=== PATIENT | female | born 1990 | race African-American/Black ===

== ENCOUNTER 2017-10-22 14:16 | Emergency (ER) | payer OTHER ==
--- OUTSIDE RECORDS SUMMARY | 2017-10-22 14:19 | XMS REPORT ---
:1990 [facility] Address [address] [place] [address] [address] [address] Care Team Providers Name Role Phone ANDREYALEXANDERMIREYA VEE Unavailable Unavailable Problems This patient has no known problems. Allergies, Adverse Reactions, Alerts This patient has no known allergies or adverse reactions. Medications This patient has no known medications. Results Test Description Test Time Test Comments Text Results Atomic Results Result Comments BLOOD CULTURE 2017-06-03 10:00:00 Test Item Value Reference Range Comments CULTURE (BEAKER) (test vtlc=3630) No growth in 5 days BLOOD [id number] 10:00:00 Test Item Value Reference Range Comments CULTURE (BEAKER) (test iaeq=0694) No growth in 5 days PROTHROMBIN GENE [id number] 08:45:00 Test Item Value Reference Range Comments PROTHROMBIN/FACTOR II Negative for the P36123A (XP InvestimentosAKER) (test bgjl=6723) (Prothrombin/Factor II) mutation. [id number](MAGALI Dunn M.D. (electonic ) (test efxv=2748) signature) This test is a genotyping assay which evaluates the DNA sequence at position 42243 of the prothrombin (Factor II) gene. A region of the prothrombin (Factor II) gene is amplified by polymerase chain reaction followed by fluorescent monitoring of a specific pair of hybridized probes. Since genetic variation and other factors can affect the accuracy of direct mutation testing, these results should be interpreted in light of clinical and familial data.This test was developed and its performance characteristics determined by the [facility] Pathology Department, Section of Molecular Pathology. It has not been cleared or approved by the U.S. Food and Drug Administration (FDA), since FDA approval is not required for clinical use of the test. Validation was done as required by the Clinical Laboratory Improvement Amendments of 1988.FACTOR 5 LEIDEN PCR (THROMBOTIC RISK)2017-06-02 08:43:00 Test Item Value Reference Range Comments FACTOR V LEIDEN (BEAKER) Negative for the R506Q (Factor (test pfwd=755) V Leiden) mutation [id number]-872 (BEAKER) Dudley Dunn M.D. (electonic (test ngbk=0381) signature) This test is a genotyping assay which evaluates the DNA sequence corresponding to Codon 506 of the Factor V Gene. A region of the Factor V Gene is amplified by polymerase chain reaction followed by fluorescent monitoring of a specific pair of hybridized probes. Since genetic variation and other factors can affect the accuracy of direct mutation testing, these results should be interpreted in light ofclinical and familial data.This test was developed and its performance characteristics determined bythe [facility] Pathology Department, Section of Molecular Pathology. It has not been cleared or approved by the U.S. Food and Drug Administration (FDA), since FDA approval is not required for clinical use of the test. Validation was done as required by the Clinical Laboratory Improvement Amendments of 1988.DILUTE HOMA VIPER VENOM ( DRVV)2017-06-02 07:39:00 Test Item Value Reference Range Comments PROTIME (BEAKER) (test 16.4 seconds 11.7-14.7 wuzs=024) INR (BEAKER) (test dxbc=099) 1.3 <=5.9 PARTIAL THROMBOPLASTIN TIME 52.7 seconds 22.5-36.0 (BEAKER) (test yonj=821) DRVV INTERPRETATION (BEAKER) Negative screen for Lupus (test dygv=8650) Anticoagulant [id number] (BEAKER) Dudley Dunn M.D. (test orfz=4203) (electonic signature) DRVV SCREEN RATIO (BEAKER) 0.76 <1.20 (test oxiw=1415) CBC W/PLT COUNT & AUTO [id number] 14:03:00 Test Item Value Reference Range Comments WHITE BLOOD CELL COUNT (BEAKER) (test errb=125) 3.9 K/ L 3.5-10.5 RED BLOOD CELL COUNT (BEAKER) (test qhpl=344) 3.71 M/ L 3.93-5.22 HEMOGLOBIN (BEAKER) (test ebmj=842) 10.1 GM/DL 11.2-15.7 HEMATOCRIT (BEAKER) (test cmuz=945) 30.9 % 34.1-44.9 MEAN CORPUSCULAR VOLUME (BEAKER) (test bvgb=655) 83.3 fL 79.4-94.8 MEAN CORPUSCULAR HEMOGLOBIN (BEAKER) (test 27.2 pg 25.6-32.2 owsz=193) MEAN CORPUSCULAR HEMOGLOBIN CONC (BEAKER) (test 32.7 GM/DL 32.2-35.5 bsaf=961) RED CELL DISTRIBUTION WIDTH (BEAKER) (test 13.4 % 11.7-14.4 bshb=724) PLATELET COUNT (BEAKER) (test wluo=664) 130 K/CU MM 150-450 MEAN PLATELET VOLUME (BEAKER) (test edeu=329) 11.1 fL 9.4-12.3 NUCLEATED RED BLOOD CELLS (BEAKER) (test 0 /100 WBC 0-0 gnkk=743) NEUTROPHILS RELATIVE PERCENT (BEAKER) (test 17 % msbc=341) LYMPHOCYTES RELATIVE PERCENT (BEAKER) (test 74 % ivqn=982) MONOCYTES RELATIVE PERCENT (BEAKER) (test 5 % biaq=701) EOSINOPHILS RELATIVE PERCENT (BEAKER) (test 2 % fury=913) BASOPHILS RELATIVE PERCENT (BEAKER) (test 1 % yyoi=834) NEUTROPHILS ABSOLUTE COUNT (BEAKER) (test 0.67 K/ L 1.56-6.13 opok=769) LYMPHOCYTES ABSOLUTE COUNT (BEAKER) (test 2.86 K/ L 1.18-3.74 yhmj=466) MONOCYTES ABSOLUTE COUNT (BEAKER) (test 0.21 K/ L 0.24-0.36 peqe=888) EOSINOPHILS ABSOLUTE COUNT (BEAKER) (test 0.09 K/ L 0.04-0.36 dkwj=427) BASOPHILS ABSOLUTE COUNT (BEAKER) (test 0.03 K/ L 0.01-0.08 puqx=498) IMMATURE GRANULOCYTES-RELATIVE PERCENT (BEAKER) 0 % 0-1 (test lpiq=7462) (MANUAL DIFFERENTIAL)2017-06-01 14:03:00 Test Item Value Reference Range Comments TOTAL COUNTED (BEAKER) (test dzmu=6327) WBC MORPHOLOGY (BEAKER) (test dmfs=717) Normal PLT MORPHOLOGY (BEAKER) (test aacb=830) Normal RBC MORPHOLOGY (BEAKER) (test ltrt=010) Normal BASIC METABOLIC [id number] 10:08:00 Test Item Value Reference Range Comments SODIUM (BEAKER) (test 139 meq/L 136-145 ocnb=493) POTASSIUM (BEAKER) (test 3.9 meq/L 3.5-5.1 nbij=276) CHLORIDE (BEAKER) (test 106 meq/L 98-107 njcf=950) CO2 (BEAKER) (test 26 meq/L 22-29 utqy=181) BLOOD UREA NITROGEN 11 mg/dL 7-21 (BEAKER) (test yjog=784) CREATININE (BEAKER) (test 0.70 mg/dL 0.57-1.25 madr=793) GLUCOSE RANDOM (BEAKER) 66 mg/dL 70-105 (test jyrl=063) CALCIUM (BEAKER) (test 7.7 mg/dL 8.4-10.2 xykq=943) EGFR (BEAKER) (test 122 mL/min/1.73 sq m ESTIMATED GFR IS NOT xhna=1735) ACCURATE CREATININE CLEARANCE IN PREDICTING GLOMERULAR FILTRATION RATE. ESTIMATED GFR IS NOT APPLICABLE FOR DIALYSIS PATIENTS. POCT-GLUCOSE [id number] 08:35:00 Test Item Value Reference Range Comments POC-GLUCOSE METER (BEAKER) 72 mg/dL 70-110 TESTED AT [address] (test wszi=1494) [place] [address] ANTI-NUCLEAR ANTIBODY (MARIA ISABEL)2017-06-01 03:41:00 Test Item Value Reference Range Comments ANTI-NUCLEAR ANTIBODY (MARIA ISABEL) (BEAKER) (test Negative Negative rymq=256) POCT-GLUCOSE [id number] 22:27:00 Test Item Value Reference Range Comments POC-GLUCOSE METER (BEAKER) 111 mg/dL 70-110 TESTED AT [address] (test jial=0577) [place] [address] MR, BRAIN, WITHOUT [id number] 17:48:00FINAL REPORT MRI brain and MRA head and neck without contrast 05/31/2017 5:44 PM CLINICAL INDICATION: Stroke TECHNIQUE: Multiplanar, multisequence MR imaging of the brain was performed utilizing the following imaging sequences: Axial T1, T2 , FLAIR, GRE, and DWI; sagittal and coronal T1-weighted images. Two- and three- dimensional nomd-tk-jsvrse MRA images of the intra- and extracranial carotid and vertebral arterial circulations were obtained, from which maximal intensity projection 3-D reconstructions were created. COMPARISON: None available FINDINGS : MRI: There is tortuosity of and fluid within the optic nerve sheath complexes. The lateral ventricles have a pinched appearance. The pituitary gland is flattened against the floor of the sella turcica. There is no infarct, hematoma, hydrocephalus, or extra-axial collection. Normal appearing flow-voids are present in the major intracranial vascular structures. The pineal region, craniocervical junction, and skull base are unremarkable MRA neck: There is no vessel occlusion or flow-limiting stenosis. There is no NASCET-quantifiable cervical internal carotid artery stenosis. Flow is antegrade in both vertebral arteries. MRA iqu[place] of Haq: There is no vessel occlusion, flow-limiting stenosis, or aneurysm. IMPRESSION: 1. Findings that may reflect increased intracranial pressure. Consider further evaluation with intracranial MRA to exclude venous sinus thrombosis/stenosis.2. Unremarkable extracranial and intracranial MRAs. Signed: Patrick Lynne [facility] Verified Date/Time: 2017 17:48:23 Reading Location: [facility] Radiology Reading Room MR, MRA, BRAIN, WITHOUT [id number] 17:48:00FINAL REPORT MRI brain and MRA head and neck without contrast 05/31/2017 5:44 PM CLINICAL INDICATION: Stroke TECHNIQUE: Multiplanar, multisequence MR imaging of the brain was performed utilizing the following imaging sequences: Axial T1, T2, FLAIR, GRE, and DWI; sagittal and coronal T1-weighted images. Two- and three- dimensional lvns-dl-qffetv MRA images of the intra- and extracranial carotid and vertebral arterial circulations were obtained, from which maximal intensity projection 3-D reconstructions were created. COMPARISON: None available FINDINGS : MRI: There is tortuosity of and fluid within the optic nerve sheath complexes. The lateral ventricles have a pinched appearance. The pituitary gland is flattened against the floor of the sella turcica. There is no infarct, hematoma, hydrocephalus, or extra-axial collection. Normal appearing flow-voids are present in the major intracranial vascular structures. The pineal region, craniocervical junction, and skull base are unremarkable MRA neck: There is no vessel occlusion or flow-limiting stenosis. There is no NASCET-quantifiable cervical internal carotid artery stenosis. Flow is antegrade in both vertebral arteries. MRA [place] of [place]q: There is no vessel occlusion, flow-limiting stenosis, or aneurysm. IMPRESSION: 1. Findings that may reflect increased intracranial pressure. Consider further evaluation with intracranial MRA to exclude venous sinus thrombosis/stenosis.2. Unremarkable extracranial and intracranial MRAs. Signed: Patrick Lynne Verified Date/Time: 2017 17:48:23 Reading Location: [facility] Radiology Reading Room MR, MRA, NECK, WITH IV [id number] 17:48:00Please perform without contrastFINAL REPORT MRI brain and MRA head and neck without contrast 5:44 PM CLINICAL INDICATION: Stroke TECHNIQUE: Multiplanar, multisequence MR imaging of the brain was performed utilizing the following imaging sequences: Axial T1, T2, FLAIR, GRE, and DWI; sagittal and coronal T1- weighted images. Two- and three-dimensional blvl-se-riiozk MRA images of the intra- and extracranial carotid and vertebral arterial circulations were obtained, from which maximal intensity projection 3-D reconstructions were created. COMPARISON: None available FINDINGS: MRI: There is tortuosity of and fluid within the optic nerve sheath complexes. The lateral ventricles have a pinched appearance. The pituitary gland is flattened against the floor of the sella turcica. There is no infarct, hematoma, hydrocephalus, or extra-axial collection. Normal appearing flow-voids are present in the major intracranial vascular structures. The pineal region, craniocervical junction, and skull base are unremarkable MRA neck: There is no vessel occlusion or flow-limiting stenosis. There is no NASCET-quantifiable cervical internal carotid artery stenosis. Flow is antegrade in both vertebral arteries. MRA [place] of [place]q: There is no vessel occlusion, flow-limiting stenosis, or aneurysm. IMPRESSION: 1. Findings that may reflect increased intracranial pressure. Consider further evaluation with intracranial MRA to exclude venous sinus thrombosis/stenosis.2. Unremarkable extracranial and intracranial MRAs. Signed: Patrick Lynneeport Verified Date/Time: 05/31/2017 17:48:23 Reading Location: [facility] Radiology Reading Room THROMBIN [id number] 14:28:00 Test Item Value Reference Range Comments THROMBIN TIME (BEAKER) (test gdxg=911) 18.5 secs 13.8-20.0 HEXAGONAL [id number] 14:28:00 Test Item Value Reference Range Comments HEXAGONAL PHOSPHOLIPID (BEAKER) (test gyws=1251) Negative 1:1 MIXING STUDY, [id number] 14:28:00 Test Item Value Reference Range Comments PROTIME (BEAKER) (test lycn=644) 16.4 seconds 11.7-14.7 PARTIAL THROMBOPLASTIN TIME (BEAKER) (test 52.7 seconds 22.5-36.0 brzd=427) PT 1/1 MIX (BEAKER) (test evzp=6440) 14.1 SECS 11.7-14.7 PTT 1/1 MIX (BEAKER) (test npoi=9233) 39.7 SECS 22.5-36.0 CARDIOLIPIN ANTIBODIES, IGG AND [id number] 11:47:00 Test Item Value Reference Range Comments ANTICARDIOLIPIN IGG ANTIBODY (BEAKER) (test < GPL hpjh=243) ANTICARDIOLIPIN IGM ANTIBODY (BEAKER) (test 0.4 MPL wpcf=572) Anticardiolipin IgG Result Interpretation:NEG: <20 GPL; U/mlPOS: >/=20 GPL; U/mlAnticardiolipin IgM Result Interpretation:NEG: <20 MPL; U/mlPOS: >/=20 MPL; U/mlCARDIOLIPIN ANTIBODIES, IGG AND [id number] 11:45:00 Test Item Value Reference Range Comments ANTICARDIOLIPIN IGG ANTIBODY (BEAKER) (test < GPL rtex=391) ANTICARDIOLIPIN IGM ANTIBODY (BEAKER) (test 0.5 MPL keph=691) Anticardiolipin IgG Result Interpretation:NEG: <20 GPL; U/mlPOS: >/=20 GPL; U/mlAnticardiolipin IgM Result Interpretation:NEG: <20 MPL; U/mlPOS: >/=20 MPL; U/mlPOCT-GLUCOSE [id number] 11:39:00 Test Item Value Reference Range Comments POC-GLUCOSE METER (BEAKER) 120 mg/dL 70-110 TESTED AT [facility] [address] (test jfvm=2320) [facility] [address] PROTEIN C [id number] 11:35:00 Test Item Value Reference Range Comments PROTEIN C ACTIVITY (BEAKER) (test gmeq=556) 65.0 % 70.0-130.0 See Protein C Antigen.CBC W/PLT COUNT & AUTO [id number] 10:02:00 Test Item Value Reference Range Comments WHITE BLOOD CELL COUNT (BEAKER) (test cxeo=141) 4.1 K/ L 3.5-10.5 RED BLOOD CELL COUNT (BEAKER) (test thtj=967) 3.68 M/ L 3.93-5.22 HEMOGLOBIN (BEAKER) (test qynh=433) 10.1 GM/DL 11.2-15.7 HEMATOCRIT (BEAKER) (test scxb=469) 30.9 % 34.1-44.9 MEAN CORPUSCULAR VOLUME (BEAKER) (test exgk=444) 84.0 fL 79.4-94.8 MEAN CORPUSCULAR HEMOGLOBIN (BEAKER) (test 27.4 pg 25.6-32.2 cjwx=204) MEAN CORPUSCULAR HEMOGLOBIN CONC (BEAKER) (test 32.7 GM/DL 32.2-35.5 tlip=963) RED CELL DISTRIBUTION WIDTH (BEAKER) (test 13.6 % 11.7-14.4 wchv=052) PLATELET COUNT (BEAKER) (test djag=497) 126 K/CU MM 150-450 MEAN PLATELET VOLUME (BEAKER) (test imgw=833) 11.6 fL 9.4-12.3 NUCLEATED RED BLOOD CELLS (BEAKER) (test 0 /100 WBC 0-0 yuxx=432) IMMATURE GRANULOCYTES-RELATIVE PERCENT (BEAKER) 0 % 0-1 (test xbht=6971) (MANUAL DIFFERENTIAL)2017-05-31 10:02:00 Test Item Value Reference Range Comments NEUTROPHILS - REL (DIFF) (BEAKER) (test sigm=3893) 21 % LYMPHOCYTES - REL (DIFF) (BEAKER) (test jeem=9772) 61 % MONOCYTES - REL (DIFF) (BEAKER) (test adtg=6694) 17 % EOSINOPHILS - REL (DIFF) (BEAKER) (test rqpp=5446) 0 % BASOPHILS - REL (DIFF) (BEAKER) (test rvci=0597) 0 % BANDS - REL (DIFF) (BEAKER) (test fysi=0401) 1 % 0-10 NEUTROPHILS - ABS (DIFF) (BEAKER) (test sikk=5651) 0.86 K/ L 1.80-8.00 LYMPHOCYTES - ABS (DIFF) (BEAKER) (test uvdk=8624) 2.50 K/ L 1.48-4.50 MONOCYTES - ABS (DIFF) (BEAKER) (test aigd=9511) 0.70 K/ L 0.00-1.30 EOSINOPHILS - ABS (DIFF) (BEAKER) (test zrfi=2226) 0.00 K/ L 0.00-0.50 BASOPHILS - ABS (DIFF) (BEAKER) (test rdyy=6919) 0.00 K/ L 0.00-0.20 BANDS-ABS (DIFF) (BEAKER) (test hilf=0793) 0.0 K/ L 0.0-0.8 TOTAL COUNTED (BEAKER) (test czjx=0380) 100 BANDS + SEGMENTED NEUTROPHILS (BEAKER) (test 0.90 xmok=7703) WBC MORPHOLOGY (BEAKER) (test fbha=506) Normal PLT MORPHOLOGY (BEAKER) (test nnxx=846) Normal RBC MORPHOLOGY (BEAKER) (test jcgy=070) Normal POCT-GLUCOSE [id number] 08:18:00 Test Item Value Reference Range Comments POC-GLUCOSE METER (BEAKER) 100 mg/dL 70-110 TESTED AT [facility] [address] [facility] (test agxe=9840) [facility] [address] BASIC METABOLIC [id number] 06:53:00 Test Item Value Reference Range Comments SODIUM (BEAKER) (test 141 meq/L 136-145 gsfg=173) POTASSIUM (BEAKER) (test 3.5 meq/L 3.5-5.1 xeij=762) CHLORIDE (BEAKER) (test 110 meq/L 98-107 ecsa=153) CO2 (BEAKER) (test 21 meq/L 22-29 khlv=205) BLOOD UREA NITROGEN 12 mg/dL 7-21 (BEAKER) (test dvuo=484) CREATININE (BEAKER) (test 0.71 mg/dL 0.57-1.25 mkni=127) GLUCOSE RANDOM (AKER) 68 mg/dL 70-105 (test ppqf=866) CALCIUM (BEAKER) (test 7.5 mg/dL 8.4-10.2 syed=590) EGFR (AKER) (test 120 mL/min/1.73 sq m ESTIMATED GFR IS NOT tkyb=1966) ACCURATE CREATININE CLEARANCE IN PREDICTING GLOMERULAR FILTRATION RATE. ESTIMATED GFR IS NOT APPLICABLE FOR DIALYSIS PATIENTS. POCT-GLUCOSE [id number] 21:28:00 Test Item Value Reference Range Comments POC-GLUCOSE METER ([facility]) 105 mg/dL 70-110 TESTED AT [address] (test khvd=1617) [place] [id number] POCT-GLUCOSE [id number] 12:53:00 Test Item Value Reference Range Comments POC-GLUCOSE METER ([facility]) 126 mg/dL 70-110 TESTED AT [address] (test jtpr=2442) [place] [id number] VANCOMYCIN LEVEL, [id number] 11:31:00 Test Item Value Reference Range Comments VANCOMYCIN TROUGH ([facility]) (test zdjc=751) 13.7 ug/mL 10.0-20.0 Draw 30 min prior to scheduled dose, HOLD if level > 20 mcg/mL, inform MD.ANTITHROMBIN [id number] 11:18:00 Test Item Value Reference Range Comments ANTITHROMBIN III ACTIVITY (BEAKER) (test nfpj=984) 67.0 % 80.0-120.0 URINE [id number] 10:46:00 Test Item Value Reference Range Comments CULTURE (BEAKER) (test qwuv=1409) No growth [id number] 07:57:00 Test Item Value Reference Range Comments HOMOCYSTEINE (BEAKER) (test bmud=495) 7.6 umol/L 5.1-15.4 LACTIC ACID, VENOUS, WHOLE [id number] 07:11:00 Test Item Value Reference Range Comments LACTATE BLOOD VENOUS (2) (BEAKER) (test 0.9 mmol/L 0.5-2.2 xnzy=0084) Effective 09/25/2015: Units/Reference Range ChangeNew: 0.5-2.2 mmol/L Previous: 5 -20 mg/dLBASIC METABOLIC [id number] 07:04:00 Test Item Value Reference Range Comments SODIUM (BEAKER) (test 141 meq/L 136-145 viac=824) POTASSIUM (BEAKER) (test 3.3 meq/L 3.5-5.1 rdxv=816) CHLORIDE (BEAKER) (test 109 meq/L 98-107 cxtq=580) CO2 (BEAKER) (test 26 meq/L 22-29 pnvd=820) BLOOD UREA NITROGEN 12 mg/dL 7-21 (BEAKER) (test azjt=195) CREATININE (BEAKER) (test 0.80 mg/dL 0.57-1.25 pkel=483) GLUCOSE RANDOM (BEAKER) 89 mg/dL 70-105 (test shrp=108) CALCIUM (BEAKER) (test 7.8 mg/dL 8.4-10.2 vibe=108) EGFR (BEAKER) (test 104 mL/min/1.73 sq m ESTIMATED GFR IS NOT oozh=5626) ACCURATE CREATININE CLEARANCE IN PREDICTING GLOMERULAR FILTRATION RATE. ESTIMATED GFR IS NOT APPLICABLE FOR DIALYSIS PATIENTS. POCT-GLUCOSE [id number] 00:35:00 Test Item Value Reference Range Comments POC-GLUCOSE METER (BEAKER) 87 mg/dL 70-110 TESTED AT [address] (test qgda=6484) [place] [address] [id number] 23:26:00 Test Item Value Reference Range Comments RPR SCREEN (BEAKER) (test phbu=252) Nonreactive Nonreactive POCT-GLUCOSE [id number] 17:52:00 Test Item Value Reference Range Comments POC-GLUCOSE METER (BEAKER) 87 mg/dL 70-110 TESTED AT [address] (test xevj=5802) [place] [address] POCT-GLUCOSE [id number] 12:58:00 Test Item Value Reference Range Comments POC-GLUCOSE METER (BEAKER) 117 mg/dL 70-110 TESTED AT [address] (test mcpi=7802) [place] [address] EEG AWAKE AND [id number] 12:51:00Reason for exam:->abnormal EEG with altered mental status, concern for statusShould this be performed at the bedside ?->YesEEG REPORT: Alyssa [facility] , DATE: EEG #: [id number] Code: #: R41.82 Altered mental status, unspecified (ICD 9: 780.97)CPT Code: #: 15036: 03. EEG coma or sleep only; 20-40 minPROCEDURE: EEG CONDITIONS OF RECORDING: This is a digital EEG performed using disc electrodes placed according to the International 10-20 system ofelectrode placement. Scalp to scalp and scalp to ear montages were used. No sedation was given.DESCRIPTION OF RECORD: The EEG record was diffusely slow with a mixed frequency background consisting of delta (2-3 cycles/ sec) and theta (5-6 cycles/ sec) frequency activity. A posterior dominant rhythmwas not apparent. The EEG background was reactive spontaneously. There was no focal asymmetry in thebackground. No epileptiform discharges were noted. No clinical or electrographic seizures were noted. Sleep stages were not seen. Hyperventilation was not performed. Photic stimulation was not performed. The heart rate was 96/ min.IMPRESSION: The EEG was abnormal due to moderate diffuse slowing of thebackground rhythm. No seizures or epileptiform discharges were seen. COMMENT: Diffuse slowing is a nonspecific finding indicative of global cerebral dysfunction of metabolic, toxic, drug-induced or other etiology.Clinical Fellow: Sherly Higginsrophysiologist: Daphne Woods HEMOGLOBIN [id number] 08:42:00 Test Item Value Reference Range Comments HEMOGLOBIN A1C (BEAKER) (test dhvr=133) 5.6 % 4.3-6.1 HIV-1 ANTIGEN WITH HIV-1/2 [id number] 05:23:00 Test Item Value Reference Range Comments HIV-1 ANTIGEN WITH HIV 1\T\2 ANTIBODY (2) Nonreactive Nonreactive (BEAKER) (test wqlm=2322) SEDIMENTATION [id number] 05:05:00 Test Item Value Reference Range Comments SEDIMENTATION RATE, ERYTHROCYTE (BEAKER) (test 48 mm/HR 0-20 xxea=372) RAD, HIP, 2 VIEWS, [id number] 03:29:00Reason for exam:->possible fall at homeFINAL REPORT RAD, HIP, 2 VIEWS, RIGHT CLINICAL INDICATION: possible fall at home COMPARISON: None TECHNIQUE: Single frontal view of the pelvis. FINDINGS:No fracture is identified. The sacroiliac joints, hip joints and symphysis pubis appear intact. Periarticular fat stripes are in place. Surrounding soft tissues are unremarkable. IMPRESSION: No acute osseous abnormality of the pelvis. Signed: JR Lomas Robert MDReport Verified Date/Time: 05/29/2017 03:29:06 Reading Location: [address] Body Reading Room CREATINE KINASE (CK), TOTAL AND [id number] 02:57:00 Test Item Value Reference Range Comments CREATINE KINASE TOTAL (BEAKER) (test euyh=315) 581 U/L 29-200 CREATINE KINASE-MB (BEAKER) (test basb=651) 1.2 ng/mL 0.0-6.6 CREATINE KINASE-MB INDEX (BEAKER) (test llgq=895) 0.2 % CK-MB Reference Range:<6.7 Normal6.7-10.0 Borderline>10.0 AbnormalTROPONIN [id number] 02:57:00 Test Item Value Reference Range Comments TROPONIN I (BEAKER) (test yrwc=713) < ng/mL 0.00-0.03 Troponin I (TnI) levels must be interpreted in the context of the presenting symptoms and the clinical findings. Elevated TnI levels indicate myocardial damage, but are not specific for ischemic heart disease. Elevated TnI levels are seen in patients with other cardiac conditions (including myocarditis and congestive heart failure), and slight TnI elevations occur in patients with other conditions, including sepsis, renal failure, acidosis, acute neurological disease, and persistent tachyarrhythmia.CREATINE KINASE (CK), TOTAL AND [id number] 02:56:00 Test Item Value Reference Range Comments CREATINE KINASE TOTAL (BEAKER) (test axox=756) 577 U/L 29-200 CREATINE KINASE-MB (BEAKER) (test yavt=802) 1.2 ng/mL 0.0-6.6 CREATINE KINASE-MB INDEX (BEAKER) (test pguu=100) 0.2 % CK-MB Reference Range:<6.7 Normal6.7-10.0 Borderline>10.0 AbnormalTROPONIN [id number] 02:56:00 Test Item Value Reference Range Comments TROPONIN I (BEAKER) (test hypj=923) < ng/mL 0.00-0.03 Troponin I (TnI) levels must be interpreted in the context of the presenting symptoms and the clinical findings. Elevated TnI levels indicate myocardial damage, but are not specific for ischemic heart disease. Elevated TnI levels are seen in patients with other cardiac conditions (including myocarditis and congestive heart failure), and slight TnI elevations occur in patients with other conditions, including sepsis, renal failure, acidosis, acute neurological disease, and persistent tachyarrhythmia.LIPID [id number] 02:53:00 Test Item Value Reference Range Comments TRIGLYCERIDES (BEAKER) (test fjaz=075) 50 mg/dL CHOLESTEROL (BEAKER) (test fpiu=982) 160 mg/dL HDL CHOLESTEROL (BEAKER) (test rpvb=692) 48 mg/dL LDL CHOLESTEROL CALCULATED (BEAKER) (test 102 mg/dL eiqt=779) Triglyceride Reference Range: Low Risk <150 Borderline 150- 199 High Risk 200-499 Very High Risk >=500Cholesterol Reference Range: Low Risk <200 Borderline 200-239 High Risk > 240HDL Cholesterol Reference Range: Low Risk >=60 High Risk <40LDL Cholesterol Reference Range: Optimal <100 Near Optimal 100-129 Borderline 130-159 High 160-189 Very High >=190BASIC METABOLIC [id number] 02:53:00 Test Item Value Reference Range Comments SODIUM (BEAKER) (test 138 meq/L 136-145 udyy=839) POTASSIUM (BEAKER) (test 3.7 meq/L 3.5-5.1 gjwx=214) CHLORIDE (BEAKER) (test 107 meq/L 98-107 iiwl=208) CO2 (BEAKER) (test 20 meq/L 22-29 jxgq=803) BLOOD UREA NITROGEN 10 mg/dL 7-21 (BEAKER) (test biec=786) CREATININE (BEAKER) (test 0.93 mg/dL 0.57-1.25 xhic=741) GLUCOSE RANDOM (BEAKER) 103 mg/dL 70-105 (test qozd=540) CALCIUM (BEAKER) (test 8.4 mg/dL 8.4-10.2 mzsl=056) EGFR (BEAKER) (test 88 mL/min/1.73 sq m ESTIMATED GFR IS NOT jqpf=8113) ACCURATE CREATININE CLEARANCE IN PREDICTING GLOMERULAR FILTRATION RATE. ESTIMATED GFR IS NOT APPLICABLE FOR DIALYSIS PATIENTS. HEPATIC FUNCTION [id number] 02:53:00 Test Item Value Reference Range Comments TOTAL PROTEIN (BEAKER) (test qmya=052) 7.6 gm/dL 6.0-8.3 ALBUMIN (BEAKER) (test uqkr=4567) 3.6 g/dL 3.5-5.0 BILIRUBIN TOTAL (BEAKER) (test ochm=805) 0.3 mg/dL 0.2-1.2 BILIRUBIN DIRECT (BEAKER) (test nxgc=095) 0.2 mg/dL 0.1-0.5 ALKALINE PHOSPHATASE (BEAKER) (test mbvj=780) 58 U/L 40-150 AST (SGOT) (BEAKER) (test atyh=715) 33 U/L 5-34 ALT (SGPT) (BEAKER) (test jhok=885) 15 U/L 6-55 [id number] 02:53:00 Test Item Value Reference Range Comments AMYLASE (BEAKER) (test cfhb=464) 74 U/L 25-125 [id number] 02:53:00 Test Item Value Reference Range Comments LIPASE (BEAKER) (test aket=533) 13 U/L 8-78 C-REACTIVE [id number] 02:53:00 Test Item Value Reference Range Comments C-REACTIVE PROTEIN (BEAKER) (test wmmy=704) 10.77 mg/dL 0.00-0.50 LACTIC ACID, ARTERIAL, WHOLE [id number] 02:47:00 Test Item Value Reference Range Comments LACTATE BLOOD ARTERIAL (2) (BEAKER) (test 0.7 mmol/L 0.5-2.2 andk=1925) Effective 09/25/2015: Units/Reference Range ChangeNew: 0.5-2.2 mmol/L Previous: 5 -20 mg/[id number] 02:36:00 Test Item Value Reference Range Comments PARTIAL THROMBOPLASTIN TIME (BEAKER) (test 51.7 seconds 22.5-36.0 mapb=366) PROTHROMBIN TIME/[id number] 02:35:00 Test Item Value Reference Range Comments PROTIME (BEAKER) (test ygsw=150) 16.3 seconds 11.7-14.7 INR (BEAKER) (test lbir=050) 1.3 <=5.9 RECOMMENDED COUMADIN/WARFARIN INR THERAPY RANGESSTANDARD DOSE: 2.0 - 3.0 Includes: PROPHYLAXIS forvenous thrombosis, systemic embolization; TREATMENT for venous thrombosis and/or pulmonary embolus.HIGH RISK: Target INR is 2.5-3.5 for patients with mechanical heart valves.CBC W/PLT COUNT & AUTO [id number] 02:35:00 Test Item Value Reference Range Comments WHITE BLOOD CELL COUNT (BEAKER) (test jwve=713) 4.0 K/ L 3.5-10.5 RED BLOOD CELL COUNT (BEAKER) (test apik=614) 4.12 M/ L 3.93-5.22 HEMOGLOBIN (BEAKER) (test fbtc=452) 11.4 GM/DL 11.2-15.7 HEMATOCRIT (BEAKER) (test ljjy=649) 33.8 % 34.1-44.9 MEAN CORPUSCULAR VOLUME (BEAKER) (test wwyl=942) 82.0 fL 79.4-94.8 MEAN CORPUSCULAR HEMOGLOBIN (BEAKER) (test 27.7 pg 25.6-32.2 dzlo=903) MEAN CORPUSCULAR HEMOGLOBIN CONC (BEAKER) (test 33.7 GM/DL 32.2-35.5 rnjy=120) RED CELL DISTRIBUTION WIDTH (BEAKER) (test 13.5 % 11.7-14.4 izea=757) PLATELET COUNT (BEAKER) (test ohey=616) 153 K/CU MM 150-450 MEAN PLATELET VOLUME (BEAKER) (test dssm=666) 10.8 fL 9.4-12.3 NUCLEATED RED BLOOD CELLS (BEAKER) (test 0 /100 WBC 0-0 kwpv=686) NEUTROPHILS RELATIVE PERCENT (BEAKER) (test 83 % flts=617) LYMPHOCYTES RELATIVE PERCENT (BEAKER) (test 14 % fmxf=756) MONOCYTES RELATIVE PERCENT (BEAKER) (test 2 % epqs=832) EOSINOPHILS RELATIVE PERCENT (BEAKER) (test 0 % frim=158) BASOPHILS RELATIVE PERCENT (BEAKER) (test 1 % zndx=059) NEUTROPHILS ABSOLUTE COUNT (BEAKER) (test 3.31 K/ L 1.56-6.13 gfed=984) LYMPHOCYTES ABSOLUTE COUNT (BEAKER) (test 0.57 K/ L 1.18-3.74 rttp=694) MONOCYTES ABSOLUTE COUNT (BEAKER) (test 0.06 K/ L 0.24-0.36 xipa=751) EOSINOPHILS ABSOLUTE COUNT (BEAKER) (test 0.00 K/ L 0.04-0.36 pmzd=868) BASOPHILS ABSOLUTE COUNT (BEAKER) (test 0.02 K/ L 0.01-0.08 irng=578) IMMATURE GRANULOCYTES-RELATIVE PERCENT (BEAKER) 0 % 0-1 (test rbwl=9578) URINALYSIS W/ [id number] 02:31:00 Test Item Value Reference Range Comments COLOR (BEAKER) (test cflv=194) Light Yellow CLARITY (BEAKER) (test ofsy=462) Clear SPECIFIC GRAVITY UA (BEAKER) (test 1.003 1.001-1.035 wqsf=825) PH UA (BEAKER) (test ymvk=660) 5.0 5.0-8.0 PROTEIN UA (BEAKER) (test pqgr=540) Negative Negative GLUCOSE UA (BEAKER) (test mozn=898) Negative Negative KETONES UA (BEAKER) (test cgaj=226) Negative Negative BILIRUBIN UA (BEAKER) (test vmho=888) Negative Negative BLOOD UA (BEAKER) (test dceb=612) Negative Negative NITRITE UA (BEAKER) (test oowb=230) Negative Negative LEUKOCYTE ESTERASE UA (BEAKER) (test Negative Negative peqi=002) UROBILINOGEN UA (BEAKER) (test zofq=623) 0.2 mg/dL 0.2-1.0 RBC UA (BEAKER) (test wuiw=037) < /HPF WBC UA (BEAKER) (test uerq=980) < /HPF BACTERIA (BEAKER) (test rmvu=096) Rare MUCUS (BEAKER) (test nvnt=0675) Rare SQUAMOUS EPITHELIAL (BEAKER) (test 1 /HPF pyvw=120) AMORPHOUS CRYSTALS (BEAKER) (test Rare vacv=3682) SOURCE(BEAKER) (test pxov=7563) Urine, Clean Catch SCREEN, [id number] 00:58:00 Test Item Value Reference Range Comments TEST URINE (BEAKER) (test azzd=548) Negative POCT-GLUCOSE [id number] 00:47:00 Test Item Value Reference Range Comments POC-GLUCOSE METER (BEAKER) 102 mg/dL 70-110 TESTED AT [facility] [address] (test tijj=2511) [facility] [id number]
--- OUTSIDE RECORDS SUMMARY | 2017-10-22 14:19 | XMS REPORT | Clinical Summary ---
:1990 Author Organization [facility] Address [address] [place] [address] Phone Care Team Providers Name Role Phone Unavailable Primary Care Provider Unavailable Allergies Active Allergy Reactions Severity Noted Date Comments Zolpidem Shortness Of Breath High 05/28/2017 Current Medications Prescription Sig. Disp. Refills Start Date End Date Status levETIRAcetam (KEPPRA) Take 1 tablet 60 tablet 11 06/01/2017 06/01/2018 Active 500 MG tablet (500 mg total) by mouth 2 (two) times daily. Active Problems Problem Noted Date Seizure disorder (HCC) 05/30/2017 Mild intermittent asthma without complication 05/30/2017 Physical deconditioning 05/30/2017 Cerebrovascular accident (CVA) due to bilateral occlusion of anterior 2017 cerebral arteries (HCC) EEG abnormal 05/28/2017 Altered mental status 05/28/2017 Fever 05/28/2017 Encounters Date Type Specialty Care Team Description 05/28/2017 - [facility] Internal [facility] Pereira, Transient alteration 06/01/2017 Encounter Medicine Chethan of MD Poly awareness;Cerebrovasc ular accident (CVA) due to bilateral occlusion of anterior cerebral arteries (HCC);EEG abnormal;Fever, unspecified fever cause;Seizure disorder (HCC);Mild intermittent asthma without complication;Physical deconditioning 05/28/2017 Orders Only Neurology Keli Sweeney MD after 10/21/2016 Social History Tobacco Use Types Packs/Day Years Used Date Never Smoker Smokeless Tobacco: Never Used Alcohol Use Drinks/Week oz/Week Comments No Sex Assigned at Date Recorded Not on file Last Filed Vital Signs Vital Sign Reading Time Taken Blood Pressure 97/59 06/01/2017 8:00 AM WATER TREATMENT SPECIALIST Pulse 61 06/01/2017 8:00 AM WATER TREATMENT SPECIALIST Temperature 36.4 C (97.6 F) 06/01/2017 8:00 AM WATER TREATMENT SPECIALIST Respiratory Rate 16 06/01/2017 8:00 AM WATER TREATMENT SPECIALIST Oxygen Saturation 98% 06/01/2017 8:00 AM WATER TREATMENT SPECIALIST Inhaled Oxygen Concentration - - Weight 40.2 kg (88 lb 10 oz) 05/28/2017 11:15 PM WATER TREATMENT SPECIALIST Height 162.6 cm (5' 4") 05/28/2017 11:15 PM WATER TREATMENT SPECIALIST Body Mass Index 15.21 05/28/2017 11:15 PM WATER TREATMENT SPECIALIST Plan of Treatment Not on file Results RHYTHM STRIP - SCAN (06/02/2017 2:12 PM)POC-Glucose meter (06/01/2017 8:33 AM) Only the most recent of10 resultswithin the time period is included. Component Value Ref Range POC-Glucose Meter 72Comment: TESTED AT [address] 70 - 110 mg/dL [id number] Specimen Performing Laboratory Blood [address] [address] Manual Differential (06/01/2017 6:39 AM)Only the most recent of2 resultswithin the time period is included. Component Value Ref Range Total Counted WBC Morphology Normal Platelet Morphology Normal RBC Morphology Normal Specimen Performing Laboratory Blood - Arm, Right [address] [address] CBC with platelet count + automated diff (06/01/2017 6:39 AM)Only the most recent of3 resultswithin the time period is included. Component Value Ref Range WBC 3.9 3.5 - 10.5 K/L RBC 3.71 (L) 3.93 - 5.22 M/L Hemoglobin 10.1 (L) 11.2 - 15.7 GM/DL Hematocrit 30.9 (L) 34.1 - 44.9 % MCV 83.3 79.4 - 94.8 fL MCH 27.2 25.6 - 32.2 pg MCHC 32.7 32.2 - 35.5 GM/DL RDW 13.4 11.7 - 14.4 % Platelets 130 (L) 150 - 450 K/CU MM MPV 11.1 9.4 - 12.3 fL nRBC 0 0 - 0 /100 WBC % Neutros 17 % % Lymphs 74 % % Monos 5 % % Eos 2 % % Baso 1 % # Neutros 0.67 (L) 1.56 - 6.13 K/L # Lymphs 2.86 1.18 - 3.74 K/L # Monos 0.21 (L) 0.24 - 0.36 K/L # Eos 0.09 0.04 - 0.36 K/L # Baso 0.03 0.01 - 0.08 K/L Immature Granulocytes-Relative 0 0 - 1 % Specimen Performing Laboratory Blood - Arm, [address] [address] CBC with platelet count + automated diff (06/01/2017 6:39 AM)Only the most recent of3 resultswithin the time period is included. Specimen Performing Laboratory Blood Narrative The following orders were created for panel order CBC with platelet count + automated diff. Procedure Abnormality Status --------- ------ CBC with platelet count ...[[id number]]AbnormalFinal result Manual Differential[[id number]] Fi nal result Please view results for these tests on the individual orders. Basic Metabolic Panel (06/01/2017 6:39 AM)Only the most recent of4 resultswithin the time period is included. Component Value Ref Range Sodium 139 136 - 145 meq/L Potassium 3.9 3.5 - 5.1 meq/L Chloride 106 98 - 107 meq/L CO2 26 22 - 29 meq/L BUN 11 7 - 21 mg/dL Creatinine 0.70 0.57 - 1.25 mg/dL Glucose 66 (L) 70 - 105 mg/dL Calcium 7.7 (L) 8.4 - 10.2 mg/dL EGFR 122Comment: ESTIMATED GFR IS NOT ACCURATE mL/min/1.73 sq m CREATININE CLEARANCE IN PREDICTING GLOMERULAR FILTRATION RATE. ESTIMATED GFR IS NOT APPLICABLE FOR DIALYSIS PATIENTS. Specimen Performing Laboratory Blood - Arm, [address] [address] MR brain without IV contrast (05/31/2017 5:45 PM) Specimen Performing Laboratory GE RIS Narrative FINAL REPORT MRI brain and MRA head and neck without contrast 05/31/2017 5:44 PM CLINICAL INDICATION: Stroke TECHNIQUE: Multiplanar, multisequence MR imaging of the brain was performed utilizing the following imaging sequences: Axial T1, T2, FLAIR, GRE, and DWI; sagittal and coronal T1-weighted images.Two- and three-dimensional oott-xc-oetrmz MRA images of the intra- and extracranial [...] is antegrade in both vertebral arteries. MRA hoh of Haq: There is no vessel occlusion, flow-limiting stenosis, or aneurysm. IMPRESSION: 1. Findings that may reflect increased intracranial pressure. Consider further evaluation with intracranial MRA to exclude venous sinus thrombosis/stenosis. 2. Unremarkable extracranial and intracranial MRAs. Signed: Patrick Lynne MD Report Verified Date/Time:05/31/2017 17:48:23 Reading Location: [facility] Radiology Reading Room Procedure Note Interface, External Ris In - 05/31/2017 7:29 PM WATER TREATMENT SPECIALIST FINAL REPORT MRI brain and MRA head and neck without contrast 05/31/2017 5:44 PM CLINICAL INDICATION: Stroke TECHNIQUE: Multiplanar, multisequence MR imaging of the brain was performed utilizing the following imaging sequences: Axial T1, T2, FLAIR, GRE, and DWI; sagittal and coronal T1-weighted images. Two- and three-dimensional lsxh-rz-okruvo MRA images of the intra- and extracranial [...] is antegrade in both vertebral arteries. MRA hoh of Haq: There is no vessel occlusion, flow-limiting stenosis, or aneurysm. IMPRESSION: 1. Findings that may reflect increased intracranial pressure. Consider further evaluation with intracranial MRA to exclude venous sinus thrombosis/stenosis. 2. Unremarkable extracranial and intracranial MRAs. Signed: Patrick Lynne MD Report Verified Date/Time: 05/31/2017 17:48:23 Reading Location: [facility] Radiology Reading Room neck with IV contrast (05/31/2017 5:45 PM) Specimen Performing Laboratory [employer] Narrative FINAL REPORT MRI brain and MRA head and neck without contrast 05/31/2017 5:44 PM CLINICAL INDICATION: Stroke TECHNIQUE: Multiplanar, multisequence MR imaging of the brain was performed utilizing the following imaging sequences: Axial T1, T2, FLAIR, GRE, and DWI; sagittal and coronal T1-weighted images.Two- and three-dimensional lqwx-yf-sxcmng MRA images of the intra- and extracranial [...] is antegrade in both vertebral arteries. MRA hoh of Haq: There is no vessel occlusion, flow-limiting stenosis, or aneurysm. IMPRESSION: 1. Findings that may reflect increased intracranial pressure. Consider further evaluation with intracranial MRA to exclude venous sinus thrombosis/stenosis. 2. Unremarkable extracranial and intracranial MRAs. Signed: Patrick Lynne MD Report Verified Date/Time:05/31/2017 17:48:23 Reading Location: [facility] Radiology Reading Room Procedure Note Interface, External Ris In - 05/31/2017 7:29 PM WATER TREATMENT SPECIALIST FINAL REPORT MRI brain and MRA head and neck without contrast 05/31/2017 5:44 PM CLINICAL INDICATION: Stroke TECHNIQUE: Multiplanar, multisequence MR imaging of the brain was performed utilizing the following imaging sequences: Axial T1, T2, FLAIR, GRE, and DWI; sagittal and coronal T1-weighted images. Two- and three-dimensional lvuf-ym-ujewgg MRA images of the intra- and extracranial [...] is antegrade in both vertebral arteries. MRA hoh of Haq: There is no vessel occlusion, flow-limiting stenosis, or aneurysm. IMPRESSION: 1. Findings that may reflect increased intracranial pressure. Consider further evaluation with intracranial MRA to exclude venous sinus thrombosis/stenosis. 2. Unremarkable extracranial and intracranial MRAs. Signed: Patrick Lynne MD Report Verified Date/Time: 05/31/2017 17:48:23 Reading Location: [facility] Radiology Reading Room head without IV contrast (05/31/2017 5:45 PM) Specimen Performing Laboratory RIS Narrative FINAL REPORT MRI brain and MRA head and neck without contrast 05/31/2017 5:44 PM CLINICAL INDICATION: Stroke TECHNIQUE: Multiplanar, multisequence MR imaging of the brain was performed utilizing the following imaging sequences: Axial T1, T2, FLAIR, GRE, and DWI; sagittal and coronal T1-weighted images.Two- and three-dimensional wzwm-of-jugvuu MRA images of the intra- and extracranial [...] is antegrade in both vertebral arteries. MRA hoh of Haq: There is no vessel occlusion, flow-limiting stenosis, or aneurysm. IMPRESSION: 1. Findings that may reflect increased intracranial pressure. Consider further evaluation with intracranial MRA to exclude venous sinus thrombosis/stenosis. 2. Unremarkable extracranial and intracranial MRAs. Signed: Patrick Lynne MD Report Verified Date/Time:05/31/2017 17:48:23 Reading Location: [facility] Radiology Reading Room Procedure Note Interface, External Ris In - 05/31/2017 7:29 PM WATER TREATMENT SPECIALIST FINAL REPORT MRI brain and MRA head and neck without contrast 05/31/2017 5:44 PM CLINICAL INDICATION: Stroke TECHNIQUE: Multiplanar, multisequence MR imaging of the brain was performed utilizing the following imaging sequences: Axial T1, T2, FLAIR, GRE, and DWI; sagittal and coronal T1-weighted images. Two- and three-dimensional jrmb-pz-ishkve MRA images of the intra- and extracranial [...] is antegrade in both vertebral arteries. MRA hoh of Haq: There is no vessel occlusion, flow-limiting stenosis, or aneurysm. IMPRESSION: 1. Findings that may reflect increased intracranial pressure. Consider further evaluation with intracranial MRA to exclude venous sinus thrombosis/stenosis. 2. Unremarkable extracranial and intracranial MRAs. Signed: Patrick Lynne MD Report Verified Date/Time: 05/31/2017 17:48:23 Reading Location: [facility] Radiology Reading Room Prothrombin Gene Mutation (05/30/2017 6:24 AM) Component Value Ref Range Prothrombin/Factor II Negative for the [id number] (Prothrombin/Factor II) mutation. Pathologist: Dudley Dunn M.D. (electonic signature) Specimen Performing Laboratory Blood - Arm, Right [address] This test is a genotyping assay which evaluates the DNA sequence at position [address]6874 of the prothrombin (Factor II) gene. A region of the prothrombin (Factor II) gene is amplified by polymerase chain reaction followed by fluorescent monitoring of a specific pair of hybridized probes. Since genetic variation and other factors can affect the accuracy of direct mutation testing, these results should be interpreted in light of clinical and familial data. This test was developed and its performance characteristics determined by the [facility] Pathology Department, Section of Molecular Pathology. It has not been cleared or approved by the U.S. Food and Drug Administration (FDA), since FDA approval is not required for clinical use of the test. Validation was done as required by the Clinical Laboratory Improvement Amendments of 1988. Lactic acid, venous, whole blood Daily (05/30/2017 6:24 AM) Component Value Ref Range Lactate, Venous 0.9 0.5 - 2.2 mmol/L Specimen Performing Laboratory Blood - Arm, [address] [address] Narrative Effective 09/25/2015: Units/Reference Range Change New: 0.5-2.2 mmol/LPrevious: 5-20 mg/dL Beta-2 glycoprotein antibodies (05/30/2017 6:24 AM) Component Value Ref Range B2 Glcoprotein Ab Profile Refer to individual B2-Glycoprotein IgG, IgM and IgA results. Specimen Performing Laboratory Blood - Arm, Right [facility] [place] [id number] [place] [address] Protein S activity (05/30/2017 6:24 AM) Component Value Ref Range Protein S Functional 25 (L) 60 - 140 % normal Comment: Decreased levels of Protein S activity may be found in patients with hereditary deficiency, warfarin therapy, vitamin k deficiency, liver disease , DIC, or recent thrombosis as well as after surgery. In addition, it may be physiologic in . An elevated Protein S activity is not clinically significant. Only deficiencies are associated with an increased thrombotic risk. Specimen Performing Laboratory Blood - Arm, Right [facility] [place] [id number] [place] [address] Narrative Performing Lab [facility] [address] Elizabeth Martinez MD Protein C antigen, total (05/30/2017 6:24 AM) Component Value Ref Range Scan Result Protein C Antigen 64 (L) 70 - 140 % normal Comment: Decreased levels of Protein C antigen may be found in congenital deficiency, treatment with oral anticoagulants, liver disease, D.I.C. and post surgery. Specimen Performing Laboratory Blood - Arm, Right [facility] [address] [place] [address] Narrative Performing Lab E[facility] [address] [address] Elizabeth Martinez MD Protein C activity (05/30/2017 6:24 AM) Component Value Ref Range Protein C Activity 65.0 (L) 70.0 - 130.0 % Specimen Performing Laboratory Blood - Arm, [place] [address] Narrative See Protein C Antigen. Cardiolipin Antibodies, IgG and IgM (05/30/2017 6:24 AM)Only the most recent of2 resultswithin the time period is included. Component Value Ref Range Anticardiolipin IgG <1.6 GPL Anticardiolipin IgM 0.4 MPL Specimen Performing Laboratory Blood - Arm, [place] [address] Narrative Anticardiolipin IgG Result Interpretation: NEG:<20 GPL;U/ml POS:>/=20 GPL;U/ml Anticardiolipin IgM Result Interpretation: NEG:<20 MPL;U/ml POS:>/=20 MPL;U/ml Factor 5 Leiden PCR (thrombotic risk) (05/30/2017 6:24 AM) Component Value Ref Range Factor V Leiden Negative for the R506Q (Factor V Leiden) mutation Pathologist: Dudley Dunn M.D. (electonic signature) Specimen Performing Laboratory Blood - Arm, [place] [address] Narrative This test is a genotyping assay which [...] interpreted in light of clinical and familial data. This test was developed and its performance characteristics determined by the [facility] Pathology Department, Section of Molecular Pathology. It has not been cleared or approved by the U.S. Food and Drug Administration (FDA) , since FDA approval is not required for clinical use of the test. Validation was done as required by the Clinical Laboratory Improvement Amendments of 1988. Antithrombin III (05/30/2017 6:24 AM) Component Value Ref Range Antithrombin III 67.0 (L) 80.0 - 120.0 % Specimen Performing Laboratory Blood - Arm, [address] [address] Homocysteine (05/30/2017 6:24 AM) Component Value Ref Range Homocysteine 7.6 5.1 - 15.4 umol/L Specimen Performing Laboratory Blood - Arm, Right [facility] [address] [place] [address] Vancomycin level, trough (05/30/2017 6:24 AM) Component Value Ref Range Vancomycin Tr 13.7 10.0 - 20.0 ug/mL Specimen Performing Laboratory Blood - Arm, Right [facility] [address] [place] [address] Narrative Draw 30 min prior to scheduled dose, HOLD if level > 20 mcg/mL, inform MD. EEG awake and drowsy (05/29/2017 11:00 AM) Specimen Performing Laboratory GE RIS Narrative EEG REPORT: Alyssa García [facility] , DATE: EEG#: [id number] ICD Code: #: R41.82 Altered mental status, unspecified (ICD 9: 780.97) CPT Code: #: 68929: 03. EEG coma or sleep only; 20-40 min PROCEDURE: EEG CONDITIONS OF RECORDING: This is a digital EEG performed using disc electrodes placed according to the International 10-20 system of electrode placement.Scalp to scalp and scalp to ear montages were used.No sedation was given. DESCRIPTION OF RECORD: The EEG record was diffusely slow with a mixed frequency background consisting of delta (2-3 cycles/ sec) and theta (5-6 cycles/ sec) frequency activity. A posterior dominant rhythm was not apparent. The EEG background was reactive spontaneously. There was no focal asymmetry in the background. No epileptiform discharges were noted. No clinical or electrographic seizures were noted. Sleep stages were not seen. Hyperventilation was not performed. Photic stimulation was not performed. The heart rate was 96/ min. IMPRESSION: The EEG was abnormal due to moderate diffuse slowing of the background rhythm. No seizures or epileptiform discharges were seen. COMMENT: Diffuse slowing is a nonspecific finding indicative of global cerebral dysfunction of metabolic, toxic, drug-induced or other etiology. Clinical Fellow: Sherly Anderson Neurophysiologist: Daphne Woods Procedure Note Interface, External Ris In - 05/29/2017 12:51 PM WATER TREATMENT SPECIALIST EEG REPORT: Alyssa García [facility] , DATE: EEG #: [id number] ICD Code: #: R41.82 Altered mental status, unspecified (ICD 9: 780.97) CPT Code: #: 44648: 03. EEG coma or sleep only; 20-40 min PROCEDURE: EEG CONDITIONS OF RECORDING: This is a digital EEG performed using disc electrodes placed according to the International 10-20 system of electrode placement. Scalp to scalp and scalp to ear montages were used. No sedation was given. DESCRIPTION OF RECORD: The EEG record was diffusely slow with a mixed frequency background consisting of delta (2-3 cycles/ sec) and theta (5-6 cycles/ sec) frequency activity. A posterior dominant rhythm was not apparent. The EEG background was reactive spontaneously. There was no focal asymmetry in the background. No epileptiform discharges were noted. No clinical or electrographic seizures were noted. Sleep stages were not seen. Hyperventilation was not performed. Photic stimulation was not performed. The heart rate was 96/ min. IMPRESSION: The EEG was abnormal due to moderate diffuse slowing of the background rhythm. No seizures or epileptiform discharges were seen. COMMENT: Diffuse slowing is a nonspecific finding indicative of global cerebral dysfunction of metabolic, toxic, drug-induced or other etiology. Clinical Fellow: Sherly Anderson Neurophysiologist: Daphne Woods hip 2 views right (05/29/2017 3:02 AM) Specimen Performing Laboratory GE RIS Narrative FINAL REPORT RAD, HIP, 2 VIEWS, RIGHT CLINICAL INDICATION: possible fall at home COMPARISON: None TECHNIQUE: Single frontal view of the pelvis. FINDINGS: No fracture is identified. The sacroiliac joints, hip joints and symphysis pubis appear intact. Periarticular fat stripes are in place. Surrounding soft tissues are unremarkable. IMPRESSION: No acute osseous abnormality of the pelvis. Signed: JR Lomas Robert MD Report Verified Date/Time:05/29/2017 03:29:06 Reading Location: [facility] B1 C013Y CT Body Reading Room Procedure Note Interface, External Ris In - 05/29/2017 3:58 AM WATER TREATMENT SPECIALIST FINAL REPORT RAD, HIP, 2 VIEWS, RIGHT CLINICAL INDICATION: possible fall at home COMPARISON: None TECHNIQUE: Single frontal view of the pelvis. FINDINGS: No fracture is identified. The sacroiliac joints, hip joints and symphysis pubis appear intact. Periarticular fat stripes are in place. Surrounding soft tissues are unremarkable. IMPRESSION: No acute osseous abnormality of the pelvis. Signed: JR Cesilia, Enrique MOE Report Verified Date/Time: 05/29/2017 03:29:06 Reading Location: [facility] B1 C013Y CT Body Reading Room Hexagonal Phospholipid (05/29/2017 1:54 AM) Component Value Ref Range Hexagonal Phospholipid Negative Specimen Performing Laboratory Blood [address] [address] Lactic acid, arterial, whole blood (05/29/2017 1:54 AM) Component Value Ref Range Lactate, Art 0.7 0.5 - 2.2 mmol/L Specimen Performing Laboratory Blood, Arterial [address] [address] Narrative Effective 09/25/2015: Units/Reference Range Change New: 0.5-2.2 mmol/LPrevious: 5-20 mg/dL aPTT (05/29/2017 1:54 AM) Component Value Ref Range PTT 51.7 (H) 22.5 - 36.0 seconds Specimen Performing Laboratory Blood [address] [address] Thrombin time (05/29/2017 1:54 AM) Component Value Ref Range Thrombin Time 18.5 13.8 - 20.0 secs Specimen Performing Laboratory Blood [address] [address] Prothrombin time/INR (05/29/2017 1:54 AM) Component Value Ref Range Protime 16.3 (H) 11.7 - 14.7 seconds INR 1.3 <=5.9 Specimen Performing Laboratory Blood [address] [address] Narrative RECOMMENDED COUMADIN/WARFARIN INR THERAPY RANGES STANDARD DOSE: 2.0 - 3.0 Includes: PROPHYLAXIS for venous thrombosis, systemic embolization; TREATMENT for venous thrombosis and/or pulmonary embolus. HIGH RISK: Target INR is 2.5-3.5 for patients with mechanical heart valves. Dilute Ish Viper Venom (DRVV) (05/29/2017 1:54 AM) Component Value Ref Range Protime 16.4 (H) 11.7 - 14.7 seconds INR 1.3 <=5.9 PTT 52.7 (H) 22.5 - 36.0 seconds Interpretations Negative screen for Lupus Anticoagulant Pathologist: Dudley Dunn M.D. (electonic signature) DRVV Screen Ratio 0.76 <1.20 Specimen Performing Laboratory [address] [address] C-Reactive Protein (05/29/2017 1:53 AM) Component Value Ref Range CRP 10.77 (H) 0.00 - 0.50 mg/dL Specimen Performing Laboratory Blood [address] [address] Troponin I (05/29/2017 1:53 AM)Only the most recent of2 resultswithin the time period is included. Component Value Ref Range Troponin I <0.01 0.00 - 0.03 ng/mL Specimen Performing Laboratory [address] [address] Narrative Troponin I (TnI) levels must be interpreted [...] failure, acidosis, acute neurological disease, and persistent tachyarrhythmia. Sedimentation rate (05/29/2017 1:53 AM) Component Value Ref Range Sed Rate 48 (H) 0 - 20 mm/HR Specimen Performing Laboratory [address] [address] Lipase (05/29/2017 1:53 AM) Component Value Ref Range Lipase 13 8 - 78 U/L Specimen Performing Laboratory [address] [address] Hemoglobin A1c (05/29/2017 1:53 AM) Component Value Ref Range Hemoglobin A1C 5.6 4.3 - 6.1 % Specimen Performing Laboratory Blood [address] [address] Creatine Kinase (CK), Total and MB (05/29/2017 1:53 AM)Only the most recent of2 resultswithin the time period is included. Component Value Ref Range Total CK 581 (H) 29 - 200 U/L CK-MB 1.2 0.0 - 6.6 ng/mL MB Relative Index 0.2 % Specimen Performing Laboratory Blood [address] [address] Narrative CK-MB Reference Range: <6.7Normal 6.7-10.0Borderline >10.0 Abnormal Amylase (05/29/2017 1:53 AM) Component Value Ref Range Amylase 74 25 - 125 U/L Specimen Performing Laboratory Blood [address] [address] Hepatic function panel (05/29/2017 1:53 AM) Component Value Ref Range Protein, Total 7.6 6.0 - 8.3 gm/dL Albumin 3.6 3.5 - 5.0 g/dL Total Bilirubin 0.3 0.2 - 1.2 mg/dL Bilirubin, Direct 0.2 0.1 - 0.5 mg/dL Alkaline Phosphatase 58 40 - 150 U/L AST 33 5 - 34 U/L ALT 15 6 - 55 U/L Specimen Performing Laboratory Blood [address] [address] Lipid panel (05/29/2017 1:53 AM) Component Value Ref Range Triglycerides 50 mg/dL Cholesterol 160 mg/dL HDL 48 mg/dL LDL Calculated 102 mg/dL Specimen Performing Laboratory Blood [address] [address] Narrative Triglyceride Reference Range: Low Risk <150 Uhrmruapic760-499 High Risk 200-499 Very High Risk>=500 Cholesterol Reference Range: Low Risk <200 [id number] High Risk>240 HDL Cholesterol Reference Range: Low Risk >=60 High Risk <40 LDL Cholesterol Reference Range: Optimal<100 Near [id number] Ypyifcbkch244-519 Wdpx657-041 Very High >=190 HIV-1 Antigen with HIV-1/2 Antibody (05/29/2017 1:50 AM) Component Value Ref Range HIV-1 Antigen with HIV 1&2 Antibody Nonreactive Nonreactive Specimen Performing Laboratory Blood [address] [address] RPR (05/29/2017 1:50 AM) Component Value Ref Range RPR Nonreactive Nonreactive Specimen Performing Laboratory Blood [address] [address] Anti-Neutrophil Cytoplasmic Ab (ANCA) (05/29/2017 1:50 AM) Component Value Ref Range Proteinase-3 Ab <1.0 <1.0 AI Comment: <1.0 AI No Antibody Detected > or=1.0 AI Antibody Detected Autoantibodies to proteinase-3 (NC-3) are accepted as characteristic for granulomatosis with polyangiitis (GPA, Chirag's), and are detectable in 95% of the histologically proven cases. The cytoplasmic IFA pattern, (c-ANCA), is based largely on autoantibody to NC-3 which serves as the primary antigen. These autoantibodies are present in active disease. Myeloperoxidase Ab <1.0 <1.0 AI Comment: <1.0 AI No Antibody Detected > or=1.0 AI Antibody Detected Autoantibodies to myeloperoxidase (MPO) are commonly associated with the following small-vessel vasculitides: microscopic polyangiitis, polyarteritis nodosa, Churg-Bri syndrome, necrotizing and crescentic glomerulonephritis and occasionally granulomatosis with polyangiitis (GPA, Chirag's). The perinuclear IFA pattern, (p-ANCA) is based largely on autoantibody to myeloperoxidase which serves as the primary antigen. These autoantibodies are present in active disease. Specimen Performing Laboratory Blood [facility] [id number] [place] [address] Narrative Performing Lab EZ [facility] [address] [place] [address] Elizabeth Martinez MD Anti-Nuclear Antibody (MARIA ISABEL) (05/29/2017 1:50 AM) Component Value Ref Range MARIA ISABEL Negative Negative Specimen Performing Laboratory Blood [address] [address] Blood culture #2 (05/29/2017 1:49 AM)Only the most recent of2 resultswithin the time period is included. Component Value Ref Range Result No growth in 5 days Specimen Performing Laboratory Blood - Arm, Left [address] [address] Screen, urine (05/29/2017 12:15 AM) Component Value Ref Range Preg Test, Ur Negative Specimen Performing Laboratory Urine - Urine, Clean Catch [address] [address] Urinalysis w/ Microscopic (05/29/2017 12:15 AM) Component Value Ref Range Color, UA Light Yellow Clarity, UA Clear Specific [place], UA 1.003 1.001 - 1.035 pH, UA 5.0 5.0 - 8.0 Protein, UA Negative Negative Glucose, UA Negative Negative Ketones, UA Negative Negative Bilirubin, UA Negative Negative Blood, UA Negative Negative Nitrite, UA Negative Negative Leukocytes, UA Negative Negative Urobilinogen, UA 0.2 0.2 - 1.0 mg/dL RBC, UA <1 /HPF WBC, UA <1 /HPF Bacteria, UA Rare Mucus Rare Squam Epithel, UA 1 /HPF Amorphous Crystals Rare Specimen Source Urine, Clean Catch Specimen Performing Laboratory Urine - Urine, Clean Catch [address] [address] Urine culture (05/29/2017 12:15 AM) Component Value Ref Range Result No growth Specimen Performing Laboratory Urine - Urine, Clean Catch [address] [address] 1:1 MIXING STUDY, NON-INCUBATED (05/29/2017 12:10 AM) Component Value Ref Range Protime 16.4 (H) 11.7 - 14.7 seconds PTT 52.7 (H) 22.5 - 36.0 seconds PT 1/1 Mix 14.1 11.7 - 14.7 SECS PTT 1/1 Mix 39.7 (H) 22.5 - 36.0 SECS Specimen Performing Laboratory Blood [address] [address] after 10/21/2016
[2017-10-22] MEDS ORDERED: NA CHLORIDE 0.9% 1,000 ML ONE (15:17)
[2017-10-22 15:42] LABS: Absolute Monocytes 0.4 K/uL (0.1-1.3); Absolute Neutrophil 2.8 K/uL (1.8-8.0); Basophils % 1.2 % (0-1.3); Eosinophils % 7.3 % (0-4.4); Hematocrit 33.8 % (36.0-45.0); Lymphocytes % 44.6 % (15.3-44.8); MCH 27.3 pg (27.0-35.0); MCV 84.1 fL (80-100); MPV 8.5 fL (7.6-11.3); Monocytes % 6.5 % (3.3-12.3); RBC Red Blood Cell Count 4.02 M/uL (3.86-4.86)
[2017-10-22 15:51] LABS: Bicarbonate 26 mEq/L (21-31); Glucose Level 93 mg/dL (65-120); Potassium 3.3 mEq/L (3.6-5.0); Sodium Level 138 mEq/L (135-145)
[2017-10-22 15:52] LABS: BUN Blood Urea Nitrogen 13 mg/dL (6-20)
--- NOTE | 2017-10-22 16:23 | EDPHYS ---
Physician Documentation [facility] Name: Alyssa García Age: 26 yrs Sex: Female : 1990 Arrival Date: 10/22/2017 Time: 14:22 Bed 4 Private MD: ED Physician Lazaro Fernandes HPI: 10/22 16:29 This 26 yrs old Black Female presents to ER via EMS with complaints of Seizure. gs 16:29 The patient presents after having a single isolated seizure. Character of seizure(s): gs Motor activity: generalized. Seizure onset: just prior to arrival. Seizure Hx: Original onset: longstanding. Associated injury: The patient did not suffer any apparent associated injury. Current symptoms: Currently, the patient is not experiencing any symptoms. The patient has experienced similar episodes in the past, a few times. not taking meds needs authorization. Historical: - Allergies: 14:27 Aspirin; sv - Home Meds: 17:02 Aptiom oral oral [Active]; sv - PMHx: 14:27 Asthma; Seizures; sv - PSHx: 14:27 ; sv - Immunization history:: Adult Immunizations up to date. - Social history:: Smoking status: Patient/guardian denies using tobacco. - Ebola Screening: : No symptoms or risks identified at this time. ROS: 16:29 All other systems are negative. gs Exam: 16:29 Head/Face: Normocephalic, atraumatic. Eyes: Pupils equal round and reactive to light, gs extra-ocular motions intact. Lids and lashes normal. Conjunctiva and sclera are non-icteric and not injected. Cornea within normal limits. Periorbital areas with no swelling, redness, or edema. ENT: Nares patent. No nasal discharge, no septal abnormalities noted. Tympanic membranes are normal and external auditory canals are clear. Oropharynx with no redness, swelling, or masses, exudates, or evidence of obstruction, uvula midline. Mucous membranes moist. Neck: Trachea midline, no thyromegaly or masses palpated, and no cervical lymphadenopathy. Supple, full range of motion without nuchal rigidity, or vertebral point tenderness. No Meningismus. Chest/axilla: Normal chest wall appearance and motion. Nontender with no deformity. No lesions are appreciated. Cardiovascular: Regular rate and rhythm with a normal S1 and S2. No gallops, murmurs, or rubs. Normal PMI, no JVD. No pulse deficits. Respiratory: Lungs have equal breath sounds bilaterally, clear to auscultation and percussion. No rales, rhonchi or wheezes noted. No increased work of breathing, no retractions or nasal flaring. Abdomen/GI: Soft, non-tender, with normal bowel sounds. No distension or tympany. No guarding or rebound. No evidence of tenderness throughout. Back: No spinal tenderness. No costovertebral tenderness. Full range of motion. Skin: Warm, dry with normal turgor. Normal color with no rashes, no lesions, and no evidence of cellulitis. MS/ Extremity: Pulses equal, no cyanosis. Neurovascular intact. Full, normal range of motion. Neuro: Awake and alert, GCS 15, oriented to person, place, time, and situation. Cranial nerves II-XII grossly intact. Motor strength 5/5 in all extremities. Sensory grossly intact. Cerebellar exam normal. Normal gait. 16:29 Constitutional: The patient appears alert, awake. Vital Signs: 14:25 BP 96 / 67; Pulse 77; Resp 18; Temp 98.5(TE); Pulse Ox 100% on R/A; Weight 44 kg (R); sv Height 5 ft. 2 in. (157.48 cm) (R); Pain 0/10; 15:24 BP 93 / 64; Pulse 68; Resp 18; Pulse Ox 98% ; sv 16:49 BP 102 / 72; Pulse 59; Resp 16; Pulse Ox 100% ; sv 14:25 Body Mass Index 17.74 (44.00 kg, 157.48 cm) sv [place] Coma Score: 14:20 Eye Response: spontaneous(4). Verbal Response: oriented(5). Motor Response: obeys sv commands(6). Total: 15. MDM: 14:57 Patient medically screened. gs 16:29 Differential diagnosis: seizure. Data reviewed: vital signs, nurses notes. Physician gs consultation: Jeovany Fleming MD and will see patient tomorrow. 16:32 Response to treatment: the patient's symptoms have resolved after treatment, and as a gs result, I will discharge patient. 10/22 15:11 Order name: CBC with Diff; Complete Time: 16:08 gs 10/22 15:11 Order name: Basic Metabolic Panel; Complete Time: 16:08 Administered Medications: 15:28 Drug: NS 0.9% 750 ml Route: IV; Rate: 1 bolus; Site: left antecubital; sv 16:30 Follow up: Response: No adverse reaction; IV Status: Completed infusion; IV Intake: sv 750ml 16:59 Not Given (Patient Refused): Potassium Effervescent Tablet 25 mEq PO once; dissolve in sv 4 ounces of water or juice Disposition: 10/22/17 16:23 Discharged to Home. Impression: Epilepsy and recurrent seizures. - Condition is Stable. - Discharge Instructions: Seizure, Adult. - Medication Reconciliation Form, Thank You Letter, Antibiotic Education, Prescription Opioid Use form. - Follow up: Jeovany Fleming MD; When: 2 - 3 days; Reason: Re-evaluation by your physician. Signatures: Dispatcher [employer] Nafisa Byrd RN RN Lazaro Yoon MD MD Corrections: (The following items were deleted from the chart) 17:03 16:23 10/22/2017 16:23 Discharged to Home. Impression: Epilepsy and recurrent seizures. sv Condition is Stable. Forms are Medication Reconciliation Form, Thank You Letter, Antibiotic Education, Prescription Opioid Use. Follow up: Jeovany Fleming; When: 2 - 3 days; Reason: Re-evaluation by your physician.
--- NOTE | 2017-10-22 16:23 | ER ---
Nurse's Notes [facility] Name: Alyssa García Age: 26 yrs Sex: Female : 1990 Arrival Date: 10/22/2017 Time: 14:22 Bed 4 Private MD: Diagnosis: Epilepsy and recurrent seizures Presentation: 10/22 14:16 Presenting complaint: EMS states: Pt was at home and had a witnessed "full body sv convulsions" by the family. Family stated that pt had 3 seizures each lasting 20-30 seconds each. BS-93, HR 80 BP 105/72. c/o frontal headache. Pt was A\\T\\O x4 on scene. Transition of care: patient was not received from another setting of care. Onset of symptoms was October 22, 2017. Care prior to arrival: None. 14:16 Method Of Arrival: EMS: [facility] sv 14:16 Acuity: RUSLAN 3 sv 14:17 Risk Assessment: Do you want to hurt yourself or someone else? Patient reports no sv desire to harm self or others. Initial Sepsis Screen: Does the patient meet any 2 criteria? No. Patient's initial sepsis screen is negative. Does the patient have a suspected source of infection? No. Patient's initial sepsis screen is negative. 14:18 Presenting complaint: Patient states: that she doesn't take her seizure medication sv because "it makes me feel bad.". Triage Assessment: 14:20 General: Appears in no apparent distress. comfortable, slender, Behavior is calm, sv cooperative, appropriate for age. Pain: Complains of pain in forehead Pain does not radiate. Pain currently is 3 out of 10 on a pain scale. Quality of pain is described as throbbing. EENT: No signs and/or symptoms were reported regarding the EENT system. Neuro: Level of Consciousness is awake, alert, obeys commands, Oriented to person, place, time, situation, Moves all extremities. Full function Speech is normal, Facial symmetry appears normal, Reports headache frontal area. Cardiovascular: Patient's skin is warm and dry. Respiratory: Respiratory effort is even, unlabored, Respiratory pattern is regular, symmetrical. GI: No signs and/or symptoms were reported involving the gastrointestinal system. : No signs and/or symptoms were reported regarding the genitourinary system. Derm: Skin is normal. Musculoskeletal: Range of motion: intact in all extremities. Historical: - Allergies: 14:27 Aspirin; sv - Home Meds: 17:02 Aptiom oral oral [Active]; sv - PMHx: 14:27 Asthma; Seizures; sv - PSHx: 14:27 ; sv - Immunization history:: Adult Immunizations up to date. - Social history:: Smoking status: Patient/guardian denies using tobacco. - Ebola Screening: : No symptoms or risks identified at this time. Screenin:27 Abuse screen: Denies threats or abuse. Denies injuries from another. Nutritional sv screening: No deficits noted. Tuberculosis screening: No symptoms or risk factors identified. Fall Risk No fall in past 12 months (0 pts). Secondary diagnosis (15 points) seizures, IV access (20 points). Ambulatory Aid- None/Bed Rest/Nurse Assist (0 pts). Gait- Normal/Bed Rest/Wheelchair (0 pts) Mental Status- Oriented to own ability (0 pts). Total Abarca Fall Scale indicates Low Risk Score (25-44 pts). Fall prevention measures have been instituted. Side Rails Up X 2 Frequent Obs/Assesments occuring As available Patient and Family Educated on Fall Prevention Program and strategies. Assessment: 14:48 Reassessment: See triage assessment. sv 15:21 Reassessment: Patient appears in no apparent distress at this time. No changes from sv previously documented assessment. Patient and/or family updated on plan of care and expected duration. Pain level reassessed. Patient is alert, oriented x 3, equal unlabored respirations, skin warm/dry/pink. Inside lab at the bedside to obtain blood work. 17:00 Reassessment: Patient appears in no apparent distress at this time. No changes from sv previously documented assessment. Patient and/or family updated on plan of care and expected duration. Pain level reassessed. Patient is alert, oriented x 3, equal unlabored respirations, skin warm/dry/pink. Vital Signs: 14:25 BP 96 / 67; Pulse 77; Resp 18; Temp 98.5(TE); Pulse Ox 100% on R/A; Weight 44 kg (R); sv Height 5 ft. 2 in. (157.48 cm) (R); Pain 0/10; 15:24 BP 93 / 64; Pulse 68; Resp 18; Pulse Ox 98% ; sv 16:49 BP 102 / 72; Pulse 59; Resp 16; Pulse Ox 100% ; sv 14:25 Body Mass Index 17.74 (44.00 kg, 157.48 cm) sv [place] Coma Score: 14:20 Eye Response: spontaneous(4). Verbal Response: oriented(5). Motor Response: obeys sv commands(6). Total: 15. ED Course: 14:22 Patient arrived in ED. sv 14:23 Nafisa Temple RN is Primary Nurse. sv 14:25 Triage completed. sv 14:27 Arm band placed on right wrist. sv 14:30 Patient has correct armband on for positive identification. Placed in gown. Bed in low sv position. Call light in reach. Side rails up X2. Seizure precautions initiated. gambling monitor on. Pulse ox on. NIBP on. Door closed. Warm blanket given. Head of bed elevated. 14:35 Lazaro Fernandes MD is Attending Physician. gs 15:05 Inserted saline lock: 24 gauge in left antecubital area, using aseptic technique. [facility] 16:23 Jeovany Fleming MD is Referral Physician. gs 17:00 No provider procedures requiring assistance completed. IV discontinued, intact, sv bleeding controlled, No redness/swelling at site. Pressure dressing applied. Administered Medications: 15:28 Drug: NS 0.9% 750 ml Route: IV; Rate: 1 bolus; Site: left antecubital; sv 16:30 Follow up: Response: No adverse reaction; IV Status: Completed infusion; IV Intake: sv 750ml 16:59 Not Given (Patient Refused): Potassium Effervescent Tablet 25 mEq PO once; dissolve in sv 4 ounces of water or juice Intake: 16:30 IV: 750ml; Total: 750ml. sv Outcome: 16:23 Discharge ordered by . gs 17:00 Discharged to home ambulatory, with family, Pt's mother taking pt home. sv 17:00 Condition: stable 17:00 Discharge instructions given to patient, family, Mother stated that she has already called Dr Fleming's office and they gave her instructions on how to give her her seizure medication Instructed on discharge instructions, follow up and referral plans. Demonstrated understanding of instructions, follow-up care. 17:03 Patient left the ED. sv Signatures: Nafisa Temple RN RN sv Herrera, Deanna [facility] Lazaro Fernandes, MD MOE gs
[2017-10-22] MEDS ORDERED: POTASSIUM 25 MEQ EFFERV TAB ONE (16:53)
== END 2017-10-22 17:03 | disposition home or self-care (01) ==
LOC: ER 14:16
DX: G40.802 Other epilepsy, not intractable, without status epilepticus (principal); Z88.6 Allergy status to analgesic agent
CPT/HCPCS: 36415; 80048; 85025; 96360; 99284; J7030

== ENCOUNTER 2018-02-04 01:56 | Emergency (ER) | payer OTHER ==
--- OUTSIDE RECORDS SUMMARY | 2018-02-04 01:59 | XMS REPORT | Clinical Summary ---
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);EEG abnormal;Fever, unspecified fever cause;Seizure disorder (HCC);Mild intermittent asthma without complication;Physical deconditioning 05/28/2017 Orders Only Neurology Keli Sweeney MD after 02/03/2017 Social History Tobacco Use Types Packs/Day Years Used Date Never Smoker Smokeless Tobacco: Never Used Alcohol Use Drinks/Week oz/Week Comments No Sex Assigned at Date Recorded Not on file Last Filed Vital Signs Vital Sign Reading Time Taken Blood Pressure 97/59 06/01/2017 8:00 AM TAB CARD PRESS OPERATOR Pulse 61 06/01/2017 8:00 AM TAB CARD PRESS OPERATOR Temperature 36.4 C (97.6 F) 06/01/2017 8:00 AM TAB CARD PRESS OPERATOR Respiratory Rate 16 06/01/2017 8:00 AM TAB CARD PRESS OPERATOR Oxygen Saturation 98% 06/01/2017 8:00 AM TAB CARD PRESS OPERATOR Inhaled Oxygen Concentration - - Weight 40.2 kg (88 lb 10 oz) 05/28/2017 11:15 PM TAB CARD PRESS OPERATOR Height 162.6 cm (5' 4") 05/28/2017 11:15 PM TAB CARD PRESS OPERATOR Body Mass Index 15.21 05/28/2017 11:15 PM TAB CARD PRESS OPERATOR Plan of Treatment Not on file Results RHYTHM STRIP - SCAN (06/02/2017 2:12 PM)POC-Glucose meter (06/01/2017 8:33 AM) Only the most recent of10 resultswithin the time period is included. Component Value Ref Range POC-Glucose Meter 72Comment: TESTED AT [address] 70 - 110 mg/dL [id number] Specimen Performing Laboratory Blood [address] [address] Manual Differential (06/01/2017 6:39 AM)Only the most recent of2 resultswithin the time period is included. Component Value Ref Range Total Counted WBC Morphology Normal Platelet Morphology Normal RBC Morphology Normal Specimen Performing Laboratory Blood - Arm, Right [address] [address] CBC with platelet count + automated diff [...] % Specimen Performing Laboratory Blood - Arm, [address] [address] CBC with platelet count + automated diff (06/01/2017 6:39 AM)Only the most recent of3 resultswithin the time period is included. Specimen Performing Laboratory Blood Narrative The following orders were created for panel order CBC with platelet count + automated diff. Procedure Abnormality Status --------- ------ CBC with platelet count ...[[id number]]AbnormalFinal result Manual Differential[[id number]] Fi nal result Please view results for [...] PATIENTS. Specimen Performing Laboratory Blood - Arm, [address] [address] MR brain without IV contrast (05/31/2017 5:45 PM) Specimen Performing Laboratory GE RIS Narrative FINAL REPORT MRI brain and MRA head and neck without contrast 05/31/2017 5:44 PM CLINICAL INDICATION: Stroke TECHNIQUE: Multiplanar, multisequence MR imaging of the brain was performed utilizing the following imaging sequences: Axial T1, T2, FLAIR, GRE, and DWI; sagittal and coronal T1-weighted images.Two- and three-dimensional yuul-ez-kvpwhr MRA images of the intra- and extracranial [...] is antegrade in both vertebral arteries. MRA cahto of Haq: There is no vessel occlusion, flow-limiting stenosis, or aneurysm. IMPRESSION: 1. Findings that may reflect increased intracranial pressure. Consider further evaluation with intracranial MRA to exclude venous sinus thrombosis/stenosis. 2. Unremarkable extracranial and intracranial MRAs. Signed: Patrick Lynne MD Report Verified Date/Time:05/31/2017 17:48:23 Reading Location: [facility] Radiology Reading Room Procedure Note Interface, External Ris In - 05/31/2017 7:29 PM TAB CARD PRESS OPERATOR FINAL REPORT MRI brain and MRA head and neck without contrast 05/31/2017 5:44 PM CLINICAL INDICATION: Stroke TECHNIQUE: Multiplanar, multisequence MR imaging of the brain was performed utilizing the following imaging sequences: Axial T1, T2, FLAIR, GRE, and DWI; sagittal and coronal T1-weighted images. Two- and three-dimensional djpv-bl-cphfgd MRA images of the intra- and extracranial [...] is antegrade in both vertebral arteries. MRA cahto of Haq: There is no vessel occlusion, flow-limiting stenosis, or aneurysm. IMPRESSION: 1. Findings that may reflect increased intracranial pressure. Consider further evaluation with intracranial MRA to exclude venous sinus thrombosis/stenosis. 2. Unremarkable extracranial and intracranial MRAs. Signed: Patrick Lynne MD Report Verified Date/Time: 05/31/2017 17:48:23 Reading Location: [facility] Radiology Reading Room neck with IV contrast (05/31/2017 5:45 PM) Specimen Performing Laboratory [employer] Narrative FINAL REPORT MRI brain and MRA head and neck without contrast 05/31/2017 5:44 PM CLINICAL INDICATION: Stroke TECHNIQUE: Multiplanar, multisequence MR imaging of the brain was performed utilizing the following imaging sequences: Axial T1, T2, FLAIR, GRE, and DWI; sagittal and coronal T1-weighted images.Two- and three-dimensional uyyz-jj-lmmrkr MRA images of the intra- and extracranial [...] is antegrade in both vertebral arteries. MRA cahto of Haq: There is no vessel occlusion, flow-limiting stenosis, or aneurysm. IMPRESSION: 1. Findings that may reflect increased intracranial pressure. Consider further evaluation with intracranial MRA to exclude venous sinus thrombosis/stenosis. 2. Unremarkable extracranial and intracranial MRAs. Signed: Patrick Lynne MD Report Verified Date/Time:05/31/2017 17:48:23 Reading Location: [facility] Radiology Reading Room Procedure Note Interface, External Ris In - 05/31/2017 7:29 PM TAB CARD PRESS OPERATOR FINAL REPORT MRI brain and MRA head and neck without contrast 05/31/2017 5:44 PM CLINICAL INDICATION: Stroke TECHNIQUE: Multiplanar, multisequence MR imaging of the brain was performed utilizing the following imaging sequences: Axial T1, T2, FLAIR, GRE, and DWI; sagittal and coronal T1-weighted images. Two- and three-dimensional yqwq-uh-gbuhhz MRA images of the intra- and extracranial [...] is antegrade in both vertebral arteries. MRA cahto of Haq: There is no vessel occlusion, flow-limiting stenosis, or aneurysm. IMPRESSION: 1. Findings that may reflect increased intracranial pressure. Consider further evaluation with intracranial MRA to exclude venous sinus thrombosis/stenosis. 2. Unremarkable extracranial and intracranial MRAs. Signed: Patrick Lynne MD Report Verified Date/Time: 05/31/2017 17:48:23 Reading Location: [facility] Radiology Reading Room head without IV contrast (05/31/2017 5:45 PM) Specimen Performing Laboratory RIS Narrative FINAL REPORT MRI brain and MRA head and neck without contrast 05/31/2017 5:44 PM CLINICAL INDICATION: Stroke TECHNIQUE: Multiplanar, multisequence MR imaging of the brain was performed utilizing the following imaging sequences: Axial T1, T2, FLAIR, GRE, and DWI; sagittal and coronal T1-weighted images.Two- and three-dimensional ecws-jq-gimirw MRA images of the intra- and extracranial [...] is antegrade in both vertebral arteries. MRA cahto of Haq: There is no vessel occlusion, flow-limiting stenosis, or aneurysm. IMPRESSION: 1. Findings that may reflect increased intracranial pressure. Consider further evaluation with intracranial MRA to exclude venous sinus thrombosis/stenosis. 2. Unremarkable extracranial and intracranial MRAs. Signed: Patrick Lynne MD Report Verified Date/Time:05/31/2017 17:48:23 Reading Location: [facility] Radiology Reading Room Procedure Note Interface, External Ris In - 05/31/2017 7:29 PM TAB CARD PRESS OPERATOR FINAL REPORT MRI brain and MRA head and neck without contrast 05/31/2017 5:44 PM CLINICAL INDICATION: Stroke TECHNIQUE: Multiplanar, multisequence MR imaging of the brain was performed utilizing the following imaging sequences: Axial T1, T2, FLAIR, GRE, and DWI; sagittal and coronal T1-weighted images. Two- and three-dimensional kfut-qd-igajlw MRA images of the intra- and extracranial [...] is antegrade in both vertebral arteries. MRA cahto of Haq: There is no vessel occlusion, flow-limiting stenosis, or aneurysm. IMPRESSION: 1. Findings that may reflect increased intracranial pressure. Consider further evaluation with intracranial MRA to exclude venous sinus thrombosis/stenosis. 2. Unremarkable extracranial and intracranial MRAs. Signed: Patrick Lynne MD Report Verified Date/Time: 05/31/2017 17:48:23 Reading Location: [facility] Radiology Reading Room Prothrombin Gene Mutation (05/30/2017 6:24 AM) Component Value Ref Range Prothrombin/Factor II Negative for the [id number] (Prothrombin/Factor II) mutation. Pathologist: Dudley Dunn M.D. (electonic signature) Specimen Performing Laboratory Blood - Arm, Right [address] This test is a genotyping assay which evaluates the DNA [place] position [address] of the prothrombin (Factor II) gene. A [...] and its performance characteristics determined by the [facility] Pathology Department, Section of Molecular Pathology. [...] mmol/L Specimen Performing Laboratory Blood - Arm, [address] [address] Narrative Effective 09/25/2015: Units/Reference Range Change New: 0.5-2.2 mmol/LPrevious: 5-20 mg/dL Beta-2 glycoprotein antibodies (05/30/2017 6:24 AM) Component Value Ref Range B2 Glcoprotein Ab Profile Refer to individual B2-Glycoprotein IgG, IgM and IgA results. Specimen Performing Laboratory Blood - Arm, Right [facility] [employer] [place] [id number] [place] [address] Protein S activity (05/30/2017 6:24 AM) Component [...] Laboratory Blood - Arm, Right [facility] [employer] [place] [id number] [place] [address] Narrative Performing Lab [facility] [address] [address] Elizabeth Martinez MD Protein C antigen, total (05/30/2017 6:24 AM) Component Value Ref Range Scan Result Protein C Antigen 64 (L) 70 - 140 % normal Comment: Decreased levels of Protein C antigen may be found in congenital deficiency, treatment with oral anticoagulants, liver disease, D.I.C. and post surgery. Specimen Performing Laboratory Blood - Arm, Right [facility] [employer] [address] [place] [address] Narrative Performing Lab [facility] [employer] [address] [address] Elizabeth Martinez MD Protein C activity (05/30/2017 6:24 AM) Component Value Ref Range Protein C Activity 65.0 (L) 70.0 - 130.0 % Specimen Performing Laboratory Blood - Arm, [place] [address] Narrative See Protein C Antigen. Cardiolipin Antibodies, IgG and IgM (05/30/2017 6:24 AM)Only the most recent of2 resultswithin the time period is included. Component Value Ref Range Anticardiolipin IgG <1.6 GPL Anticardiolipin IgM 0.4 MPL Specimen Performing Laboratory Blood - Arm, [place] [address] Narrative Anticardiolipin IgG Result Interpretation: NEG:<20 GPL;U/ml POS:>/=20 GPL;U/ml Anticardiolipin IgM Result Interpretation: NEG:<20 MPL;U/ml POS:>/=20 MPL;U/ml Factor 5 Leiden PCR (thrombotic risk) (05/30/2017 6:24 AM) Component Value Ref Range Factor V Leiden Negative for the R506Q (Factor V Leiden) mutation Pathologist: Dudley Dunn M.D. (electonic signature) Specimen Performing Laboratory Blood - Arm, [place] [address] Narrative This test is a genotyping assay [...] and its performance characteristics determined by the [facility] Pathology Department, Section of Molecular Pathology. [...] % Specimen Performing Laboratory Blood - Arm, [address] [address] Homocysteine (05/30/2017 6:24 AM) Component Value Ref Range Homocysteine 7.6 5.1 - 15.4 umol/L Specimen Performing Laboratory Blood - Arm, Right [facility] [address] [place] [address] Vancomycin level, trough (05/30/2017 6:24 AM) Component Value Ref Range Vancomycin Tr 13.7 10.0 - 20.0 ug/mL Specimen Performing Laboratory Blood - Arm, Right [facility] [address] [place] [address] Narrative Draw 30 min prior to scheduled dose, HOLD if level > 20 mcg/mL, inform MD. EEG awake and drowsy (05/29/2017 11:00 AM) Specimen Performing Laboratory GE RIS Narrative EEG REPORT: Alyssa García [facility] , DATE: EEG#: [id number] ICD Code: #: R41.82 Altered mental status, unspecified (ICD 9: 780.97) CPT Code: #: 86959: 03. EEG coma or sleep only; 20-40 [...] External Ris In - 05/29/2017 12:51 PM TAB CARD PRESS OPERATOR EEG REPORT: Alyssa García [facility] , DATE: EEG #: [id number] ICD Code: #: R41.82 Altered mental status, unspecified (ICD 9: 780.97) CPT Code: #: 69082: 03. EEG coma or sleep only; 20-40 [...] MD Report Verified Date/Time:05/29/2017 03:29:06 Reading Location: [facility] B1 C013Y CT Body Reading Room Procedure Note Interface, External Ris In - 05/29/2017 3:58 AM TAB CARD PRESS OPERATOR FINAL REPORT RAD, HIP, 2 VIEWS, RIGHT [...] Report Verified Date/Time: 05/29/2017 03:29:06 Reading Location: [facility] B1 C013Y CT Body Reading Room Hexagonal Phospholipid (05/29/2017 1:54 AM) Component Value Ref Range Hexagonal Phospholipid Negative Specimen Performing Laboratory Blood [address] [address] Lactic acid, arterial, whole blood (05/29/2017 1:54 AM) Component Value Ref Range Lactate, Art 0.7 0.5 - 2.2 mmol/L Specimen Performing Laboratory Blood, Arterial [address] [address] Narrative Effective 09/25/2015: Units/Reference Range Change New: 0.5-2.2 mmol/LPrevious: 5-20 mg/dL aPTT (05/29/2017 1:54 AM) Component Value Ref Range PTT 51.7 (H) 22.5 - 36.0 seconds Specimen Performing Laboratory Blood [address] [address] Thrombin time (05/29/2017 1:54 AM) Component Value Ref Range Thrombin Time 18.5 13.8 - 20.0 secs Specimen Performing Laboratory Blood [address] [address] Prothrombin time/INR (05/29/2017 1:54 AM) Component Value Ref Range Protime 16.3 (H) 11.7 - 14.7 seconds INR 1.3 <=5.9 Specimen Performing Laboratory Blood [address] [address] Narrative RECOMMENDED COUMADIN/WARFARIN INR THERAPY RANGES STANDARD [...] Screen Ratio 0.76 <1.20 Specimen Performing Laboratory [address] [address] C-Reactive Protein (05/29/2017 1:53 AM) Component Value Ref Range CRP 10.77 (H) 0.00 - 0.50 mg/dL Specimen Performing Laboratory Blood [address] [address] Troponin I (05/29/2017 1:53 AM)Only the most recent of2 resultswithin the time period is included. Component Value Ref Range Troponin I <0.01 0.00 - 0.03 ng/mL Specimen Performing Laboratory [address] [address] Narrative Troponin I (TnI) levels must be [...] 0 - 20 mm/HR Specimen Performing Laboratory [address] [address] Lipase (05/29/2017 1:53 AM) Component Value Ref Range Lipase 13 8 - 78 U/L Specimen Performing Laboratory [address] [address] Hemoglobin A1c (05/29/2017 1:53 AM) Component Value Ref Range Hemoglobin A1C 5.6 4.3 - 6.1 % Specimen Performing Laboratory Blood [address] [address] Creatine Kinase (CK), Total and MB (05/29/2017 1:53 AM)Only the most recent of2 resultswithin the time period is included. Component Value Ref Range Total CK 581 (H) 29 - 200 U/L CK-MB 1.2 0.0 - 6.6 ng/mL MB Relative Index 0.2 % Specimen Performing Laboratory Blood [address] [address] Narrative CK-MB Reference Range: <6.7Normal 6.7-10.0Borderline >10.0 Abnormal Amylase (05/29/2017 1:53 AM) Component Value Ref Range Amylase 74 25 - 125 U/L Specimen Performing Laboratory Blood [address] [address] Hepatic function panel (05/29/2017 1:53 AM) Component Value Ref Range Protein, Total 7.6 6.0 - 8.3 gm/dL Albumin 3.6 3.5 - 5.0 g/dL Total Bilirubin 0.3 0.2 - 1.2 mg/dL Bilirubin, Direct 0.2 0.1 - 0.5 mg/dL Alkaline Phosphatase 58 40 - 150 U/L AST 33 5 - 34 U/L ALT 15 6 - 55 U/L Specimen Performing Laboratory Blood [address] [address] Lipid panel (05/29/2017 1:53 AM) Component Value Ref Range Triglycerides 50 mg/dL Cholesterol 160 mg/dL HDL 48 mg/dL LDL Calculated 102 mg/dL Specimen Performing Laboratory Blood [address] [address] Narrative Triglyceride Reference Range: Low Risk <150 [id number] High Risk 200-499 Very High Risk>=500 Cholesterol Reference Range: Low Risk <200 [id number] High Risk>240 HDL Cholesterol Reference Range: Low Risk >=60 High Risk <40 LDL Cholesterol Reference Range: Optimal<100 Near Sdmvpdf911-562 Flpumvyrbo038-539 Nsza249-161 Very High >=190 HIV-1 Antigen with HIV-1/2 Antibody (05/29/2017 1:50 AM) Component Value Ref Range HIV-1 Antigen with HIV 1&2 Antibody Nonreactive Nonreactive Specimen Performing Laboratory Blood [address] [address] RPR (05/29/2017 1:50 AM) Component Value Ref Range RPR Nonreactive Nonreactive Specimen Performing Laboratory Blood [address] [address] Anti-Neutrophil Cytoplasmic Ab (ANCA) (05/29/2017 1:50 AM) Component Value Ref Range Proteinase-3 Ab <1.0 <1.0 AI Comment: <1.0 AI No Antibody Detected > or=1.0 AI Antibody Detected Autoantibodies to proteinase-3 (ID-3) are accepted as characteristic for granulomatosis with polyangiitis (GPA, Chirag's), and are detectable in 95% of the histologically proven cases. The cytoplasmic IFA pattern, (c-ANCA), is based largely on autoantibody to ID-3 which serves as the primary antigen. These [...] Specimen Performing Laboratory Blood [facility] [place] [id number] [place] [address] Narrative Performing Lab [facility] [address] [place] [address] Elizabeth Martinez MD Anti-Nuclear Antibody (MARIA ISABEL) (05/29/2017 1:50 AM) Component Value Ref Range MARIA ISABEL Negative Negative Specimen Performing Laboratory Blood [address] [address] Blood culture #2 (05/29/2017 1:49 AM)Only the most recent of2 resultswithin the time period is included. Component Value Ref Range Result No growth in 5 days Specimen Performing Laboratory Blood - Arm, Left [address] [address] Screen, urine (05/29/2017 12:15 AM) Component Value Ref Range Preg Test, Ur Negative Specimen Performing Laboratory Urine - Urine, Clean Catch [address] [address] Urinalysis w/ Microscopic (05/29/2017 12:15 AM) Component Value Ref Range Color, UA Light Yellow Clarity, UA Clear Specific [place], UA 1.003 1.001 - 1.035 pH, UA [...] Performing Laboratory Urine - Urine, Clean Catch [address] [address] Urine culture (05/29/2017 12:15 AM) Component Value Ref Range Result No growth Specimen Performing Laboratory Urine - Urine, Clean Catch [address] [address] 1:1 MIXING STUDY, NON-INCUBATED (05/29/2017 12:10 AM) Component Value Ref Range Protime 16.4 (H) 11.7 - 14.7 seconds PTT 52.7 (H) 22.5 - 36.0 seconds PT 1/1 Mix 14.1 11.7 - 14.7 SECS PTT 1/1 Mix 39.7 (H) 22.5 - 36.0 SECS Specimen Performing Laboratory Blood [address] [address] after 02/03/2017
--- OUTSIDE RECORDS SUMMARY | 2018-02-04 01:59 | XMS REPORT ---
:1990 [facility] [address] [place] [address] [address] [address] Care Team Providers Name Role Phone ANDREYALEXANDERMIREYA VEE Unavailable Unavailable Problems This patient has no known problems. Allergies, Adverse Reactions, Alerts This patient has no known allergies or adverse reactions. Medications This patient has no known medications. Results Test Description Test Time Test Comments Text Results Atomic Results Result Comments BLOOD CULTURE 2017-06-03 10:00:00 Test Item Value Reference Range Comments CULTURE (BEAKER) (test vjca=9311) No growth in 5 days BLOOD [id number] 10:00:00 Test Item Value Reference Range Comments CULTURE (BEAKER) (test ihvz=1237) No growth in 5 days PROTHROMBIN GENE [id number] 08:45:00 Test Item Value Reference Range Comments PROTHROMBIN/FACTOR II Negative for the [id number] (CrestockAKER) (test extu=9976) (Prothrombin/Factor II) mutation. [id number]-1768(MAGALI Dunn M.D. (electonic ) (test flev=2348) signature) This test is a genotyping assay which evaluates the DNA sequence at position [address] of the prothrombin (Factor II) gene. A [...] and its performance characteristics determined by the [facility] Pathology Department, Section of Molecular Pathology. It [...] (BEAKER) Negative for the R506Q (Factor (test mnzj=352) V Leiden) mutation [id number] (BEAKER) Dudley Dunn M.D. (electonic (test ajam=1969) signature) This test is a genotyping assay [...] developed and its performance characteristics determined bythe [facility] Pathology Department, Section of Molecular Pathology. It [...] Comments PROTIME (BEAKER) (test 16.4 seconds 11.7-14.7 pczt=201) INR (BEAKER) (test qdkd=825) 1.3 <=5.9 PARTIAL THROMBOPLASTIN TIME 52.7 seconds 22.5-36.0 (BEAKER) (test ijha=531) DRVV INTERPRETATION (BEAKER) Negative screen for Lupus (test rjmv=4495) Anticoagulant MKTA-MQYLAAQNZVF-721 (BEAKER) Dudley Dunn M.D. (test uqfr=4214) (electonic signature) DRVV SCREEN RATIO (BEAKER) 0.76 <1.20 (test xmmz=7828) CBC W/PLT COUNT & AUTO [id number] 14:03:00 Test Item Value Reference Range Comments WHITE BLOOD CELL COUNT (BEAKER) (test evax=409) 3.9 K/ L 3.5-10.5 RED BLOOD CELL COUNT (BEAKER) (test yyou=135) 3.71 M/ L 3.93-5.22 HEMOGLOBIN (BEAKER) (test uizu=027) 10.1 GM/DL 11.2-15.7 HEMATOCRIT (BEAKER) (test yvyz=320) 30.9 % 34.1-44.9 MEAN CORPUSCULAR VOLUME (BEAKER) (test przp=349) 83.3 fL 79.4-94.8 MEAN CORPUSCULAR HEMOGLOBIN (BEAKER) (test 27.2 pg 25.6-32.2 rvmy=785) MEAN CORPUSCULAR HEMOGLOBIN CONC (BEAKER) (test 32.7 GM/DL 32.2-35.5 whki=670) RED CELL DISTRIBUTION WIDTH (BEAKER) (test 13.4 % 11.7-14.4 jjxl=292) PLATELET COUNT (BEAKER) (test brxn=219) 130 K/CU MM 150-450 MEAN PLATELET VOLUME (BEAKER) (test iroc=875) 11.1 fL 9.4-12.3 NUCLEATED RED BLOOD CELLS (BEAKER) (test 0 /100 WBC 0-0 sbfx=339) NEUTROPHILS RELATIVE PERCENT (BEAKER) (test 17 % sflo=649) LYMPHOCYTES RELATIVE PERCENT (BEAKER) (test 74 % lnbs=709) MONOCYTES RELATIVE PERCENT (BEAKER) (test 5 % vbxi=621) EOSINOPHILS RELATIVE PERCENT (BEAKER) (test 2 % klas=809) BASOPHILS RELATIVE PERCENT (BEAKER) (test 1 % tluy=018) NEUTROPHILS ABSOLUTE COUNT (BEAKER) (test 0.67 K/ L 1.56-6.13 qlmy=575) LYMPHOCYTES ABSOLUTE COUNT (BEAKER) (test 2.86 K/ L 1.18-3.74 jrbz=016) MONOCYTES ABSOLUTE COUNT (BEAKER) (test 0.21 K/ L 0.24-0.36 fejn=206) EOSINOPHILS ABSOLUTE COUNT (BEAKER) (test 0.09 K/ L 0.04-0.36 ndgk=947) BASOPHILS ABSOLUTE COUNT (BEAKER) (test 0.03 K/ L 0.01-0.08 fgvy=027) IMMATURE GRANULOCYTES-RELATIVE PERCENT (BEAKER) 0 % 0-1 (test uaze=5745) (MANUAL DIFFERENTIAL)2017-06-01 14:03:00 Test Item Value Reference Range Comments TOTAL COUNTED (BEAKER) (test jpls=2944) WBC MORPHOLOGY (BEAKER) (test jdot=581) Normal PLT MORPHOLOGY (BEAKER) (test rlet=205) Normal RBC MORPHOLOGY (BEAKER) (test qpgx=756) Normal BASIC METABOLIC [id number] 10:08:00 Test Item Value Reference Range Comments SODIUM (BEAKER) (test 139 meq/L 136-145 ztfy=310) POTASSIUM (BEAKER) (test 3.9 meq/L 3.5-5.1 lvfh=410) CHLORIDE (BEAKER) (test 106 meq/L 98-107 mttr=603) CO2 (BEAKER) (test 26 meq/L 22-29 bsjl=407) BLOOD UREA NITROGEN 11 mg/dL 7-21 (BEAKER) (test hbdt=504) CREATININE (BEAKER) (test 0.70 mg/dL 0.57-1.25 vyvd=628) GLUCOSE RANDOM (BEAKER) 66 mg/dL 70-105 (test rygu=867) CALCIUM (BEAKER) (test 7.7 mg/dL 8.4-10.2 kjoz=294) EGFR (BEAKER) (test 122 mL/min/1.73 sq m ESTIMATED GFR IS NOT mstw=5504) ACCURATE CREATININE CLEARANCE IN PREDICTING GLOMERULAR FILTRATION RATE. ESTIMATED GFR IS NOT APPLICABLE FOR DIALYSIS PATIENTS. POCT-GLUCOSE [id number] 08:35:00 Test Item Value Reference Range Comments POC-GLUCOSE METER (BEAKER) 72 mg/dL 70-110 TESTED AT [address] (test pefv=0111) [place] [address] ANTI-NUCLEAR ANTIBODY (MARIA ISABEL)2017-06-01 03:41:00 Test Item Value Reference Range Comments ANTI-NUCLEAR ANTIBODY (MARIA ISABEL) (BEAKER) (test Negative Negative ntlt=115) POCT-GLUCOSE [id number] 22:27:00 Test Item Value Reference Range Comments POC-GLUCOSE METER (BEAKER) 111 mg/dL 70-110 TESTED AT [address] (test rafc=5719) [place] [address] MR, BRAIN, WITHOUT [id number] 17:48:00FINAL REPORT MRI brain and MRA head and neck without contrast 05/31/2017 5:44 PM CLINICAL INDICATION: Stroke TECHNIQUE: Multiplanar, multisequence MR imaging of the brain was performed utilizing the following imaging sequences: Axial T1, T2 , FLAIR, GRE, and DWI; sagittal and coronal T1-weighted images. Two- and three- dimensional wqlk-bc-tnajap MRA images of the intra- and extracranial [...] is antegrade in both vertebral arteries. MRA [place]: There is no vessel occlusion, flow-limiting stenosis, or aneurysm. IMPRESSION: 1. Findings that may reflect increased intracranial pressure. Consider further evaluation with intracranial MRA to exclude venous sinus thrombosis/stenosis.2. Unremarkable extracranial and intracranial MRAs. Signed: Patrick Lynne [facility] Verified Date/Time: 2017 17:48:23 Reading Location: [facility] Radiology Reading Room MR, MRA, BRAIN, WITHOUT [id number] 17:48:00FINAL REPORT MRI brain and MRA head and neck without contrast 05/31/2017 5:44 PM CLINICAL INDICATION: Stroke TECHNIQUE: Multiplanar, multisequence MR imaging of the brain was performed utilizing the following imaging sequences: Axial T1, T2, FLAIR, GRE, and DWI; sagittal and coronal T1-weighted images. Two- and three- dimensional heop-cn-gadiqe MRA images of the intra- and extracranial [...] is antegrade in both vertebral arteries. MRA [place]: There is no vessel occlusion, flow-limiting stenosis, or aneurysm. IMPRESSION: 1. Findings that may reflect increased intracranial pressure. Consider further evaluation with intracranial MRA to exclude venous sinus thrombosis/stenosis.2. Unremarkable extracranial and intracranial MRAs. Signed: Patrick Lynne Verified Date/Time: 2017 17:48:23 Reading Location: [facility] Radiology Reading Room MR, MRA, NECK, WITH IV [id number] 17:48:00Please perform without contrastFINAL REPORT MRI brain and MRA head and neck without contrast 5:44 PM CLINICAL INDICATION: Stroke TECHNIQUE: Multiplanar, multisequence MR imaging of the brain was performed utilizing the following imaging sequences: Axial T1, T2, FLAIR, GRE, and DWI; sagittal and coronal T1- weighted images. Two- and three-dimensional bdoi-da-thetud MRA images of the intra- and extracranial [...] is antegrade in both vertebral arteries. MRA [place]: There is no vessel occlusion, flow-limiting stenosis, or aneurysm. IMPRESSION: 1. Findings that may reflect increased intracranial pressure. Consider further evaluation with intracranial MRA to exclude venous sinus thrombosis/stenosis.2. Unremarkable extracranial and intracranial MRAs. Signed: Patrick Lynneeport Verified Date/Time: 05/31/2017 17:48:23 Reading Location: [facility] Radiology Reading Room THROMBIN [id number] 14:28:00 Test Item Value Reference Range Comments THROMBIN TIME (BEAKER) (test xntg=146) 18.5 secs 13.8-20.0 HEXAGONAL [id number] 14:28:00 Test Item Value Reference Range Comments HEXAGONAL PHOSPHOLIPID (BEAKER) (test utze=5322) Negative 1:1 MIXING STUDY, [id number] 14:28:00 Test Item Value Reference Range Comments PROTIME (BEAKER) (test qcqu=087) 16.4 seconds 11.7-14.7 PARTIAL THROMBOPLASTIN TIME (BEAKER) (test 52.7 seconds 22.5-36.0 qrhd=533) PT 1/1 MIX (BEAKER) (test npfy=7095) 14.1 SECS 11.7-14.7 PTT 1/1 MIX (BEAKER) (test rhhp=4207) 39.7 SECS 22.5-36.0 CARDIOLIPIN ANTIBODIES, IGG AND [id number] 11:47:00 Test Item Value Reference Range Comments ANTICARDIOLIPIN IGG ANTIBODY (BEAKER) (test < GPL gjoj=897) ANTICARDIOLIPIN IGM ANTIBODY (BEAKER) (test 0.4 MPL ukdv=588) Anticardiolipin IgG Result Interpretation:NEG: <20 GPL; U/mlPOS: >/=20 GPL; U/mlAnticardiolipin IgM Result Interpretation:NEG: <20 MPL; U/mlPOS: >/=20 MPL; U/mlCARDIOLIPIN ANTIBODIES, IGG AND [id number] 11:45:00 Test Item Value Reference Range Comments ANTICARDIOLIPIN IGG ANTIBODY (BEAKER) (test < GPL ewkz=053) ANTICARDIOLIPIN IGM ANTIBODY (BEAKER) (test 0.5 MPL lkji=144) Anticardiolipin IgG Result Interpretation:NEG: <20 GPL; U/mlPOS: >/=20 GPL; U/mlAnticardiolipin IgM Result Interpretation:NEG: <20 MPL; U/mlPOS: >/=20 MPL; U/mlPOCT-GLUCOSE [id number] 11:39:00 Test Item Value Reference Range Comments POC-GLUCOSE METER (BEAKER) 120 mg/dL 70-110 TESTED AT [facility] [address] (test wkfo=9841) [facility] [address] PROTEIN C [id number] 11:35:00 Test Item Value Reference Range Comments PROTEIN C ACTIVITY (BEAKER) (test jnzf=383) 65.0 % 70.0-130.0 See Protein C Antigen.CBC W/PLT COUNT & AUTO [id number] 10:02:00 Test Item Value Reference Range Comments WHITE BLOOD CELL COUNT (BEAKER) (test ispm=913) 4.1 K/ L 3.5-10.5 RED BLOOD CELL COUNT (BEAKER) (test effq=605) 3.68 M/ L 3.93-5.22 HEMOGLOBIN (BEAKER) (test ftyn=122) 10.1 GM/DL 11.2-15.7 HEMATOCRIT (BEAKER) (test cgej=621) 30.9 % 34.1-44.9 MEAN CORPUSCULAR VOLUME (BEAKER) (test bblx=174) 84.0 fL 79.4-94.8 MEAN CORPUSCULAR HEMOGLOBIN (BEAKER) (test 27.4 pg 25.6-32.2 durx=384) MEAN CORPUSCULAR HEMOGLOBIN CONC (BEAKER) (test 32.7 GM/DL 32.2-35.5 ntyj=656) RED CELL DISTRIBUTION WIDTH (BEAKER) (test 13.6 % 11.7-14.4 gqix=320) PLATELET COUNT (BEAKER) (test lqln=035) 126 K/CU MM 150-450 MEAN PLATELET VOLUME (BEAKER) (test zdjn=974) 11.6 fL 9.4-12.3 NUCLEATED RED BLOOD CELLS (BEAKER) (test 0 /100 WBC 0-0 kyqd=685) IMMATURE GRANULOCYTES-RELATIVE PERCENT (BEAKER) 0 % 0-1 (test tgsc=6191) (MANUAL DIFFERENTIAL)2017-05-31 10:02:00 Test Item Value Reference Range Comments NEUTROPHILS - REL (DIFF) (BEAKER) (test eaaf=2111) 21 % LYMPHOCYTES - REL (DIFF) (BEAKER) (test tjnz=2875) 61 % MONOCYTES - REL (DIFF) (BEAKER) (test cbuv=2815) 17 % EOSINOPHILS - REL (DIFF) (BEAKER) (test frdw=3485) 0 % BASOPHILS - REL (DIFF) (BEAKER) (test vfvb=1764) 0 % BANDS - REL (DIFF) (BEAKER) (test ecvb=9396) 1 % 0-10 NEUTROPHILS - ABS (DIFF) (BEAKER) (test qxaz=8830) 0.86 K/ L 1.80-8.00 LYMPHOCYTES - ABS (DIFF) (BEAKER) (test aupx=8805) 2.50 K/ L 1.48-4.50 MONOCYTES - ABS (DIFF) (BEAKER) (test plwr=8022) 0.70 K/ L 0.00-1.30 EOSINOPHILS - ABS (DIFF) (BEAKER) (test kmiw=4224) 0.00 K/ L 0.00-0.50 BASOPHILS - ABS (DIFF) (BEAKER) (test tbyg=4328) 0.00 K/ L 0.00-0.20 BANDS-ABS (DIFF) (BEAKER) (test sobk=6104) 0.0 K/ L 0.0-0.8 TOTAL COUNTED (BEAKER) (test wnop=9833) 100 BANDS + SEGMENTED NEUTROPHILS (BEAKER) (test 0.90 xslp=6535) WBC MORPHOLOGY (BEAKER) (test ilmk=255) Normal PLT MORPHOLOGY (BEAKER) (test xwqc=189) Normal RBC MORPHOLOGY (BEAKER) (test esuh=259) Normal POCT-GLUCOSE [id number] 08:18:00 Test Item Value Reference Range Comments POC-GLUCOSE METER (BEAKER) 100 mg/dL 70-110 TESTED AT [facility] [address] [facility] (test ubpf=1694) [facility] [address] BASIC METABOLIC [id number] 06:53:00 Test Item Value Reference Range Comments SODIUM (BEAKER) (test 141 meq/L 136-145 lzjp=884) POTASSIUM (BEAKER) (test 3.5 meq/L 3.5-5.1 ssxz=842) CHLORIDE (BEAKER) (test 110 meq/L 98-107 epqr=840) CO2 (BEAKER) (test 21 meq/L 22-29 vgah=289) BLOOD UREA NITROGEN 12 mg/dL 7-21 (BEAKER) (test sdas=512) CREATININE (BEAKER) (test 0.71 mg/dL 0.57-1.25 vvbh=686) GLUCOSE RANDOM (AKER) 68 mg/dL 70-105 (test ygzl=925) CALCIUM (BEAKER) (test 7.5 mg/dL 8.4-10.2 wobn=648) EGFR (AKER) (test 120 mL/min/1.73 sq m ESTIMATED GFR IS NOT xxcn=0016) ACCURATE CREATININE CLEARANCE IN PREDICTING GLOMERULAR FILTRATION RATE. ESTIMATED GFR IS NOT APPLICABLE FOR DIALYSIS PATIENTS. POCT-GLUCOSE [id number] 21:28:00 Test Item Value Reference Range Comments POC-GLUCOSE METER ([facility]) 105 mg/dL 70-110 TESTED AT [address] (test xhnm=3944) [place] [id number] POCT-GLUCOSE [id number] 12:53:00 Test Item Value Reference Range Comments POC-GLUCOSE METER ([facility]) 126 mg/dL 70-110 TESTED AT [address] (test robm=9904) [place] [id number] VANCOMYCIN LEVEL, [id number] 11:31:00 Test Item Value Reference Range Comments VANCOMYCIN TROUGH ([facility]) (test jabd=012) 13.7 ug/mL 10.0-20.0 Draw 30 min prior to scheduled dose, HOLD if level > 20 mcg/mL, inform MD.ANTITHROMBIN [id number] 11:18:00 Test Item Value Reference Range Comments ANTITHROMBIN III ACTIVITY (BEAKER) (test tqgc=968) 67.0 % 80.0-120.0 URINE [id number] 10:46:00 Test Item Value Reference Range Comments CULTURE (BEAKER) (test qnjh=9749) No growth [id number] 07:57:00 Test Item Value Reference Range Comments HOMOCYSTEINE (BEAKER) (test xbfu=614) 7.6 umol/L 5.1-15.4 LACTIC ACID, VENOUS, WHOLE [id number] 07:11:00 Test Item Value Reference Range Comments LACTATE BLOOD VENOUS (2) (BEAKER) (test 0.9 mmol/L 0.5-2.2 mjdu=9327) Effective 09/25/2015: Units/Reference Range ChangeNew: 0.5-2.2 mmol/L Previous: 5 -20 mg/dLBASIC METABOLIC [id number] 07:04:00 Test Item Value Reference Range Comments SODIUM (BEAKER) (test 141 meq/L 136-145 eity=720) POTASSIUM (BEAKER) (test 3.3 meq/L 3.5-5.1 xijr=050) CHLORIDE (BEAKER) (test 109 meq/L 98-107 hrgc=343) CO2 (BEAKER) (test 26 meq/L 22-29 bdnr=172) BLOOD UREA NITROGEN 12 mg/dL 7-21 (BEAKER) (test cczj=430) CREATININE (BEAKER) (test 0.80 mg/dL 0.57-1.25 bclj=830) GLUCOSE RANDOM (BEAKER) 89 mg/dL 70-105 (test ojip=799) CALCIUM (BEAKER) (test 7.8 mg/dL 8.4-10.2 lgva=096) EGFR (BEAKER) (test 104 mL/min/1.73 sq m ESTIMATED GFR IS NOT ekxg=7259) ACCURATE CREATININE CLEARANCE IN PREDICTING GLOMERULAR FILTRATION RATE. ESTIMATED GFR IS NOT APPLICABLE FOR DIALYSIS PATIENTS. POCT-GLUCOSE [id number] 00:35:00 Test Item Value Reference Range Comments POC-GLUCOSE METER (BEAKER) 87 mg/dL 70-110 TESTED AT [address] (test fhhk=1680) [place] [address] [id number] 23:26:00 Test Item Value Reference Range Comments RPR SCREEN (BEAKER) (test byqt=176) Nonreactive Nonreactive POCT-GLUCOSE [id number] 17:52:00 Test Item Value Reference Range Comments POC-GLUCOSE METER (BEAKER) 87 mg/dL 70-110 TESTED AT [address] (test nxhn=8989) [place] [address] POCT-GLUCOSE [id number] 12:58:00 Test Item Value Reference Range Comments POC-GLUCOSE METER (BEAKER) 117 mg/dL 70-110 TESTED AT [address] (test sthl=4613) [place] [address] EEG AWAKE AND [id number] 12:51:00Reason for exam:->abnormal EEG with altered mental status, concern for statusShould this be performed at the bedside ?->YesEEG REPORT: Alyssa [facility] , DATE: EEG #: [id number] Code: #: R41.82 Altered mental status, unspecified (ICD 9: 780.97)CPT Code: #: 49117: 03. EEG coma or sleep only; 20-40 [...] etiology.Clinical Fellow: Sherly Higginsrophysiologist: Daphne Woods HEMOGLOBIN [id number] 08:42:00 Test Item Value Reference Range Comments HEMOGLOBIN A1C (BEAKER) (test ffil=164) 5.6 % 4.3-6.1 HIV-1 ANTIGEN WITH HIV-1/2 [id number] 05:23:00 Test Item Value Reference Range Comments HIV-1 ANTIGEN WITH HIV 1\T\2 ANTIBODY (2) Nonreactive Nonreactive (BEAKER) (test ixxk=5142) SEDIMENTATION [id number] 05:05:00 Test Item Value Reference Range Comments SEDIMENTATION RATE, ERYTHROCYTE (BEAKER) (test 48 mm/HR 0-20 lxyz=832) RAD, HIP, 2 VIEWS, [id number] 03:29:00Reason for exam:->possible fall at homeFINAL REPORT [...] MDReport Verified Date/Time: 05/29/2017 03:29:06 Reading Location: [address] Body Reading Room CREATINE KINASE (CK), TOTAL AND [id number] 02:57:00 Test Item Value Reference Range Comments CREATINE KINASE TOTAL (BEAKER) (test fosh=928) 581 U/L 29-200 CREATINE KINASE-MB (BEAKER) (test xvxg=556) 1.2 ng/mL 0.0-6.6 CREATINE KINASE-MB INDEX (BEAKER) (test dnln=797) 0.2 % CK-MB Reference Range:<6.7 Normal6.7-10.0 Borderline>10.0 AbnormalTROPONIN [id number] 02:57:00 Test Item Value Reference Range Comments TROPONIN I (BEAKER) (test lofi=352) < ng/mL 0.00-0.03 Troponin I (TnI) levels [...] and persistent tachyarrhythmia.CREATINE KINASE (CK), TOTAL AND [id number] 02:56:00 Test Item Value Reference Range Comments CREATINE KINASE TOTAL (BEAKER) (test xbsy=166) 577 U/L 29-200 CREATINE KINASE-MB (BEAKER) (test hmvs=124) 1.2 ng/mL 0.0-6.6 CREATINE KINASE-MB INDEX (BEAKER) (test zukj=609) 0.2 % CK-MB Reference Range:<6.7 Normal6.7-10.0 Borderline>10.0 AbnormalTROPONIN [id number] 02:56:00 Test Item Value Reference Range Comments TROPONIN I (BEAKER) (test myey=614) < ng/mL 0.00-0.03 Troponin I (TnI) levels [...] acidosis, acute neurological disease, and persistent tachyarrhythmia.LIPID [id number] 02:53:00 Test Item Value Reference Range Comments TRIGLYCERIDES (BEAKER) (test crpq=216) 50 mg/dL CHOLESTEROL (BEAKER) (test quep=064) 160 mg/dL HDL CHOLESTEROL (BEAKER) (test sebh=936) 48 mg/dL LDL CHOLESTEROL CALCULATED (BEAKER) (test 102 mg/dL zxmz=676) Triglyceride Reference Range: Low Risk <150 Borderline 150- 199 High Risk 200-499 Very High Risk >=500Cholesterol Reference Range: Low Risk <200 Borderline 200-239 High Risk > 240HDL Cholesterol Reference Range: Low Risk >=60 High Risk <40LDL Cholesterol Reference Range: Optimal <100 Near Optimal 100-129 Borderline 130-159 High 160-189 Very High >=190BASIC METABOLIC [id number] 02:53:00 Test Item Value Reference Range Comments SODIUM (BEAKER) (test 138 meq/L 136-145 uarz=148) POTASSIUM (BEAKER) (test 3.7 meq/L 3.5-5.1 dtdu=562) CHLORIDE (BEAKER) (test 107 meq/L 98-107 smhw=460) CO2 (BEAKER) (test 20 meq/L 22-29 xxje=132) BLOOD UREA NITROGEN 10 mg/dL 7-21 (BEAKER) (test kdcu=584) CREATININE (BEAKER) (test 0.93 mg/dL 0.57-1.25 botq=000) GLUCOSE RANDOM (BEAKER) 103 mg/dL 70-105 (test mvzs=939) CALCIUM (BEAKER) (test 8.4 mg/dL 8.4-10.2 xxpo=936) EGFR (BEAKER) (test 88 mL/min/1.73 sq m ESTIMATED GFR IS NOT iegi=5787) ACCURATE CREATININE CLEARANCE IN PREDICTING GLOMERULAR FILTRATION RATE. ESTIMATED GFR IS NOT APPLICABLE FOR DIALYSIS PATIENTS. HEPATIC FUNCTION [id number] 02:53:00 Test Item Value Reference Range Comments TOTAL PROTEIN (BEAKER) (test sddg=290) 7.6 gm/dL 6.0-8.3 ALBUMIN (BEAKER) (test snfk=4262) 3.6 g/dL 3.5-5.0 BILIRUBIN TOTAL (BEAKER) (test bpnk=174) 0.3 mg/dL 0.2-1.2 BILIRUBIN DIRECT (BEAKER) (test ujns=876) 0.2 mg/dL 0.1-0.5 ALKALINE PHOSPHATASE (BEAKER) (test bbdi=112) 58 U/L 40-150 AST (SGOT) (BEAKER) (test ngul=480) 33 U/L 5-34 ALT (SGPT) (BEAKER) (test hetc=064) 15 U/L 6-55 [id number] 02:53:00 Test Item Value Reference Range Comments AMYLASE (BEAKER) (test idhb=824) 74 U/L 25-125 [id number] 02:53:00 Test Item Value Reference Range Comments LIPASE (BEAKER) (test gbwc=658) 13 U/L 8-78 C-REACTIVE [id number] 02:53:00 Test Item Value Reference Range Comments C-REACTIVE PROTEIN (BEAKER) (test fgel=391) 10.77 mg/dL 0.00-0.50 LACTIC ACID, ARTERIAL, WHOLE [id number] 02:47:00 Test Item Value Reference Range Comments LACTATE BLOOD ARTERIAL (2) (BEAKER) (test 0.7 mmol/L 0.5-2.2 ciyz=6135) Effective 09/25/2015: Units/Reference Range ChangeNew: 0.5-2.2 mmol/L Previous: 5 -20 mg/[id number] 02:36:00 Test Item Value Reference Range Comments PARTIAL THROMBOPLASTIN TIME (BEAKER) (test 51.7 seconds 22.5-36.0 emel=075) PROTHROMBIN TIME/[id number] 02:35:00 Test Item Value Reference Range Comments PROTIME (BEAKER) (test aswr=102) 16.3 seconds 11.7-14.7 INR (BEAKER) (test idlf=918) 1.3 <=5.9 RECOMMENDED COUMADIN/WARFARIN INR THERAPY RANGESSTANDARD DOSE: 2.0 - 3.0 Includes: PROPHYLAXIS forvenous thrombosis, systemic embolization; TREATMENT for venous thrombosis and/or pulmonary embolus.HIGH RISK: Target INR is 2.5-3.5 for patients with mechanical heart valves.CBC W/PLT COUNT & AUTO [id number] 02:35:00 Test Item Value Reference Range Comments WHITE BLOOD CELL COUNT (BEAKER) (test gezx=012) 4.0 K/ L 3.5-10.5 RED BLOOD CELL COUNT (BEAKER) (test orgu=318) 4.12 M/ L 3.93-5.22 HEMOGLOBIN (BEAKER) (test dgsy=971) 11.4 GM/DL 11.2-15.7 HEMATOCRIT (BEAKER) (test ohyl=699) 33.8 % 34.1-44.9 MEAN CORPUSCULAR VOLUME (BEAKER) (test mmuf=668) 82.0 fL 79.4-94.8 MEAN CORPUSCULAR HEMOGLOBIN (BEAKER) (test 27.7 pg 25.6-32.2 kgvr=941) MEAN CORPUSCULAR HEMOGLOBIN CONC (BEAKER) (test 33.7 GM/DL 32.2-35.5 evem=383) RED CELL DISTRIBUTION WIDTH (BEAKER) (test 13.5 % 11.7-14.4 qwtw=417) PLATELET COUNT (BEAKER) (test pqzg=855) 153 K/CU MM 150-450 MEAN PLATELET VOLUME (BEAKER) (test wtwj=086) 10.8 fL 9.4-12.3 NUCLEATED RED BLOOD CELLS (BEAKER) (test 0 /100 WBC 0-0 zudt=256) NEUTROPHILS RELATIVE PERCENT (BEAKER) (test 83 % sqhi=632) LYMPHOCYTES RELATIVE PERCENT (BEAKER) (test 14 % qmec=717) MONOCYTES RELATIVE PERCENT (BEAKER) (test 2 % auhw=292) EOSINOPHILS RELATIVE PERCENT (BEAKER) (test 0 % wsfo=448) BASOPHILS RELATIVE PERCENT (BEAKER) (test 1 % bthm=223) NEUTROPHILS ABSOLUTE COUNT (BEAKER) (test 3.31 K/ L 1.56-6.13 vlqt=099) LYMPHOCYTES ABSOLUTE COUNT (BEAKER) (test 0.57 K/ L 1.18-3.74 xdlv=019) MONOCYTES ABSOLUTE COUNT (BEAKER) (test 0.06 K/ L 0.24-0.36 fsid=664) EOSINOPHILS ABSOLUTE COUNT (BEAKER) (test 0.00 K/ L 0.04-0.36 tswz=826) BASOPHILS ABSOLUTE COUNT (BEAKER) (test 0.02 K/ L 0.01-0.08 awew=789) IMMATURE GRANULOCYTES-RELATIVE PERCENT (BEAKER) 0 % 0-1 (test keha=5996) URINALYSIS W/ [id number] 02:31:00 Test Item Value Reference Range Comments COLOR (BEAKER) (test chbi=470) Light Yellow CLARITY (BEAKER) (test yuzo=586) Clear SPECIFIC GRAVITY UA (BEAKER) (test 1.003 1.001-1.035 odvv=014) PH UA (BEAKER) (test qhbh=751) 5.0 5.0-8.0 PROTEIN UA (BEAKER) (test gdel=618) Negative Negative GLUCOSE UA (BEAKER) (test onkt=209) Negative Negative KETONES UA (BEAKER) (test ruer=133) Negative Negative BILIRUBIN UA (BEAKER) (test ivyi=202) Negative Negative BLOOD UA (BEAKER) (test rcwy=509) Negative Negative NITRITE UA (BEAKER) (test kutj=318) Negative Negative LEUKOCYTE ESTERASE UA (BEAKER) (test Negative Negative vfbl=989) UROBILINOGEN UA (BEAKER) (test lgvc=680) 0.2 mg/dL 0.2-1.0 RBC UA (BEAKER) (test tuvl=662) < /HPF WBC UA (BEAKER) (test bvjo=663) < /HPF BACTERIA (BEAKER) (test nupp=902) Rare MUCUS (BEAKER) (test zqmz=3349) Rare SQUAMOUS EPITHELIAL (BEAKER) (test 1 /HPF pkav=639) AMORPHOUS CRYSTALS (BEAKER) (test Rare jkcb=1072) SOURCE(BEAKER) (test avlo=2643) Urine, Clean Catch SCREEN, [id number] 00:58:00 Test Item Value Reference Range Comments TEST URINE (BEAKER) (test tjry=064) Negative POCT-GLUCOSE [id number] 00:47:00 Test Item Value Reference Range Comments POC-GLUCOSE METER (BEAKER) 102 mg/dL 70-110 TESTED AT [facility] [address] (test uvtl=0217) [facility] [id number]
--- NOTE | 2018-02-04 02:32 | ER ---
Nurse's Notes [facility] Name: Alyssa García Age: 27 yrs Sex: Female : 1990 Arrival Date: 02/04/2018 Time: 01:59 Bed 25 Private MD: Diagnosis: Dental caries;Poor dentition Presentation: 02/04 02:16 Presenting complaint: Patient states: she has a really bad toothache to right lower jaw bb for 2 months but it has gotten significantly worse she has used many OTC medications but they are not working. Transition of care: patient was not received from another setting of care. Onset of symptoms was February 04, 2018. Risk Assessment: Do you want to hurt yourself or someone else? Patient reports no desire to harm self or others. Initial Sepsis Screen: Does the patient meet any 2 criteria? No. Patient's initial sepsis screen is negative. Does the patient have a suspected source of infection? No. Patient's initial sepsis screen is negative. Care prior to arrival: None. 02:16 Method Of Arrival: Ambulatory bb 02:16 Acuity: RUSLAN 5 bb Triage Assessment: 02:42 EENT: Reports pain in tooth. 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 - Social history:: Smoking status: Patient/guardian denies using tobacco, Patient uses street drugs, marijuana, Patient/guardian denies using alcohol. - Ebola Screening: : No symptoms or risks identified at this time. Screenin:40 Abuse screen: Denies threats or abuse. Denies injuries from another. Nutritional rv screening: No deficits noted. Tuberculosis screening: No symptoms or risk factors identified. Fall Risk None identified. Assessment: 02:40 General: Appears in no apparent distress. comfortable, Behavior is calm, cooperative. rv Pain: Complains of pain in tooth. Neuro: Level of Consciousness is awake, alert, obeys commands, Oriented to person, place, time, situation. Cardiovascular: Capillary refill < 3 seconds. Respiratory: Airway is patent. GI: No signs and/or symptoms were reported involving the gastrointestinal system. : No signs and/or symptoms were reported regarding the genitourinary system. EENT: Derm: Skin is intact. Vital Signs: 02:20 BP 121 / 90; Pulse 64; Resp 16 S; Temp 98.3(O); Pulse Ox 99% on R/A; Weight 42.64 kg bb (R); Height 5 ft. 2 in. (157.48 cm) (R); Pain 10/10; 02:20 Body Mass Index 17.19 (42.64 kg, 157.48 cm) bb ED Course: 01:59 Patient arrived in ED. es 02:04 Raheem Magallon MD is Attending Physician. kdr 02:18 Triage completed. bb 02:20 Arm band placed on Patient placed in an exam room, on a stretcher, on pulse oximetry. bb Family accompanied patient. 02:42 Patient has correct armband on for positive identification. Bed in low position. Call rv light in reach. Side rails up X 1. Pulse ox on. NIBP on. 02:43 No provider procedures requiring assistance completed. Patient did not have IV access rv during this emergency room visit. Administered Medications: 02:34 Drug: Amoxicillin 500 mg Route: PO; rv 02:34 Drug: Flagyl 500 mg Route: PO; rv 02:35 Drug: [place] 10 mg-325 mg 1 tabs Route: PO; rv Outcome: 02:32 Discharge ordered by . kdr 02:42 Discharged to home ambulatory. rv 02:42 Condition: good 02:42 Discharge instructions given to patient, Instructed on discharge instructions, follow up and referral plans. medication usage, Demonstrated understanding of instructions, follow-up care, medications, Prescriptions given X 3. 02:43 Patient left the ED. rv Signatures: Raheem Magallon MD MD kdr Salyer, Edna es Ballard, Brenda, RN RN bb Alex Shook RN RN rv
--- NOTE | 2018-02-04 02:32 | EDPHYS ---
Physician Documentation [facility] Name: Alyssa García Age: 27 yrs Sex: Female : 1990 Arrival Date: 02/04/2018 Time: 01:59 Bed 25 Private MD: ED Physician Raheem Magallon HPI: 02/04 03:50 This 27 yrs old Black Female presents to ER via Ambulatory with complaints of Toothache.kdr 03:50 The patient presents with broken tooth/teeth, pain, redness, swelling. The problem is kdr located in the lower right second bicuspid, lower right first molar and lower right second molar. Onset: The symptoms/episode began/occurred at an unknown time. Has been an ongoing and intermittent problem for some month.. Duration: The symptoms are chronic, and have existed for years, are intermittent, with no pattern. Modifying factors: The symptoms are alleviated by nothing, the symptoms are aggravated by air, chewing, food. Associated signs and symptoms: The patient has no apparent associated signs or symptoms. Severity of symptoms: At their worst the symptoms were mild, moderate, just prior to arrival, in the emergency department the symptoms are unchanged. The patient has experienced similar episodes in the past, multiple times. The patient has not recently seen a physician. 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 - Social history:: Smoking status: Patient/guardian denies using tobacco, Patient uses street drugs, marijuana, Patient/guardian denies using alcohol. - Ebola Screening: : No symptoms or risks identified at this time. ROS: 03:50 Constitutional: Negative for fever, chills, and weight loss, Eyes: Negative for injury, kdr pain, redness, and discharge, Neck: Negative for injury, pain, and swelling, Cardiovascular: Negative for chest pain, palpitations, and edema, Respiratory: Negative for shortness of breath, cough, wheezing, and pleuritic chest pain, Abdomen/GI: Negative for abdominal pain, nausea, vomiting, diarrhea, and constipation, Back: Negative for injury and pain, MS/Extremity: Negative for injury and deformity, Skin: Negative for injury, rash, and discoloration, Neuro: Negative for headache, weakness, numbness, tingling, and seizure activity. 03:50 ENT: Positive for dental pain, of the lower right second bicuspid, lower right first molar and lower right second molar. Exam: 03:50 Constitutional: This is a well developed, well nourished patient who is awake, alert, kdr and in no acute distress. Head/Face: Normocephalic, atraumatic. Eyes: Pupils equal round and reactive to light, extra-ocular motions intact. Lids and lashes normal. Conjunctiva and sclera are non-icteric and not injected. Cornea within normal limits. Periorbital areas with no swelling, redness, or edema. Neck: Trachea midline, no thyromegaly or masses palpated, and no cervical lymphadenopathy. Supple, full range of motion without nuchal rigidity, or vertebral point tenderness. No Meningismus. Chest/axilla: Normal chest wall appearance and motion. Nontender with no deformity. No lesions are appreciated. Cardiovascular: Regular rate and rhythm with a normal S1 and S2. No gallops, murmurs, or rubs. Normal PMI, no JVD. No pulse deficits. Respiratory: Lungs have equal breath sounds bilaterally, clear to auscultation and percussion. No rales, rhonchi or wheezes noted. No increased work of breathing, no retractions or nasal flaring. 03:50 ENT: Dental exam: avulsion, partial, complete, specifically the lower right second bicuspid (#29), lower right first molar (#30) and lower right second molar (#31), dental caries, missing teeth, pain, that is mild. Vital Signs: 02:20 BP 121 / 90; Pulse 64; Resp 16 S; Temp 98.3(O); Pulse Ox 99% on R/A; Weight 42.64 kg bb (R); Height 5 ft. 2 in. (157.48 cm) (R); Pain 10/10; 02:20 Body Mass Index 17.19 (42.64 kg, 157.48 cm) bb MDM: 02:32 Patient medically screened. kdr 03:50 Data reviewed: vital signs, nurses notes. Counseling: I had a detailed discussion with kdr the patient and/or guardian regarding: the historical points, exam findings, and any diagnostic results supporting the discharge/admit diagnosis, the need for outpatient follow up. Administered Medications: 02:34 Drug: Amoxicillin 500 mg Route: PO; rv 02:34 Drug: Flagyl 500 mg Route: PO; rv 02:35 Drug: [place] 10 mg-325 mg 1 tabs Route: PO; rv Disposition: 02/04/18 02:32 Discharged to Home. Impression: Dental caries, Poor dentition. - Condition is Stable. - Discharge Instructions: Dental Pain, [id number], Dental Caries, [id number]. - Prescriptions for Amoxicillin 500 mg Oral Capsule - take 1 capsule by ORAL route every 8 hours for 10 days; 30 tablet. Flagyl 500 mg Oral Tablet - take 1 tablet by ORAL route every 6 hours for 10 days; 40 tablet. Tylenol- Codeine #3 300-30 mg Oral Tablet - take 2 tablets by ORAL route every 6 hours As needed; 12 tablet. - Medication Reconciliation Form, Thank You Letter, Antibiotic Education, Prescription Opioid Use form. - Follow up: Private Physician; When: 2 - 3 days; Reason: If symptoms return, Further diagnostic work-up, Recheck today's complaints, Continuance of care, Re-evaluation by your physician. - Problem is new. - Symptoms have improved. Signatures: Raheem Magallon MD MD kdr Elizabet Davila RN RN Alex Cevallos, ADOLFO RN rv Corrections: (The following items were deleted from the chart) 02:43 02:32 02/04/2018 02:32 Discharged to Home. Impression: Dental caries; Poor dentition. rv Condition is Stable. Forms are Medication Reconciliation Form, Thank You Letter, Antibiotic Education, Prescription Opioid Use. Follow up: Private Physician; When: 2 - 3 days; Reason: If symptoms return, Further diagnostic work-up, Recheck today's complaints, Continuance of care, Re-evaluation by your physician. Problem is new. Symptoms have improved. kdr
[2018-02-04] MEDS ORDERED: metroNIDAZOLE 500 MG TABLET ONE (02:34)
[2018-02-04] MEDS ORDERED: AMOXICILLIN TRIHYDR 250 MG CAP ONE (02:35)
[2018-02-04] MEDS ORDERED: HYDROCODONE/APAP 10/325 TAB ONE (02:35)
== END 2018-02-04 02:43 | disposition home or self-care (01) ==
LOC: ER 01:56
DX: K02.9 Dental caries, unspecified (principal); K08.89 Other specified disorders of teeth and supporting structures; G40.909 Epilepsy, unspecified, not intractable, without status epilepticus; J45.909 Unspecified asthma, uncomplicated; Z86.73 Personal history of transient ischemic attack (TIA), and cerebral infarction without residual deficits; Z88.6 Allergy status to analgesic agent; Z88.8 Allergy status to other drugs, medicaments and biological substances
CPT/HCPCS: 99283

== ENCOUNTER 2018-03-14 09:37 | Observation (INO) | payer OTHER ==
--- OUTSIDE RECORDS SUMMARY | 2018-03-14 09:40 | XMS REPORT ---
:1990 [facility] Address [address] [place] [address] [address] Care Team Providers Name Role Phone ANDREYALEXANDERMIREYA VEE Unavailable Unavailable Problems This patient has no known problems. Allergies, Adverse Reactions, Alerts This patient has no known allergies or adverse reactions. Medications This patient has no known medications. Results Test Description Test Time Test Comments Text Results Atomic Results Result Comments BLOOD CULTURE 2017-06-03 10:00:00 Test Item Value Reference Range Comments CULTURE (BEAKER) (test cmnq=5701) No growth in 5 days BLOOD [id number] 10:00:00 Test Item Value Reference Range Comments CULTURE (BEAKER) (test pktv=6460) No growth in 5 days PROTHROMBIN GENE [id number] 08:45:00 Test Item Value Reference Range Comments PROTHROMBIN/FACTOR II Negative for the [id number] (AppvanceAKER) (test oaxn=1863) (Prothrombin/Factor II) mutation. FYPI-RDCAQGNADAZ-4144(MAGALI Dunn M.D. (electonic ) (test svsy=0489) signature) This test is a genotyping assay which evaluates the DNA sequence at position [address] of the prothrombin (Factor II) gene. A [...] and its performance characteristics determined by the [facility] Pathology Department, Section of Molecular Pathology. [...] (BEAKER) Negative for the R506Q (Factor (test gprj=536) V Leiden) mutation [id number] (BEAKER) Dudley Dunn M.D. (electonic (test brwa=5411) signature) This test is a genotyping assay [...] developed and its performance characteristics determined bythe [facility] Pathology Department, Section of Molecular [...] Comments PROTIME (BEAKER) (test 16.4 seconds 11.7-14.7 atud=687) INR (BEAKER) (test qnjm=665) 1.3 <=5.9 PARTIAL THROMBOPLASTIN TIME 52.7 seconds 22.5-36.0 (BEAKER) (test rfcj=837) DRVV INTERPRETATION (BEAKER) Negative screen for Lupus (test engf=3693) Anticoagulant NEAZ-NOYHYHXTIPS-579 (BEAKER) Dudley Dunn M.D. (test ynlo=7211) (electonic signature) DRVV SCREEN RATIO (BEAKER) 0.76 <1.20 (test tkvn=3880) CBC W/PLT COUNT & AUTO [id number] 14:03:00 Test Item Value Reference Range Comments WHITE BLOOD CELL COUNT (BEAKER) (test bnzq=834) 3.9 K/ L 3.5-10.5 RED BLOOD CELL COUNT (BEAKER) (test apwe=422) 3.71 M/ L 3.93-5.22 HEMOGLOBIN (BEAKER) (test uncb=192) 10.1 GM/DL 11.2-15.7 HEMATOCRIT (BEAKER) (test eovr=421) 30.9 % 34.1-44.9 MEAN CORPUSCULAR VOLUME (BEAKER) (test rqul=695) 83.3 fL 79.4-94.8 MEAN CORPUSCULAR HEMOGLOBIN (BEAKER) (test 27.2 pg 25.6-32.2 jpyx=031) MEAN CORPUSCULAR HEMOGLOBIN CONC (BEAKER) (test 32.7 GM/DL 32.2-35.5 aqhd=705) RED CELL DISTRIBUTION WIDTH (BEAKER) (test 13.4 % 11.7-14.4 esyh=020) PLATELET COUNT (BEAKER) (test ysys=706) 130 K/CU MM 150-450 MEAN PLATELET VOLUME (BEAKER) (test ahrk=271) 11.1 fL 9.4-12.3 NUCLEATED RED BLOOD CELLS (BEAKER) (test 0 /100 WBC 0-0 ebmn=735) NEUTROPHILS RELATIVE PERCENT (BEAKER) (test 17 % aqgx=004) LYMPHOCYTES RELATIVE PERCENT (BEAKER) (test 74 % zbfn=631) MONOCYTES RELATIVE PERCENT (BEAKER) (test 5 % lvhm=241) EOSINOPHILS RELATIVE PERCENT (BEAKER) (test 2 % vdzx=191) BASOPHILS RELATIVE PERCENT (BEAKER) (test 1 % nkkt=924) NEUTROPHILS ABSOLUTE COUNT (BEAKER) (test 0.67 K/ L 1.56-6.13 rsor=678) LYMPHOCYTES ABSOLUTE COUNT (BEAKER) (test 2.86 K/ L 1.18-3.74 pmxf=374) MONOCYTES ABSOLUTE COUNT (BEAKER) (test 0.21 K/ L 0.24-0.36 gcpa=910) EOSINOPHILS ABSOLUTE COUNT (BEAKER) (test 0.09 K/ L 0.04-0.36 foaw=514) BASOPHILS ABSOLUTE COUNT (BEAKER) (test 0.03 K/ L 0.01-0.08 qzed=930) IMMATURE GRANULOCYTES-RELATIVE PERCENT (BEAKER) 0 % 0-1 (test vjgl=1876) (MANUAL DIFFERENTIAL)2017-06-01 14:03:00 Test Item Value Reference Range Comments TOTAL COUNTED (BEAKER) (test oyxy=5521) WBC MORPHOLOGY (BEAKER) (test zkgs=798) Normal PLT MORPHOLOGY (BEAKER) (test igwc=115) Normal RBC MORPHOLOGY (BEAKER) (test gqld=944) Normal BASIC METABOLIC [id number] 10:08:00 Test Item Value Reference Range Comments SODIUM (BEAKER) (test 139 meq/L 136-145 jcvg=398) POTASSIUM (BEAKER) (test 3.9 meq/L 3.5-5.1 iafh=649) CHLORIDE (BEAKER) (test 106 meq/L 98-107 woie=398) CO2 (BEAKER) (test 26 meq/L 22-29 wvtz=706) BLOOD UREA NITROGEN 11 mg/dL 7-21 (BEAKER) (test ojwp=533) CREATININE (BEAKER) (test 0.70 mg/dL 0.57-1.25 ymad=029) GLUCOSE RANDOM (BEAKER) 66 mg/dL 70-105 (test pfnh=236) CALCIUM (BEAKER) (test 7.7 mg/dL 8.4-10.2 hmnm=040) EGFR (BEAKER) (test 122 mL/min/1.73 sq m ESTIMATED GFR IS NOT kkdt=5887) ACCURATE CREATININE CLEARANCE IN PREDICTING GLOMERULAR FILTRATION RATE. ESTIMATED GFR IS NOT APPLICABLE FOR DIALYSIS PATIENTS. POCT-GLUCOSE [id number] 08:35:00 Test Item Value Reference Range Comments POC-GLUCOSE METER (BEAKER) 72 mg/dL 70-110 TESTED AT [address] (test ixbe=9503) [place] [address] ANTI-NUCLEAR ANTIBODY (MARIA ISABEL)2017-06-01 03:41:00 Test Item Value Reference Range Comments ANTI-NUCLEAR ANTIBODY (MARIA ISABEL) (BEAKER) (test Negative Negative kips=801) POCT-GLUCOSE [id number] 22:27:00 Test Item Value Reference Range Comments POC-GLUCOSE METER (BEAKER) 111 mg/dL 70-110 TESTED AT [address] (test irnr=7360) [place] [address] MR, BRAIN, WITHOUT [id number] 17:48:00FINAL REPORT MRI brain and MRA head and neck without contrast 05/31/2017 5:44 PM CLINICAL INDICATION: Stroke TECHNIQUE: Multiplanar, multisequence MR imaging of the brain was performed utilizing the following imaging sequences: Axial T1, T2 , FLAIR, GRE, and DWI; sagittal and coronal T1-weighted images. Two- and three- dimensional kqat-ao-wfqaiy MRA images of the intra- and extracranial [...] is antegrade in both vertebral arteries. MRA [place]: There is no vessel occlusion, flow-limiting stenosis, or aneurysm. IMPRESSION: 1. Findings that may reflect increased intracranial pressure. Consider further evaluation with intracranial MRA to exclude venous sinus thrombosis/stenosis.2. Unremarkable extracranial and intracranial MRAs. Signed: [facility] Verified Date/Time: 2017 17:48:23 Reading Location: [facility] Radiology Reading Room MR, MRA, BRAIN, WITHOUT [id number] 17:48:00FINAL REPORT MRI brain and MRA head and neck without contrast 05/31/2017 5:44 PM CLINICAL INDICATION: Stroke TECHNIQUE: Multiplanar, multisequence MR imaging of the brain was performed utilizing the following imaging sequences: Axial T1, T2, FLAIR, GRE, and DWI; sagittal and coronal T1-weighted images. Two- and three- dimensional ffjs-uw-fupmbm MRA images of the intra- and extracranial [...] is antegrade in both vertebral arteries. MRA [place]: There is no vessel occlusion, flow-limiting stenosis, or aneurysm. IMPRESSION: 1. Findings that may reflect increased intracranial pressure. Consider further evaluation with intracranial MRA to exclude venous sinus thrombosis/stenosis.2. Unremarkable extracranial and intracranial MRAs. Signed: Patrick Lynne Verified Date/Time: 2017 17:48:23 Reading Location: [facility] Radiology Reading Room MR, MRA, NECK, WITH IV [id number] 17:48:00Please perform without contrastFINAL REPORT MRI brain and MRA head and neck without contrast 5:44 PM CLINICAL INDICATION: Stroke TECHNIQUE: Multiplanar, multisequence MR imaging of the brain was performed utilizing the following imaging sequences: Axial T1, T2, FLAIR, GRE, and DWI; sagittal and coronal T1- weighted images. Two- and three-dimensional dacu-xo-gthnek MRA images of the intra- and extracranial [...] is antegrade in both vertebral arteries. MRA [place]: There is no vessel occlusion, flow-limiting stenosis, or aneurysm. IMPRESSION: 1. Findings that may reflect increased intracranial pressure. Consider further evaluation with intracranial MRA to exclude venous sinus thrombosis/stenosis.2. Unremarkable extracranial and intracranial MRAs. Signed: [facility] Verified Date/Time: 05/31/2017 17:48:23 Reading Location: [facility] Radiology Reading Room THROMBIN [id number] 14:28:00 Test Item Value Reference Range Comments THROMBIN TIME (BEAKER) (test bpyb=211) 18.5 secs 13.8-20.0 HEXAGONAL [id number] 14:28:00 Test Item Value Reference Range Comments HEXAGONAL PHOSPHOLIPID (BEAKER) (test sqsm=1006) Negative 1:1 MIXING STUDY, [id number] 14:28:00 Test Item Value Reference Range Comments PROTIME (BEAKER) (test jcpr=429) 16.4 seconds 11.7-14.7 PARTIAL THROMBOPLASTIN TIME (BEAKER) (test 52.7 seconds 22.5-36.0 ffka=830) PT 1/1 MIX (BEAKER) (test vyxo=4725) 14.1 SECS 11.7-14.7 PTT 1/1 MIX (BEAKER) (test jysj=3010) 39.7 SECS 22.5-36.0 CARDIOLIPIN ANTIBODIES, IGG AND [id number] 11:47:00 Test Item Value Reference Range Comments ANTICARDIOLIPIN IGG ANTIBODY (BEAKER) (test < GPL nyvm=738) ANTICARDIOLIPIN IGM ANTIBODY (BEAKER) (test 0.4 MPL zald=924) Anticardiolipin IgG Result Interpretation:NEG: <20 GPL; U/mlPOS: >/=20 GPL; U/mlAnticardiolipin IgM Result Interpretation:NEG: <20 MPL; U/mlPOS: >/=20 MPL; U/mlCARDIOLIPIN ANTIBODIES, IGG AND [id number] 11:45:00 Test Item Value Reference Range Comments ANTICARDIOLIPIN IGG ANTIBODY (BEAKER) (test < GPL mpcq=312) ANTICARDIOLIPIN IGM ANTIBODY (BEAKER) (test 0.5 MPL nagb=585) Anticardiolipin IgG Result Interpretation:NEG: <20 GPL; U/mlPOS: >/=20 GPL; U/mlAnticardiolipin IgM Result Interpretation:NEG: <20 MPL; U/mlPOS: >/=20 MPL; U/mlPOCT-GLUCOSE [id number] 11:39:00 Test Item Value Reference Range Comments POC-GLUCOSE METER (BEAKER) 120 mg/dL 70-110 TESTED AT [facility] [address] (test keam=4673) [facility] [address] PROTEIN C [id number] 11:35:00 Test Item Value Reference Range Comments PROTEIN C ACTIVITY (BEAKER) (test qafh=167) 65.0 % 70.0-130.0 See Protein C Antigen.CBC W/PLT COUNT & AUTO [id number] 10:02:00 Test Item Value Reference Range Comments WHITE BLOOD CELL COUNT (BEAKER) (test tzmj=781) 4.1 K/ L 3.5-10.5 RED BLOOD CELL COUNT (BEAKER) (test nyxr=728) 3.68 M/ L 3.93-5.22 HEMOGLOBIN (BEAKER) (test kkcb=745) 10.1 GM/DL 11.2-15.7 HEMATOCRIT (BEAKER) (test iozk=922) 30.9 % 34.1-44.9 MEAN CORPUSCULAR VOLUME (BEAKER) (test lzrg=044) 84.0 fL 79.4-94.8 MEAN CORPUSCULAR HEMOGLOBIN (BEAKER) (test 27.4 pg 25.6-32.2 tvvo=332) MEAN CORPUSCULAR HEMOGLOBIN CONC (BEAKER) (test 32.7 GM/DL 32.2-35.5 yent=485) RED CELL DISTRIBUTION WIDTH (BEAKER) (test 13.6 % 11.7-14.4 fqub=078) PLATELET COUNT (BEAKER) (test orct=938) 126 K/CU MM 150-450 MEAN PLATELET VOLUME (BEAKER) (test kppk=763) 11.6 fL 9.4-12.3 NUCLEATED RED BLOOD CELLS (BEAKER) (test 0 /100 WBC 0-0 habj=887) IMMATURE GRANULOCYTES-RELATIVE PERCENT (BEAKER) 0 % 0-1 (test oehm=5932) (MANUAL DIFFERENTIAL)2017-05-31 10:02:00 Test Item Value Reference Range Comments NEUTROPHILS - REL (DIFF) (BEAKER) (test qhkx=0453) 21 % LYMPHOCYTES - REL (DIFF) (BEAKER) (test mttt=9932) 61 % MONOCYTES - REL (DIFF) (BEAKER) (test uxtp=2562) 17 % EOSINOPHILS - REL (DIFF) (BEAKER) (test ukiw=6908) 0 % BASOPHILS - REL (DIFF) (BEAKER) (test nvol=4225) 0 % BANDS - REL (DIFF) (BEAKER) (test vqcd=2339) 1 % 0-10 NEUTROPHILS - ABS (DIFF) (BEAKER) (test icbw=5781) 0.86 K/ L 1.80-8.00 LYMPHOCYTES - ABS (DIFF) (BEAKER) (test jxjb=5539) 2.50 K/ L 1.48-4.50 MONOCYTES - ABS (DIFF) (BEAKER) (test xkgg=8778) 0.70 K/ L 0.00-1.30 EOSINOPHILS - ABS (DIFF) (BEAKER) (test jffi=3895) 0.00 K/ L 0.00-0.50 BASOPHILS - ABS (DIFF) (BEAKER) (test cjmo=7023) 0.00 K/ L 0.00-0.20 BANDS-ABS (DIFF) (BEAKER) (test sfvq=4063) 0.0 K/ L 0.0-0.8 TOTAL COUNTED (BEAKER) (test zdvp=8642) 100 BANDS + SEGMENTED NEUTROPHILS (BEAKER) (test 0.90 vfmv=1543) WBC MORPHOLOGY (BEAKER) (test hktw=553) Normal PLT MORPHOLOGY (BEAKER) (test cdqw=751) Normal RBC MORPHOLOGY (BEAKER) (test gsca=027) Normal POCT-GLUCOSE [id number] 08:18:00 Test Item Value Reference Range Comments POC-GLUCOSE METER (BEAKER) 100 mg/dL 70-110 TESTED AT [facility] [address] [facility] (test gqsm=0545) [facility] [address] BASIC METABOLIC [id number] 06:53:00 Test Item Value Reference Range Comments SODIUM (BEAKER) (test 141 meq/L 136-145 rxbm=289) POTASSIUM (BEAKER) (test 3.5 meq/L 3.5-5.1 olvq=727) CHLORIDE (BEAKER) (test 110 meq/L 98-107 palp=292) CO2 (BEAKER) (test 21 meq/L 22-29 jzos=952) BLOOD UREA NITROGEN 12 mg/dL 7-21 (BEAKER) (test gdrv=926) CREATININE (BEAKER) (test 0.71 mg/dL 0.57-1.25 rtei=351) GLUCOSE RANDOM (AKER) 68 mg/dL 70-105 (test psar=987) CALCIUM (BEAKER) (test 7.5 mg/dL 8.4-10.2 yffy=723) EGFR (AKER) (test 120 mL/min/1.73 sq m ESTIMATED GFR IS NOT tfgu=6563) ACCURATE CREATININE CLEARANCE IN PREDICTING GLOMERULAR FILTRATION RATE. ESTIMATED GFR IS NOT APPLICABLE FOR DIALYSIS PATIENTS. POCT-GLUCOSE [id number] 21:28:00 Test Item Value Reference Range Comments POC-GLUCOSE METER ([facility]) 105 mg/dL 70-110 TESTED AT [address] (test dcee=4680) [place] [id number] POCT-GLUCOSE [id number] 12:53:00 Test Item Value Reference Range Comments POC-GLUCOSE METER ([facility]) 126 mg/dL 70-110 TESTED AT [address] (test sujm=6845) [place] [id number] VANCOMYCIN LEVEL, [id number] 11:31:00 Test Item Value Reference Range Comments VANCOMYCIN TROUGH ([facility]) (test wzzs=431) 13.7 ug/mL 10.0-20.0 Draw 30 min prior to scheduled dose, HOLD if level > 20 mcg/mL, inform MD.ANTITHROMBIN [id number] 11:18:00 Test Item Value Reference Range Comments ANTITHROMBIN III ACTIVITY (BEAKER) (test bcib=617) 67.0 % 80.0-120.0 URINE [id number] 10:46:00 Test Item Value Reference Range Comments CULTURE (BEAKER) (test fnqo=2363) No growth [id number] 07:57:00 Test Item Value Reference Range Comments HOMOCYSTEINE (BEAKER) (test tknd=763) 7.6 umol/L 5.1-15.4 LACTIC ACID, VENOUS, WHOLE [id number] 07:11:00 Test Item Value Reference Range Comments LACTATE BLOOD VENOUS (2) (BEAKER) (test 0.9 mmol/L 0.5-2.2 umkt=4021) Effective 09/25/2015: Units/Reference Range ChangeNew: 0.5-2.2 mmol/L Previous: 5 -20 mg/dLBASIC METABOLIC [id number] 07:04:00 Test Item Value Reference Range Comments SODIUM (BEAKER) (test 141 meq/L 136-145 cbrq=159) POTASSIUM (BEAKER) (test 3.3 meq/L 3.5-5.1 rlmj=597) CHLORIDE (BEAKER) (test 109 meq/L 98-107 sneg=834) CO2 (BEAKER) (test 26 meq/L 22-29 rywv=740) BLOOD UREA NITROGEN 12 mg/dL 7-21 (BEAKER) (test joph=094) CREATININE (BEAKER) (test 0.80 mg/dL 0.57-1.25 qbvz=126) GLUCOSE RANDOM (BEAKER) 89 mg/dL 70-105 (test qydl=782) CALCIUM (BEAKER) (test 7.8 mg/dL 8.4-10.2 ntck=435) EGFR (BEAKER) (test 104 mL/min/1.73 sq m ESTIMATED GFR IS NOT offx=1565) ACCURATE CREATININE CLEARANCE IN PREDICTING GLOMERULAR FILTRATION RATE. ESTIMATED GFR IS NOT APPLICABLE FOR DIALYSIS PATIENTS. POCT-GLUCOSE [id number] 00:35:00 Test Item Value Reference Range Comments POC-GLUCOSE METER (BEAKER) 87 mg/dL 70-110 TESTED AT [address] (test vobv=8975) [place] [address] [id number] 23:26:00 Test Item Value Reference Range Comments RPR SCREEN (BEAKER) (test bdkj=494) Nonreactive Nonreactive POCT-GLUCOSE [id number] 17:52:00 Test Item Value Reference Range Comments POC-GLUCOSE METER (BEAKER) 87 mg/dL 70-110 TESTED AT [address] (test wxsm=0598) [place] [address] POCT-GLUCOSE [id number] 12:58:00 Test Item Value Reference Range Comments POC-GLUCOSE METER (BEAKER) 117 mg/dL 70-110 TESTED AT [address] (test mdny=6954) [place] [address] EEG AWAKE AND [id number] 12:51:00Reason for exam:->abnormal EEG with altered mental status, concern for statusShould this be performed at the bedside ?->YesEEG REPORT: Alyssa Jean-Baptiste [facility] , DATE: EEG #: [id number] Code: #: R41.82 Altered mental status, unspecified (ICD 9: 780.97)CPT Code: #: 67777: 03. EEG coma or sleep only; 20-40 [...] etiology.Clinical Fellow: Sherly Higginsrophysiologist: Daphne Woods HEMOGLOBIN [id number] 08:42:00 Test Item Value Reference Range Comments HEMOGLOBIN A1C (BEAKER) (test zcxe=612) 5.6 % 4.3-6.1 HIV-1 ANTIGEN WITH HIV-1/2 [id number] 05:23:00 Test Item Value Reference Range Comments HIV-1 ANTIGEN WITH HIV 1\T\2 ANTIBODY (2) Nonreactive Nonreactive (BEAKER) (test ozfp=4524) SEDIMENTATION [id number] 05:05:00 Test Item Value Reference Range Comments SEDIMENTATION RATE, ERYTHROCYTE (BEAKER) (test 48 mm/HR 0-20 hhnn=848) RAD, HIP, 2 VIEWS, [id number] 03:29:00Reason for exam:->possible fall at homeFINAL REPORT [...] MDReport Verified Date/Time: 05/29/2017 03:29:06 Reading Location: [address] Body Reading Room CREATINE KINASE (CK), TOTAL AND [id number] 02:57:00 Test Item Value Reference Range Comments CREATINE KINASE TOTAL (BEAKER) (test envo=076) 581 U/L 29-200 CREATINE KINASE-MB (BEAKER) (test fnfs=211) 1.2 ng/mL 0.0-6.6 CREATINE KINASE-MB INDEX (BEAKER) (test bqvl=921) 0.2 % CK-MB Reference Range:<6.7 Normal6.7-10.0 Borderline>10.0 AbnormalTROPONIN [id number] 02:57:00 Test Item Value Reference Range Comments TROPONIN I (BEAKER) (test rlsi=400) < ng/mL 0.00-0.03 Troponin I (TnI) levels [...] and persistent tachyarrhythmia.CREATINE KINASE (CK), TOTAL AND [id number] 02:56:00 Test Item Value Reference Range Comments CREATINE KINASE TOTAL (BEAKER) (test inpl=018) 577 U/L 29-200 CREATINE KINASE-MB (BEAKER) (test klvk=343) 1.2 ng/mL 0.0-6.6 CREATINE KINASE-MB INDEX (BEAKER) (test wakl=417) 0.2 % CK-MB Reference Range:<6.7 Normal6.7-10.0 Borderline>10.0 AbnormalTROPONIN [id number] 02:56:00 Test Item Value Reference Range Comments TROPONIN I (BEAKER) (test spbb=548) < ng/mL 0.00-0.03 Troponin I (TnI) levels [...] acidosis, acute neurological disease, and persistent tachyarrhythmia.LIPID [id number] 02:53:00 Test Item Value Reference Range Comments TRIGLYCERIDES (BEAKER) (test grha=746) 50 mg/dL CHOLESTEROL (BEAKER) (test hxqx=976) 160 mg/dL HDL CHOLESTEROL (BEAKER) (test ogfw=364) 48 mg/dL LDL CHOLESTEROL CALCULATED (BEAKER) (test 102 mg/dL beja=858) Triglyceride Reference Range: Low Risk <150 Borderline 150- 199 High Risk 200-499 Very High Risk >=500Cholesterol Reference Range: Low Risk <200 Borderline 200-239 High Risk > 240HDL Cholesterol Reference Range: Low Risk >=60 High Risk <40LDL Cholesterol Reference Range: Optimal <100 Near Optimal 100-129 Borderline 130-159 High 160-189 Very High >=190BASIC METABOLIC [id number] 02:53:00 Test Item Value Reference Range Comments SODIUM (BEAKER) (test 138 meq/L 136-145 wfdz=780) POTASSIUM (BEAKER) (test 3.7 meq/L 3.5-5.1 cqbp=016) CHLORIDE (BEAKER) (test 107 meq/L 98-107 gyms=095) CO2 (BEAKER) (test 20 meq/L 22-29 mwzt=836) BLOOD UREA NITROGEN 10 mg/dL 7-21 (BEAKER) (test tqjv=093) CREATININE (BEAKER) (test 0.93 mg/dL 0.57-1.25 vjdj=753) GLUCOSE RANDOM (BEAKER) 103 mg/dL 70-105 (test cuio=220) CALCIUM (BEAKER) (test 8.4 mg/dL 8.4-10.2 gbxu=851) EGFR (BEAKER) (test 88 mL/min/1.73 sq m ESTIMATED GFR IS NOT gtoj=5451) ACCURATE CREATININE CLEARANCE IN PREDICTING GLOMERULAR FILTRATION RATE. ESTIMATED GFR IS NOT APPLICABLE FOR DIALYSIS PATIENTS. HEPATIC FUNCTION [id number] 02:53:00 Test Item Value Reference Range Comments TOTAL PROTEIN (BEAKER) (test lnwu=851) 7.6 gm/dL 6.0-8.3 ALBUMIN (BEAKER) (test rcvw=2191) 3.6 g/dL 3.5-5.0 BILIRUBIN TOTAL (BEAKER) (test wbxu=415) 0.3 mg/dL 0.2-1.2 BILIRUBIN DIRECT (BEAKER) (test hafv=193) 0.2 mg/dL 0.1-0.5 ALKALINE PHOSPHATASE (BEAKER) (test vwfr=191) 58 U/L 40-150 AST (SGOT) (BEAKER) (test olzu=518) 33 U/L 5-34 ALT (SGPT) (BEAKER) (test loeh=899) 15 U/L 6-55 [id number] 02:53:00 Test Item Value Reference Range Comments AMYLASE (BEAKER) (test xzhb=988) 74 U/L 25-125 [id number] 02:53:00 Test Item Value Reference Range Comments LIPASE (BEAKER) (test pxif=809) 13 U/L 8-78 C-REACTIVE [id number] 02:53:00 Test Item Value Reference Range Comments C-REACTIVE PROTEIN (BEAKER) (test vutk=613) 10.77 mg/dL 0.00-0.50 LACTIC ACID, ARTERIAL, WHOLE [id number] 02:47:00 Test Item Value Reference Range Comments LACTATE BLOOD ARTERIAL (2) (BEAKER) (test 0.7 mmol/L 0.5-2.2 wyoc=3450) Effective 09/25/2015: Units/Reference Range ChangeNew: 0.5-2.2 mmol/L Previous: 5 -20 mg/[id number] 02:36:00 Test Item Value Reference Range Comments PARTIAL THROMBOPLASTIN TIME (BEAKER) (test 51.7 seconds 22.5-36.0 ozlf=099) PROTHROMBIN TIME/[id number] 02:35:00 Test Item Value Reference Range Comments PROTIME (BEAKER) (test tacj=570) 16.3 seconds 11.7-14.7 INR (BEAKER) (test fbkk=994) 1.3 <=5.9 RECOMMENDED COUMADIN/WARFARIN INR THERAPY RANGESSTANDARD DOSE: 2.0 - 3.0 Includes: PROPHYLAXIS forvenous thrombosis, systemic embolization; TREATMENT for venous thrombosis and/or pulmonary embolus.HIGH RISK: Target INR is 2.5-3.5 for patients with mechanical heart valves.CBC W/PLT COUNT & AUTO [id number] 02:35:00 Test Item Value Reference Range Comments WHITE BLOOD CELL COUNT (BEAKER) (test whyu=625) 4.0 K/ L 3.5-10.5 RED BLOOD CELL COUNT (BEAKER) (test swha=359) 4.12 M/ L 3.93-5.22 HEMOGLOBIN (BEAKER) (test ltwq=013) 11.4 GM/DL 11.2-15.7 HEMATOCRIT (BEAKER) (test gbjz=483) 33.8 % 34.1-44.9 MEAN CORPUSCULAR VOLUME (BEAKER) (test xecf=963) 82.0 fL 79.4-94.8 MEAN CORPUSCULAR HEMOGLOBIN (BEAKER) (test 27.7 pg 25.6-32.2 shvn=424) MEAN CORPUSCULAR HEMOGLOBIN CONC (BEAKER) (test 33.7 GM/DL 32.2-35.5 aacd=381) RED CELL DISTRIBUTION WIDTH (BEAKER) (test 13.5 % 11.7-14.4 gdye=238) PLATELET COUNT (BEAKER) (test mrtv=215) 153 K/CU MM 150-450 MEAN PLATELET VOLUME (BEAKER) (test wtgi=125) 10.8 fL 9.4-12.3 NUCLEATED RED BLOOD CELLS (BEAKER) (test 0 /100 WBC 0-0 jzdd=096) NEUTROPHILS RELATIVE PERCENT (BEAKER) (test 83 % vtki=533) LYMPHOCYTES RELATIVE PERCENT (BEAKER) (test 14 % tlqj=612) MONOCYTES RELATIVE PERCENT (BEAKER) (test 2 % yyhg=471) EOSINOPHILS RELATIVE PERCENT (BEAKER) (test 0 % zocn=153) BASOPHILS RELATIVE PERCENT (BEAKER) (test 1 % frqx=216) NEUTROPHILS ABSOLUTE COUNT (BEAKER) (test 3.31 K/ L 1.56-6.13 kbdq=355) LYMPHOCYTES ABSOLUTE COUNT (BEAKER) (test 0.57 K/ L 1.18-3.74 jlmb=494) MONOCYTES ABSOLUTE COUNT (BEAKER) (test 0.06 K/ L 0.24-0.36 tbdq=555) EOSINOPHILS ABSOLUTE COUNT (BEAKER) (test 0.00 K/ L 0.04-0.36 nebc=394) BASOPHILS ABSOLUTE COUNT (BEAKER) (test 0.02 K/ L 0.01-0.08 nsgr=865) IMMATURE GRANULOCYTES-RELATIVE PERCENT (BEAKER) 0 % 0-1 (test jouq=2209) URINALYSIS W/ [id number] 02:31:00 Test Item Value Reference Range Comments COLOR (BEAKER) (test qvfi=096) Light Yellow CLARITY (BEAKER) (test ujws=762) Clear SPECIFIC GRAVITY UA (BEAKER) (test 1.003 1.001-1.035 iaxx=899) PH UA (BEAKER) (test htoj=904) 5.0 5.0-8.0 PROTEIN UA (BEAKER) (test cjto=994) Negative Negative GLUCOSE UA (BEAKER) (test sbyc=841) Negative Negative KETONES UA (BEAKER) (test memo=623) Negative Negative BILIRUBIN UA (BEAKER) (test lnlq=386) Negative Negative BLOOD UA (BEAKER) (test ecxp=819) Negative Negative NITRITE UA (BEAKER) (test ryxe=526) Negative Negative LEUKOCYTE ESTERASE UA (BEAKER) (test Negative Negative edwe=167) UROBILINOGEN UA (BEAKER) (test loja=267) 0.2 mg/dL 0.2-1.0 RBC UA (BEAKER) (test dvzz=285) < /HPF WBC UA (BEAKER) (test jjqx=972) < /HPF BACTERIA (BEAKER) (test lkcp=861) Rare MUCUS (BEAKER) (test ipun=7345) Rare SQUAMOUS EPITHELIAL (BEAKER) (test 1 /HPF qegg=601) AMORPHOUS CRYSTALS (BEAKER) (test Rare komy=0075) SOURCE(BEAKER) (test glxz=6747) Urine, Clean Catch SCREEN, [id number] 00:58:00 Test Item Value Reference Range Comments TEST URINE (BEAKER) (test ndyd=403) Negative POCT-GLUCOSE [id number] 00:47:00 Test Item Value Reference Range Comments POC-GLUCOSE METER (BEAKER) 102 mg/dL 70-110 TESTED AT [facility] [address] (test jfmv=1590) [facility] [id number]
--- OUTSIDE RECORDS SUMMARY | 2018-03-14 09:40 | XMS REPORT | Clinical Summary ---
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);EEG abnormal;Fever, unspecified fever cause;Seizure disorder (HCC);Mild intermittent asthma without complication;Physical deconditioning 05/28/2017 Orders Only Neurology Keli Sweeney MD after 03/13/2017 Social History Tobacco Use Types Packs/Day Years Used Date Never Smoker Smokeless Tobacco: Never Used Alcohol Use Drinks/Week oz/Week Comments No Sex Assigned at Date Recorded Not on file Last Filed Vital Signs Vital Sign Reading Time Taken Blood Pressure 97/59 06/01/2017 8:00 AM [employer] Pulse 61 06/01/2017 8:00 AM [employer] Temperature 36.4 C (97.6 F) 06/01/2017 8:00 AM [employer] Respiratory Rate 16 06/01/2017 8:00 AM [employer] Oxygen Saturation 98% 06/01/2017 8:00 AM [employer] Inhaled Oxygen Concentration - - Weight 40.2 kg (88 lb 10 oz) 05/28/2017 11:15 PM [employer] Height 162.6 cm (5' 4") 05/28/2017 11:15 PM [employer] Body Mass Index 15.21 05/28/2017 11:15 PM [employer] Plan of Treatment Not on file Results RHYTHM STRIP - SCAN (06/02/2017 2:12 PM)POC-Glucose meter (06/01/2017 8:33 AM) Only the most recent of10 resultswithin the time period is included. Component Value Ref Range POC-Glucose Meter 72Comment: TESTED AT [address] 70 - 110 mg/dL [id number] Specimen Performing Laboratory Blood [address] [address] Manual Differential (06/01/2017 6:39 AM)Only the most recent of2 resultswithin the time period is included. Component Value Ref Range Total Counted WBC Morphology Normal Platelet Morphology Normal RBC Morphology Normal Specimen Performing Laboratory Blood - Arm, Right [address] [address] CBC with platelet count + automated diff [...] % Specimen Performing Laboratory Blood - Arm, [address] [address] CBC with platelet count + automated diff (06/01/2017 6:39 AM)Only the most recent of3 resultswithin the time period is included. Specimen Performing Laboratory Blood Narrative The following orders were created for panel order CBC with platelet count + automated diff. Procedure Abnormality Status --------- ------ CBC with platelet count ...[[id number]]AbnormalFinal result Manual Differential[[id number]] Fi nal result Please view results for [...] PATIENTS. Specimen Performing Laboratory Blood - Arm, [address] [address] MR brain without IV contrast (05/31/2017 5:45 PM) Specimen Performing Laboratory GE RIS Narrative FINAL REPORT MRI brain and MRA head and neck without contrast 05/31/2017 5:44 PM CLINICAL INDICATION: Stroke TECHNIQUE: Multiplanar, multisequence MR imaging of the brain was performed utilizing the following imaging sequences: Axial T1, T2, FLAIR, GRE, and DWI; sagittal and coronal T1-weighted images.Two- and three-dimensional kahj-io-ucrepr MRA images of the intra- and extracranial [...] is antegrade in both vertebral arteries. MRA che[place] of [place]q: There is no vessel occlusion, flow-limiting stenosis, or aneurysm. IMPRESSION: 1. Findings that may reflect increased intracranial pressure. Consider further evaluation with intracranial MRA to exclude venous sinus thrombosis/stenosis. 2. Unremarkable extracranial and intracranial MRAs. Signed: Patrick Lynne MD Report Verified Date/Time:05/31/2017 17:48:23 Reading Location: [facility] Reading Room Procedure Note Interface, External Ris In - 05/31/2017 7:29 PM [employer] FINAL REPORT MRI brain and MRA head and neck without contrast 05/31/2017 5:44 PM CLINICAL INDICATION: Stroke TECHNIQUE: Multiplanar, multisequence MR imaging of the brain was performed utilizing the following imaging sequences: Axial T1, T2, FLAIR, GRE, and DWI; sagittal and coronal T1-weighted images. Two- and three-dimensional aoyh-cp-hakheg MRA images of the intra- and extracranial [...] is antegrade in both vertebral arteries. MRA che[place] of [place]: There is no vessel occlusion, flow-limiting stenosis, or aneurysm. IMPRESSION: 1. Findings that may reflect increased intracranial pressure. Consider further evaluation with intracranial MRA to exclude venous sinus thrombosis/stenosis. 2. Unremarkable extracranial and intracranial MRAs. Signed: Patrick Lynne MD Report Verified Date/Time: 05/31/2017 17:48:23 Reading Location: [facility] Reading Room neck with IV contrast (05/31/2017 5:45 PM) Specimen Performing Laboratory [employer] Narrative FINAL REPORT MRI brain and MRA head and neck without contrast 05/31/2017 5:44 PM CLINICAL INDICATION: Stroke TECHNIQUE: Multiplanar, multisequence MR imaging of the brain was performed utilizing the following imaging sequences: Axial T1, T2, FLAIR, GRE, and DWI; sagittal and coronal T1-weighted images.Two- and three-dimensional dtna-tv-cbotaj MRA images of the intra- and extracranial [...] is antegrade in both vertebral arteries. MRA [place] of [place]: There is no vessel occlusion, flow-limiting stenosis, or aneurysm. IMPRESSION: 1. Findings that may reflect increased intracranial pressure. Consider further evaluation with intracranial MRA to exclude venous sinus thrombosis/stenosis. 2. Unremarkable extracranial and intracranial MRAs. Signed: Patrick Lynne MD Report Verified Date/Time:05/31/2017 17:48:23 Reading Location: [facility] Reading Room Procedure Note Interface, External Ris In - 05/31/2017 7:29 PM [employer] FINAL REPORT MRI brain and MRA head and neck without contrast 05/31/2017 5:44 PM CLINICAL INDICATION: Stroke TECHNIQUE: Multiplanar, multisequence MR imaging of the brain was performed utilizing the following imaging sequences: Axial T1, T2, FLAIR, GRE, and DWI; sagittal and coronal T1-weighted images. Two- and three-dimensional gdhu-zs-iutplo MRA images of the intra- and extracranial [...] is antegrade in both vertebral arteries. MRA [place] of [place]: There is no vessel occlusion, flow-limiting stenosis, or aneurysm. IMPRESSION: 1. Findings that may reflect increased intracranial pressure. Consider further evaluation with intracranial MRA to exclude venous sinus thrombosis/stenosis. 2. Unremarkable extracranial and intracranial MRAs. Signed: Patrick Lynne MD Report Verified Date/Time: 05/31/2017 17:48:23 Reading Location: [facility] Reading Room head without IV contrast (05/31/2017 5:45 PM) Specimen Performing Laboratory RIS Narrative FINAL REPORT MRI brain and MRA head and neck without contrast 05/31/2017 5:44 PM CLINICAL INDICATION: Stroke TECHNIQUE: Multiplanar, multisequence MR imaging of the brain was performed utilizing the following imaging sequences: Axial T1, T2, FLAIR, GRE, and DWI; sagittal and coronal T1-weighted images.Two- and three-dimensional abxx-kk-xefnrx MRA images of the intra- and extracranial [...] is antegrade in both vertebral arteries. MRA [place] of [place]: There is no vessel occlusion, flow-limiting stenosis, or aneurysm. IMPRESSION: 1. Findings that may reflect increased intracranial pressure. Consider further evaluation with intracranial MRA to exclude venous sinus thrombosis/stenosis. 2. Unremarkable extracranial and intracranial MRAs. Signed: Patrick Lynne MD Report Verified Date/Time:05/31/2017 17:48:23 Reading Location: [facility] Reading Room Procedure Note Interface, External Ris In - 05/31/2017 7:29 PM [employer] FINAL REPORT MRI brain and MRA head and neck without contrast 05/31/2017 5:44 PM CLINICAL INDICATION: Stroke TECHNIQUE: Multiplanar, multisequence MR imaging of the brain was performed utilizing the following imaging sequences: Axial T1, T2, FLAIR, GRE, and DWI; sagittal and coronal T1-weighted images. Two- and three-dimensional enky-ks-diflou MRA images of the intra- and extracranial [...] is antegrade in both vertebral arteries. MRA [place] of [place]: There is no vessel occlusion, flow-limiting stenosis, or aneurysm. IMPRESSION: 1. Findings that may reflect increased intracranial pressure. Consider further evaluation with intracranial MRA to exclude venous sinus thrombosis/stenosis. 2. Unremarkable extracranial and intracranial MRAs. Signed: Patrick Lynne MD Report Verified Date/Time: 05/31/2017 17:48:23 Reading Location: [facility] Reading Room Prothrombin Gene Mutation (05/30/2017 6:24 AM) Component Value Ref Range Prothrombin/Factor II Negative for the [id number] (Prothrombin/Factor II) mutation. Pathologist: Dudley Dunn M.D. (electonic signature) Specimen Performing Laboratory Blood - Arm, Right [address] This test is a genotyping assay which evaluates the DNA sequence at position [address] of the prothrombin (Factor II) gene. A [...] and its performance characteristics determined by the [facility] Pathology Department, Section of Molecular Pathology. It [...] mmol/L Specimen Performing Laboratory Blood - Arm, [address] [address] Narrative Effective 09/25/2015: Units/Reference Range Change New: 0.5-2.2 mmol/LPrevious: 5-20 mg/dL Beta-2 glycoprotein antibodies (05/30/2017 6:24 AM) Component Value Ref Range B2 Glcoprotein Ab Profile Refer to individual B2-Glycoprotein IgG, IgM and IgA results. Specimen Performing Laboratory Blood - Arm, Right [facility] [employer] [place] [id number] [place] [address] Protein S activity (05/30/2017 6:24 AM) Component [...] Laboratory Blood - Arm, Right [facility] [employer] [place] [id number] [place] [address] Narrative Performing Lab E[facility] [employer] [address] Elizabeth Martinez MD Protein C antigen, total (05/30/2017 6:24 AM) Component Value Ref Range Scan Result Protein C Antigen 64 (L) 70 - 140 % normal Comment: Decreased levels of Protein C antigen may be found in congenital deficiency, treatment with oral anticoagulants, liver disease, D.I.C. and post surgery. Specimen Performing Laboratory Blood - Arm, Right [facility] [employer] [address] [place] [address] Narrative Performing Lab EZ [employer] [address] [address] Elizabeth Martinez MD Protein C activity (05/30/2017 6:24 AM) Component Value Ref Range Protein C Activity 65.0 (L) 70.0 - 130.0 % Specimen Performing Laboratory Blood [place] [address] Narrative See Protein C Antigen. Cardiolipin Antibodies, IgG and IgM (05/30/2017 6:24 AM)Only the most recent of2 resultswithin the time period is included. Component Value Ref Range Anticardiolipin IgG <1.6 GPL Anticardiolipin IgM 0.4 MPL Specimen Performing Laboratory Blood - Arm, [place] [address] Narrative Anticardiolipin IgG Result Interpretation: NEG:<20 GPL;U/ml POS:>/=20 GPL;U/ml Anticardiolipin IgM Result Interpretation: NEG:<20 MPL;U/ml POS:>/=20 MPL;U/ml Factor 5 Leiden PCR (thrombotic risk) (05/30/2017 6:24 AM) Component Value Ref Range Factor V Leiden Negative for the R506Q (Factor V Leiden) mutation Pathologist: Dudley Dunn M.D. (electonic signature) Specimen Performing Laboratory Blood - Arm, [place] [address] Narrative This test is a genotyping assay [...] and its performance characteristics determined by the [facility] Pathology Department, Section of Molecular [...] % Specimen Performing Laboratory Blood - Arm, [address] [address] Homocysteine (05/30/2017 6:24 AM) Component Value Ref Range Homocysteine 7.6 5.1 - 15.4 umol/L Specimen Performing Laboratory Blood - Arm, Right [facility] [address] [place] [address] Vancomycin level, trough (05/30/2017 6:24 AM) Component Value Ref Range Vancomycin Tr 13.7 10.0 - 20.0 ug/mL Specimen Performing Laboratory Blood - Arm, Right [facility] [address] [place] [address] Narrative Draw 30 min prior to scheduled dose, HOLD if level > 20 mcg/mL, inform MD. EEG awake and drowsy (05/29/2017 11:00 AM) Specimen Performing Laboratory GE RIS Narrative EEG REPORT: Alyssa García [facility] , DATE: EEG#: [id number] ICD Code: #: R41.82 Altered mental status, unspecified (ICD 9: 780.97) CPT Code: #: 85489: 03. EEG coma or sleep only; 20-40 [...] External Ris In - 05/29/2017 12:51 PM [employer] EEG REPORT: Alyssa García [facility] , DATE: EEG #: [id number] ICD Code: #: R41.82 Altered mental status, unspecified (ICD 9: 780.97) CPT Code: #: 39873: 03. EEG coma or sleep only; 20-40 [...] MD Report Verified Date/Time:05/29/2017 03:29:06 Reading Location: [facility] B1 C013Y CT Body Reading Room Procedure Note Interface, External Ris In - 05/29/2017 3:58 AM [employer] FINAL REPORT RAD, HIP, 2 VIEWS, RIGHT [...] Report Verified Date/Time: 05/29/2017 03:29:06 Reading Location: [facility] B1 C013Y CT Body Reading Room Hexagonal Phospholipid (05/29/2017 1:54 AM) Component Value Ref Range Hexagonal Phospholipid Negative Specimen Performing Laboratory Blood [address] [address] Lactic acid, arterial, whole blood (05/29/2017 1:54 AM) Component Value Ref Range Lactate, Art 0.7 0.5 - 2.2 mmol/L Specimen Performing Laboratory Blood, Arterial [address] [address] Narrative Effective 09/25/2015: Units/Reference Range Change New: 0.5-2.2 mmol/LPrevious: 5-20 mg/dL aPTT (05/29/2017 1:54 AM) Component Value Ref Range PTT 51.7 (H) 22.5 - 36.0 seconds Specimen Performing Laboratory Blood [address] [address] Thrombin time (05/29/2017 1:54 AM) Component Value Ref Range Thrombin Time 18.5 13.8 - 20.0 secs Specimen Performing Laboratory Blood [address] [address] Prothrombin time/INR (05/29/2017 1:54 AM) Component Value Ref Range Protime 16.3 (H) 11.7 - 14.7 seconds INR 1.3 <=5.9 Specimen Performing Laboratory Blood [address] [address] Narrative RECOMMENDED COUMADIN/WARFARIN INR THERAPY RANGES STANDARD [...] Screen Ratio 0.76 <1.20 Specimen Performing Laboratory [address] [address] C-Reactive Protein (05/29/2017 1:53 AM) Component Value Ref Range CRP 10.77 (H) 0.00 - 0.50 mg/dL Specimen Performing Laboratory Blood [address] [address] Troponin I (05/29/2017 1:53 AM)Only the most recent of2 resultswithin the time period is included. Component Value Ref Range Troponin I <0.01 0.00 - 0.03 ng/mL Specimen Performing Laboratory [address] [address] Narrative Troponin I (TnI) levels must be [...] 0 - 20 mm/HR Specimen Performing Laboratory [address] [address] Lipase (05/29/2017 1:53 AM) Component Value Ref Range Lipase 13 8 - 78 U/L Specimen Performing Laboratory [address] [address] Hemoglobin A1c (05/29/2017 1:53 AM) Component Value Ref Range Hemoglobin A1C 5.6 4.3 - 6.1 % Specimen Performing Laboratory Blood [address] [address] Creatine Kinase (CK), Total and MB (05/29/2017 1:53 AM)Only the most recent of2 resultswithin the time period is included. Component Value Ref Range Total CK 581 (H) 29 - 200 U/L CK-MB 1.2 0.0 - 6.6 ng/mL MB Relative Index 0.2 % Specimen Performing Laboratory Blood [address] [address] Narrative CK-MB Reference Range: <6.7Normal 6.7-10.0Borderline >10.0 Abnormal Amylase (05/29/2017 1:53 AM) Component Value Ref Range Amylase 74 25 - 125 U/L Specimen Performing Laboratory Blood [address] [address] Hepatic function panel (05/29/2017 1:53 AM) Component Value Ref Range Protein, Total 7.6 6.0 - 8.3 gm/dL Albumin 3.6 3.5 - 5.0 g/dL Total Bilirubin 0.3 0.2 - 1.2 mg/dL Bilirubin, Direct 0.2 0.1 - 0.5 mg/dL Alkaline Phosphatase 58 40 - 150 U/L AST 33 5 - 34 U/L ALT 15 6 - 55 U/L Specimen Performing Laboratory Blood [address] [address] Lipid panel (05/29/2017 1:53 AM) Component Value Ref Range Triglycerides 50 mg/dL Cholesterol 160 mg/dL HDL 48 mg/dL LDL Calculated 102 mg/dL Specimen Performing Laboratory Blood [address] [address] Narrative Triglyceride Reference Range: Low Risk <150 [id number] High Risk 200-499 Very High Risk>=500 Cholesterol Reference Range: Low Risk <200 [id number] High Risk>240 HDL Cholesterol Reference Range: Low Risk >=60 High Risk <40 LDL Cholesterol Reference Range: Optimal<100 Near Evrrtyq998-610 Pzssobyftl917-317 Vwie472-860 Very High >=190 HIV-1 Antigen with HIV-1/2 Antibody (05/29/2017 1:50 AM) Component Value Ref Range HIV-1 Antigen with HIV 1&2 Antibody Nonreactive Nonreactive Specimen Performing Laboratory Blood [address] [address] RPR (05/29/2017 1:50 AM) Component Value Ref Range RPR Nonreactive Nonreactive Specimen Performing Laboratory Blood [address] [address] Anti-Neutrophil Cytoplasmic Ab (ANCA) (05/29/2017 1:50 AM) Component Value Ref Range Proteinase-3 Ab <1.0 <1.0 AI Comment: <1.0 AI No Antibody Detected > or=1.0 AI Antibody Detected Autoantibodies to proteinase-3 (VA-3) are accepted as characteristic for granulomatosis with polyangiitis (GPA, Chirag's), and are detectable in 95% of the histologically proven cases. The cytoplasmic IFA pattern, (c-ANCA), is based largely on autoantibody to VA-3 which serves as the primary antigen. These autoantibodies are present in active disease. Myeloperoxidase Ab <1.0 <1.0 AI Comment: <1.0 AI No Antibody Detected > or=1.0 AI Antibody Detected Autoantibodies to myeloperoxidase (MPO) are commonly associated with the following small-vessel vasculitides: microscopic polyangiitis, polyarteritis nodosa, Churg-Bri syndrome, necrotizing and crescentic glomerulonephritis and occasionally granulomatosis with polyangiitis (GPA, Cihrag's). The perinuclear IFA pattern, (p-ANCA) is based largely on autoantibody to myeloperoxidase which serves as the primary antigen. These autoantibodies are present in active disease. Specimen Performing Laboratory Blood [facility] [place] [id number] [place] [address] Narrative Performing Lab EZ [facility] [address] [place] [address] Elizabeth Martinez MD Anti-Nuclear Antibody (MARIA ISABEL) (05/29/2017 1:50 AM) Component Value Ref Range MARIA ISABEL Negative Negative Specimen Performing Laboratory Blood [address] [address] Blood culture #2 (05/29/2017 1:49 AM)Only the most recent of2 resultswithin the time period is included. Component Value Ref Range Result No growth in 5 days Specimen Performing Laboratory Blood - Arm, Left [address] [address] Screen, urine (05/29/2017 12:15 AM) Component Value Ref Range Preg Test, Ur Negative Specimen Performing Laboratory Urine - Urine, Clean Catch [address] [address] Urinalysis w/ Microscopic (05/29/2017 12:15 AM) Component Value Ref Range Color, UA Light Yellow Clarity, UA Clear Specific Conway, UA 1.003 1.001 - 1.035 pH, UA [...] Laboratory Urine - Urine, Clean Catch [address] [address] Urine culture (05/29/2017 12:15 AM) Component Value Ref Range Result No growth Specimen Performing Laboratory Urine - Urine, Clean Catch [address] [address] 1:1 MIXING STUDY, NON-INCUBATED (05/29/2017 12:10 AM) Component Value Ref Range Protime 16.4 (H) 11.7 - 14.7 seconds PTT 52.7 (H) 22.5 - 36.0 seconds PT 1/1 Mix 14.1 11.7 - 14.7 SECS PTT 1/1 Mix 39.7 (H) 22.5 - 36.0 SECS Specimen Performing Laboratory Blood [address] [address] after 03/13/2017
[2018-03-14] MEDS ORDERED: IPRATROPIUM BROM 0.5MG/2.5ML ONE (10:06)
[2018-03-14] MEDS ORDERED: ALBUTEROL 2.5 MG/3 ML NEB SOL ONE (10:06)
[2018-03-14] MEDS ORDERED: PROMETHAZINE HCL 50 MG/ML AMP IM ONE (10:06)
[2018-03-14] MEDS ORDERED: NA CHLORIDE 0.9% 250 ML ONE (10:07)
[2018-03-14] MEDS ORDERED: NA CHLORIDE 0.9% 1,000 ML ONE (10:07)
[2018-03-14] MEDS ORDERED: D50W 25 GM/50 ML SYRINGE IV ONE (10:22)
--- NOTE | 2018-03-14 10:41 | RAD REPORT ---
EXAM DESCRIPTION: Kiah Single View03/14/2018 10:35 am CLINICAL HISTORY: Fever COMPARISON: May 2017 FINDINGS: The lungs are hyperaerated. The lungs appear clear of acute infiltrate. The heart is ricco l size IMPRESSION: No acute abnormalities displayed
[2018-03-14 10:49] LABS: Absolute Lymphocytes (CBC) 1.7 K/uL (0.7-4.9); Absolute Monocytes 0.5 K/uL (0.1-1.3); Absolute Neutrophil 2.6 K/uL (1.8-8.0); Basophils % 0.6 % (0-1.3); Eosinophils % 0.1 % (0-4.4); Hematocrit 42.5 % (36.0-45.0); Lymphocytes % 36.1 % (15.3-44.8); MCH 28.4 pg (27.0-35.0); MCV 84.7 fL (80-100); Monocytes % 9.9 % (3.3-12.3); RBC Red Blood Cell Count 5.01 M/uL (3.86-4.86)
[2018-03-14 11:54] LABS: Albumin 3.5 g/dL (3.4-5.0); Bilirubin Direct 0.3 mg/dL (0-0.2); Bilirubin Total 0.6 mg/dL (0.2-1.0); Potassium 3.6 mmol/L (3.5-5.1); Protein, Total 7.9 g/dL (6.4-8.2)
[2018-03-14 12:18] LABS: Urine Bacteria 20-50 /HPF (<20); Urine RBC <5 /HPF (NONE SEEN)
[2018-03-14 12:19] LABS: Urine Blood TRACE (NEG); Urine Glucose NEGATIVE (NEG); Urine Protein 1+ (NEG); Urine Specific Gravity >1.030 (1.005-1.030); Urine pH 5.5 (5.0-7.0)
[2018-03-14 12:19] LABS: Urine Culture Reflex Order NOT NEEDED; Urine Mucus LIGHT /HPF (NONE SEEN)
--- NOTE | 2018-03-14 12:29 | ER ---
Nurse's Notes [facility] Name: Alyssa García Age: 27 yrs Sex: Female : 1990 Arrival Date: 03/14/2018 Time: 09:40 Bed 13 Private MD: None, None Diagnosis: Dehydration;Fever presenting with conditions classified elsewhere Presentation: 03/14 09:48 Presenting complaint: Patient states: fever up to 101.0 yesterday, productive cough, aa5 diarrhea, generalized weakness, and body aches. 09:48 Transition of care: patient was not received from another setting of care. Onset of aa5 symptoms was February 2018. Risk Assessment: Do you want to hurt yourself or someone else? Patient reports no desire to harm self or others. Care prior to arrival: None. 09:48 Method Of Arrival: Wheelchair aa5 09:48 Acuity: RUSLAN 3 aa5 12:26 Initial Sepsis Screen: Does the patient meet any 2 criteria? Temp <36.0*C (96.8*F)) or ls4 > 38.3*C (100.9*F). HR > 90 bpm. Yes Does the patient have a suspected source of infection? No. Patient's initial sepsis screen is negative. Triage Assessment: 11:02 General: Appears ill, malnourished, Behavior is cooperative, anxious. Respiratory: ls4 Airway is patent Respiratory effort is even, unlabored, Respiratory pattern is regular, Breath sounds are diminished bilaterally. GI: Abdomen is flat, non-distended, Bowel sounds present X 4 quads. Abd is soft and non tender X 4 quads. 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 - Social history:: Smoking status: Patient/guardian denies using tobacco, never smoked. - Ebola Screening: : No symptoms or risks identified at this time. Screenin:58 Abuse screen: Denies threats or abuse. Nutritional screening: No deficits noted. ls4 Tuberculosis screening: No symptoms or risk factors identified. Fall Risk No fall in past 12 months (0 pts). Secondary diagnosis (15 points) seizures, CVA, IV access (20 points). Sepsis Screening: . Infection: Patient is currently on antibiotics that were not prescribed as prophylaxis. Assessment: 10:57 Pain: Denies pain. ls4 13:00 Reassessment: No changes from previously documented assessment. Patient and/or family jl7 updated on plan of care and expected duration. Pain level reassessed. Patient is alert, oriented x 3, equal unlabored respirations, skin warm/dry/pink. 14:00 Reassessment: Patient appears in no apparent distress at this time. Patient and/or jl7 family updated on plan of care and expected duration. Pain level reassessed. Patient is alert, oriented x 3, equal unlabored respirations, skin warm/dry/pink. Vital Signs: 09:48 BP 101 / 85; Pulse 118; Resp 20 S; Temp 101.1(O); Pulse Ox 98% on R/A; Weight 42.18 kg aa5 (R); Height 5 ft. 2 in. (157.48 cm) (R); Pain 7/10; 10:53 BP 108 / 73; Pulse 94; Resp 18; Pulse Ox 100% ; mh5 11:54 BP 100 / 67; Pulse 138; Resp 16; Pulse Ox 99% on R/A; Pain 0/10; ls4 12:25 BP 105 / 77; Pulse 132; Resp 20; Temp 99.1; Pulse Ox 99% ; Pain 0/10; ls4 14:12 Pulse 107; Resp 18; Pulse Ox 99% on R/A; Pain 0/10; ls4 09:48 Body Mass Index 17.01 (42.18 kg, 157.48 cm) aa5 ED Course: 09:40 Patient arrived in ED. mr 09:40 None, None is Private Physician. mr 09:40 Arm band placed on. aa5 09:42 Ciarra Ma FNP-C [facility]. snw 09:42 Lazaro Fernandes MD is Attending Physician. snw 09:50 Nelida Adam, ADOLFO is Primary Nurse. ls4 09:53 Triage completed. aa5 09:55 Radiology exam delayed due to IV insertion attempt and/or patient not having jb2 appropriate IV at this time. 10:20 No provider procedures requiring assistance completed. Inserted saline lock: 24 gauge ls4 antecubital area, using aseptic technique. 10:30 X-ray completed. Portable x-ray completed in exam room. Patient tolerated procedure jb2 well. 10:31 Chest Single View XRAY In Process Unspecified. EDMS 10:37 EKG done, by phlebotomy services technician. reviewed by Lazaro Fernandes MD. tc 10:47 Flu and/or RSV swab sent to lab. mh5 10:47 Flu Sent. mh5 10:58 Patient has correct armband on for positive identification. Fall risk band placed. ls4 Placed in gown. Bed in low position. Call light in reach. Side rails up X2. 12:10 Urine Culture Sent. ls4 12:28 Philip Mota DO is Hospitalizing Provider. snw 14:19 Patient admitted, IV remains in place. intact, No redness/swelling at site. ls4 Administered Medications: 10:20 Drug: NS 0.9% (30 ml/kg) 30 ml/kg Route: IV; Rate: bolus; Site: left antecubital; jl7 12:20 Follow up: IV Status: Completed infusion jl7 10:25 Drug: Phenergan 25 mg Route: IM; Site: left gluteus; jl7 10:45 Follow up: Response: No adverse reaction; Nausea is decreased ls4 10:30 Drug: D50W 50 ml Route: IVP; Site: left antecubital; jl7 11:00 Follow up: Response: No adverse reaction; Blood sugar is elevated ls4 10:54 Drug: Albuterol - atroVENT (3:1) (2.5 mg - 0.5 mg) 3 ml Route: Nebulizer; jl7 11:53 Follow up: Response: No adverse reaction; Wheezing diminished ls4 12:57 Drug: Rocephin 1 grams Route: IV; Rate: calculated rate; Site: left antecubital; jl7 13:00 Follow up: Response: No adverse reaction; IV Status: Completed infusion jl7 Point of Care Testing: Blood Glucose: 11:26 Blood Glucose: 103 mg/dL; 5 Ranges: Outcome: 12:26 Condition: unchanged ls4 12:28 Decision to Hospitalize by Provider. snw 14:19 Admitted to Med/surg accompanied by tech, via wheelchair, room 229, with chart, Report ls4 called to ADOLFO Solis 14:19 Condition: stable 14:19 Discharge instructions given to patient, family, Instructed on the need for admit, Demonstrated understanding of instructions. 14:41 Patient left the ED. jl7 Signatures: Dispatcher [employer] EDMS Ciarra Ma, HAND SPLITTER-C HAND SPLITTER-Csnw Tameka Jacobsen, Odlel jb2 Xochilt Goldberg, RN RN aa5 Kaykay Sullivan, car unloader helper [facility] Maricarmen Peng [facility] William Iglesias, RN RN jl7 Nelida Adam RN RN ls4
--- NOTE | 2018-03-14 12:30 | EDPHYS ---
Physician Documentation [facility] Name: Alyssa García Age: 27 yrs Sex: Female : 1990 Arrival Date: 03/14/2018 Time: 09:40 Bed 13 Private MD: None, None ED Physician Lazaro Fernandes HPI: 03/14 10:03 This 27 yrs old Black Female presents to ER via Wheelchair with complaints of Fever, snw Weakness, Dehydrated. 10:03 The patient reports fever, that was measured at 101.8 degrees Fahrenheit. Onset: The snw symptoms/episode began/occurred suddenly, 2 day(s) ago, and became worse and became persistent. Associated signs and symptoms: Pertinent positives: cough, decreased appetite, diarrhea, myalgias. Severity of symptoms: At their worst the symptoms were moderate. The patient has experienced a previous episode. It is unknown whether or not the patient has recently seen a physician. 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 - Social history:: Smoking status: Patient/guardian denies using tobacco, never smoked. - Ebola Screening: : No symptoms or risks identified at this time. ROS: 10:02 Constitutional: positive for fever, chills, and weight loss, + myalgias Eyes: Negative snw for injury, pain, redness, and discharge, ENT: Negative for injury, pain, and discharge, Neck: Negative for injury, pain, and swelling, Cardiovascular: Negative for chest pain, palpitations, and edema. 10:02 Back: Negative for injury and pain, : Negative for injury, bleeding, discharge, and swelling, MS/Extremity: Negative for injury and deformity, Skin: Negative for injury, rash, and discoloration, Neuro: Negative for headache, weakness, numbness, tingling, and seizure, Psych: Negative for depression, anxiety, suicide ideation, homicidal ideation, and hallucinations. 10:02 Respiratory: Positive for cough, wheezing. 10:02 Abdomen/GI: Positive for diarrhea. Exam: 10:01 Head/Face: Normocephalic, atraumatic. Eyes: Pupils equal round and reactive to light, snw extra-ocular motions intact. Lids and lashes normal. Conjunctiva and sclera are non-icteric and not injected. Cornea within normal limits. Periorbital areas with no swelling, redness, or edema. ENT: Nares patent. No nasal discharge, no septal abnormalities noted. Tympanic membranes are normal and external auditory canals are clear. Oropharynx with no redness, swelling, or masses, exudates, or evidence of obstruction, uvula midline. Mucous membranes moist. Neck: Trachea midline, no thyromegaly or masses palpated, and no cervical lymphadenopathy. Supple, full range of motion without nuchal rigidity, or vertebral point tenderness. No Meningismus. Chest/axilla: Normal chest wall appearance and motion. Nontender with no deformity. No lesions are appreciated. 10:01 Back: No spinal tenderness. No costovertebral tenderness. Full range of motion. Skin: Warm, dry with normal turgor. Normal color with no rashes, no lesions, and no evidence of cellulitis. MS/ Extremity: Pulses equal, no cyanosis. Neurovascular intact. Full, normal range of motion. Neuro: Awake and alert, GCS 15, oriented to person, place, time, and situation. Cranial nerves II-XII grossly intact. Motor strength 5/5 in all extremities. Sensory grossly intact. Cerebellar exam normal. Normal gait. Psych: Awake, alert, with orientation to person, place and time. Behavior, mood, and affect are within normal limits. 10:01 Constitutional: The patient appears alert, anxious, febrile, frail, uncomfortable. 10:01 Cardiovascular: Rate: tachycardic, Rhythm: regular, Pulses: no pulse deficits are appreciated, Heart sounds: normal. 10:01 Respiratory: the patient does not display signs of respiratory distress, Respirations: shallow respirations, tachypnea, Breath sounds: wheezing: that is moderate, is heard diffusely. 10:01 Abdomen/GI: Inspection: abdomen appears normal, Bowel sounds: normal, Palpation: abdomen is soft and non-tender. Vital Signs: 09:48 BP 101 / 85; Pulse 118; Resp 20 S; Temp 101.1(O); Pulse Ox 98% on R/A; Weight 42.18 kg aa5 (R); Height 5 ft. 2 in. (157.48 cm) (R); Pain 7/10; 10:53 BP 108 / 73; Pulse 94; Resp 18; Pulse Ox 100% ; mh5 11:54 BP 100 / 67; Pulse 138; Resp 16; Pulse Ox 99% on R/A; Pain 0/10; ls4 12:25 BP 105 / 77; Pulse 132; Resp 20; Temp 99.1; Pulse Ox 99% ; Pain 0/10; ls4 14:12 Pulse 107; Resp 18; Pulse Ox 99% on R/A; Pain 0/10; ls4 09:48 Body Mass Index 17.01 (42.18 kg, 157.48 cm) aa5 MDM: 09:52 Patient medically screened. snw 12:25 Data reviewed: vital signs, nurses notes. Data interpreted: Pulse oximetry: on room air snw is 99 %. Counseling: I had a detailed discussion with the patient and/or guardian regarding: the historical points, exam findings, and any diagnostic results supporting the discharge/admit diagnosis, lab results, radiology results, the need for further work-up and treatment in the hospital. Physician consultation: Philip Mota DO was called at 12:26, was contacted at 12:26, regarding admission, to the telemetry unit. 03/14 09:48 Order name: Urine Culture snw 03/14 09:48 Order name: T\\T\\S; Complete Time: 13:21 snw 03/14 09:48 Order name: Basic Metabolic Panel; Complete Time: 11:56 snw 03/14 09:48 Order name: Blood Culture Adult (2) snw 03/14 09:48 Order name: CBC with Diff; Complete Time: 10:51 snw 03/14 09:48 Order name: CPK; Complete Time: 11:56 snw 03/14 09:48 Order name: Lactate; Complete Time: 11:03 snw 03/14 09:48 Order name: LFT's; Complete Time: 11:56 snw 03/14 09:48 Order name: Lipase; Complete Time: 11:56 snw 03/14 09:48 Order name: Urine Microscopic Only; Complete Time: 12:19 snw 03/14 09:49 Order name: Urine Culture EDMS 03/14 09:51 Order name: Test, Serum; Complete Time: 11:40 snw 03/14 09:55 Order name: Flu; Complete Time: 11:33 snw 03/14 12:12 Order name: Urine Dipstick--Ancillary (enter results); Complete Time: 12:21 bd 03/14 12:31 Order name: Add On-Lab snw 03/14 12:33 Order name: Strep; Complete Time: 13:41 snw 03/14 12:43 Order name: Stool Culture snw 03/14 12:43 Order name: CDIFF snw 03/14 12:53 Order name: T4 Free EDMS 03/14 12:53 Order name: Thyroid Stimulating Hormone EDMS 03/14 12:53 Order name: Urinalysis EDMS 03/14 12:53 Order name: CBC with Automated Diff EDMS 03/14 12:53 Order name: CBC with Automated Diff EDMS 03/14 12:53 Order name: CBC with Automated Diff EDMS 03/14 12:53 Order name: CBC with Automated Diff EDMS 03/14 12:53 Order name: Comprehensive Metabolic Panel EDMS 03/14 12:53 Order name: Comprehensive Metabolic Panel EDMS 03/14 12:53 Order name: Comprehensive Metabolic Panel EDMS 03/14 12:53 Order name: Comprehensive Metabolic Panel EDMS 03/14 12:53 Order name: Magnesium EDMS 03/14 09:48 Order name: Chest Single View XRAY; Complete Time: 10:51 snw 03/14 09:48 Order name: Accucheck; Complete Time: 10:34 snw 03/14 09:48 Order name: EKG - Nurse/Tech; Complete Time: 10:38 snw 03/14 09:48 Order name: IV Saline Lock - Large Bore; Complete Time: 10:34 snw 03/14 09:48 Order name: Labs collected and sent; Complete Time: 11:58 snw 03/14 09:48 Order name: O2 Per Protocol; Complete Time: 10:34 snw 03/14 09:48 Order name: O2 Sat Monitoring; Complete Time: 10:34 snw 03/14 09:48 Order name: Urine Dipstick-Ancillary (obtain specimen); Complete Time: 12:10 snw 03/14 10:53 Order name: Labs - recollect needed; Complete Time: 11:51 bd 03/14 12:42 Order name: EKG Electrocardiogram EDMS 03/14 12:53 Order name: Clear Liquid EDMS 03/14 12:53 Order name: Magnesium EDID 03/14 12:53 Order name: Magnesium EDMS 03/14 12:53 Order name: Magnesium EDMS 03/14 12:53 Order name: Blood Culture EDMS 03/14 12:53 Order name: Occult Blood EDID 03/14 12:53 Order name: Ova and Parasites EDMS 03/14 12:53 Order name: Patient Safety Orders EDID 03/14 13:02 Order name: Procalcitonin; Complete Time: 13:34 EDMS Administered Medications: 10:20 Drug: NS 0.9% (30 ml/kg) 30 ml/kg Route: IV; Rate: bolus; Site: left antecubital; jl7 12:20 Follow up: IV Status: Completed infusion jl7 10:25 Drug: Phenergan 25 mg Route: IM; Site: left gluteus; 7 10:45 Follow up: Response: No adverse reaction; Nausea is decreased ls4 10:30 Drug: D50W 50 ml Route: IVP; Site: left antecubital; jl7 11:00 Follow up: Response: No adverse reaction; Blood sugar is elevated ls4 10:54 Drug: Albuterol - atroVENT (3:1) (2.5 mg - 0.5 mg) 3 ml Route: Nebulizer; jl7 11:53 Follow up: Response: No adverse reaction; Wheezing diminished ls4 12:57 Drug: Rocephin 1 grams Route: IV; Rate: calculated rate; Site: left antecubital; jl7 13:00 Follow up: Response: No adverse reaction; IV Status: Completed infusion jl7 Point of Care Testing: Blood Glucose: 11:26 Blood Glucose: 103 mg/dL; mh5 Ranges: Critical Glucose Levels:Adult <50 mg/dl or >400 mg/dl <40 mg/dl or >180 mg/dl Disposition: 03/14/18 12:28 Hospitalization ordered by Philip Mota for Inpatient Admission. Preliminary diagnosis are Dehydration, Fever presenting with conditions classified elsewhere. - Bed requested for Telemetry/MedSurg (observation). - Status is Inpatient Admission. jl7 - Condition is Fair. - Problem is new. - Symptoms are unchanged. UTI on Admission? No Addendum: 03/15/2018 14:45 Co-signature as Attending Physician, Lazaro Fernandes MD. g s Signatures: Dispatcher [employer] EDMS KevindelphineNallely Shelly, DIESEL POWERPLANT MECHANIC-C DIESEL POWERPLANT MECHANIC-Csnw Xochilt Goldberg, RN RN aa5 William Iglesias RN RN jl7 Terrie De La Rosa RN ADOLFO df Lazaro Fernandes MD MD Nelida Adam RN RN ls4 Corrections: (The following items were deleted from the chart) 03/14 12:45 12:28 Hospitalization Ordered by Philip Nakul [place] for Observation. Preliminary sn diagnosis is Dehydration; Fever presenting with conditions classified elsewhere. Bed requested for Telemetry/MedSurg (observation). Status is Observation. Condition is Fair. Problem is new. Symptoms are unchanged. UTI on Admission? No. sn 13:50 12:45 03/14/2018 12:28 Hospitalization Ordered by Philip Mota DO for Inpatient df Admission. Preliminary diagnosis is Dehydration; Fever presenting with conditions classified elsewhere. Bed requested for Telemetry/MedSurg (observation). Status is Inpatient Admission. Condition is Fair. Problem is new. Symptoms are unchanged. UTI on Admission? No. sn 14:41 13:50 03/14/2018 12:28 Hospitalization Ordered by Philip Nakul [place]PORT for Inpatient jl7 Admission. Preliminary diagnosis is Dehydration; Fever presenting with conditions classified elsewhere. Bed requested for Telemetry/MedSurg (observation). Status is Inpatient Admission. Condition is Fair. Problem is new. Symptoms are unchanged. UTI on Admission? No. df
[2018-03-14] MEDS ORDERED: ONDANSETRON 4 MG/2 ML VIAL IV PRN (12:46)
[2018-03-14] MEDS ORDERED: ACETAMINOPHEN 500 MG TAB PO PRN (12:46)
[2018-03-14] MEDS ORDERED: SODIUM CHLORIDE 0.9% 10ML INJ IV PRN (12:46)
[2018-03-14] MEDS ORDERED: LORazepam 2 MG/ML VIAL IV PRN (12:46)
[2018-03-14] MEDS ORDERED: CEFTRIAXONE/SWI 1gm 1 GM/10 ML SYR ONE (13:01)
--- NOTE | 2018-03-14 13:02 | P.HP ---
Certification for Inpatient Patient admitted to: Inpatient With expected LOS: >2 Midnights Patient will require the following post-hospital care: None Practitioner: I am a practitioner with admitting privileges, knowledge of patient current condition, hospital course, and medical plan of care. Services: Services provided to patient in accordance with Admission requirements found in Title 42 Section 412.3 of the Code of Federal Regulations Patient History Date of Service: 03/14/18 Primary Care Provider: None; Neurology-Dr. Fleming Reason for admission: Fever, diarrhea History of Present Illness: 27-year-old female presented to the emergency room with fever and diarrhea over the last several days. Patient with history of seizure disorder, CVA and asthma. Patient had reported fever and diarrhea over the last 3 days. Some nausea noted. Cough and mild congestion noted. No significant shortness of breath. She also reports that about a week ago she had gone to the dentist and had 1 of her teeth removed. She had been given amoxicillin during this time. Patient had poor oral intake. She came to the ER for further evaluation. In the ER patient evaluated. Patient had fever 101. Heart rate was in the 130s but improved with normal saline bolus. White count 4.8, hemoglobin 14. Sodium 137, GFR of 80. test negative. Urinalysis showed possible UTI. Chest x-ray unremarkable. Lactic acid slightly elevated at 2.7. Influenza negative. Blood and urine cultures obtained. Patient admitted for further treatment and evaluation. Patient stable at this time. Heart rate improved. Patient clinically appears dehydrated and malnourished. Mother at bedside. Patient has a history of seizure disorder and CVA. She is taking and compliant with her medication. Allergies aspirin Allergy (Unverified 10/22/17 17:06) Unknown zolpidem Adverse Reaction (Verified 05/28/17 01:07) Shortness of breath Home medications list reviewed: Yes - Past Medical/Surgical History Diabetic: No -: Seizure disorder -: History of CVA -: Asthma -: Hypoglycemia -: Psychosocial/ Personal History: Patient is single. She has 2 children. She is disabled due to her seizure disorder. - Family History Father -: Diabetes, Stroke, Other (see notes) (Asthma) - Social History Smoking Status: Never smoker Alcohol use: No CD- Drugs: No Caffeine use: Yes Place of Residence: Home Review of Systems General: Fever, Weakness, Malaise, As per HPI Eyes: Unremarkable ENT: Nose Congestion, As per HPI Respiratory: Unremarkable Cardiovascular: Light Headedness, As per HPI Gastrointestinal: Nausea, Diarrhea, As per HPI Genitourinary: As per HPI Musculoskeletal: Unremarkable Integumentary: Unremarkable Neurological: Weakness, As per HPI Lymphatics: Unremarkable Physical Examination - Physical Exam General: Alert, In no apparent distress, Oriented x3, Cooperative, Cachectic, Other (Patient appears malnourished) HEENT: Atraumatic, Normocephalic, PERRLA, Other (Dry mucous membranes) Neck: Supple, No Thyromegaly Respiratory: Clear to auscultation bilaterally, Normal air movement Cardiovascular: Normal pulses, Regular rate/rhythm Gastrointestinal: Normal bowel sounds, Soft and benign, Non-distended, No masses , No rebound, No guarding, Tenderness (Minimal pain to the left quadrant) Musculoskeletal: No erythema, No tenderness, No warmth Integumentary: No tenderness/swelling, No erythema, No warmth, No cyanosis, Other (Dry skin noted) Neurological: Normal speech, Normal strength at 5/5 x4 extr, Normal tone, Normal affect - Studies Laboratory Data (last 24 hrs) 03/14/18 11:00: Sodium 137, Potassium 3.6, BUN 15, Creatinine 1.00, Glucose 76, Total Bilirubin 0.6, AST 43 H, ALT 21, Alkaline Phosphatase 65, Lipase 90 03/14/18 10:14: WBC 4.8, Hgb 14.3, Hct 42.5, Plt Count 144 L Microbiology Data (last 24 hrs): 03/14/18 10:44 Nasopharnyx Influenza Type A Antigen Screen - Final 03/14/18 10:44 Nasopharnyx Influenza Type B Antigen Screen - Final Assessment and Plan - Plan Impression: Fever, nausea and diarrhea with dehydration secondary to UTI and possible C diff colitis Seizure disorder with history of CVA Asthma History of hypoglycemia Plan: Fever, nausea and diarrhea with dehydration secondary to UTI and possible C diff colitis: Will continue with IV fluids. Will provide medication for nausea. Urine, blood and stool cultures obtained. Will check for C diff colitis. Patient recently on amoxacillin for recent tooth removal. Will start IV Rocephin. Will also start oral vancomycin. If C diff culture negative then will discontinue vancomycin. Will continue monitor closely. Seizure disorder with history of CVA: Will restart her home medication Aptiom 800 mg daily. Will monitor for seizures. Patient is seen and followed by neurology as an outpatient. Seizure precautions in place. Fall precautions in place. Asthma: Will provide albuterol as needed. History of hypoglycemia: Will monitor for hypoglycemia I will turn the service over to Dr. Crowe tomorrow. I will go over the plan of care with her. Discharge Plan: Home Plan to discharge in: Greater than 2 days - Advance Directives Does patient have a Living Will: No Does patient have a Durable POA for Healthcare: No - Code Status/Comfort Care Code Status Assessed: Yes (Patient full code) Time Spent Managing Pts Care (In Minutes): 55
[2018-03-14] MEDS ORDERED: VANCOMYCIN ORAL SOLN 250 MG/5 ML OSYR PO SCH (13:15)
[2018-03-14] MEDS: ENOXAPARIN 40 MG/0.4 ML SQ SCH (14:00)
[2018-03-14] MEDS ORDERED: ALBUTEROL 2.5 MG/3 ML NEB SOL NEB PRN (14:19)
[2018-03-14 16:17] LABS: Thyroid Stimulating Hormone 0.689 uIU/mL (0.360-3.740)
--- NOTE | 2018-03-14 16:21 | EKG ---
Test Date: 2018-03-14 Test Time: 10:30:44 Sealer Dry Cell: MASSIEL MEASUREMENT RESULTS: Intervals: Rate: 97 VA: 150 QRSD: 82 QT: 374 QTc: 474 [place]: P: 87 VA: 150 QRS: 92 T: 71 INTERPRETIVE STATEMENTS: Sinus rhythm with occasional premature ventricular complexes Vertical axis Abnormal ECG No previous ECG available for comparison Electronically Signed On 03-14-18 16:21:03 CDT by Kishan Christine
[2018-03-14] MEDS: D5 0.9 NS 1,000 ML IV SCH ×2 (17:01→23:53)
[2018-03-14] MEDS: VANCOMYCIN ORAL SOLN 250 MG/5 ML OSYR PO SCH ×2 (17:02→23:53)
[2018-03-14] MEDS ORDERED: ACETAMINOPHEN 160 MG/5 ML UCUP PO PRN (17:50)
[2018-03-14] MEDS ORDERED: INFLUENZA VACCINE (for 3y+) 0.5 ML DOSE IMVAC ONE (18:00)
--- NOTE | 2018-03-14 18:19 | RAD REPORT ---
EXAM DESCRIPTION: RAD - Abdomen 1 View (KUB) - 03/14/2018 6:07 pm CLINICAL HISTORY: Abdomen pain. FINDINGS: The bowel gas pattern is unremarkable. Multiple calcifications are present in the pelvis. These probably represent phleboliths. Moderate amount of stool is present in the colon
[2018-03-15] MEDS: VANCOMYCIN ORAL SOLN 250 MG/5 ML OSYR PO SCH (06:00)
[2018-03-15 07:07] LABS: ALT/SGPT 19 U/L (12-78); AST/SGOT 45 U/L (15-37); Alkaline Phosphatase 52 U/L (45-117); BUN Blood Urea Nitrogen 5 mg/dL (7-18); Bicarbonate 22 mmol/L (21-32); Bilirubin Total 0.4 mg/dL (0.2-1.0); Glucose Level 111 mg/dL (74-106); Magnesium 2.3 mg/dL (1.8-2.4); Potassium 3.9 mmol/L (3.5-5.1); Protein, Total 6.9 g/dL (6.4-8.2); Sodium Level 143 mmol/L (136-145)
[2018-03-15] MEDS ORDERED: PANTOPRAZOLE 40 MG INJ IVP SCH (09:00)
[2018-03-15] MEDS ORDERED: CEFTRIAXONE/SWI 1gm 1 GM/10 ML SYR IVP SCH (09:00)
[2018-03-15] MEDS: ENOXAPARIN 40 MG/0.4 ML SQ SCH (09:00)
[2018-03-15 09:27] LABS: Absolute Monocytes 0.4 K/uL (0.1-1.3); Absolute Neutrophil 0.8 K/uL (1.8-8.0); Basophils % 0.4 % (0-1.3); Eosinophils % 1.9 % (0-4.4); Hematocrit 33.3 % (36.0-45.0); Lymphocytes % 61.4 % (15.3-44.8); MCH 28.7 pg (27.0-35.0); MCV 84.5 fL (80-100); MPV 8.9 fL (7.6-11.3); RBC Red Blood Cell Count 3.94 M/uL (3.86-4.86)
[2018-03-15] MEDS: D5 0.9 NS 1,000 ML IV SCH (09:50)
[2018-03-15 10:57] LABS: Anisocytosis 1+; Blood Morphology Comment NOTED (NOT SEEN); Platelet Estimate DECR; Poikilocytosis 2+
--- NOTE | 2018-03-15 14:13 | P.SSS ---
Patient History Date of Service: 03/15/18 Primary Care Provider: None; Neurology-Dr. Fleming Reason for admission: Fever, diarrhea History of Present Illness: See HPI Allergies aspirin Allergy (Verified 03/14/18 16:54) Unknown zolpidem Adverse Reaction (Verified 05/28/17 01:07) Shortness of breath Home Medications: Albuterol Sulfate [Proair Hfa] 2 puff IH Q6HR 03/14/18 Eslicarbazepine Acetate [Aptiom] 800 mg PO DAILY 03/14/18 Montelukast [Singulair] 10 mg PO DAILY 03/14/18 - Past Medical/Surgical History Has patient received pneumonia vaccine in the past: No Diabetic: No -: Seizure disorder -: History of CVA -: Asthma -: Hypoglycemia -: Psychosocial/ Personal History: Patient is single. She has 2 children. She is disabled due to her seizure disorder. - Family History Father -: Diabetes, Stroke, Other (see notes) - Social History Smoking Status: Never smoker Alcohol use: No CD- Drugs: No Caffeine use: Yes Place of Residence: Home Review of Systems 10-point ROS is otherwise unremarkable Physical Examination - Vital Signs Temperature: 99.0 F Blood Pressure: 97/61 Pulse: 64 Respirations: 17 Pulse Ox (%): 99 - Physical Exam General: Alert, In no apparent distress HEENT: Atraumatic, PERRLA, Mucous membr. moist/pink, EOMI, Sclerae nonicteric Neck: Supple, 2+ carotid pulse no bruit, No LAD, Without JVD or thyroid abnormality Respiratory: Clear to auscultation bilaterally, Normal air movement Cardiovascular: Regular rate/rhythm, Normal S1 S2 Gastrointestinal: Normal bowel sounds, No tenderness Musculoskeletal: No tenderness Integumentary: No rashes Neurological: Normal gait, Normal speech, Normal strength at 5/5 x4 extr, Normal tone, Normal affect Lymphatics: No axilla or inguinal lymphadenopathy - Studies Microbiology Data (last 24 hrs): 03/14/18 10:14 Blood - Blood Anaerobic Blood Culture - Final 03/14/18 12:41 Throat Group A Streptococcus Rapid Screen - Final 03/14/18 10:44 Nasopharnyx Influenza Type A Antigen Screen - Final 03/14/18 10:44 Nasopharnyx Influenza Type B Antigen Screen - Final - Diagnosis (Problem(s)) (1) UTI (urinary tract infection) Onset Date: 03/15/18 Status: Acute Qualifiers: Urinary tract infection type: acute cystitis Hematuria presence: without hematuria Qualified Code(s): N30.00 - Acute cystitis without hematuria (2) Diarrhea Onset Date: 03/15/18 Status: Acute Qualifiers: Diarrhea type: presumed infectious Qualified Code(s): R19.7 - Diarrhea, unspecified (3) Dehydration Onset Date: 03/15/18 Status: Acute (4) Asthma Onset Date: 03/15/18 Status: Chronic Qualifiers: Asthma severity: mild Asthma persistence: intermittent (5) Seizure disorder Onset Date: 05/28/17 Status: Chronic Treatment Summary: Overall during the hospital stay patient remained stable Patient was initially admitted to the hospital for nausea vomiting fever day diarrhea and dehydration. Patient had extensive workup done here in the hospital. Lab work in microbiology was pending at this time. Patient however stated that she would like to leave against medical advice. Patient was advised to stay in the hospital until the lab work comes back negative and then could be discharged home safely. Patient however is continues to state that she would like to go home now. Patient proceeded to take her IV out herself and then left the hospital against medical advice. Patient did mention that her diarrhea had resolved when she was leaving the hospital - Disposition Disposition: AMA-LEFT AGAINST MEDICAL ADVIC
== END 2018-03-15 11:40 | disposition left against medical advice (07) ==
LOC: ER 09:37 → ERHOLD 12:44 → INTOOBSV 12:44 → 2ND 14:20
PROVIDERS: ADMIT Family Medicine; ATTEND Family Medicine
DX: N30.00 Acute cystitis without hematuria (principal); G40.909 Epilepsy, unspecified, not intractable, without status epilepticus; Z86.73 Personal history of transient ischemic attack (TIA), and cerebral infarction without residual deficits; J45.909 Unspecified asthma, uncomplicated; R19.7 Diarrhea, unspecified; E86.0 Dehydration; Z88.6 Allergy status to analgesic agent
CPT/HCPCS: 36415; 71045; 74018; 80048; 80053; 80076; 81003; 81015; 82550; 82962; 83605; 83690; 83735; 84145; 84439; 84443; 84703; 85025; 86850; 86900; 86901; 87040; 87070; 87081; 87086; 87088; 87205; 87804; 93005; 94640; 96365; 96366; 96372; 96375; 99285; C9113; G0378; J0696; J1650; J2550; J7030

== ENCOUNTER 2019-09-06 09:42 | Emergency (ER) | payer OTHER, SELFPAY ==
--- OUTSIDE RECORDS SUMMARY | 2019-09-06 09:47 | XMS REPORT ---
:1990 Author Organization [facility] Address [address] [place] [address] Dr. Portillo[address] [place] [id number] Care Team Providers Name Role Phone MYRNA STANFORD Unavailable Unavail able Problems This patient has no known problems. Allergies, Adverse Reactions, Alerts This patient has no known allergies or adverse reactions. Medications This patient has no known medications. Results Test Description Test Time Test Comments Text Results Atomic Results Result Comments BLOOD CULTURE 2017-06-03 10:00:00 Test Item Value Reference Range Comments CULTURE (BEAKER) (test code = 1095) No growth in 5 days BLOOD [id number] 10:00:00 Test Item Value Reference Range Comments CULTURE (BEAKER) (test code = 1095) No growth in 5 days PROTHROMBIN GENE [id number] 08:45:00 Test Item Value Reference Range Comments PROTHROMBIN/FACTOR II Negative for the [id number] ([employer]AKER) (test code = 2163) (Prothrombin/Factor II) mutation. [id number](MAGALI Dunn M.D. (electonic ) (test code = 2601) signature) This test is a genotyping assay which evaluates the DNA sequence at position [address]1481 of the prothrombin (Factor II) gene. A [...] and its performance characteristics determined by the [facility] Pathology Department, Section of Molecular [...] (BEAKER) Negative for the R506Q (Factor (test code = 718) V Leiden) mutation [id number] (BEAKER) Dudley Dunn M.D. (electonic (test code = 4839) signature) This test is a genotyping assay [...] developed and its performance characteristics determined bythe [facility] Pathology Department, Section of Molecular Pathology. It has not been cleared or approved by the U.S. Food and Drug Administration (FDA), since FDA approval is not requ ired for clinical use of the test. Validation was done as required by the Clinical Laboratory Improvement Amendments of 1988.DILUTE HOMA VIPER VENOM (DRVV)2017-06-02 07:39:00 Test Item Value Reference Range Comments PROTIME (BEAKER) (test code = 16.4 seconds 11.7-14.7 759) INR (BEAKER) (test code = 370) 1.3 <=5.9 PARTIAL THROMBOPLASTIN TIME 52.7 seconds 22.5-36.0 (BEAKER) (test code = 760) DRVV INTERPRETATION (BEAKER) Negative screen for Lupus (test code = 2406) Anticoagulant [id number] (BEAKER) Dudley Dunn M.D. (test code = 2610) (electonic signature) DRVV SCREEN RATIO (BEAKER) 0.76 <1.20 (test code = 2707) CBC W/PLT COUNT & AUTO [id number] 14:03:00 Test Item Value Reference Range Comments WHITE BLOOD CELL COUNT (BEAKER) (test code = 3.9 K/ L 3.5 -10.5 775) RED BLOOD CELL COUNT (BEAKER) (test code = 761) 3.71 M/ L 3.93-5.22 HEMOGLOBIN (BEAKER) (test code = 410) 10.1 GM/DL 11.2-15.7 HEMATOCRIT (BEAKER) (test code = 411) 30.9 % 34.1-44.9 MEAN CORPUSCULAR VOLUME (BEAKER) (test code = 83.3 fL 79 .4-94.8 753) MEAN CORPUSCULAR HEMOGLOBIN (BEAKER) (test code 27.2 pg 25.6-32.2 = 751) MEAN CORPUSCULAR HEMOGLOBIN CONC (BEAKER) (test 32.7 GM/DL 32.2-35.5 code = 752) RED CELL DISTRIBUTION WIDTH (BEAKER) (test code 13.4 % 11.7-14.4 = 412) PLATELET COUNT (BEAKER) (test code = 756) 130 K/CU MM 150-45 0 MEAN PLATELET VOLUME (BEAKER) (test code = 754) 11.1 fL 9.4-12.3 NUCLEATED RED BLOOD CELLS (BEAKER) (test code = 0 /100 WBC 0-0 413) NEUTROPHILS RELATIVE PERCENT (BEAKER) (test code 17 % = 429) LYMPHOCYTES RELATIVE PERCENT (BEAKER) (test code 74 % = 430) MONOCYTES RELATIVE PERCENT (BEAKER) (test code = 5 % 431) EOSINOPHILS RELATIVE PERCENT (BEAKER) (test code 2 % = 432) BASOPHILS RELATIVE PERCENT (BEAKER) (test code = 1 % 437) NEUTROPHILS ABSOLUTE COUNT (BEAKER) (test code = 0.67 K/ L 1.56-6.13 670) LYMPHOCYTES ABSOLUTE COUNT (BEAKER) (test code = 2.86 K/ L 1.18-3.74 414) MONOCYTES ABSOLUTE COUNT (BEAKER) (test code = 0.21 K/ L 0 .24-0.36 415) EOSINOPHILS ABSOLUTE COUNT (BEAKER) (test code = 0.09 K/ L 0.04-0.36 416) BASOPHILS ABSOLUTE COUNT (BEAKER) (test code = 0.03 K/ L 0 .01-0.08 417) IMMATURE GRANULOCYTES-RELATIVE PERCENT (BEAKER) 0 % 0-1 (test code = 2801) (MANUAL DIFFERENTIAL)2017-06-01 14:03:00 Test Item Value Reference Range Comments TOTAL COUNTED (BEAKER) (test code = 1351) WBC MORPHOLOGY (BEAKER) (test code = 487) Normal PLT MORPHOLOGY (BEAKER) (test code = 486) Normal RBC MORPHOLOGY (BEAKER) (test code = 762) Normal BASIC METABOLIC [id number] 10:08:00 Test Item Value Reference Range Comments SODIUM (BEAKER) (test 139 meq/L 136-145 code = 381) POTASSIUM (BEAKER) (test 3.9 meq/L 3.5-5.1 code = 379) CHLORIDE (BEAKER) (test 106 meq/L 98-107 code = 382) CO2 (BEAKER) (test code = 26 meq/L 22-29 355) BLOOD UREA NITROGEN 11 mg/dL 7-21 (BEAKER) (test code = 354) CREATININE (BEAKER) (test 0.70 mg/dL 0.57-1.25 code = 358) GLUCOSE RANDOM (BEAKER) 66 mg/dL 70-105 (test code = 652) CALCIUM (BEAKER) (test 7.7 mg/dL 8.4-10.2 code = 697) EGFR (BEAKER) (test code 122 mL/min/1.73 sq m ES TIMATED GFR IS NOT = 1092) ACCURATE CREA TININE CLEARANCE IN PRE DICTING GLOMERULAR FILTR ATION RATE. ESTIMATED GFR IS NOT APPLICABLE F OR DIALYSIS PATIENT S. POCT-GLUCOSE [id number] 08:35:00 Test Item Value Reference Range Comments POC-GLUCOSE METER (BEAKER) 72 mg/dL 70-110 TESTE D AT [address] (test code = 1538) [place] [address] ANTI-NUCLEAR ANTIBODY (MARIA ISABEL)2017-06-01 03:41:00 Test Item Value Reference Range Comments ANTI-NUCLEAR ANTIBODY (MARIA ISABEL) (BEAKER) (test code = Negative Negative 418) POCT-GLUCOSE [id number] 22:27:00 Test Item Value Reference Range Comments POC-GLUCOSE METER (BEAKER) 111 mg/dL 70-110 TESTE D AT [address] (test code = 1538) [place] [address] MR, BRAIN, WITHOUT [id number] 17:48:00FINAL REPORT MRI brain and MRA head and neck without contrast 05/31/2017 5:44 PM CLINICAL INDICATION: Stroke TECHNIQUE: Multiplanar, multisequence MR imaging of the brain was performed utilizing the following imaging sequences: Axial T1, T2, FLAIR, GRE, and DWI; sagittal and coronal T1-weighted images. Two- and three- dimensional gdiu-ri-lwlift MRA images of the intra- and extracranial carotid and vertebral arterial circulations were obtained, from which maximal intensity projection 3-D reconstructions were created. COMPARISON: None available FINDINGS: MRI: There is tortuosity of and fluid within the optic nerve sheath complexes. The lateral ventricles have a pinched appearance. The pituitary gland is flattened against the floor of the sella turcica. There is no infarct, hemat demi, hydrocephalus, or extra-axial collection. Normal appearing flow-voids are present in the major intracranial vascular structures. The pineal region, craniocervical junction, and skull base are unremarkable MRA neck: There is no vessel occlusion or flow-limiting stenosis. There is no NASCET-quantifiable cervical internal carotid artery stenosis. Flow is antegrade in both vertebral arteries. MRA pauma of Haq: There is no vessel occlusion, flow-limiting stenosis, or aneurysm. IMPRESSION: 1. Findings that may reflect increased intracranial pressure. Consider further evaluation with intracranial MRA to exclude venous sinus thrombosis/stenosis.2. Unremarkable extracranial and intracranial MRAs. Signed: Patrick Lynne MDReport Verified Date/Time: 05/31/2017 17:48:23 Reading Location: [facility] Reading Room MR, MRA, BRAIN, WITHOUT [id number] 17:48:00FINAL REPORT MRI brain and MRA head and neck without contrast 05/31/2017 5:44 PM CLINICAL INDICATION: Stroke TECHNIQUE: Multiplanar, multisequence MR imaging of the brain was performed utilizing the following imaging sequences: Axial T1, T2, FLAIR, GRE, and DWI; sagittal and coronal T1-weighted images. Two- and three- dimensional pcva-ug-plbwlv MRA images of the intra- and extracranial carotid and vertebral arterial circulations were obtained, from which maximal intensity projection 3-D reconstructions were created. COMPARISON: None available FINDINGS: MRI: There is tortuosity of and fluid within the optic nerve sheath complexes. The lateral ventricles have a pinched appearance. The pituitary gland is flattened against the floor of the sella turcica. There is no infarct, hemat demi, hydrocephalus, or extra-axial collection. Normal appearing flow-voids are present in the major intracranial vascular structures. The pineal region, craniocervical junction, and skull base are unremarkable MRA neck: There is no vessel occlusion or flow-limiting stenosis. There is no NASCET-quantifiable cervical internal carotid artery stenosis. Flow is antegrade in both vertebral arteries. MRA pauma of Haq: There is no vessel occlusion, flow-limiting stenosis, or aneurysm. IMPRESSION: 1. Findings that may reflect increased intracranial pressure. Consider further evaluation with intracranial MRA to exclude venous sinus thrombosis/stenosis.2. Unremarkable extracranial and intracranial MRAs. Signed: Patrick Lynne MDReport Verified Date/Time: 05/31/2017 17:48:23 Reading Location: [facility] Reading Room MR, MRA, NECK, WITH IV [id number] 17:48:00Please perform without contrastFINAL REPORT MRI brain and MRA head and neck without contrast 05/31/2017 5:44 PM CLINICAL INDICATION: Stroke TECHNIQUE: Multiplanar, multisequence MR imaging of the brain was performed utilizing the following imaging sequences: Axial T1, T2, FLAIR, GRE, and DWI; sagittal and coronal T1- weighted images. Two- and three-dimensional vbrx-ch-chgcnw MRA images of the intra- and extracranial [...] is antegrade in both vertebral arteries. MRA pauma of Haq: There is no vessel occlusion, flow-limiting stenosis, or aneurysm. IMPRESSION: 1. Findings that may reflect increased intracranial pressure. Consider further evaluation with intracranial MRA to exclude venous sinus thrombosis/stenosis.2. Unremarkable extracranial and intracranial MRAs. Signed: Patrick Lynne MDReport Verified Date/Time: 05/31/2017 17:48:23 Reading Location: [facility] Reading Room THROMBIN [id number] 14:28:00 Test Item Value Reference Range Comments THROMBIN TIME (BEAKER) (test code = 550) 18.5 secs 13.8-20 .0 HEXAGONAL [id number] 14:28:00 Test Item Value Reference Range Comments HEXAGONAL PHOSPHOLIPID (BEAKER) (test code = 1790) Negative 1:1 MIXING STUDY, [id number] 14:28:00 Test Item Value Reference Range Comments PROTIME (BEAKER) (test code = 759) 16.4 seconds 11.7-14.7 PARTIAL THROMBOPLASTIN TIME (BEAKER) (test code 52.7 seconds 22.5-36.0 = 760) PT 1/1 MIX (BEAKER) (test code = 1595) 14.1 SECS 11.7-14.7 PTT 1/1 MIX (BEAKER) (test code = 1596) 39.7 SECS 22.5-36. 0 CARDIOLIPIN ANTIBODIES, IGG AND [id number] 11:47:00 Test Item Value Reference Range Comments ANTICARDIOLIPIN IGG ANTIBODY (BEAKER) (test code = < GPL 712) ANTICARDIOLIPIN IGM ANTIBODY (BEAKER) (test code = 0.4 MPL 713) Anticardiolipin IgG Result Interpretation:NEG: <20 GPL; U/mlPOS: >/=20 GPL; U/mlAnticardiolipin IgM Result Interpretation:NEG: <20 MPL; U/mlPOS: >/=20 MPL; U/mlCARDIOLIPIN ANTIBODIES, IGG AND [id number] 11:45:00 Test Item Value Reference Range Comments ANTICARDIOLIPIN IGG ANTIBODY (BEAKER) (test code = < GPL 712) ANTICARDIOLIPIN IGM ANTIBODY (BEAKER) (test code = 0.5 MPL 713) Anticardiolipin IgG Result Interpretation:NEG: <20 GPL; U/mlPOS: >/=20 GPL; U/mlAnticardiolipin IgM Result Interpretation:NEG: <20 MPL; U/mlPOS: >/=20 MPL; U/mlPOCT-GLUCOSE [id number] 11:39:00 Test Item Value Reference Range Comments POC-GLUCOSE METER (BEAKER) 120 mg/dL 70-110 TESTE D AT [facility] [address] (test code = 1538) [place] [address] PROTEIN C [id number] 11:35:00 Test Item Value Reference Range Comments PROTEIN C ACTIVITY (BEAKER) (test code = 582) 65.0 % 70 .0-130.0 See Protein C Antigen.CBC W/PLT COUNT & AUTO [id number] 10:02:00 Test Item Value Reference Range Comments WHITE BLOOD CELL COUNT (BEAKER) (test code = 4.1 K/ L 3.5 -10.5 775) RED BLOOD CELL COUNT (BEAKER) (test code = 761) 3.68 M/ L 3.93-5.22 HEMOGLOBIN (BEAKER) (test code = 410) 10.1 GM/DL 11.2-15.7 HEMATOCRIT (BEAKER) (test code = 411) 30.9 % 34.1-44.9 MEAN CORPUSCULAR VOLUME (BEAKER) (test code = 84.0 fL 79 .4-94.8 753) MEAN CORPUSCULAR HEMOGLOBIN (BEAKER) (test code 27.4 pg 25.6-32.2 = 751) MEAN CORPUSCULAR HEMOGLOBIN CONC (BEAKER) (test 32.7 GM/DL 32.2-35.5 code = 752) RED CELL DISTRIBUTION WIDTH (BEAKER) (test code 13.6 % 11.7-14.4 = 412) PLATELET COUNT (BEAKER) (test code = 756) 126 K/CU MM 150-45 0 MEAN PLATELET VOLUME (BEAKER) (test code = 754) 11.6 fL 9.4-12.3 NUCLEATED RED BLOOD CELLS (BEAKER) (test code = 0 /100 WBC 0-0 413) IMMATURE GRANULOCYTES-RELATIVE PERCENT (BEAKER) 0 % 0-1 (test code = 2801) (MANUAL DIFFERENTIAL)2017-05-31 10:02:00 Test Item Value Reference Range Comments NEUTROPHILS - REL (DIFF) (BEAKER) (test code = 21 % 1359) LYMPHOCYTES - REL (DIFF) (BEAKER) (test code = 61 % 1360) MONOCYTES - REL (DIFF) (BEAKER) (test code = 1361) 17 % EOSINOPHILS - REL (DIFF) (BEAKER) (test code = 0 % 1362) BASOPHILS - REL (DIFF) (BEAKER) (test code = 1363) 0 % BANDS - REL (DIFF) (BEAKER) (test code = 1348) 1 % 0 -10 NEUTROPHILS - ABS (DIFF) (BEAKER) (test code = 0.86 K/ L 1 .80-8.00 1365) LYMPHOCYTES - ABS (DIFF) (BEAKER) (test code = 2.50 K/ L 1 .48-4.50 1366) MONOCYTES - ABS (DIFF) (BEAKER) (test code = 1367) 0.70 K/ L 0.00-1.30 EOSINOPHILS - ABS (DIFF) (BEAKER) (test code = 0.00 K/ L 0 .00-0.50 1368) BASOPHILS - ABS (DIFF) (BEAKER) (test code = 1369) 0.00 K/ L 0.00-0.20 BANDS-ABS (DIFF) (BEAKER) (test code = 1349) 0.0 K/ L 0.0 -0.8 TOTAL COUNTED (BEAKER) (test code = 1351) 100 BANDS + SEGMENTED NEUTROPHILS (BEAKER) (test code 0.90 = 1352) WBC MORPHOLOGY (BEAKER) (test code = 487) Normal PLT MORPHOLOGY (BEAKER) (test code = 486) Normal RBC MORPHOLOGY (BEAKER) (test code = 762) Normal POCT-GLUCOSE [id number] 08:18:00 Test Item Value Reference Range Comments POC-GLUCOSE METER (BEAKER) 100 mg/dL 70-110 TESTE D AT [facility] [address] [facility] (test code = 1538) [facility] [address] BASIC METABOLIC [id number] 06:53:00 Test Item Value Reference Range Comments SODIUM (BEAKER) (test 141 meq/L 136-145 code = 381) POTASSIUM (BEAKER) (test 3.5 meq/L 3.5-5.1 code = 379) CHLORIDE (BEAKER) (test 110 meq/L 98-107 code = 382) CO2 (BEAKER) (test code = 21 meq/L 22-29 355) BLOOD UREA NITROGEN 12 mg/dL 7-21 (BEAKER) (test code = 354) CREATININE (BEAKER) (test 0.71 mg/dL 0.57-1.25 code = 358) GLUCOSE RANDOM (BEAKER) 68 mg/dL 70-105 (test code = 652) CALCIUM (BEAKER) (test 7.5 mg/dL 8.4-10.2 code = 697) EGFR (BEAKER) (test code 120 mL/min/1.73 sq m ES TIMATED GFR IS NOT = 1092) ACCURATE CREA TININE CLEARANCE IN PRE DICTING GLOMERULAR FILTR ATION RATE. ESTIMATED GFR IS NOT APPLICABLE F OR DIALYSIS PATIENT S. POCT-GLUCOSE [id number] 21:28:00 Test Item Value Reference Range Comments POC-GLUCOSE METER (BEAKER) 105 mg/dL 70-110 TESTE D AT [place] [address] [facility] (test code = 1538[facility] [place] [address] POCT-GLUCOSE [id number] 12:53:00 Test Item Value Reference Range Comments POC-GLUCOSE METER (BEelicit) 126 mg/dL 70-110 TESTE D AT [place] [address] [facility] (test code = 1538) [facility] [address] VANCOMYCIN LEVEL, [id number] 11:31:00 Test Item Value Reference Range Comments VANCOMYCIN TROUGH (BEAKER) (test code = 522) 13.7 ug/mL 10. 0-20.0 Draw 30 min prior to scheduled dose, HOLD if level > 20 mcg/mL, inform . ANTITHROMBIN [id number] 11:18:00 Test Item Value Reference Range Comments ANTITHROMBIN III ACTIVITY (BEAKER) (test code = 711) 67.0 % 80.0-120.0 URINE [id number] 10:46:00 Test Item Value Reference Range Comments CULTURE (BEAKER) (test code = 1095) No growth [id number] 07:57:00 Test Item Value Reference Range Comments HOMOCYSTEINE (BEAKER) (test code = 642) 7.6 umol/L 5.1-15.4 LACTIC ACID, VENOUS, WHOLE [id number] 07:11:00 Test Item Value Reference Range Comments LACTATE BLOOD VENOUS (2) (BEAKER) (test code = 0.9 mmol/L 0 .5-2.2 2872) Effective 09/25/2015: Units/Reference Range ChangeNew: 0.5-2.2 mmol/L Previous: 5-20 mg/dLBASIC METABOLIC [id number] 07:04:00 Test Item Value Reference Range Comments SODIUM (BEAKER) (test 141 meq/L 136-145 code = 381) POTASSIUM (BEAKER) (test 3.3 meq/L 3.5-5.1 code = 379) CHLORIDE (BEAKER) (test 109 meq/L 98-107 code = 382) CO2 (BEAKER) (test code = 26 meq/L 22-29 355) BLOOD UREA NITROGEN 12 mg/dL 7-21 (BEAKER) (test code = 354) CREATININE (BEAKER) (test 0.80 mg/dL 0.57-1.25 code = 358) GLUCOSE RANDOM (BEAKER) 89 mg/dL 70-105 (test code = 652) CALCIUM (BEAKER) (test 7.8 mg/dL 8.4-10.2 code = 697) EGFR (BEAKER) (test code 104 mL/min/1.73 sq m ES TIMATED GFR IS NOT = 1092) ACCURATE CREA TININE CLEARANCE IN PRE DICTING GLOMERULAR FILTR ATION RATE. ESTIMATED GFR IS NOT APPLICABLE F OR DIALYSIS PATIENT S. POCT-GLUCOSE [id number] 00:35:00 Test Item Value Reference Range Comments POC-GLUCOSE METER (BEAKER) 87 mg/dL 70-110 TESTE D AT [address] (test code = 1538) [place] [address] [id number] 23:26:00 Test Item Value Reference Range Comments RPR SCREEN (BEAKER) (test code = 420) Nonreactive Nonreactiv e POCT-GLUCOSE [id number] 17:52:00 Test Item Value Reference Range Comments POC-GLUCOSE METER (BEAKER) 87 mg/dL 70-110 TESTE D AT [address] (test code = 1538) [place] [address] POCT-GLUCOSE [id number] 12:58:00 Test Item Value Reference Range Comments POC-GLUCOSE METER (BEAKER) 117 mg/dL 70-110 TESTE D AT [facility] [address] (test code = 1538) [facility] [address] EEG AWAKE AND [id number] 12:51:00Reason for exam:->abnormal EEG with altered mental status, concern for statusShould this be performed at the bedside?->YesEEG REPORT: Alyssa [facility]-B[facility]iste [facility] , DATE: EEG #: [id number] Code: #: R41.82 Altered mental status, unspecified (ICD 9: 780.97)CPT Code: #: 28283: 03. EEG coma or sleep only; 20-40 [...] etiology.Clinical Fellow: Sherly Higginsrophysiologist: Daphne Woods HEMOGLOBIN A1C 2017-05-29 08:42:00 Test Item Value Reference Range Comments HEMOGLOBIN A1C (BEAKER) (test code = 368) 5.6 % 4.3-6. 1 HIV-1 ANTIGEN WITH HIV-1/2 [id number] 05:23:00 Test Item Value Reference Range Comments HIV-1 ANTIGEN WITH HIV 1\T\2 ANTIBODY (2) Nonreactive Nonrea ctive (BEAKER) (test code = 2586) SEDIMENTATION [id number] 05:05:00 Test Item Value Reference Range Comments SEDIMENTATION RATE, ERYTHROCYTE (BEAKER) (test code 48 mm/HR 0-20 = 766) RAD, HIP, 2 VIEWS, [id number] 03:29:00Reason for exam:->possible fall at homeFINAL REPORT [...] MDReport Verified Date/Time: 05/29/2017 03:29:06 Reading Location: [address] Body Reading Room TINE KINASE (CK), TOTAL AND [id number] 02:57:00 Test Item Value Reference Range Comments CREATINE KINASE TOTAL (BEAKER) (test code = 380) 581 U/L 29-200 CREATINE KINASE-MB (BEAKER) (test code = 750) 1.2 ng/mL 0. 0-6.6 CREATINE KINASE-MB INDEX (BEAKER) (test code = 0.2 % 395) CK-MB Reference Range:<6.7 Normal6.7-10.0 Borderline>10.0 AbnormalTROPONIN [id number] 02:57:00 Test Item Value Reference Range Comments TROPONIN I (BEAKER) (test code = 397) < ng/mL 0.00-0.03 Troponin I (TnI) levels [...] and persistent tachyarrhythmia.CREATINE KINASE (CK), TOTAL AND MB 2017-05-29 02:56:00 Test Item Value Reference Range Comments CREATINE KINASE TOTAL (BEAKER) (test code = 380) 577 U/L 29-200 CREATINE KINASE-MB (BEAKER) (test code = 750) 1.2 ng/mL 0. 0-6.6 CREATINE KINASE-MB INDEX (BEAKER) (test code = 0.2 % 395) CK-MB Reference Range:<6.7 Normal6.7-10.0 Borderline>10.0 AbnormalTROPONIN [id number] 02:56:00 Test Item Value Reference Range Comments TROPONIN I (BEAKER) (test code = 397) < ng/mL 0.00-0.03 Troponin I (TnI) levels [...] acidosis, acute neurological disease, and persistent tachyarrhythmia.LIPID [id number] 02:53:00 Test Item Value Reference Range Comments TRIGLYCERIDES (BEAKER) (test code = 540) 50 mg/dL CHOLESTEROL (BEAKER) (test code = 631) 160 mg/dL HDL CHOLESTEROL (BEAKER) (test code = 976) 48 mg/dL LDL CHOLESTEROL CALCULATED (BEAKER) (test code = 102 mg/dL 633) Triglyceride Reference Range: Low Risk <150 Borderline 150-199 High Risk 200-499 Very High Risk >=500Cholesterol Reference Range: Low Risk <200 Borderline 200-239 High Risk >240HDL Cholesterol Reference Range: Low Risk >=60 High Risk <40LDL Cholesterol Reference Range: Optimal <100 Near Optimal 100-129 Borderline 130-159 High 160-189 Very High >=190BASIC METABOLIC [id number] 02:53:00 Test Item Value Reference Range Comments SODIUM (BEAKER) (test 138 meq/L 136-145 code = 381) POTASSIUM (BEAKER) (test 3.7 meq/L 3.5-5.1 code = 379) CHLORIDE (BEAKER) (test 107 meq/L 98-107 code = 382) CO2 (BEAKER) (test code = 20 meq/L 22-29 355) BLOOD UREA NITROGEN 10 mg/dL 7-21 (BEAKER) (test code = 354) CREATININE (BEAKER) (test 0.93 mg/dL 0.57-1.25 code = 358) GLUCOSE RANDOM (BEAKER) 103 mg/dL 70-105 (test code = 652) CALCIUM (BEAKER) (test 8.4 mg/dL 8.4-10.2 code = 697) EGFR (BEAKER) (test code 88 mL/min/1.73 sq m EST IMATED GFR IS NOT = 1092) ACCURATE CREA TININE CLEARANCE IN PRE DICTING GLOMERULAR FILTR ATION RATE. ESTIMATED GFR IS NOT APPLICABLE F OR DIALYSIS PATIENT S. HEPATIC FUNCTION [id number] 02:53:00 Test Item Value Reference Range Comments TOTAL PROTEIN (BEAKER) (test code = 770) 7.6 gm/dL 6.0-8.3 ALBUMIN (BEAKER) (test code = 1145) 3.6 g/dL 3.5-5.0 BILIRUBIN TOTAL (BEAKER) (test code = 377) 0.3 mg/dL 0.2-1 .2 BILIRUBIN DIRECT (BEAKER) (test code = 706) 0.2 mg/dL 0.1- 0.5 ALKALINE PHOSPHATASE (BEAKER) (test code = 346) 58 U/L 40-150 AST (SGOT) (BEAKER) (test code = 353) 33 U/L 5-34 ALT (SGPT) (BEAKER) (test code = 347) 15 U/L 6-55 [id number] 02:53:00 Test Item Value Reference Range Comments AMYLASE (BEAKER) (test code = 349) 74 U/L 25-125 [id number] 02:53:00 Test Item Value Reference Range Comments LIPASE (BEAKER) (test code = 749) 13 U/L 8-78 C-REACTIVE [id number] 02:53:00 Test Item Value Reference Range Comments C-REACTIVE PROTEIN (BEAKER) (test code = 676) 10.77 mg/dL 0. 00-0.50 LACTIC ACID, ARTERIAL, WHOLE [id number] 02:47:00 Test Item Value Reference Range Comments LACTATE BLOOD ARTERIAL (2) (BEAKER) (test code = 0.7 mmol/L 0.5-2.2 2874) Effective 09/25/2015: Units/Reference Range ChangeNew: 0.5-2.2 mmol/L Previous: 5-20 mg/[id number] 02:36:00 Test Item Value Reference Range Comments PARTIAL THROMBOPLASTIN TIME (BEAKER) (test code 51.7 seconds 22.5-36.0 = 760) PROTHROMBIN TIME/[id number] 02:35:00 Test Item Value Reference Range Comments PROTIME (BEAKER) (test code = 759) 16.3 seconds 11.7-14.7 INR (BEAKER) (test code = 370) 1.3 <=5.9 RECOMMENDED COUMADIN/WARFARIN INR THERAPY RANGESSTANDARD DOSE: 2.0 - 3.0 Includes: PROPHYLAXIS forvenous thrombosis, systemic embolization; TREATMENT for venous thrombosis and/or pulmonary embolus.HIGH RISK: Target INR is 2.5-3.5 for patients with mechanical heart valves.CBC W/PLT COUNT & AUTO DIFFERENTIAL 2017-05-29 02:35:00 Test Item Value Reference Range Comments WHITE BLOOD CELL COUNT (BEAKER) (test code = 4.0 K/ L 3.5 -10.5 775) RED BLOOD CELL COUNT (BEAKER) (test code = 761) 4.12 M/ L 3.93-5.22 HEMOGLOBIN (BEAKER) (test code = 410) 11.4 GM/DL 11.2-15.7 HEMATOCRIT (BEAKER) (test code = 411) 33.8 % 34.1-44.9 MEAN CORPUSCULAR VOLUME (BEAKER) (test code = 82.0 fL 79 .4-94.8 753) MEAN CORPUSCULAR HEMOGLOBIN (BEAKER) (test code 27.7 pg 25.6-32.2 = 751) MEAN CORPUSCULAR HEMOGLOBIN CONC (BEAKER) (test 33.7 GM/DL 32.2-35.5 code = 752) RED CELL DISTRIBUTION WIDTH (BEAKER) (test code 13.5 % 11.7-14.4 = 412) PLATELET COUNT (BEAKER) (test code = 756) 153 K/CU MM 150-45 0 MEAN PLATELET VOLUME (BEAKER) (test code = 754) 10.8 fL 9.4-12.3 NUCLEATED RED BLOOD CELLS (BEAKER) (test code = 0 /100 WBC 0-0 413) NEUTROPHILS RELATIVE PERCENT (BEAKER) (test code 83 % = 429) LYMPHOCYTES RELATIVE PERCENT (BEAKER) (test code 14 % = 430) MONOCYTES RELATIVE PERCENT (BEAKER) (test code = 2 % 431) EOSINOPHILS RELATIVE PERCENT (BEAKER) (test code 0 % = 432) BASOPHILS RELATIVE PERCENT (BEAKER) (test code = 1 % 437) NEUTROPHILS ABSOLUTE COUNT (BEAKER) (test code = 3.31 K/ L 1.56-6.13 670) LYMPHOCYTES ABSOLUTE COUNT (BEAKER) (test code = 0.57 K/ L 1.18-3.74 414) MONOCYTES ABSOLUTE COUNT (BEAKER) (test code = 0.06 K/ L 0 .24-0.36 415) EOSINOPHILS ABSOLUTE COUNT (BEAKER) (test code = 0.00 K/ L 0.04-0.36 416) BASOPHILS ABSOLUTE COUNT (BEAKER) (test code = 0.02 K/ L 0 .01-0.08 417) IMMATURE GRANULOCYTES-RELATIVE PERCENT (BEAKER) 0 % 0-1 (test code = 2801) URINALYSIS W/ [id number] 02:31:00 Test Item Value Reference Range Comments COLOR (BEAKER) (test code = 470) Light Yellow CLARITY (BEAKER) (test code = 469) Clear SPECIFIC GRAVITY UA (BEAKER) (test code = 1.003 1.001- 1.035 468) PH UA (BEAKER) (test code = 467) 5.0 5.0-8.0 PROTEIN UA (BEAKER) (test code = 464) Negative Negative GLUCOSE UA (BEAKER) (test code = 365) Negative Negative KETONES UA (BEAKER) (test code = 371) Negative Negative BILIRUBIN UA (BEAKER) (test code = 462) Negative Negative BLOOD UA (BEAKER) (test code = 461) Negative Negative NITRITE UA (BEAKER) (test code = 465) Negative Negative LEUKOCYTE ESTERASE UA (BEAKER) (test code Negative Negati ve = 466) UROBILINOGEN UA (BEAKER) (test code = 0.2 mg/dL 0.2-1.0 463) RBC UA (BEAKER) (test code = 519) < /HPF WBC UA (BEAKER) (test code = 520) < /HPF BACTERIA (BEAKER) (test code = 517) Rare MUCUS (BEAKER) (test code = 1574) Rare SQUAMOUS EPITHELIAL (BEAKER) (test code = 1 /HPF 516) AMORPHOUS CRYSTALS (BEAKER) (test code = Rare 1584) SOURCE(BEAKER) (test code = 2795) Urine, Clean Catch SCREEN, [id number] 00:58:00 Test Item Value Reference Range Comments TEST URINE (BEAKER) (test code = 583) Negative POCT-GLUCOSE [id number] 00:47:00 Test Item Value Reference Range Comments POC-GLUCOSE METER (BEAKER) 102 mg/dL 70-110 TESTE D AT [facility] [address] (test code = 1538) [facility] 77 [id number]
[2019-09-06 11:08] LABS: Urine Blood NEGATIVE (NEG); Urine Glucose NEGATIVE (NEG); Urine Protein TRACE (NEG); Urine Specific Gravity 1.025 (1.005-1.030); Urine pH 7.5 (5.0-7.0)
--- NOTE | 2019-09-06 11:11 | ER ---
Nurse's Notes [facility] Name: Alyssa García Age: 28 yrs Sex: Female : 1990 Arrival Date: 09/06/2019 Time: 09:47 Bed 19 Private MD: Diagnosis: Fracture of sacrum Presentation: 09/05 10:04 Chief complaint: Patient states: Slipped and fell yesterday, landed directly on ph buttocks, c/o pain in sacral area, buttocks, radiating to R leg, denies head injury. Coronavirus screen: Patient denies a cough. Patient denies shortness of breath or difficulty breathing. Patient denies measured and/or subjective temperature greater than 100.4F prior to today's visit. Patient denies travel on a cruise ship or to a country the [facility] currently lists as an affected area. Patient denies contact with known and/or suspected case of COVID-19. Ebola Screen: No symptoms or risks identified at this time. Initial Sepsis Screen: Does the patient meet any 2 criteria? No. Patient's initial sepsis screen is negative. Does the patient have a suspected source of infection? No. Patient's initial sepsis screen is negative. Risk Assessment: Do you want to hurt yourself or someone else? Patient reports no desire to harm self or others. Onset of symptoms was September 06, 2019. 10:04 Method Of Arrival: Ambulatory ph 10:04 Acuity: RUSLAN 4 ph Historical: - Allergies: 10:12 ambien; ph 10:12 Aspirin; ph - Home Meds: 10:12 Aptiom Oral [Active]; Hydroxyzine Oral [Active]; montelukast Oral [Active]; ProAir HFA ph inhalation [Active]; Singulair Oral [Active]; - PMHx: 10:12 Asthma; CVA; HYPOGLYCEMIA; Seizures; ph - PSHx: 10:12 ; ph - Immunization history:: Adult Immunizations unknown. - Social history:: Smoking status: Patient denies any tobacco usage or history of. Screenin:08 Abuse screen: Denies threats or abuse. Denies injuries from another. Nutritional ph screening: No deficits noted. Tuberculosis screening: No symptoms or risk factors identified. Fall Risk None identified. Assessment: 10:13 General: Appears in no apparent distress. uncomfortable, slender, well groomed, ph Behavior is calm, cooperative, appropriate for age. Pain: Complains of pain in buttocks Pain radiates to right leg. Neuro: Level of Consciousness is awake, alert, obeys commands, Oriented to person, place, time, situation. Cardiovascular: Capillary refill < 3 seconds in bilateral fingers Patient's skin is warm and dry. Respiratory: Airway is patent Respiratory effort is even, unlabored, Respiratory pattern is regular, symmetrical. Derm: Skin is intact, is healthy with good turgor, Skin is pink, warm \T\ dry. Musculoskeletal: Circulation, motion, and sensation intact. Range of motion: intact in all extremities. 10:25 Reassessment: In room with Dr Zaragoza, minimum relief noted after adjustment. Vital Signs: 10:04 BP 98 / 81; Pulse 114; Resp 18; Temp 97.2; Pulse Ox 100% on R/A; Weight 42.18 kg; ph Height 5 ft. 2 in. (157.48 cm); 10:04 Body Mass Index 17.01 (42.18 kg, 157.48 cm) ph ED Course: 09:47 Patient arrived in ED. am2 09:56 Rafa Zaragoza MD is Attending Physician. ps1 09:59 Patient has correct armband on for positive identification. Pulse ox on. NIBP on. mh5 10:03 Abigail Easton, RN is Primary Nurse. ph 10:08 Triage completed. ph 10:08 Arm band placed on Patient placed in an exam room. ph 10:45 Patient moved to radiology walking per Pt request. ah 10:53 Sacrum And Coccyx XRAY In Process Unspecified. EDMS 11:09 Andrea Long MD is Referral Physician. ps1 11:30 No provider procedures requiring assistance completed. Patient did not have IV access ph during this emergency room visit. Administered Medications: No medications were administered Outcome: 11:10 Discharge ordered by . ps1 11:40 Discharged to home ambulatory. ph 11:40 Condition: good 11:40 Discharge instructions given to patient, Instructed on discharge instructions, follow up and referral plans. medication usage, Demonstrated understanding of instructions, follow-up care, medications, Prescriptions given X 1. 11:41 Patient left the ED. Signatures: Dispatcher [facility] [place] RN RN Abigail Dominique RN RN Maricarmen Peng [facility] Maddie Angel am2 Rafa Zaragoza MD MD ps1 Elaine Christine, ADOLFO RN
--- NOTE | 2019-09-06 11:11 | EDPHYS ---
Physician Documentation [facility] Name: Alyssa García Age: 28 yrs Sex: Female : 1990 Arrival Date: 09/06/2019 Time: 09:47 Bed 19 Private MD: ED Physician Rafa Zaragoza HPI: 09/05 10:42 This 28 yrs old Black Female presents to ER via Ambulatory with complaints of Low Back ps1 Pain, Pelvic Pain, Fall Injury. 10:42 Patient states that she fell striking a wall and then hit the ground. She has coccygeal ps1 and sacral pain. Pain is rated as severe. Able to ambulate but painful. No fever, vertebral point tenderness, saddle anesthesia, or urinary complaints. . Historical: - Allergies: 10:12 ambien; ph 10:12 Aspirin; ph - Home Meds: 10:12 Aptiom Oral [Active]; Hydroxyzine Oral [Active]; montelukast Oral [Active]; ProAir HFA ph inhalation [Active]; Singulair Oral [Active]; - PMHx: 10:12 Asthma; CVA; HYPOGLYCEMIA; Seizures; ph - PSHx: 10:12 ; ph - Immunization history:: Adult Immunizations unknown. - Social history:: Smoking status: Patient denies any tobacco usage or history of. ROS: 10:42 Constitutional: Negative for fever, chills, and weight loss, Eyes: Negative for injury, ps1 pain, redness, and discharge, Cardiovascular: Negative for chest pain, palpitations, and edema, Abdomen/GI: Negative for abdominal pain, nausea, vomiting, diarrhea, and constipation, Skin: Negative for injury, rash, and discoloration, Neuro: Negative for headache, weakness, numbness, tingling, and seizure. 10:42 Back: Positive for injury or acute deformity, pain with movement, of the sacrum. Exam: 10:42 Constitutional: This is a well developed, well nourished patient who is awake, alert, ps1 and in no acute distress. Head/Face: Normocephalic, atraumatic. Eyes: Pupils equal round and reactive to light, extra-ocular motions intact. Lids and lashes normal. Conjunctiva and sclera are non-icteric and not injected. 10:42 Chest/axilla: Inspection: normal. 10:42 Cardiovascular: Rate: tachycardic. 10:42 Respiratory: the patient does not display signs of respiratory distress, Respirations: normal, speaking in full sentences. 10:42 Back: pain, that is moderate, of the lumbar area and sacrum. 10:42 Neuro: Motor: is normal. Vital Signs: 10:04 BP 98 / 81; Pulse 114; Resp 18; Temp 97.2; Pulse Ox 100% on R/A; Weight 42.18 kg; ph Height 5 ft. 2 in. (157.48 cm); 10:04 Body Mass Index 17.01 (42.18 kg, 157.48 cm) ph MDM: 10:30 Patient medically screened. ps1 11:08 Data reviewed: vital signs, nurses notes, radiologic studies, and as a result, I will ps1 discharge patient. Counseling: I had a detailed discussion with the patient and/or guardian regarding: the historical points, exam findings, and any diagnostic results supporting the discharge/admit diagnosis, radiology results, the need for outpatient follow up. 09/05 10:43 Order name: Urine Dipstick--Ancillary (enter results); Complete Time: 11:28 bd 09/05 10:43 Order name: Urine --Ancillary (enter results); Complete Time: 11:28 bd 09/05 10:31 Order name: Urine Test (obtain specimen); Complete Time: 11:41 ps1 09/05 10:31 Order name: Sacrum And Coccyx XRAY; Complete Time: 11:39 ps1 Administered Medications: No medications were administered Disposition: 09/06/19 11:10 Discharged to Home. Impression: Fracture of sacrum. - Condition is Stable. - Discharge Instructions: Tailbone Injury. - Prescriptions for tramadol 100 mg Oral capsule,ER biphase 24 hr 25- 75 - take 1 capsule by ORAL route once daily; 15 capsule. - Medication Reconciliation Form, Thank You Letter, Antibiotic Education, Prescription Opioid Use form. - Follow up: Andrea Long MD; When: 1 week; Reason: Recheck today's complaints, Continuance of care, Re-evaluation by your physician. - Problem is new. - Symptoms are unchanged. Signatures: Dispatcher [employer] EDPearl Shaver RN RN Abigail Easton RN RN ph Rafa Zaragoza MD MD ps1 Corrections: (The following items were deleted from the chart) 11:41 11:10 09/06/2019 11:10 Discharged to Home. Impression: Fracture of sacrum. Condition is ss Stable. Forms are Medication Reconciliation Form, Thank You Letter, Antibiotic Education, Prescription Opioid Use. Follow up: Andrea Long; When: 1 week; Reason: Recheck today's complaints, Continuance of care, Re-evaluation by your physician. Problem is new. Symptoms are unchanged. ps1
--- NOTE | 2019-09-06 11:34 | RAD REPORT ---
EXAM DESCRIPTION: RAD - Sacrum And Coccyx - 09/06/2019 10:59 am CLINICAL HISTORY: LOWER BACK PAIN COMPARISON: LUMBAR SPINE 3 VIEWS dated 04/30/2015 TECHNIQUE: Lateral, 10 degree caudal and 15 degree cephalad projections of the sacrum and coccyx obt ained. FINDINGS: Fracture is present at the sacrum coccyx junction. The coccygeal segment shows minimal 2 m m anterior displacement. No pathologic component. No overall change in angulation or positioning of t he coccygeal segments noted. There is no presacral soft tissue thickening. No finding to suspect any significant hematoma at the fracture site. No sacral ala abnormality identified. As imaged, the hip joints are unremarkable. IMPRESSION: Fracture is present at the sacrum coccyx junction with very minimal anterior displacemen t of the coccygeal segments.
[2019-09-06 11:46] VITALS: BP 98/81; TEMP 97.2; O2SAT 100
== END 2019-09-06 11:41 | disposition home or self-care (01) ==
LOC: ER 09:42
DX: S32.10XA Unspecified fracture of sacrum, initial encounter for closed fracture (principal); W18.30XA Fall on same level, unspecified, initial encounter; J45.909 Unspecified asthma, uncomplicated; G40.909 Epilepsy, unspecified, not intractable, without status epilepticus; Z79.899 Other long term (current) drug therapy; Z86.73 Personal history of transient ischemic attack (TIA), and cerebral infarction without residual deficits
CPT/HCPCS: 72220; 81003; 81025; 99283

== ENCOUNTER 2020-08-03 00:09 | Emergency (ER) | payer SELFPAY ==
--- OUTSIDE RECORDS SUMMARY | 2020-08-03 00:13 | XMS REPORT | Continuity of Care Document ---
:1990 Author Organization [facility] t Address [address] [place] [address] Care Team Providers Name Role Phone MYRNA STANFORD Attending Clinician Unavail able MYRNA STANFORD Admitting Clinician Unavail able Problems Condition Condition Condition Status Onset Resolution Last Treating Co mments Source Name Details Category Date Date Treatment Clinician Date Seizure Seizure Disease Active [facility] 00 [place] Mild Mild Disease Active [facility] intermitte intermitte 1 [facility] - nt asthma nt asthma 00:00: Medi ann without without 00 Center complicati complicati on on Physical Physical Disease [facility] decond[facility] decond[facility]io [facility]30 [facility] - [place] 00:00: Medical 00 [place] Cerebrovas Cerebrovas Disease Active [facility]ular [facility]ular [facility] accident accident 00:00: Medica l (CVA) 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 Fever Fever Disease Active [facility] 00 [place] EEG EEG Disease Active [facility] abnormal abnormal 05[facility] 00 [place] Altered Altered Disease Active [facility] mental mental [facility]-28 [facility] - status status 00:00: Medical 00 Center Allergies, Adverse Reactions, Alerts Allergy Allergy Status Severity Reaction(s) Onset Inactive Treating Comm ents Source Name Type Date Date Clinician Zolpidem Drug Active [facility] Breath [facility]- [facility] 00 Center Social History Social Habit Start Date Stop Date Quantity Comments Source Sex Assigned At [facility] Tobacco use and 2017-05-28 2017-05-28 Never used [facility] - exposure 00:00:00 00:00:00 [facility] Alcohol intake 2017-05-28 2017-05-28 Current [facility] es - 00:00:00 00:00:00 non-drinker of Medical Ce nter alcohol (finding) Smoking Status Start Date Stop Date Source Never smoker [facility] Medications This patient has no known medications. Procedures This patient has no known procedures. Results Test Description Test Time Test Comments Results Result Comments Source BLOOD CULTURE 2017-06-03 10:00:00 Test Item Value Reference Range Interpretation Comme nts CULTURE (BEAKER) (test code = 1095) No growth in 5 days BLOOD [id number] 10:00:00 Test Item Value Reference Range Interpretation Comments CULTURE (BEAKER) (test No growth in 5 days code = 1095) PROTHROMBIN GENE [id number] 08:45:00 Test Item Value Reference Range Interpretation Comments PROTHROMBIN/FACTOR II Negative for the [id number] (BEAKER) (test code = (Prothrombin/Factor II) 2163) mutation. [id number] Dudley Dunn M.D. (BEAKER) (test code = (electonic signature) 2604) This test is a genotyping assay which evaluates the DNA sequence at position 63938 of the prothrombin (Factor II) gene. A [...] and its performance characteristics determined by the [facility] Pathology Department, Section of Molecular Pathology. It has not been cleared or approved by the U.S. Food and Drug Administration (FDA), since FDA approval is not required for clinical use of the test. Validation was done as required by the Clinical Laboratory Improvement Amendments of 1988.FACTOR 5 LEIDEN PCR (THROMBOTIC RISK)2017-06-02 08:43:00 Test Item Value Reference Range Interpretation Comments FACTOR V LEIDEN Negative for the R506Q (BEAKER) (test code = (Factor V Leiden) 718) mutation [id number] Dudley Dunn M.D. (BEAKER) (test code = (electonic signature) 2262) This test is a genotyping assay which [...] developed and its performance characteristics determined bythe [facility] Pathology Department, Section of Molecular Pathology. It has not been cleared or approved by the U.S. Food and Drug Administration (FDA), since FDA approval is not requ ired for clinical use of the test. Validation was done as required by the Clinical Laboratory Improvement Amendments of 1988.DILUTE HOMA VIPER VENOM (DRVV)2017-06-02 07:39:00 Test Item Value Reference Range Interpretation Comments PROTIME (BEAKER) (test 16.4 seconds 11.7-14.7 H code = 759) INR (BEAKER) (test code 1.3 <=5.9 = 370) PARTIAL THROMBOPLASTIN 52.7 seconds 22.5-36.0 H TIME (BEAKER) (test code = 760) DRVV INTERPRETATION Negative screen for (BEAKER) (test code = Lupus Anticoagulant 2406) [id number] Dudley Dunn M.D. (BEAKER) (test code = (electonic signature) 6292) DRVV SCREEN RATIO 0.76 <1.20 (BEAKER) (test code = 5379) CBC W/PLT COUNT & AUTO [id number] 14:03:00 Test Item Value Reference Range Interpretation Comments WHITE BLOOD CELL COUNT (BEAKER) 3.9 K/ L 3.5-10.5 (test code = 775) RED BLOOD CELL COUNT (BEAKER) 3.71 M/ L 3.93-5.22 L (test code = 761) HEMOGLOBIN (BEAKER) (test code = 10.1 GM/DL 11.2-15.7 L 410) HEMATOCRIT (BEAKER) (test code = 30.9 % 34.1-44.9 L 411) MEAN CORPUSCULAR VOLUME (BEAKER) 83.3 fL 79.4-94.8 (test code = 753) MEAN CORPUSCULAR HEMOGLOBIN 27.2 pg 25.6-32.2 (BEAKER) (test code = 751) MEAN CORPUSCULAR HEMOGLOBIN CONC 32.7 GM/DL 32.2-35.5 (BEAKER) (test code = 752) RED CELL DISTRIBUTION WIDTH 13.4 % 11.7-14.4 (BEAKER) (test code = 412) PLATELET COUNT (BEAKER) (test 130 K/CU MM 150-450 L code = 756) MEAN PLATELET VOLUME (BEAKER) 11.1 fL 9.4-12.3 (test code = 754) NUCLEATED RED BLOOD CELLS 0 /100 WBC 0-0 (BEAKER) (test code = 413) NEUTROPHILS RELATIVE PERCENT 17 % (BEAKER) (test code = 429) LYMPHOCYTES RELATIVE PERCENT 74 % (BEAKER) (test code = 430) MONOCYTES RELATIVE PERCENT 5 % (BEAKER) (test code = 431) EOSINOPHILS RELATIVE PERCENT 2 % (BEAKER) (test code = 432) BASOPHILS RELATIVE PERCENT 1 % (BEAKER) (test code = 437) NEUTROPHILS ABSOLUTE COUNT 0.67 K/ L 1.56-6.13 L (BEAKER) (test code = 670) LYMPHOCYTES ABSOLUTE COUNT 2.86 K/ L 1.18-3.74 (BEAKER) (test code = 414) MONOCYTES ABSOLUTE COUNT (BEAKER) 0.21 K/ L 0.24-0.36 L (test code = 415) EOSINOPHILS ABSOLUTE COUNT 0.09 K/ L 0.04-0.36 (BEAKER) (test code = 416) BASOPHILS ABSOLUTE COUNT (BEAKER) 0.03 K/ L 0.01-0.08 (test code = 417) IMMATURE GRANULOCYTES-RELATIVE 0 % 0-1 PERCENT (BEAKER) (test code = 2801) (MANUAL DIFFERENTIAL)2017-06-01 14:03:00 Test Item Value Reference Range Interpretation Comments TOTAL COUNTED (BEAKER) (test code = 1351) WBC MORPHOLOGY (BEAKER) (test code = Normal 487) PLT MORPHOLOGY (BEAKER) (test code = Normal 486) RBC MORPHOLOGY (BEAKER) (test code = Normal 762) BASIC METABOLIC [id number] 10:08:00 Test Item Value Reference Range Interpretation Comments SODIUM (BEAKER) 139 meq/L 136-145 (test code = 381) POTASSIUM (BEAKER) 3.9 meq/L 3.5-5.1 (test code = 379) CHLORIDE (BEAKER) 106 meq/L 98-107 (test code = 382) CO2 (BEAKER) (test 26 meq/L 22-29 code = 355) BLOOD UREA NITROGEN 11 mg/dL 7-21 (BEAKER) (test code = 354) CREATININE (BEAKER) 0.70 mg/dL 0.57-1.25 (test code = 358) GLUCOSE RANDOM 66 mg/dL 70-105 L (BEAKER) (test code = 652) CALCIUM (BEAKER) 7.7 mg/dL 8.4-10.2 L (test code = 697) EGFR (BEAKER) (test 122 mL/min/1.73 ESTIM ATED GFR IS code = 1092) sq m NOT ACCURATE CREATININE CLEARANCE IN PREDICTING GLOMERULAR FILTRATION RATE . ESTIMATED GFR I S NOT APPLICABLE FOR DIALYSIS PATIEN TS. POCT-GLUCOSE [id number] 08:35:00 Test Item Value Reference Range Interpretation Comments POC-GLUCOSE METER 72 mg/dL 70-110 TESTED AT [place] [id number] ([facility]) (test code = [facility] [address] 1538) ANTI-NUCLEAR ANTIBODY (MARIA ISABEL)2017-06-01 03:41:00 Test Item Value Reference Range Interpretation Comments ANTI-NUCLEAR ANTIBODY (MARIA ISABEL) ([facility]) Negative Negative (test code = 418) POCT-GLUCOSE [id number] 22:27:00 Test Item Value Reference Range Interpretation Comments POC-GLUCOSE METER 111 mg/dL 70-110 H TESTED AT [place] [address] ([facility]) (test code = [facility] 1538) [id number] MR, BRAIN, WITHOUT [id number] 17:48:00FINAL REPORT MRI brain and MRA head and neck without contrast 05/31/2017 5:44 PM CLINICAL INDICATION: Stroke TECHNIQUE: Multiplanar, multisequence MR imaging of the brain was performed utilizing the following imaging sequences: Axial T1, T2, FLAIR, GRE, and DWI; sagittal and coronal T1-weighted images. Two- and three- dimensional vjae-mu-twymyu MRA images of the intra- and extracranial [...] is antegrade in both vertebral arteries. MRA akhi[place] of [place]q: There is no vessel occlusion, flow-limiting stenosis, or aneurysm. IMPRESSION: 1. Findings that may reflect increased intracranial pressure. Consider further evaluation with intracranial MRA to exclude venous sinus thrombosis/stenosis.2. Unremarkable extracranial and intracranial MRAs. Signed: Patrick Lynne MDReport Verified Date/Time: 05/31/2017 17:48:23 Reading Location: [facility] Radiology Reading Room MR, MRA, BRAIN, WITHOUT [id number] 17:48:00FINAL REPORT MRI brain and MRA head and neck without contrast 05/31/2017 5:44 PM CLINICAL INDICATION: Stroke TECHNIQUE: Multiplanar, multisequence MR imaging of the brain was performed utilizing the following imaging sequences: Axial T1, T2, FLAIR, GRE, and DWI; sagittal and coronal T1-weighted images. Two- and three- dimensional ghlf-tw-xubfwz MRA images of the intra- and extracranial [...] is antegrade in both vertebral arteries. MRA [place] of [place]q: There is no vessel occlusion, flow-limiting stenosis, or aneurysm. IMPRESSION: 1. Findings that may reflect increased intracranial pressure. Consider further evaluation with intracranial MRA to exclude venous sinus thrombosis/stenosis.2. Unremarkable extracranial and intracranial MRAs. Signed: Patrick Lynne MDReport Verified Date/Time: 05/31/2017 17:48:23 Reading Location: [facility] Radiology Reading Room MR, MRA, NECK, WITH IV [id number] 17:48:00Please perform without contrastFINAL REPORT MRI brain and MRA head and neck without contrast 05/31/2017 5:44 PM CLINICAL INDICATION: Stroke TECHNIQUE: Multiplanar, multisequence MR imaging of the brain was performed utilizing the following imaging sequences: Axial T1, T2, FLAIR, GRE, and DWI; sagittal and coronal T1- weighted images. Two- and three-dimensional dwdf-nw-muvapr MRA images of the intra- and extracranial [...] is antegrade in both vertebral arteries. MRA [place] of [place]q: There is no vessel occlusion, flow-limiting stenosis, or aneurysm. IMPRESSION: 1. Findings that may reflect increased intracranial pressure. Consider further evaluation with intracranial MRA to exclude venous sinus thrombosis/stenosis.2. Unremarkable extracranial and intracranial MRAs. Signed: Patrick Lynne MDReport Verified Date/Time: 05/31/2017 17:48:23 Reading Location: [facility] Radiology Reading Room THROMBIN [id number] 14:28:00 Test Item Value Reference Range Interpretation Comments THROMBIN TIME (BEAKER) (test code = 18.5 secs 13.8-20.0 550) HEXAGONAL [id number] 14:28:00 Test Item Value Reference Range Interpretation Comments HEXAGONAL PHOSPHOLIPID (BEAKER) Negative (test code = 1790) 1:1 MIXING STUDY, [id number] 14:28:00 Test Item Value Reference Range Interpretation Comments PROTIME (BEAKER) (test code = 16.4 seconds 11.7-14.7 H 759) PARTIAL THROMBOPLASTIN TIME 52.7 seconds 22.5-36.0 H (BEAKER) (test code = 760) PT 1/1 MIX (BEAKER) (test code = 14.1 SECS 11.7-14.7 1595) PTT 1/1 MIX (BEAKER) (test code 39.7 SECS 22.5-36.0 H = 1596) CARDIOLIPIN ANTIBODIES, IGG AND [id number] 11:47:00 Test Item Value Reference Range Interpretation Comments ANTICARDIOLIPIN IGG ANTIBODY (BEAKER) < GPL (test code = 712) ANTICARDIOLIPIN IGM ANTIBODY (BEAKER) 0.4 MPL (test code = 713) Anticardiolipin IgG Result Interpretation:NEG: <20 GPL; U/mlPOS: >/=20 GPL; U/mlAnticardiolipin IgM Result Interpretation:NEG: <20 MPL; U/mlPOS: >/=20 MPL; U/mlCARDIOLIPIN ANTIBODIES, IGG AND [id number] 11:45:00 Test Item Value Reference Range Interpretation Comments ANTICARDIOLIPIN IGG ANTIBODY (BEAKER) < GPL (test code = 712) ANTICARDIOLIPIN IGM ANTIBODY (BEAKER) 0.5 MPL (test code = 713) Anticardiolipin IgG Result Interpretation:NEG: <20 GPL; U/mlPOS: >/=20 GPL; U/mlAnticardiolipin IgM Result Interpretation:NEG: <20 MPL; U/mlPOS: >/=20 MPL; U/mlPOCT-GLUCOSE [id number] 11:39:00 Test Item Value Reference Range Interpretation Comments POC-GLUCOSE METER 120 mg/dL 70-[address] [facility] 6720 (BEAKER) (test code = [place] 1538) [address] PROTEIN C [id number] 11:35:00 Test Item Value Reference Range Interpretation Comments PROTEIN C ACTIVITY (BEAKER) (test code 65.0 % 70.0-130.0 L = 582) See Protein C Antigen.CBC W/PLT COUNT & AUTO [id number] 10:02:00 Test Item Value Reference Range Interpretation Comments WHITE BLOOD CELL COUNT (BEAKER) 4.1 K/ L 3.5-10.5 (test code = 775) RED BLOOD CELL COUNT (BEAKER) 3.68 M/ L 3.93-5.22 L (test code = 761) HEMOGLOBIN (BEAKER) (test code = 10.1 GM/DL 11.2-15.7 L 410) HEMATOCRIT (BEAKER) (test code = 30.9 % 34.1-44.9 L 411) MEAN CORPUSCULAR VOLUME (BEAKER) 84.0 fL 79.4-94.8 (test code = 753) MEAN CORPUSCULAR HEMOGLOBIN 27.4 pg 25.6-32.2 (BEAKER) (test code = 751) MEAN CORPUSCULAR HEMOGLOBIN CONC 32.7 GM/DL 32.2-35.5 (BEAKER) (test code = 752) RED CELL DISTRIBUTION WIDTH 13.6 % 11.7-14.4 (BEAKER) (test code = 412) PLATELET COUNT (BEAKER) (test 126 K/CU MM 150-450 L code = 756) MEAN PLATELET VOLUME (BEAKER) 11.6 fL 9.4-12.3 (test code = 754) NUCLEATED RED BLOOD CELLS 0 /100 WBC 0-0 (BEAKER) (test code = 413) IMMATURE GRANULOCYTES-RELATIVE 0 % 0-1 PERCENT (BEAKER) (test code = 2801) (MANUAL DIFFERENTIAL)2017-05-31 10:02:00 Test Item Value Reference Range Interpretation Comments NEUTROPHILS - REL (DIFF) (BEAKER) 21 % (test code = 1359) LYMPHOCYTES - REL (DIFF) (BEAKER) 61 % (test code = 1360) MONOCYTES - REL (DIFF) (BEAKER) 17 % (test code = 1361) EOSINOPHILS - REL (DIFF) (BEAKER) 0 % (test code = 1362) BASOPHILS - REL (DIFF) (BEAKER) 0 % (test code = 1363) BANDS - REL (DIFF) (BEAKER) (test 1 % 0-10 code = 1348) NEUTROPHILS - ABS (DIFF) (BEAKER) 0.86 K/ L 1.80-8.00 L (test code = 1365) LYMPHOCYTES - ABS (DIFF) (BEAKER) 2.50 K/ L 1.48-4.50 (test code = 1366) MONOCYTES - ABS (DIFF) (BEAKER) 0.70 K/ L 0.00-1.30 (test code = 1367) EOSINOPHILS - ABS (DIFF) (BEAKER) 0.00 K/ L 0.00-0.50 (test code = 1368) BASOPHILS - ABS (DIFF) (BEAKER) 0.00 K/ L 0.00-0.20 (test code = 1369) BANDS-ABS (DIFF) (BEAKER) (test 0.0 K/ L 0.0-0.8 code = 1349) TOTAL COUNTED (BEAKER) (test code = 100 1351) BANDS + SEGMENTED NEUTROPHILS 0.90 (BEAKER) (test code = 1352) WBC MORPHOLOGY (BEAKER) (test code Normal = 487) PLT MORPHOLOGY (BEAKER) (test code Normal = 486) RBC MORPHOLOGY (BEAKER) (test code Normal = 762) POCT-GLUCOSE [id number] 08:18:00 Test Item Value Reference Range Interpretation Comments POC-GLUCOSE METER 100 mg/dL 70-[address] [facility] 6720 (BEAKER) (test code = [place] 1538) [address] BASIC METABOLIC [id number] 06:53:00 Test Item Value Reference Range Interpretation Comments SODIUM (BEAKER) 141 meq/L 136-145 (test code = 381) POTASSIUM (BEAKER) 3.5 meq/L 3.5-5.1 (test code = 379) CHLORIDE (BEAKER) 110 meq/L 98-107 H (test code = 382) CO2 (BEAKER) (test 21 meq/L 22-29 L code = 355) BLOOD UREA NITROGEN 12 mg/dL 7-21 (AKER) (test code = 354) CREATININE (AKER) 0.71 mg/dL 0.57-1.25 (test code = 358) GLUCOSE RANDOM 68 mg/dL 70-105 L (AKER) (test code = 652) CALCIUM (BEAKER) 7.5 mg/dL 8.4-10.2 L (test code = 697) EGFR ([facility]) (test 120 mL/min/1.73 ESTIM ATED GFR IS code = 1092) sq m NOT ACCURATE CREATININE CLEARANCE IN PREDICTING GLOMERULAR FILTRATION RATE . ESTIMATED GFR I S NOT APPLICABLE FOR DIALYSIS PATIEN TS. POCT-GLUCOSE [id number] 21:28:00 Test Item Value Reference Range Interpretation Comments POC-GLUCOSE METER 105 mg/dL 70-110 TESTED AT [place] [address] ([facility]) (test code = [facility] 1538) [address] POCT-GLUCOSE [id number] 12:53:00 Test Item Value Reference Range Interpretation Comments POC-GLUCOSE METER 126 mg/dL 70-110 H TESTED AT [place] [address] ([facility]) (test code = [facility] 1538) [address] VANCOMYCIN LEVEL, [id number] 11:31:00 Test Item Value Reference Range Interpretation Comments VANCOMYCIN TROUGH ([facility]) (test 13.7 ug/mL 10.0-20.0 code = 522) Draw 30 min prior to scheduled dose, HOLD if level > 20 mcg/mL, inform . ANTITHROMBIN [id number] 11:18:00 Test Item Value Reference Range Interpretation Comments ANTITHROMBIN III ACTIVITY ([facility]) 67.0 % 80.0-120.0 L (test code = 711) URINE [id number] 10:46:00 Test Item Value Reference Range Interpretation Comments CULTURE ([facility]) (test code = 1095) No growth [id number] 07:57:00 Test Item Value Reference Range Interpretation Comments HOMOCYSTEINE (BEAKER) (test code = 7.6 umol/L 5.1-15.4 642) LACTIC ACID, VENOUS, WHOLE [id number] 07:11:00 Test Item Value Reference Range Interpretation Comments LACTATE BLOOD VENOUS (2) (BEAKER) 0.9 mmol/L 0.5-2.2 (test code = 2872) Effective 09/25/2015: Units/Reference Range ChangeNew: 0.5-2.2 mmol/L Previous: 5-20 mg/dLBASIC METABOLIC [id number] 07:04:00 Test Item Value Reference Range Interpretation Comments SODIUM (BEAKER) 141 meq/L 136-145 (test code = 381) POTASSIUM (BEAKER) 3.3 meq/L 3.5-5.1 L (test code = 379) CHLORIDE (BEAKER) 109 meq/L 98-107 H (test code = 382) CO2 (BEAKER) (test 26 meq/L 22-29 code = 355) BLOOD UREA NITROGEN 12 mg/dL 7-21 (BEAKER) (test code = 354) CREATININE (BEAKER) 0.80 mg/dL 0.57-1.25 (test code = 358) GLUCOSE RANDOM 89 mg/dL 70-105 (BEAKER) (test code = 652) CALCIUM (BEAKER) 7.8 mg/dL 8.4-10.2 L (test code = 697) EGFR (BEAKER) (test 104 mL/min/1.73 ESTIM ATED GFR IS code = 1092) sq m NOT ACCURATE CREATININE CLEARANCE IN PREDICTING GLOMERULAR FILTRATION RATE . ESTIMATED GFR I S NOT APPLICABLE FOR DIALYSIS PATIEN TS. POCT-GLUCOSE [id number] 00:35:00 Test Item Value Reference Range Interpretation Comments POC-GLUCOSE METER 87 mg/dL 70-[address] [facility] 6720 ([facility]) (test code = [place] [facility] [address] 1538) [id number] 23:26:00 Test Item Value Reference Range Interpretation Comments RPR SCREEN (BEAKER) (test code = Nonreactive Nonreactive 420) POCT-GLUCOSE [id number] 17:52:00 Test Item Value Reference Range Interpretation Comments POC-GLUCOSE METER 87 mg/dL 70-[address] [facility] 6720 ([facility]) (test code = [place] [facility] [address] 1538) POCT-GLUCOSE [id number] 12:58:00 Test Item Value Reference Range Interpretation Comments POC-GLUCOSE METER 117 mg/dL 70-[address] [facility] 6720 (MAGALI) (test code = [place] 1538) [address] EEG AWAKE AND [id number] 12:51:00Reason for exam:->abnormal EEG with altered mental status, concern for statusShould this be performed at the bedside?->YesEEG REPORT: Geri [facility] , DATE: EEG #: [id number] Code: #: R41.82 Altered mental status, unspecified (ICD 9: 780.97)CPT Code: #: 99305: 03. EEG coma or sleep only; 20-40 [...] 2017-05-29 08:42:00 Test Item Value Reference Range Interpretation Comments HEMOGLOBIN A1C (MAGALI) (test code = 5.6 % 4.3-6.1 368) HIV-1 ANTIGEN WITH HIV-1/2 [id number] 05:23:00 Test Item Value Reference Range Interpretation Comments HIV-1 ANTIGEN WITH HIV 1\T\2 Nonreactive Nonreactive ANTIBODY (2) (MAGALI) (test code = 2586) SEDIMENTATION [id number] 05:05:00 Test Item Value Reference Range Interpretation Comments SEDIMENTATION RATE, ERYTHROCYTE 48 mm/HR 0-20 H (MAGALI) (test code = 766) RAD, HIP, 2 VIEWS, [id number] 03:29:00Reason for exam:->possible fall at homeFINAL REPORT [...] MDReport Verified Date/Time: 05/29/2017 03:29:06 Reading Location: [facility] C013Y CT Body Reading Room TINE KINASE (CK), TOTAL AND [id number] 02:57:00 Test Item Value Reference Range Interpretation Comments CREATINE KINASE TOTAL (MAGALI) 581 U/L 29-200 H (test code = 380) CREATINE KINASE-MB (MAGALI) (test 1.2 ng/mL 0.0-6.6 code = 750) CREATINE KINASE-MB INDEX (MAGALI) 0.2 % (test code = 395) CK-MB Reference Range:<6.7 Normal6.7-10.0 Borderline>10.0 AbnormalTROPONIN [id number] 02:57:00 Test Item Value Reference Range Interpretation Comments TROPONIN I (MODESTOAKER) (test code = 397) < ng/mL 0.00-0.03 [...] 2017-05-29 02:56:00 Test Item Value Reference Range Interpretation Comments CREATINE KINASE TOTAL (BEAKER) 577 U/L 29-200 H (test code = 380) CREATINE KINASE-MB (BEAKER) (test 1.2 ng/mL 0.0-6.6 code = 750) CREATINE KINASE-MB INDEX (BEAKER) 0.2 % (test code = 395) CK-MB Reference Range:<6.7 Normal6.7-10.0 Borderline>10.0 AbnormalTROPONIN [id number] 02:56:00 Test Item Value Reference Range Interpretation Comments TROPONIN I (BEAKER) (test code = [...] acidosis, acute neurological disease, and persistent tachyarrhythmia.LIPID [id number] 02:53:00 Test Item Value Reference Range Interpretation Comments TRIGLYCERIDES (BEAKER) (test code = 50 mg/dL 540) CHOLESTEROL (BEAKER) (test code = 160 mg/dL 631) HDL CHOLESTEROL (BEAKER) (test code 48 mg/dL = 976) LDL CHOLESTEROL CALCULATED (BEAKER) 102 mg/dL (test code = 633) Triglyceride Reference Range: Low Risk <150 Borderline 150-199 High Risk 200-499 Very High Risk >=500Cholesterol Reference Range: Low Risk <200 Borderline 200-239 High Risk >240HDL Cholesterol Reference Range: Low Risk >=60 High Risk <40LDL Cholesterol Reference Range: Optimal <100 Near Optimal 100-129 Borderline 130-159 High 160-189 Very High >=190BASIC METABOLIC [id number] 02:53:00 Test Item Value Reference Range Interpretation Comments SODIUM (BEAKER) 138 meq/L 136-145 (test code = 381) POTASSIUM (BEAKER) 3.7 meq/L 3.5-5.1 (test code = 379) CHLORIDE (BEAKER) 107 meq/L 98-107 (test code = 382) CO2 (BEAKER) (test 20 meq/L 22-29 L code = 355) BLOOD UREA NITROGEN 10 mg/dL 7-21 (BEAKER) (test code = 354) CREATININE (BEAKER) 0.93 mg/dL 0.57-1.25 (test code = 358) GLUCOSE RANDOM 103 mg/dL 70-105 (BEAKER) (test code = 652) CALCIUM (BEAKER) 8.4 mg/dL 8.4-10.2 (test code = 697) EGFR (BEAKER) (test 88 mL/min/1.73 ESTIMA SHADE GFR IS code = 1092) sq m NOT ACCURATE CREATININE CLEARANCE IN PREDICTING GLOMERULAR FILTRATION RATE . ESTIMATED GFR I S NOT APPLICABLE FOR DIALYSIS PATIEN TS. HEPATIC FUNCTION [id number] 02:53:00 Test Item Value Reference Range Interpretation Comments TOTAL PROTEIN (BEAKER) (test code = 7.6 gm/dL 6.0-8.3 770) ALBUMIN (BEAKER) (test code = 1145) 3.6 g/dL 3.5-5.0 BILIRUBIN TOTAL (BEAKER) (test code 0.3 mg/dL 0.2-1.2 = 377) BILIRUBIN DIRECT (BEAKER) (test 0.2 mg/dL 0.1-0.5 code = 706) ALKALINE PHOSPHATASE (BEAKER) (test 58 U/L 40-150 code = 346) AST (SGOT) (BEAKER) (test code = 33 U/L 5-34 353) ALT (SGPT) (BEAKER) (test code = 15 U/L 6-55 347) [id number] 02:53:00 Test Item Value Reference Range Interpretation Comments AMYLASE (BEAKER) (test code = 349) 74 U/L 25-125 [id number] 02:53:00 Test Item Value Reference Range Interpretation Comments LIPASE (BEAKER) (test code = 749) 13 U/L 8-78 C-REACTIVE [id number] 02:53:00 Test Item Value Reference Range Interpretation Comments C-REACTIVE PROTEIN (BEAKER) (test 10.77 mg/dL 0.00-0.50 H code = 676) LACTIC ACID, ARTERIAL, WHOLE [id number] 02:47:00 Test Item Value Reference Range Interpretation Comments LACTATE BLOOD ARTERIAL (2) 0.7 mmol/L 0.5-2.2 (BEAKER) (test code = 2874) Effective 09/25/2015: Units/Reference Range ChangeNew: 0.5-2.2 mmol/L Previous: 5-20 mg/[id number] 02:36:00 Test Item Value Reference Range Interpretation Comments PARTIAL THROMBOPLASTIN TIME 51.7 seconds 22.5-36.0 H (BEAKER) (test code = 760) PROTHROMBIN TIME/[id number] 02:35:00 Test Item Value Reference Range Interpretation Comments PROTIME (BEAKER) (test code = 16.3 seconds 11.7-14.7 H 759) INR (BEAKER) (test code = 370) 1.3 <=5.9 RECOMMENDED COUMADIN/WARFARIN INR THERAPY RANGESSTANDARD DOSE: 2.0 - 3.0 Includes: PROPHYLAXIS forvenous thrombosis, systemic embolization; TREATMENT for venous thrombosis and/or pulmonary embolus.HIGH RISK: Target INR is 2.5-3.5 for patients with mechanical heart valves.CBC W/PLT COUNT & AUTO DIFFERENTIAL 2017-05-29 02:35:00 Test Item Value Reference Range Interpretation Comments WHITE BLOOD CELL COUNT (BEAKER) 4.0 K/ L 3.5-10.5 (test code = 775) RED BLOOD CELL COUNT (BEAKER) 4.12 M/ L 3.93-5.22 (test code = 761) HEMOGLOBIN (BEAKER) (test code = 11.4 GM/DL 11.2-15.7 410) HEMATOCRIT (BEAKER) (test code = 33.8 % 34.1-44.9 L 411) MEAN CORPUSCULAR VOLUME (BEAKER) 82.0 fL 79.4-94.8 (test code = 753) MEAN CORPUSCULAR HEMOGLOBIN 27.7 pg 25.6-32.2 (BEAKER) (test code = 751) MEAN CORPUSCULAR HEMOGLOBIN CONC 33.7 GM/DL 32.2-35.5 (BEAKER) (test code = 752) RED CELL DISTRIBUTION WIDTH 13.5 % 11.7-14.4 (BEAKER) (test code = 412) PLATELET COUNT (BEAKER) (test 153 K/CU MM 150-450 code = 756) MEAN PLATELET VOLUME (BEAKER) 10.8 fL 9.4-12.3 (test code = 754) NUCLEATED RED BLOOD CELLS 0 /100 WBC 0-0 (BEAKER) (test code = 413) NEUTROPHILS RELATIVE PERCENT 83 % (BEAKER) (test code = 429) LYMPHOCYTES RELATIVE PERCENT 14 % (BEAKER) (test code = 430) MONOCYTES RELATIVE PERCENT 2 % (BEAKER) (test code = 431) EOSINOPHILS RELATIVE PERCENT 0 % (BEAKER) (test code = 432) BASOPHILS RELATIVE PERCENT 1 % (BEAKER) (test code = 437) NEUTROPHILS ABSOLUTE COUNT 3.31 K/ L 1.56-6.13 (BEAKER) (test code = 670) LYMPHOCYTES ABSOLUTE COUNT 0.57 K/ L 1.18-3.74 L (BEAKER) (test code = 414) MONOCYTES ABSOLUTE COUNT (BEAKER) 0.06 K/ L 0.24-0.36 L (test code = 415) EOSINOPHILS ABSOLUTE COUNT 0.00 K/ L 0.04-0.36 L (BEAKER) (test code = 416) BASOPHILS ABSOLUTE COUNT (BEAKER) 0.02 K/ L 0.01-0.08 (test code = 417) IMMATURE GRANULOCYTES-RELATIVE 0 % 0-1 PERCENT (BEAKER) (test code = 2801) URINALYSIS W/ [id number] 02:31:00 Test Item Value Reference Range Interpretation Comments COLOR (BEAKER) (test code Light Yellow = 470) CLARITY (BEAKER) (test Clear code = 469) SPECIFIC GRAVITY UA 1.003 1.001-1.035 (BEAKER) (test code = 468) PH UA (BEAKER) (test code 5.0 5.0-8.0 = 467) PROTEIN UA (BEAKER) (test Negative Negative code = 464) GLUCOSE UA (BEAKER) (test Negative Negative code = 365) KETONES UA (BEAKER) (test Negative Negative code = 371) BILIRUBIN UA (BEAKER) Negative Negative (test code = 462) BLOOD UA (BEAKER) (test Negative Negative code = 461) NITRITE UA (BEAKER) (test Negative Negative code = 465) LEUKOCYTE ESTERASE UA Negative Negative (BEAKER) (test code = 466) UROBILINOGEN UA (BEAKER) 0.2 mg/dL 0.2-1.0 (test code = 463) RBC UA (BEAKER) (test code < /HPF = 519) WBC UA (BEAKER) (test code < /HPF = 520) BACTERIA (BEAKER) (test Rare code = 517) MUCUS (BEAKER) (test code Rare = 1574) SQUAMOUS EPITHELIAL 1 /HPF (BEAKER) (test code = 516) AMORPHOUS CRYSTALS Rare (BEAKER) (test code = 1584) SOURCE(BEAKER) (test code Urine, Clean Catch = 9415) SCREEN, [id number] 00:58:00 Test Item Value Reference Range Interpretation Comments TEST URINE (BEAKER) (test Negative code = 583) POCT-GLUCOSE [id number] 00:47:00 Test Item Value Reference Range Interpretation Comments POC-GLUCOSE METER 102 mg/dL 70-[address] [facility] 67[address] (BEAKER) (test code = [place] 1538) [id number]
[2020-08-03 02:30] LABS: SARS-COV-2 RT PCR NEGATIVE (NEGATIVE)
--- NOTE | 2020-08-03 02:59 | ER ---
Nurse's Notes [facility] Name: Alyssa García Age: 29 yrs Sex: Female : 1990 Arrival Date: 08/03/2020 Time: 00:10 Bed 16 Private MD: Diagnosis: Acute pharyngitis;Asthma Presentation: 08/03 00:47 Chief complaint: Patient states: Reports being around her daughter who has a sore ea throat and cough. Pt states "Now I have a sore throat and cough". Coronavirus screen: Client presents with at least one sign or symptom that may indicate coronavirus-19. Standard/surgical mask placed on the client. Provider contacted for isolation considerations. Ebola Screen: No symptoms or risks identified at this time. 00:47 Method Of Arrival: Ambulatory ea 00:50 Initial Sepsis Screen: Does the patient meet any 2 criteria? No. Patient's initial ea sepsis screen is negative. Does the patient have a suspected source of infection? No. Patient's initial sepsis screen is negative. Risk Assessment: Do you want to hurt yourself or someone else? Patient reports no desire to harm self or others. Onset of symptoms was August 03, 2020. 00:50 Acuity: RUSLAN 3 ea Triage Assessment: 00:51 General: Appears in no apparent distress. Behavior is calm, cooperative, appropriate ea for age. Pain: Complains of pain in throat. Neuro: Level of Consciousness is awake, alert, obeys commands, Oriented to person, place, time, situation. Respiratory: Reports cough that is. Respiratory: Airway is patent Respiratory effort is even, unlabored, Respiratory pattern is regular, symmetrical. Derm: Skin is pink, warm \\T\\ dry. Historical: - Allergies: 00:51 Aspirin; ea 00:51 ambien; ea - PMHx: 00:51 Seizures; HYPOGLYCEMIA; CVA; Asthma; ea - PSHx: 00:51 ; ea - Immunization history:: Adult Immunizations up to date. - Social history:: Smoking status: unknown. - Family history:: not pertinent. - Hospitalizations: : No recent hospitalization is reported. Screenin:49 Abuse screen: Denies threats or abuse. Nutritional screening: No deficits noted. ea Tuberculosis screening: No symptoms or risk factors identified. Fall Risk No IV (0 pts). Assessment: 00:30 General: Appears in no apparent distress. comfortable, Behavior is calm, cooperative, jb4 appropriate for age. Pain: Complains of pain in face Pain does not radiate. Pain currently is 8 out of 10 on a pain scale. Neuro: Level of Consciousness is awake, alert, obeys commands, Oriented to person, place, time, situation. Cardiovascular: Patient's skin is warm and dry. Respiratory: Airway is patent Respiratory effort is even, unlabored, Respiratory pattern is regular, symmetrical. GI: No signs and/or symptoms were reported involving the gastrointestinal system. : No signs and/or symptoms were reported regarding the genitourinary system. EENT: No signs and/or symptoms were reported regarding the EENT system. Derm: Skin is intact, Skin is pink, warm \\T\\ dry. Musculoskeletal: Circulation, motion, and sensation intact. Range of motion: intact in all extremities. 01:30 Reassessment: Patient appears in no apparent distress at this time. Patient and/or jb4 family updated on plan of care and expected duration. Pain level reassessed. Patient is alert, oriented x 3, equal unlabored respirations, skin warm/dry/pink. 03:12 Reassessment: Patient appears in no apparent distress at this time. Patient and/or jb4 family updated on plan of care and expected duration. Pain level reassessed. Patient is alert, oriented x 3, equal unlabored respirations, skin warm/dry/pink. Vital Signs: 00:47 BP 126 / 93; Pulse 89; Resp 18; Temp 98; Pulse Ox 100% ; Weight 43.09 kg; Height 5 ft. ea 2 in. (157.48 cm); 01:30 BP 99 / 74; Pulse 86; Resp 18; Pulse Ox 98% on R/A; jb4 03:00 BP 102 / 75; Pulse 78; Resp 17; Pulse Ox 98% on R/A; jb4 00:47 Body Mass Index 17.38 (43.09 kg, 157.48 cm) ea ED Course: 00:10 Patient arrived in ED. cl3 00:21 Thompson Sweeney MD is Attending Physician. rn 00:49 Patient has correct armband on for positive identification. Placed in gown. Bed in low ea position. Pulse ox on. NIBP on. 00:50 Triage completed. ea 00:50 Patient placed in an exam room, on a stretcher, on pulse oximetry. ea 01:14 XRAY Chest (1 view) In Process Unspecified. EDMS 02:06 Andrae Licea, RN is Primary Nurse. jb4 03:00 No provider procedures requiring assistance completed. Patient did not have IV access jb4 during this emergency room visit. Administered Medications: 03:11 Drug: predniSONE 60 mg Route: PO; jb4 03:11 Follow up: Response: Medication administered at discharge. jb4 Outcome: 02:58 Discharge ordered by . rn 03:00 Discharged to home ambulatory. jb4 03:00 Condition: stable 03:00 Discharge instructions given to patient, Instructed on discharge instructions, follow up and referral plans. medication usage, Demonstrated understanding of instructions, follow-up care, medications, Prescriptions given X 2. 03:14 Patient left the ED. jb4 Signatures: Dispatcher [employer] EDMS Thompson Seweney MD MD rn Bryson, James, RN RN jb4 Corrine Bacon RN RN ea Lewis, Charde cl3
--- NOTE | 2020-08-03 02:59 | EDPHYS ---
Physician Documentation [facility] Name: Alyssa García Age: 29 yrs Sex: Female : 1990 Arrival Date: 08/03/2020 Time: 00:10 Bed 16 Private MD: ED Physician Thompson Sweeney HPI: 08/03 00:51 This 29 yrs old Black Female presents to ER via Ambulatory with complaints of Shortness rn Of Breath, Sore Throat. 00:51 The patient has shortness of breath with light activity. Onset: The symptoms/episode rn began/occurred today. Duration: The symptoms are intermittent. The patient's shortness of breath is aggravated by exertion, light activity, is alleviated by rest. Associated signs and symptoms: Pertinent positives: non-productive cough, sore throat. Severity of symptoms: At their worst the symptoms were mild in the emergency department the symptoms are unchanged. The patient has experienced similar episodes in the past. Reports daughter with cough, coughed on her, now she has a sore throat, cough, and mild sob, reports has asthma, thinks is just her asthma. No hemoptysis. . Historical: - Allergies: 00:51 Aspirin; ea 00:51 ambien; ea - PMHx: 00:51 Seizures; HYPOGLYCEMIA; CVA; Asthma; ea - PSHx: 00:51 ; ea - Immunization history:: Adult Immunizations up to date. - Social history:: Smoking status: unknown. - Family history:: not pertinent. - Hospitalizations: : No recent hospitalization is reported. ROS: 00:51 Constitutional: Negative for fever, chills, and weight loss, Eyes: Negative for injury, rn pain, redness, and discharge, ENT: + sore throat Neck: Negative for injury, pain, and swelling, Cardiovascular: Negative for chest pain, palpitations, and edema, Respiratory: + cough and sob Abdomen/GI: Negative for abdominal pain, nausea, vomiting, diarrhea, and constipation, MS/Extremity: Negative for injury and deformity, Skin: Negative for injury, rash, and discoloration, Neuro: Negative for headache, numbness, tingling, and seizure. 00:51 All other systems are negative. Exam: 00:51 Constitutional: Thin female, no acute distress Head/Face: Normocephalic, atraumatic. rn Eyes: Pupils equal round and reactive to light, extra-ocular motions intact. Lids and lashes normal. Conjunctiva and sclera are non-icteric and not injected. Cornea within normal limits. Periorbital areas with no swelling, redness, or edema. ENT: MMM, no stridor Neck: Trachea midline, no masses palpated, and no cervical lymphadenopathy. Supple, full range of motion without nuchal rigidity, or vertebral point tenderness. No Meningismus. Cardiovascular: Regular rate and rhythm. No pulse deficits. Respiratory: No increased work of breathing, no retractions or nasal flaring. Skin: Warm, dry with normal turgor. Normal color with no rashes, no lesions, and no evidence of cellulitis. MS/ Extremity: Pulses equal, no cyanosis. Neurovascular intact. Full, normal range of motion. Equal circumference. Neuro: Awake and alert, GCS 15, oriented to person, place, time, and situation. Cranial nerves II-XII grossly intact. Motor strength 5/5 in all extremities. Sensory grossly intact. Cerebellar exam normal. Normal gait. Vital Signs: 00:47 BP 126 / 93; Pulse 89; Resp 18; Temp 98; Pulse Ox 100% ; Weight 43.09 kg; Height 5 ft. ea 2 in. (157.48 cm); 01:30 BP 99 / 74; Pulse 86; Resp 18; Pulse Ox 98% on R/A; jb4 03:00 BP 102 / 75; Pulse 78; Resp 17; Pulse Ox 98% on R/A; jb4 00:47 Body Mass Index 17.38 (43.09 kg, 157.48 cm) ea MDM: 00:21 Patient medically screened. rn 02:57 Differential diagnosis: Bronchitis pharyngitis, strep, flu, covid. Data reviewed: vital rn signs, nurses notes, lab test result(s), radiologic studies, plain films, and as a result, I will discharge patient. Counseling: I had a detailed discussion with the patient and/or guardian regarding: the historical points, exam findings, and any diagnostic results supporting the discharge/admit diagnosis, lab results, radiology results, the need for outpatient follow up, to return to the emergency department if symptoms worsen or persist or if there are any questions or concerns that arise at home. Response to treatment: the patient's symptoms have mildly improved after treatment, and as a result, I will discharge patient. Special discussion: I discussed with the patient/guardian in detail that at this point there is no indication for admission to the hospital. It is understood, however, that if the symptoms persist or worsen the patient needs to return immediately for re-evaluation. 08/03 00:46 Order name: Flu rn 08/03 00:46 Order name: COVID-19 : Document "Date of Symptom Onset" if Symptomatic. rn 08/03 00:46 Order name: Strep rn 08/03 00:47 Order name: Group A Streptococcus Rapid Sc; Complete Time: 02:57 EDMS 08/03 00:46 Order name: XRAY Chest (1 view) rn 08/03 02:31 Order name: COVID-19/FLU A+B; Complete Time: 02:44 EDMS 08/03 02:58 Order name: Throat Culture EDMS Administered Medications: 03:11 Drug: predniSONE 60 mg Route: PO; jb4 03:11 Follow up: Response: Medication administered at discharge. jb4 Disposition: 08/03/20 02:58 Discharged to Home. Impression: Acute pharyngitis, Asthma. - Condition is Stable. - Discharge Instructions: Pharyngitis, Asthma, Acute Bronchospasm. - Prescriptions for Prednisone 20 mg Oral Tablet - take 3 tablet by ORAL route once daily for 5 days; 15 tablet. Albuterol Sulfate 90 mcg/actuation - inhale 1-2 puff by INHALATION route every 4-6 hours; 1 Inhaler. - Medication Reconciliation Form, Thank You Letter, Antibiotic Education, Prescription Opioid Use form. - Follow up: Private Physician; When: As needed; Reason: Recheck today's complaints, Re-evaluation by your physician. - Problem is new. - Symptoms have improved. Signatures: Dispatcher [employer] [facility] Thompson Sweeney MD MD rn Bryson, James, RN RN jb4 Corrine Bacon RN RN ea Corrections: (The following items were deleted from the chart) 01:35 00:47 Influenza Screen (A ordered. [facility] EDMT 01:35 00:47 CORONAVIRUS ordered. [facility] EDMT 03:14 02:58 08/03/2020 02:58 Discharged to Home. Impression: Acute pharyngitis; Asthma. jb4 Condition is Stable. Discharge Instructions: Pharyngitis, Asthma, Acute Bronchospasm. Prescriptions for Prednisone 20 mg Oral Tablet - take 3 tablet by ORAL route once daily for 5 days; 15 tablet, Albuterol Sulfate 90 mcg/actuation - inhale 1-2 puff by INHALATION route every 4-6 hours; 1 Inhaler. and Forms are Medication Reconciliation Form, Thank You Letter, Antibiotic Education, Prescription Opioid Use. Follow up: Private Physician; When: As needed; Reason: Recheck today's complaints, Re-evaluation by your physician. Problem is new. Symptoms have improved. rn
[2020-08-03 03:21] VITALS: TEMP 98
[2020-08-03 03:22] VITALS: O2SAT 98
[2020-08-03] MEDS ORDERED: predniSONE 20 MG TAB ONE (03:22)
[2020-08-03 03:23] VITALS: BP 102/75
--- NOTE | 2020-08-03 11:29 | RAD REPORT ---
EXAM DESCRIPTION: RAD - Chest Single View - 08/03/2020 1:14 am CLINICAL HISTORY: sore throat;Cough Chest pain. COMPARISON: Abdomen 1 View (KUB) dated 03/14/2018; Chest Single View dated 03/14/2018; Chest Single View dated 05/27/2017; CHEST PA AND LAT 2 VIEW dated 04/30/2015 FINDINGS: Portable technique limits examination quality. The lungs are grossly clear. The heart is normal in size. No displaced fractures. IMPRESSION: No acute intrathoracic process suspected.
== END 2020-08-03 03:14 | disposition home or self-care (01) ==
LOC: ER 00:09
DX: J02.9 Acute pharyngitis, unspecified (principal); Z20.822 Contact with and (suspected) exposure to COVID-19; J45.909 Unspecified asthma, uncomplicated; Z88.6 Allergy status to analgesic agent; Z88.8 Allergy status to other drugs, medicaments and biological substances
CPT/HCPCS: 0240U; 71045; 87070; 87081; 99284; J7512

== ENCOUNTER 2021-08-01 14:44 | Emergency (ER) | payer SELFPAY ==
--- OUTSIDE RECORDS SUMMARY | 2021-08-01 14:47 | XMS REPORT | Continuity of Care Document ---
:[address] [facility] t Address [address] [place] [address] [address]. [address] [place] [address] Care Team Providers Name Role Phone MYRNA STANFORD Attending Clinician Unavail able MYRNA STANFORD Admitting Clinician Unavail able Problems This patient has no [...] 1095) No growth in 5 days BLOOD [id number] 10:00:00 Test Item Value Reference Range Interpretation Comments CULTURE (BEAKER) (test No growth in 5 days code = 1095) PROTHROMBIN GENE [id number] 08:45:00 Test Item Value Reference Range Interpretation Comments PROTHROMBIN/FACTOR II Negative for the [id number] (BEAKER) (test code = (Prothrombin/Factor II) 2163) mutation. [id number] Dudley Dunn M.D. (BEAKER) (test code = (electonic signature) 2601) This test is a genotyping assay which evaluates the DNA sequence at position 20633 of the prothrombin (Factor II) gene. A [...] and its performance characteristics determined by the [facility] Pathology Department, Section of Molecular Pathology. It [...] code = (Factor V Leiden) 718) mutation [id number] Dudley Dunn M.D. (BEAKER) (test code = (electonic signature) 0030) This test is a genotyping assay which [...] developed and its performance characteristics determined bythe [facility] Pathology Department, Section of [...] (BEAKER) (test code = Lupus Anticoagulant 2406) [id number] Dudley Dunn M.D. (BEAKER) (test code = (electonic signature) 0504) DRVV SCREEN RATIO 0.76 <1.20 (BEAKER) (test code = 0840) CBC W/PLT COUNT & AUTO [id number] 14:03:00 Test Item Value Reference Range Interpretation [...] (test code = Normal 762) BASIC METABOLIC [id number] 10:08:00 Test Item Value Reference Range Interpretation [...] NOT APPLICABLE FOR DIALYSIS PATIEN TS. POCT-GLUCOSE [id number] 08:35:00 Test Item Value Reference Range Interpretation Comments POC-GLUCOSE METER 72 mg/dL 70-110 TESTED AT [place] [address] ([facility]) (test code = ISRA Re[facility] [address] 1538) ANTI-NUCLEAR ANTIBODY (MARIA ISABEL)2017-06-01 03:41:00 Test Item Value Reference Range Interpretation Comments ANTI-NUCLEAR ANTIBODY (MARIA ISABEL) ([facility]) Negative Negative (test code = 418) POCT-GLUCOSE [id number] 22:27:00 Test Item Value Reference Range Interpretation Comments POC-GLUCOSE METER 111 mg/dL 70-110 H TESTED AT [facility] 6720 ([facility]) (test code = [facility] 1538) [address] MR, BRAIN, WITHOUT [id number] 17:48:00FINAL REPORT MRI brain and MRA head and neck without contrast 05/31/2017 5:44 PM CLINICAL INDICATION: Stroke TECHNIQUE: Multiplanar, multisequence MR imaging of the brain was performed utilizing the following imaging sequences: Axial T1, T2, FLAIR, GRE, and DWI; sagittal and coronal T1-weighted images. Two- and three- dimensional aubw-ik-tgnjxb MRA images of the intra- and extracranial [...] is antegrade in both vertebral arteries. MRA [place]: There is no vessel occlusion, flow-limiting stenosis, or aneurysm. IMPRESSION: 1. Findings that may reflect increased intracranial pressure. Consider further evaluation with intracranial MRA to exclude venous sinus thrombosis/stenosis.2. Unremarkable extracranial and intracranial MRAs. Signed: Patrick Lynne Verified Date/Time: 05/31/2017 17:48:23 Reading Location: [facility] Radiology Reading Room MR, MRA, BRAIN, WITHOUT [id number] 17:48:00FINAL REPORT MRI brain and MRA head and neck without contrast 05/31/2017 5:44 PM CLINICAL INDICATION: Stroke TECHNIQUE: Multiplanar, multisequence MR imaging of the brain was performed utilizing the following imaging sequences: Axial T1, T2, FLAIR, GRE, and DWI; sagittal and coronal T1-weighted images. Two- and three- dimensional xzfy-gk-eiwsnc MRA images of the intra- and extracranial [...] is antegrade in both vertebral arteries. MRA [place]: There is no vessel occlusion, flow-limiting stenosis, or aneurysm. IMPRESSION: 1. Findings that may reflect increased intracranial pressure. Consider further evaluation with intracranial MRA to exclude venous sinus thrombosis/stenosis.2. Unremarkable extracranial and intracranial MRAs. Signed: Patrick Lynne Verified Date/Time: 05/31/2017 17:48:23 Reading Location: [facility] Radiology Reading Room MR, MRA, NECK, WITH IV [id number] 17:48:00Please perform without contrastFINAL REPORT MRI brain and MRA head and neck without contrast 05/31/2017 5:44 PM CLINICAL INDICATION: Stroke TECHNIQUE: Multiplanar, multisequence MR imaging of the brain was performed utilizing the following imaging sequences: Axial T1, T2, FLAIR, GRE, and DWI; sagittal and coronal T1- weighted images. Two- and three-dimensional axgp-cq-ctosoc MRA images of the intra- and extracranial [...] is antegrade in both vertebral arteries. MRA [place]: There is no vessel occlusion, flow-limiting stenosis, or aneurysm. IMPRESSION: 1. Findings that may reflect increased intracranial pressure. Consider further evaluation with intracranial MRA to exclude venous sinus thrombosis/stenosis.2. Unremarkable extracranial and intracranial MRAs. Signed: Patrick Lynne Verified Date/Time: 05/31/2017 17:48:23 Reading Location: [facility] Radiology Reading Room THROMBIN [id number] 14:28:00 Test Item Value Reference Range Interpretation Comments THROMBIN TIME (BEAKER) (test code = 18.5 secs 13.8-20.0 550) HEXAGONAL [id number] 14:28:00 Test Item Value Reference Range Interpretation Comments HEXAGONAL PHOSPHOLIPID (BEAKER) Negative (test code = 1790) 1:1 MIXING STUDY, [id number] 14:28:00 Test Item Value Reference Range Interpretation Comments PROTIME (BEAKER) (test code = 16.4 seconds 11.7-14.7 H 759) PARTIAL THROMBOPLASTIN TIME 52.7 seconds 22.5-36.0 H (BEAKER) (test code = 760) PT 1/1 MIX (BEAKER) (test code = 14.1 SECS 11.7-14.7 1595) PTT 1/1 MIX (BEAKER) (test code 39.7 SECS 22.5-36.0 H = 1596) CARDIOLIPIN ANTIBODIES, IGG AND [id number] 11:47:00 Test Item Value Reference Range Interpretation Comments ANTICARDIOLIPIN IGG ANTIBODY (BEAKER) < GPL (test code = 712) ANTICARDIOLIPIN IGM ANTIBODY (BEAKER) 0.4 MPL (test code = 713) Anticardiolipin IgG Result Interpretation:NEG: <20 GPL; U/mlPOS: >/=20 GPL; U/mlAnticardiolipin IgM Result Interpretation:NEG: <20 MPL; U/mlPOS: >/=20 MPL; U/mlCARDIOLIPIN ANTIBODIES, IGG AND [id number] 11:45:00 Test Item Value Reference Range Interpretation Comments ANTICARDIOLIPIN IGG ANTIBODY (BEAKER) < GPL (test code = 712) ANTICARDIOLIPIN IGM ANTIBODY (BEAKER) 0.5 MPL (test code = 713) Anticardiolipin IgG Result Interpretation:NEG: <20 GPL; U/mlPOS: >/=20 GPL; U/mlAnticardiolipin IgM Result Interpretation:NEG: <20 MPL; U/mlPOS: >/=20 MPL; U/mlPOCT-GLUCOSE [id number] 11:39:00 Test Item Value Reference Range Interpretation Comments POC-GLUCOSE METER 120 mg/dL 70-110 H TESTED AT [facility] 67[address] (BEAKER) (test code = [place] 1538) [id number] PROTEIN C [id number] 11:35:00 Test Item Value Reference Range Interpretation Comments PROTEIN C ACTIVITY (BEAKER) (test code 65.0 % 70.0-130.0 L = 582) See Protein C Antigen.CBC W/PLT COUNT & AUTO [id number] 10:02:00 Test Item Value Reference Range Interpretation [...] (BEAKER) (test code Normal = 762) POCT-GLUCOSE [id number] 08:18:00 Test Item Value Reference Range Interpretation Comments POC-GLUCOSE METER 100 mg/dL 70-110 TESTED AT [facility] 67[address] (BEAKER) (test code = [place] 1538) [address] BASIC METABOLIC [id number] 06:53:00 Test Item Value Reference Range Interpretation Comments SODIUM (BEAKER) 141 meq/L 136-145 (test code = 381) POTASSIUM (BEAKER) 3.5 meq/L 3.5-5.1 (test code = 379) CHLORIDE (BEAKER) 110 meq/L 98-107 H (test code = 382) CO2 (BEAKER) (test 21 meq/L 22-29 L code = 355) BLOOD UREA NITROGEN 12 mg/dL 7-21 (BEAKER) (test code = 354) CREATININE (BEAKER) 0.71 mg/dL 0.57-1.25 (test code = 358) GLUCOSE RANDOM 68 mg/dL 70-105 L (BEAKER) (test code = 652) CALCIUM (BEAKER) 7.5 mg/dL 8.4-10.2 L (test code = 697) EGFR (BEAKER) (test 120 mL/min/1.73 ESTIM ATED GFR IS code = 1092) sq m NOT ACCURATE CREATININE CLEARANCE IN PREDICTING GLOMERULAR FILTRATION RATE . ESTIMATED GFR I S NOT APPLICABLE FOR DIALYSIS PATIEN TS. POCT-GLUCOSE [id number] 21:28:00 Test Item Value Reference Range Interpretation Comments POC-GLUCOSE METER 105 mg/dL 70-110 TESTED AT [place] [address] ([facility]) (test code = [place] 1538) [address] POCT-GLUCOSE [id number] 12:53:00 Test Item Value Reference Range Interpretation Comments POC-GLUCOSE METER 126 mg/dL 70-110 H TESTED AT [facility] [address] ([facility]) (test code = [place] 1538) [address] VANCOMYCIN LEVEL, [id number] 11:31:00 Test Item Value Reference Range Interpretation Comments VANCOMYCIN TROUGH (BEAKER) (test 13.7 ug/mL 10.0-20.0 code = 522) Draw 30 min prior to scheduled dose, HOLD if level > 20 mcg/mL, inform . ANTITHROMBIN [id number] 11:18:00 Test Item Value Reference Range Interpretation Comments ANTITHROMBIN III ACTIVITY (BEAKER) 67.0 % 80.0-120.0 L (test code = 711) URINE [id number] 10:46:00 Test Item Value Reference Range Interpretation Comments CULTURE (BEAKER) (test code = 1095) No growth [id number] 07:57:00 Test Item Value Reference Range Interpretation Comments HOMOCYSTEINE (BEAKER) (test code = 7.6 umol/L 5.1-15.4 642) LACTIC ACID, VENOUS, WHOLE [id number] 07:11:00 Test Item Value Reference Range Interpretation Comments LACTATE BLOOD VENOUS (2) (BEAKER) 0.9 mmol/L 0.5-2.2 (test code = 2872) Effective 09/25/2015: Units/Reference Range ChangeNew: 0.5-2.2 mmol/L Previous: 5-20 mg/dLBASIC METABOLIC [id number] 07:04:00 Test Item Value Reference Range Interpretation [...] NOT APPLICABLE FOR DIALYSIS PATIEN TS. POCT-GLUCOSE [id number] 00:35:00 Test Item Value Reference Range Interpretation Comments POC-GLUCOSE METER 87 mg/dL 70-110 TESTED AT [facility] 67[address] (BEAKER) (test code = [place] [address] 1538) [id number] 23:26:00 Test Item Value Reference Range Interpretation Comments RPR SCREEN (BEAKER) (test code = Nonreactive Nonreactive 420) POCT-GLUCOSE [id number] 17:52:00 Test Item Value Reference Range Interpretation Comments POC-GLUCOSE METER 87 mg/dL 70-110 TESTED AT [facility] 67[address] ([facility]) (test code = [place] [address] 1538) POCT-GLUCOSE [id number] 12:58:00 Test Item Value Reference Range Interpretation Comments POC-GLUCOSE METER 117 mg/dL 70-110 H TESTED AT [facility] 67[address] ([facility]) (test code = [place] 1538) [address] EEG AWAKE AND [id number] 12:51:00Reason for exam:->abnormal EEG with altered mental status, concern for statusShould this be performed at the bedside?->YesEEG REPORT: Alyssa [facility] , DATE: #: 18-038ICD Code: #: R41.82 Altered mental status, unspecified (ICD 9: 780.97)CPT Code: #: 65279: 03. EEG coma or sleep only; 20-40 [...] Value Reference Range Interpretation Comments HEMOGLOBIN A1C (BEAKER) (test code = 5.6 % 4.3-6.1 368) HIV-1 ANTIGEN WITH HIV-1/2 [id number] 05:23:00 Test Item Value Reference Range Interpretation Comments HIV-1 ANTIGEN WITH HIV 1\T\2 Nonreactive Nonreactive ANTIBODY (2) (MAGALI) (test code = 2586) SEDIMENTATION [id number] 05:05:00 Test Item Value Reference Range Interpretation Comments SEDIMENTATION RATE, ERYTHROCYTE 48 mm/HR 0-20 H (BEAKER) (test code = 766) RAD, HIP, 2 VIEWS, [id number] 03:29:00Reason for exam:->possible fall at homeFINAL REPORT [...] MDReport Verified Date/Time: 05/29/2017 03:29:06 Reading Location: [address] Body Reading Room TINE KINASE (CK), TOTAL AND [id number] 02:57:00 Test Item Value Reference Range Interpretation Comments CREATINE KINASE TOTAL (BEAKER) 581 U/L 29-200 H (test code = 380) CREATINE KINASE-MB (BEAKER) (test 1.2 ng/mL 0.0-6.6 code = 750) CREATINE KINASE-MB INDEX (BEAKER) 0.2 % (test code = 395) CK-MB Reference Range:<6.7 Normal6.7-10.0 Borderline>10.0 AbnormalTROPONIN [id number] 02:57:00 Test Item Value Reference Range Interpretation [...] 395) CK-MB Reference Range:<6.7 Normal6.7-10.0 Borderline>10.0 AbnormalTROPONIN [id number] 02:56:00 Test Item Value Reference Range Interpretation [...] acidosis, acute neurological disease, and persistent tachyarrhythmia.LIPID [id number] 02:53:00 Test Item Value Reference Range Interpretation [...] 130-159 High 160-189 Very High >=190BASIC METABOLIC [id number] 02:53:00 Test Item Value Reference Range Interpretation [...] APPLICABLE FOR DIALYSIS PATIEN TS. HEPATIC FUNCTION [id number] 02:53:00 Test Item Value Reference Range Interpretation [...] (test code = 15 U/L 6-55 347) [id number] 02:53:00 Test Item Value Reference Range Interpretation Comments AMYLASE (BEAKER) (test code = 349) 74 U/L 25-125 [id number] 02:53:00 Test Item Value Reference Range Interpretation Comments LIPASE (BEAKER) (test code = 749) 13 U/L 8-78 C-REACTIVE [id number] 02:53:00 Test Item Value Reference Range Interpretation Comments C-REACTIVE PROTEIN (BEAKER) (test 10.77 mg/dL 0.00-0.50 H code = 676) LACTIC ACID, ARTERIAL, WHOLE [id number] 02:47:00 Test Item Value Reference Range Interpretation Comments LACTATE BLOOD ARTERIAL (2) 0.7 mmol/L 0.5-2.2 (BEAKER) (test code = 2874) Effective 09/25/2015: Units/Reference Range ChangeNew: 0.5-2.2 mmol/L Previous: 5-20 mg/[id number] 02:36:00 Test Item Value Reference Range Interpretation Comments PARTIAL THROMBOPLASTIN TIME 51.7 seconds 22.5-36.0 H (BEAKER) (test code = 760) PROTHROMBIN TIME/[id number] 02:35:00 Test Item Value Reference Range Interpretation [...] (BEAKER) (test code = 2801) URINALYSIS W/ [id number] 02:31:00 Test Item Value Reference Range Interpretation [...] SOURCE(BEAKER) (test code Urine, Clean Catch = 2795) SCREEN, [id number] 00:58:00 Test Item Value Reference Range Interpretation Comments TEST URINE (BEAKER) (test Negative code = 583) POCT-GLUCOSE [id number] 00:47:00 Test Item Value Reference Range Interpretation Comments POC-GLUCOSE METER 102 mg/dL 70-110 TESTED AT [facility] 67[address] (BEAKER) (test code = [place] 1538) [address]
[2021-08-01 16:29] LABS: Hematocrit 34.9 % (36.0-45.0); Lymphocytes % 52.5 % (15.3-44.8); MPV 7.6 fL (7.6-11.3); RBC Red Blood Cell Count 4.19 M/uL (3.86-4.86)
[2021-08-01] MEDS ORDERED: NA CHLORIDE 0.9% 500 ML ONE (16:30)
[2021-08-01 16:53] LABS: Bilirubin Direct 0.2 mg/dL (0-0.2); Bilirubin Total 0.6 mg/dL (0.2-1.0); Potassium 3.5 mmol/L (3.5-5.1); Protein, Total 8.3 g/dL (6.4-8.2); Troponin High Sensitivity 4.1 pg/mL (<58.9)
--- NOTE | 2021-08-01 17:17 | RAD REPORT ---
EXAM DESCRIPTION: Kiah Single View08/01/2021 4:44 pm CLINICAL HISTORY: sob COMPARISON: 2020 FINDINGS: The lungs appear clear of acute infiltrate. The heart is normal size IMPRESSION: No acute abnormalities displayed
--- NOTE | 2021-08-01 20:11 | EDPHYS ---
Physician Documentation [facility] Name: Alyssa García Age: 30 yrs Sex: Female : 1990 Arrival Date: 08/01/2021 Time: 14:45 Bed 19 Private MD: ED Physician Raheem Magallon HPI: 08/01 15:33 This 30 yrs old Black Female presents to ER via Ambulatory with complaints of Fatigue, jmm Shortness Of Breath. 15:33 The patient has experienced near-syncope. Onset: The symptoms/episode began/occurred 1 jmm week(s) ago. Duration: The patient has had multiple episodes. Associated injury: The patient did not suffer any apparent associated injury. Is a 30-year-old female with history of asthma, CVA, hyperglycemia, epilepsy, anemia the presents emerged part with complaints of weakness, fatigue and multiple near syncopal episodes progressively worsening over the past week. Patient states symptoms initially approximately 1 year ago. Denies chest pain but states she has some shortness of breath and palpitations. Patient states she has had difficulty gaining weight. She does not eat much. Denies abdominal pain, vomiting, diarrhea.. 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 Flu vaccine is not up to date. - Social history:: Smoking status: Patient denies any tobacco usage or history of. ROS: 15:33 Constitutional: Positive for fatigue. jmm 15:33 Respiratory: Positive for shortness of breath. 15:33 Abdomen/GI: Negative for abdominal pain, nausea and vomiting, diarrhea. 15:33 All other systems are negative. Exam: 15:33 Constitutional: This is a well developed, well nourished patient who is awake, alert, jmm and in no acute distress. Head/Face: atraumatic. Eyes: EOMI, no conjunctival erythema appreciated ENT: Moist Mucus Membranes Neck: Trachea midline, Supple Chest/axilla: Normal chest wall appearance and motion. Cardiovascular: Regular rate and rhythm. No edema appreciated Respiratory: Normal respirations, no respiratory distress appreciated Abdomen/GI: Non distended, soft Back: Normal ROM Skin: General appearance color normal MS/ Extremity: Moves all extremities, no obvious deformities appreciated, no edema noted to the lower extremities Neuro: Awake and alert Psych: Behavior is normal, Mood is normal, Patient is cooperative and pleasant Vital Signs: 15:08 BP 96 / 72; Pulse 81; Resp 17; Temp 97.9; Pulse Ox 100% ; Weight 36.29 kg; Height 5 ft. ap3 2 in. (157.48 cm); 16:33 BP 99 / 78; Pulse 63; Resp 18; Pulse Ox 100% on R/A; ww 17:09 BP 117 / 69; Pulse 66; Resp 14; Pulse Ox 100% ; ww 18:30 BP 114 / 75; Pulse 80; Resp 23; Pulse Ox 99% ; vc1 20:11 BP 104 / 83; Pulse 83; Resp 20; Pulse Ox 98% ; vc1 15:08 Body Mass Index 14.63 (36.29 kg, 157.48 cm) ap3 MDM: 15:33 Patient medically screened. [facility] 20:08 Data reviewed: vital signs, nurses notes. Counseling: I had a detailed discussion with [facility] the patient and/or guardian regarding: the historical points, exam findings, and any diagnostic results supporting the discharge/admit diagnosis, lab results, radiology results, the need for outpatient follow up, to return to the emergency department if symptoms worsen or persist or if there are any questions or concerns that arise at home. ED course: Patient is alert nontoxic in appearance in the ED. After IV fluids, patient states feeling much better. Patient advised to increase hydration and advised follow-up with PCP or cardiology for further evaluation. Patient understood agrees plan of care.. 08/01 15:34 Order name: Basic Metabolic Panel; Complete Time: 16:56 [facility] 08/01 15:34 Order name: CBC with Diff; Complete Time: 16:34 [facility] 08/01 15:34 Order name: LFT's; Complete Time: 16:56 [facility] 08/01 15:34 Order name: Troponin HS; Complete Time: 16:56 [facility] 08/01 16:57 Order name: D-Dimer [facility] 08/01 16:57 Order name: D-Dimer; Complete Time: 19:35 [facility] 08/01 15:34 Order name: XRAY Chest (1 view); Complete Time: 17:17 [facility] 08/01 15:34 Order name: EKG; Complete Time: 15:35 [facility] 08/01 15:34 Order name: Cardiac monitoring; Complete Time: 16:33 [facility] 08/01 15:34 Order name: EKG - Nurse/Tech; Complete Time: 17:05 [facility] 08/01 15:34 Order name: IV Saline Lock; Complete Time: 16:25 [facility] 08/01 15:34 Order name: Labs collected and sent; Complete Time: 16:33 [facility] 08/01 15:34 Order name: O2 Per Protocol; Complete Time: 16:33 [facility] 08/01 15:34 Order name: O2 Sat Monitoring; Complete Time: 16:33 [facility] Administered Medications: 16:33 Drug: NS 0.9% 500 ml Route: IV; Rate: bolus; Site: right forearm; 19:00 Follow up: IV Status: Completed infusion; IV Intake: 500ml vc1 Disposition Summary: 08/01/21 20:10 Discharge Ordered Location: Home [facility] Condition: Stable [facility] Diagnosis - Syncope Near [facility] Followup: [facility] - With: Private Physician - When: 2 - 3 days - Reason: Recheck today's complaints, Continuance of care, Re-evaluation by your physician Followup: [facility] - With: Cachorro Black MD - When: 2 - 3 days - Reason: Recheck today's complaints, Continuance of care, Re-evaluation by your physician Discharge Instructions: - Discharge Summary Sheet [facility] - Near-Syncope [facility] Forms: - Medication Reconciliation Form [facility] - Thank You Letter [facility] - Antibiotic Education [facility] - Prescription Opioid Use [facility] Signatures: Dispatcher [employer] EDMS Gianni Grant PA PA m Maddie Blanchard RN RN ap3 Fe Romero RN RN ww Carla Link RN vc1 Corrections: (The following items were deleted from the chart) 20:19 15:35 Urine Dipstick-Ancillary ordered. [facility] vc1 20:19 15:35 Urine Test ordered. [facility] vc1
--- NOTE | 2021-08-01 20:11 | ER ---
Nurse's Notes [facility] Name: Alyssa García Age: 30 yrs Sex: Female : 1990 Arrival Date: 08/01/2021 Time: 14:45 Bed 19 Private MD: Diagnosis: Syncope Near Presentation: 08/01 15:08 Chief complaint: Patient states: she feels weak after ambulating a few steps, and feels ap3 short of breath when she ambulates as well. Patient states she has a history of anemia and is requesting a blood transfusion, however she also states she has never had one in the past. She presents to the ER today to evaluation of the weakness and shortness of breath when ambulating. Coronavirus screen: At this time, the client does not indicate any symptoms associated with coronavirus-19. Ebola Screen: No symptoms or risks identified at this time. Initial Sepsis Screen: Does the patient meet any 2 criteria? No. Patient's initial sepsis screen is negative. Does the patient have a suspected source of infection? No. Patient's initial sepsis screen is negative. Risk Assessment: Do you want to hurt yourself or someone else? Patient reports no desire to harm self or others. Onset of symptoms is unknown. 15:08 Method Of Arrival: Ambulatory ap3 15:08 Acuity: RUSLAN 3 ap3 Triage Assessment: 15:13 General: Appears in no apparent distress. Behavior is calm, cooperative, appropriate ap3 for age. General: Reports fatigue for >3 days. Pain: Denies pain. Neuro: Level of Consciousness is awake, alert, obeys commands, Oriented to person, place, time, situation, Appropriate for age Gait is steady, Speech is normal. Respiratory: Reports shortness of breath on exertion Airway is patent Respiratory effort is even, unlabored, Onset: The symptoms/episode began/occurred gradually, the patient has mild shortness of breath. 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 Flu vaccine is not up to date. - Social history:: Smoking status: Patient denies any tobacco usage or history of. Screenin:13 Abuse screen: Denies threats or abuse. Tuberculosis screening: No symptoms or risk ap3 factors identified. 15:14 Fall Risk None identified. No fall in past 12 months (0 pts). ap3 16:33 Nutritional screening: No deficits noted. ww Assessment: 16:33 General: Appears in no apparent distress. comfortable, Behavior is calm, cooperative. ww Neuro: Level of Consciousness is awake, alert, obeys commands, Oriented to person, place, time, situation, Moves all extremities. Speech is normal. Cardiovascular: Reports palpitations, Capillary refill < 3 seconds Patient's skin is warm and dry. Rhythm is regular. Respiratory: Airway is patent Respiratory effort is even, unlabored, Respiratory pattern is regular, symmetrical, Breath sounds are clear. GI: No signs and/or symptoms were reported involving the gastrointestinal system. Abdomen is non-distended. : No signs and/or symptoms were reported regarding the genitourinary system. EENT: No signs and/or symptoms were reported regarding the EENT system. Derm: Skin is intact, is healthy with good turgor. 17:30 Reassessment: Patient appears in no apparent distress at this time. No changes from previously documented assessment. Patient and/or family updated on plan of care and expected duration. Pain level reassessed. Patient is alert, oriented x 3, equal unlabored respirations, skin warm/dry/pink. 18:30 Reassessment: Patient appears in no apparent distress at this time. No changes from previously documented assessment. Patient and/or family updated on plan of care and expected duration. Pain level reassessed. Patient is alert, oriented x 3, equal unlabored respirations, skin warm/dry/pink. 19:00 Reassessment: Patient and/or family updated on plan of care and expected duration. Pain vc1 level reassessed. Patient is alert, oriented x 3, equal unlabored respirations, skin warm/dry/pink. General: Appears in no apparent distress. comfortable, Behavior is calm, cooperative, appropriate for age. Neuro: Level of Consciousness is awake, alert, obeys commands, Oriented to person, place, time, situation, Appropriate for age. 20:10 Reassessment: Patient and/or family updated on plan of care and expected duration. Pain vc1 level reassessed. Patient is alert, oriented x 3, equal unlabored respirations, skin warm/dry/pink. 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 vc1 Vital Signs: 15:08 BP 96 / 72; Pulse 81; Resp 17; Temp 97.9; Pulse Ox 100% ; Weight 36.29 kg; Height 5 ft. ap3 2 in. (157.48 cm); 16:33 BP 99 / 78; Pulse 63; Resp 18; Pulse Ox 100% on R/A; ww 17:09 BP 117 / 69; Pulse 66; Resp 14; Pulse Ox 100% ; ww 18:30 BP 114 / 75; Pulse 80; Resp 23; Pulse Ox 99% ; vc1 20:11 BP 104 / 83; Pulse 83; Resp 20; Pulse Ox 98% ; vc1 15:08 Body Mass Index 14.63 (36.29 kg, 157.48 cm) ap3 ED Course: 14:45 Patient arrived in ED. ds1 15:11 Triage completed. ap3 15:14 Arm band placed on right wrist. ap3 15:22 Gianni Grant PA is PHCP. jmm 15:22 Raheem Magallon MD is Attending Physician. jmm 15:23 Fe Romero, RN is Primary Nurse. ww 16:22 Initial lab(s) drawn, by tn, sent to lab. Inserted saline lock: 20 gauge in right kv1 antecubital area, using aseptic technique. 16:33 Patient has correct armband on for positive identification. Bed in low position. Call ww light in reach. Side rails up X 1. engine monitor on. Pulse ox on. NIBP on. 16:44 XRAY Chest (1 view) In Process Unspecified. EDMS 18:18 D-Dimer Sent. ww 19:22 Primary Nurse role handed off by Fe Romero, RN vc1 19:22 Carla Link, ADOLFO is Primary Nurse. vc1 20:11 Cachorro Black MD is Referral Physician. [facility] [place] 20:26 No provider procedures requiring assistance completed. IV discontinued, intact, vc1 bleeding controlled, No redness/swelling at site. Pressure dressing applied. Administered Medications: 16:33 Drug: NS 0.9% 500 ml Route: IV; Rate: bolus; Site: right forearm; ww 19:00 Follow up: IV Status: Completed infusion; IV Intake: 500ml vc1 Intake: 19:00 IV: 500ml; Total: 500ml. vc1 Outcome: 20:10 Discharge ordered by MD. hawthorne 20:27 Discharged to home ambulatory. vc1 20:27 Condition: good 20:27 Discharge instructions given to patient, Instructed on discharge instructions, follow up and referral plans. Demonstrated understanding of instructions, follow-up care. 20:31 Patient left the ED. vc1 Signatures: Dispatcher [employer] EDGianni Cano PA PA jmm Sanford, Demi ds1 Maddie Blanchard, RN RN ap3 Fe Romero, RN RN Mesfin Chino Vanessa, RN RN vc1
[2021-08-01 20:43] VITALS: TEMP 97.9
[2021-08-01 20:49] VITALS: BP 104/83; O2SAT 98
--- NOTE | 2021-08-03 10:13 | EKG ---
Test Date: 2021-08-01 Test Time: 17:00:02 Basketball Commentator: DONALD MEASUREMENT RESULTS: Intervals: Rate: 61 WI: 166 QRSD: 78 QT: 446 QTc: 448 [place]: P: 78 WI: 166 QRS: 96 T: 92 INTERPRETIVE STATEMENTS: Sinus rhythm with marked sinus arrhythmia Rightward axis T wave abnormality, consider anterior ischemia Abnormal ECG Compared to ECG 03/14/2018 10:30:44 Right-axis deviation now present T-wave abnormality now present Possible ischemia now present Ventricular premature complex(es) no longer present Electronically Signed On 08-03-21 10:11:49 CDT by Chadwick Haq
== END 2021-08-01 20:31 | disposition home or self-care (01) ==
LOC: ER 14:44
DX: R55 Syncope and collapse (principal); R53.83 Other fatigue; R06.02 Shortness of breath; R00.2 Palpitations; Z88.6 Allergy status to analgesic agent; Z88.8 Allergy status to other drugs, medicaments and biological substances; Z86.73 Personal history of transient ischemic attack (TIA), and cerebral infarction without residual deficits
CPT/HCPCS: 36415; 71045; 80048; 80076; 84484; 85025; 85379; 93005; 96360; 96361; 99284; J7040

== ENCOUNTER 2021-08-21 09:12 | Inpatient (IN) | payer SELFPAY ==
--- OUTSIDE RECORDS SUMMARY | 2021-08-21 09:16 | XMS REPORT | Continuity of Care Document ---
:1990 Author Organization [facility] t Address [address] [place] [address] Care Team Providers Name Role Phone PCP, DOES NOT HAVE A Primary Care Physician Unavailable Welda ACNP Attending Clinician RIDDLE Attending Clinician Unavailable MYRNA STANFORD Attending Clinician Unavail able MYRNA STANFORD Admitting Clinician Unavail able Payers Payer Name Policy Type Policy Number Effective Date Expiration Date Lul sosa [place] [facility] [id number] 2018 HEALTH 00:00:00 [place] [id number] 2017 00:00:00 Advance Directives Directive Decision Effective Termination Comments Source Date Date Healthcare Agents on N/A [facility] FileNameRelationshipHealthcare [facility] [place] Agent Medical RelationshipCommunicationRenee Branch EdwardsHitherMer[facility] Health [facility] Care [phone] (Mobile) Problems Condition Condition Condition Status Onset Resolution Last Treating Co mments Source Name Details Category Date Date Treatment Clinician Date Other Other Disease Active Univers general general 4-11 ity of [place] advice 00 Me dical for for Branch contracept contracept vi vi management management History of History of Disease Active U nivers asthma asthma 4-11 ity of 00:00: [place] 00 Medical Branch Amenorrhea Amenorrhea Disease Active U nivers 4-11 ity of 00:00: [place] 00 Medical Branch History of History of Disease Active U nivers seizures seizures 8- ity of 00:00: [place] 00 Medical Branch Underwirene Underwevergh Disease Active U nivers t t 8- ity of 00:00: [place] 00 Medical Branch Allergies, Adverse Reactions, Alerts Allergy Allergy Status Severity Reaction(s) Onset Inactive Treating Comm ents Source Name Type Date Date Clinician Zolpidem Propensi Active Unknown - Possible U nivers Tartrate ty to See comments 6-20 seizures/ ity of adverse 00:00: anxiety [place] reaction 00 attacks Medical s to Branch drug ZOLPIDEM DRUG Active High Unknown-Cmnt Un keila TARTRATE INGREDI 6- ity of 00:00: [place] [address] Medical Branch Social History Social Habit Start Date Stop Date Quantity Comments Source Exposure to Not sure [facility]-CoV-2 [facility] (event) Branch Alcohol intake 2021-08-14 2021-08-14 Current [facility] 00:00:00 00:00:00 non-drinker of [facility] alcohol Branch (finding) Tobacco use and 2013-12-27 2013-12-27 Never used Universit y of exposure 00:00:00 00:00:00 [facility] Sex Assigned At [birth year] Universit y of 00:00:00 00:00:00 [facility] Smoking Status Start Date Stop Date Source Never smoker [facility] Branch Medications Ordered Filled Start Stop Current Ordering Indication Dosage Frequency Signature Comments Components Source Medication Medication Date Date Medication? Clinician (SIG) Name Name naproxen Yes [id number] 500mg Take 1 Univers 500 mg 3-24 62963 tablet by ity of tablet 00:00: mouth [place] 00 every 12 Medical (twelve) Branch hours as needed for Pain (scale 4-6) (pain). albuterol Yes 2{puff} Inhale 2 U nivers (PROAIR 6-27 Puffs ity of HFA) 90 22:11: every 6 [place] mcg/actuati 36 (six) Medical on inhaler hours as Branc h needed for Wheezing or Shortness of Breath. blood sugar Yes TEST 3 Univ ers diagnostic 6-26 TIMES A ity of (TRUE 00:00: DAY [place] METRIX 00 Medical GLUCOSE [place] TEST STRIP) strip Lancets Yes Test 3 Univers Misc 6-26 times ity of 00:00: daily [place] 00 [facility] Blood-Gluco Yes Use as Univ ers se Meter 6-23 directed ity of (TRUE 00:00: [place] METRIX 00 Medical GLUCOSE Branch METER) Misc Immunizations Ordered Filled Immunization Date Status Comments Sourc e Immunization Name Name TDAP 2016-09-01 Completed [facility] 00:00:00 [facility] Td 2004-05-24 Completed [facility] 00:00:00 [facility] Vital Signs Vital Name Observation Time Observation Value Comments Source Systolic blood 2021-08-14 14:36:00 93 mm[Hg] Univer sity of pressure [facility] Diastolic blood 2021-08-14 14:36:00 65 mm[Hg] Unive rsity of pressure [facility] Heart rate 2021-08-14 14:36:00 77 /min [facility] Body temperature 2021-08-14 14:36:[address] [facility] Respiratory rate 2021-08-14 14:36:00 16 /min [facility] Body height 2021-08-14 14:36:00 157.5 cm [facility] Body weight 2021-08-14 14:36:00 36.288 kg [facility] BMI 2021-08-14 14:36:00 14.63 kg/m2 [facility] Oxygen saturation in 2021-08-14 14:36:00 100 /min [facility] Arterial blood by [facility] Pulse oximetry Branch Procedures Procedure Date / Time Performed Performing Clinician Sourc e NOTICE OF PRIVACY 2021-08-14 14:22:45 [facility], [facility] Branch CONSENT/REFUSAL FOR 2021-08-14 14:22:25 Doctor Unassigned, [facility] DI[facility] AND Name Medical Branch TREATMENT Encounters Start End Encounter Admission Attending Care Care Encounter Source Date/Time Date/Time Type Type Clinicians Facility Department ID 2021-08-14 2021-08-14 Emergency Welda, [facility] [id number] Univers 09:38:00 10:37:00 Jackelin [facility]TERO [id number] [facility] INDY[facility] [id number] [facility] [id number] [place] [address] Branch 2021-08-14 2021-08-14 Emergency X BELTRAN, [facility] ERT [id number] Univers 09:38:00 10:37:00 JACKELIN lexi [facility] Results Test Description Test Time Test Comments Results Result Comments Source BLOOD CULTURE 2017-06-03 10:00:00 Test Item Value Reference Range Interpretation Comme nts CULTURE (BEAKER) (test code = 1095) No growth in 5 days BLOOD [id number] 10:00:00 Test Item Value Reference Range Interpretation Comments CULTURE (BEAKER) (test No growth in 5 days code = 1095) PROTHROMBIN GENE [id number] 08:45:00 Test Item Value Reference Range Interpretation Comments PROTHROMBIN/FACTOR II Negative for the [id number] (AKER) (test code = (Prothrombin/Factor II) 2163) mutation. [id number] Dudley Dunn M.D. (MAGALI) (test code = (electonic signature) 2605) This test is a genotyping assay which evaluates the DNA sequence at position [address]257 of the prothrombin (Factor II) gene. A [...] and its performance characteristics determined by the [facility] Pathology Department, Section of [...] code = (Factor V Leiden) 718) mutation [id number] Dudley Dunn M.D. (Rock[employer] OnlineMARISOL) (test code = (electonic signature) 2847) This test is a genotyping assay which [...] was developed and [facility], Section of [...] (BEAKER) (test code = Lupus Anticoagulant 2406) [id number] Dudley Dunn M.D. (BEAKER) (test code = (electonic signature) 3727) DRVV SCREEN RATIO 0.76 <1.20 (BEAKER) (test code = 7450) CBC W/PLT COUNT & AUTO [id number] 14:03:00 Test Item Value Reference Range Interpretation [...] (test code = Normal 762) BASIC METABOLIC [id number] 10:08:00 Test Item Value Reference Range Interpretation [...] NOT APPLICABLE FOR DIALYSIS PATIEN TS. POCT-GLUCOSE [id number] 08:35:00 Test Item Value Reference Range Interpretation Comments POC-GLUCOSE METER 72 mg/dL 70-110 TESTED AT [place] [address] ([facility]) (test code = [facility] [address] 1538) ANTI-NUCLEAR ANTIBODY (MARIA ISABEL)2017-06-01 03:41:00 Test Item Value Reference Range Interpretation Comments ANTI-NUCLEAR ANTIBODY (MARIA ISABEL) ([facility]) Negative Negative (test code = 418) POCT-GLUCOSE [id number] 22:27:00 Test Item Value Reference Range Interpretation Comments POC-GLUCOSE METER 111 mg/dL 70-110 H TESTED AT [place] [address] ([facility]) (test code = [facility] 1538) [id number] MR, MRA, BRAIN, WITHOUT [id number] 17:48:00FINAL REPORT MRI brain and MRA head and neck without contrast 05/31/2017 5:44 PM CLINICAL INDICATION: Stroke TECHNIQUE: Multiplanar, multisequence MR imaging of the brain was performed utilizing the following imaging sequences: Axial T1, T2, FLAIR, GRE, and DWI; sagittal and coronal T1-weighted images. Two- and three- dimensional brdh-xh-zmwyqt MRA images of the intra- and extracranial [...] is antegrade in both vertebral arteries. MRA [place]: There is no vessel occlusion, flow-limiting stenosis, or aneurysm. IMPRESSION: 1. Findings that may reflect increased intracranial pressure. Consider further evaluation with intracranial MRA to exclude venous sinus thrombosis/stenosis.2. Unremarkable extracranial and intracranial MRAs. Signed: Patrick Schroeder Verified Date/Time: 05/31/2017 17:48:23 Reading Location: [facility] Radiology Reading Room MR, MRA, NECK, WITH IV [id number] 17:48:00Please perform without contrastFINAL REPORT MRI brain and MRA head and neck without contrast 05/31/2017 5:44 PM CLINICAL INDICATION: Stroke TECHNIQUE: Multiplanar, multisequence MR imaging of the brain was performed utilizing the following imaging sequences: Axial T1, T2, FLAIR, GRE, and DWI; sagittal and coronal T1- weighted images. Two- and three-dimensional tnby-pu-ksxocm MRA images of the intra- and extracranial [...] is antegrade in both vertebral arteries. MRA [place]: There is no vessel occlusion, flow-limiting stenosis, or aneurysm. IMPRESSION: 1. Findings that may reflect increased intracranial pressure. Consider further evaluation with intracranial MRA to exclude venous sinus thrombosis/stenosis.2. Unremarkable extracranial and intracranial MRAs. Signed: Patrick Schroeder Verified Date/Time: 05/31/2017 17:48:23 Reading Location: [facility] Radiology Reading Room MR, BRAIN, WITHOUT [id number] 17:48:00FINAL REPORT MRI brain and MRA head and neck without contrast 05/31/2017 5:44 PM CLINICAL INDICATION: Stroke TECHNIQUE: Multiplanar, multisequence MR imaging of the brain was performed utilizing the following imaging sequences: Axial T1, T2, FLAIR, GRE, and DWI; sagittal and coronal T1-weighted images. Two- and three-dimensional icql-lq-oaxhmq MRA images of the intra- and extracr anial carotid and vertebral arterial circulations were obtained, [...] is antegrade in both vertebral arteries. MRA [place]: There is no vessel occlusion, flow-limiting stenosis, or aneurysm. IMPRESSION: 1. Findings that may reflect increased intracranial pressure. Consider further evaluation with intracranial MRA to exclude venous sinus thrombosis/stenosis.2. Unremarkable extracranial and intracranial MRAs. Signed: Patrick Schroeder Verified Date/Time: 05/31/2017 17:48:23 Reading Location: [facility] Radiology Reading Room THROMBIN [id number] 14:28:00 Test Item Value Reference Range Interpretation Comments THROMBIN TIME (BEAKER) (test code = 18.5 secs 13.8-20.0 550) HEXAGONAL [id number] 14:28:00 Test Item Value Reference Range Interpretation Comments HEXAGONAL PHOSPHOLIPID (BEAKER) Negative (test code = 1790) 1:1 MIXING STUDY, [id number] 14:28:00 Test Item Value Reference Range Interpretation Comments PROTIME (BEAKER) (test code = 16.4 seconds 11.7-14.7 H 759) PARTIAL THROMBOPLASTIN TIME 52.7 seconds 22.5-36.0 H (BEAKER) (test code = 760) PT 1/1 MIX (BEAKER) (test code = 14.1 SECS 11.7-14.7 1595) PTT 1/1 MIX (BEAKER) (test code 39.7 SECS 22.5-36.0 H = 1596) CARDIOLIPIN ANTIBODIES, IGG AND [id number] 11:47:00 Test Item Value Reference Range Interpretation Comments ANTICARDIOLIPIN IGG ANTIBODY (BEAKER) < GPL (test code = 712) ANTICARDIOLIPIN IGM ANTIBODY (BEAKER) 0.4 MPL (test code = 713) Anticardiolipin IgG Result Interpretation:NEG: <20 GPL; U/mlPOS: >/=20 GPL; U/mlAnticardiolipin IgM Result Interpretation:NEG: <20 MPL; U/mlPOS: >/=20 MPL; U/mlCARDIOLIPIN ANTIBODIES, IGG AND [id number] 11:45:00 Test Item Value Reference Range Interpretation Comments ANTICARDIOLIPIN IGG ANTIBODY (BEAKER) < GPL (test code = 712) ANTICARDIOLIPIN IGM ANTIBODY (BEAKER) 0.5 MPL (test code = 713) Anticardiolipin IgG Result Interpretation:NEG: <20 GPL; U/mlPOS: >/=20 GPL; U/mlAnticardiolipin IgM Result Interpretation:NEG: <20 MPL; U/mlPOS: >/=20 MPL; U/mlPOCT-GLUCOSE [id number] 11:39:00 Test Item Value Reference Range Interpretation Comments POC-GLUCOSE METER 120 mg/dL 70-110 H TESTED AT [facility] 6720 (BEAKER) (test code = [place] 15[address]) [address] PROTEIN C [id number] 11:35:00 Test Item Value Reference Range Interpretation Comments PROTEIN C ACTIVITY (BEAKER) (test code 65.0 % 70.0-130.0 L = 582) See Protein C Antigen.CBC W/PLT COUNT & AUTO [id number] 10:02:00 Test Item Value Reference Range Interpretation [...] (BEAKER) (test code Normal = 762) POCT-GLUCOSE [id number] 08:18:00 Test Item Value Reference Range Interpretation Comments POC-GLUCOSE METER 100 mg/dL 70-110 TESTED AT [facility] 6720 (BEAKER) (test code = [place] 1538) [address] BASIC METABOLIC [id number] 06:53:00 Test Item Value Reference Range Interpretation [...] 358) GLUCOSE RANDOM 68 mg/dL 70-105 L ([facility]) (test code = 652) CALCIUM ([facility]) 7.5 mg/dL 8.4-10.2 L (test code = 697) EGFR ([facility]) (test 120 mL/min/1.73 ESTIM ATED GFR IS code = 1092) sq m NOT ACCURATE CREATININE CLEARANCE IN PREDICTING GLOMERULAR FILTRATION RATE . ESTIMATED GFR I S NOT APPLICABLE FOR DIALYSIS PATIEN TS. POCT-GLUCOSE [id number] 21:28:00 Test Item Value Reference Range Interpretation Comments POC-GLUCOSE METER 105 mg/dL 70-110 TESTED AT [place] [address] ([facility]) (test code = [facility] 1538) [address] POCT-GLUCOSE [id number] 12:53:00 Test Item Value Reference Range Interpretation Comments POC-GLUCOSE METER 126 mg/dL 70-110 H TESTED AT [place] [address] ([facility]) (test code = [facility] 1538) [address] VANCOMYCIN LEVEL, [id number] 11:31:00 Test Item Value Reference Range Interpretation Comments VANCOMYCIN TROUGH ([facility]) (test 13.7 ug/mL 10.0-20.0 code = 522) Draw 30 min prior to scheduled dose, HOLD if level > 20 mcg/mL, inform MD. ANTITHROMBIN [id number] 11:18:00 Test Item Value Reference Range Interpretation Comments ANTITHROMBIN III ACTIVITY ([facility]) 67.0 % 80.0-120.0 L (test code = 711) URINE [id number] 10:46:00 Test Item Value Reference Range Interpretation Comments CULTURE ([facility]) (test code = 1095) No growth [id number] 07:57:00 Test Item Value Reference Range Interpretation Comments HOMOCYSTEINE ([facility]) (test code = 7.6 umol/L 5.1-15.4 642) LACTIC ACID, VENOUS, WHOLE [id number] 07:11:00 Test Item Value Reference Range Interpretation Comments LACTATE BLOOD VENOUS (2) ([facility]) 0.9 mmol/L 0.5-2.2 (test code = 1968) Effective 09/25/2015: Units/Reference Range ChangeNew: 0.5-2.2 mmol/L Previous: 5-20 mg/dLBASIC METABOLIC [id number] 07:04:00 Test Item Value Reference Range Interpretation [...] NOT APPLICABLE FOR DIALYSIS PATIEN TS. POCT-GLUCOSE [id number] 00:35:00 Test Item Value Reference Range Interpretation Comments POC-GLUCOSE METER 87 mg/dL 70-110 TESTED AT [facility] 6720 ([facility]) (test code = [place] [facility] [address] 1538) [id number] 23:26:00 Test Item Value Reference Range Interpretation Comments RPR SCREEN (BEAKER) (test code = Nonreactive Nonreactive 420) POCT-GLUCOSE [id number] 17:52:00 Test Item Value Reference Range Interpretation Comments POC-GLUCOSE METER 87 mg/dL 70-110 TESTED AT [facility] 67[address] ([facility]) (test code = [facility] [address] 1538) POCT-GLUCOSE [id number] 12:58:00 Test Item Value Reference Range Interpretation Comments POC-GLUCOSE METER 117 mg/dL 70-110 H TESTED AT [facility] 67 ([facility]) (test code = [facility] 1538) [address] EEG AWAKE AND [id number] 12:51:00Reason for exam:->abnormal EEG with altered mental status, concern for statusShould this be performed at the bedside?->YesEEG REPORT: Geri [facility] , DATE: EEG #: [id number] Code: #: R41.82 Altered mental status, unspecified (ICD 9: 780.97)CPT Code: #: 88155: 03. EEG coma or sleep only; 20-40 [...] or other etiology.Clinical Fellow: Sherly Higginsrophysiologist: Daphne Carrero HEMOGLOBIN A1C 2017-05-29 08:42:00 Test Item Value Reference Range Interpretation Comments HEMOGLOBIN A1C (MAGALI) (test code = 5.6 % 4.3-6.1 368) HIV-1 ANTIGEN WITH HIV-1/2 [id number] 05:23:00 Test Item Value Reference Range Interpretation Comments HIV-1 ANTIGEN WITH HIV 1\T\2 Nonreactive Nonreactive ANTIBODY (2) (BEAKER) (test code = 2586) SEDIMENTATION [id number] 05:05:00 Test Item Value Reference Range Interpretation Comments SEDIMENTATION RATE, ERYTHROCYTE 48 mm/HR 0-20 H (BEAKER) (test code = 766) RAD, HIP, 2 VIEWS, [id number] 03:29:00Reason for exam:->possible fall at homeFINAL REPORT [...] MDReport Verified Date/Time: 05/29/2017 03:29:06 Reading Location: [facility] C013Y CT Body Reading Room TINE KINASE (CK), TOTAL AND [id number] 02:57:00 Test Item Value Reference Range Interpretation Comments CREATINE KINASE TOTAL (BEAKER) 581 U/L 29-200 H (test code = 380) CREATINE KINASE-MB (BEAKER) (test 1.2 ng/mL 0.0-6.6 code = 750) CREATINE KINASE-MB INDEX (BEAKER) 0.2 % (test code = 395) CK-MB Reference Range:<6.7 Normal6.7-10.0 Borderline>10.0 AbnormalTROPONIN [id number] 02:57:00 Test Item Value Reference Range Interpretation [...] 395) CK-MB Reference Range:<6.7 Normal6.7-10.0 Borderline>10.0 AbnormalTROPONIN [id number] 02:56:00 Test Item Value Reference Range Interpretation [...] acidosis, acute neurological disease, and persistent tachyarrhythmia.LIPID [id number] 02:53:00 Test Item Value Reference Range Interpretation [...] 130-159 High 160-189 Very High >=190BASIC METABOLIC [id number] 02:53:00 Test Item Value Reference Range Interpretation [...] APPLICABLE FOR DIALYSIS PATIEN TS. HEPATIC FUNCTION [id number] 02:53:00 Test Item Value Reference Range Interpretation [...] (test code = 15 U/L 6-55 347) [id number] 02:53:00 Test Item Value Reference Range Interpretation Comments AMYLASE (BEAKER) (test code = 349) 74 U/L 25-125 [id number] 02:53:00 Test Item Value Reference Range Interpretation Comments LIPASE (BEAKER) (test code = 749) 13 U/L 8-78 C-REACTIVE [id number] 02:53:00 Test Item Value Reference Range Interpretation Comments C-REACTIVE PROTEIN (BEAKER) (test 10.77 mg/dL 0.00-0.50 H code = 676) LACTIC ACID, ARTERIAL, WHOLE [id number] 02:47:00 Test Item Value Reference Range Interpretation Comments LACTATE BLOOD ARTERIAL (2) 0.7 mmol/L 0.5-2.2 (BEAKER) (test code = 2874) Effective 09/25/2015: Units/Reference Range ChangeNew: 0.5-2.2 mmol/L Previous: 5-20 mg/[id number] 02:36:00 Test Item Value Reference Range Interpretation Comments PARTIAL THROMBOPLASTIN TIME 51.7 seconds 22.5-36.0 H (BEAKER) (test code = 760) PROTHROMBIN [id number] 02:35:00 Test Item Value Reference Range Interpretation [...] (BEAKER) (test code = 2801) URINALYSIS W/ [id number] 02:31:00 Test Item Value Reference Range Interpretation [...] code Urine, Clean Catch = 2795) SCREEN, [id number] 00:58:00 Test Item Value Reference Range Interpretation Comments TEST URINE (BEAKER) (test Negative code = 583) POCT-GLUCOSE [id number] 00:47:00 Test Item Value Reference Range Interpretation Comments POC-GLUCOSE METER 102 mg/dL 70-110 TESTED AT [facility] 6720 (BEAKER) (test code = [place] 1538) [address]
[2021-08-21 09:53] LABS: Urine Blood Trace-intact (Negative); Urine Glucose Negative (Negative); Urine Protein Negative (Negative); Urine Specific Gravity >=1.030 (1.005-1.030); Urine pH 5.5 (5.0-7.0)
[2021-08-21 09:56] LABS: Absolute Lymphocytes (CBC) 2.9 K/uL (0.7-4.9); Hematocrit 39.9 % (36.0-45.0); Lymphocytes % 20.8 % (15.3-44.8); MPV 7.8 fL (7.6-11.3)
[2021-08-21] MEDS ORDERED: NA CHLORIDE 0.9% 1,000 ML ONE (09:58)
[2021-08-21] MEDS ORDERED: ONDANSETRON 4 MG/2 ML VIAL ONE (09:58)
[2021-08-21 10:18] LABS: Albumin 4.5 g/dL (3.4-5.0); Potassium 3.7 mmol/L (3.5-5.1)
[2021-08-21 10:40] LABS: Urine Specific Gravity/Preg >1.030 (1.005-1.030)
--- NOTE | 2021-08-21 10:57 | RAD REPORT ---
EXAM DESCRIPTION: CT - Abdomen Pelvis W Contrast - 08/21/2021 10:37 am CLINICAL HISTORY: Abdominal pain COMPARISON: none. TECHNIQUE: Computed axial tomography of the abdomen pelvis was obtained. 100 cc Isovue-300 was admin istered intravenously. Oral contrast was not requested which limits evaluation of bowel and appendix All CT scans are performed using dose optimization technique as appropriate and may include automated exposure control or mA/KV adjustment according to patient size. FINDINGS: The liver, spleen, pancreas, adrenal and kidneys appear unremarkable. There is no evidence of diverticulitis. Evaluation of the appendix is limited secondary to the lack of oral contrast. A tubular structure wit hin the right lower quadrant does appear to represent the appendix. It is mildly dilated containing s everal calcifications. No stranding within adjacent fat noted. No abscess. No free air IMPRESSION: The patient probably has appendicitis. This should be correlated clinically
[2021-08-21] MEDS ORDERED: METRONIDAZOLE 500mg IVPB 500 MG/100 ML BAG IV ONE (11:07)
[2021-08-21] MEDS ORDERED: CEFTRIAXONE 1000 MG/VIAL ONE (11:07)
[2021-08-21 11:19] LABS: SARS-COV-2 RT PCR NEGATIVE (NEGATIVE)
--- NOTE | 2021-08-21 14:31 | RAD REPORT ---
EXAM DESCRIPTION: CT - Abdomen Pelvis Wo Contrast - 08/21/2021 2:01 pm CLINICAL HISTORY: confirm/rule out appendicitis, first scan indeterminate COMPARISON: Abdomen Pelvis W Contrast dated 08/21/2021 TECHNIQUE: Axial [address] imaging of the abdomen and pelvis was performed without IV contrast. Oral contrast was given. All CT scans are performed using dose optimization technique as appropriate and may include automated exposure control or mA/KV adjustment according to patient size. FINDINGS: No suspicious findings in the lung bases. The liver, spleen and pancreas show no new finding from earlier study. Gallbladder and biliary tree a re also without suspicious finding. No new renal or bladder finding. Oral CT contrast has reached the distal rectum. In the inferior anterior right lower quadrant an enla rged appendix is again identified up to 12 mm in diameter. Wiseman are thickened. There is contrast and air within the lumen. None of the oral contrast entered the lumen of the appendix. Contrast is seen within a normal-appearing terminal ileum. Ileocecal valve region is unremarkable. No acute colon proc ess seen. No free air or pneumatosis. There is little inflammatory stranding around the appendix. Nu merous phleboliths are seen in the pelvis. No uterine or ovarian acute finding. A few small mesenteric lymph nodes are present. IMPRESSION: The appendix still appears abnormal with wall thickening in diameter up to 12 mm. Calcif ication is present within the lumen and none of the oral contrast entered the appendix lumen. No significant stranding is seen in the periappendiceal fatty tissues. Acute appendicitis would be a primary consideration and needs correlation with clinical presentation. Chronic appendicitis is possi ble as well.
--- NOTE | 2021-08-21 14:43 | ER ---
Nurse's Notes [facility] Name: Alyssa García Age: 30 yrs Sex: Female : 1990 Arrival Date: 08/21/2021 Time: 09:13 Bed 18 Private MD: Diagnosis: Abdominal pain, unspecified-Possible appendicitis;Dehydration Presentation: 08/21 09:21 Chief complaint: Patient states: she has been having diarrhea for approx 3 days. ap3 Patient complains of feeling weak, and dehydrated since Wednesday as well as having a lack of appetite. Patient denies nausea and vomiting. Coronavirus screen: Client presents with at least one sign or symptom that may indicate coronavirus-19. Ebola Screen: No symptoms or risks identified at this time. Initial Sepsis Screen: Does the patient meet any 2 criteria? Yes Does the patient have a suspected source of infection? No. Patient's initial sepsis screen is negative. Risk Assessment: Do you want to hurt yourself or someone else? Patient reports no desire to harm self or others. Onset of symptoms was August 18, 2021. 09:21 Method Of Arrival: Wheelchair ap3 09:21 Acuity: RUSLAN 3 ap3 Triage Assessment: 09:28 General: Appears uncomfortable, Behavior is calm, cooperative. General: Reports feeling ap3 ill for fatigue for. Pain: Complains of pain in suprapubic area. Neuro: Level of Consciousness is awake, alert, obeys commands, Oriented to person, place, time, situation. Cardiovascular: Patient's skin is warm and dry. Respiratory: Airway is patent Respiratory effort is even, unlabored, Respiratory pattern is regular, symmetrical. GI: Reports lower abdominal pain, diarrhea. Historical: - Allergies: :27 ambien; ap3 - PMHx: :27 Anemia; Asthma; CVA; HYPOGLYCEMIA; Seizures; ap3 - Immunization history:: Client reports having NOT received the Covid vaccine. Flu vaccine is not up to date. - Social history:: Smoking status: Patient denies any tobacco usage or history of. Patient uses street drugs, marijuana. - Family history:: not pertinent. - Hospitalizations: : No recent hospitalization is reported. Screenin:28 Abuse screen: Denies threats or abuse. Nutritional screening: Has had N/V for 3 or more ap3 days. Tuberculosis screening: No symptoms or risk factors identified. 10:04 Fall Risk None identified. johnston Assessment: 10:04 Pain: Complains of pain in abdomen. GI: Reports diarrhea, nausea. johnston Vital Signs: 09:21 BP 99 / 71; Pulse 109; Temp 97.5; Pulse Ox 100% ; Weight 38.56 kg; Height 5 ft. 2 in. ap3 (157.48 cm); 11:15 BP 109 / 68; Pulse 92; Resp 18; Pulse Ox 99% on R/A; johnston 09:21 Body Mass Index 15.55 (38.56 kg, 157.48 cm) ap3 ED Course: 09:13 Patient arrived in ED. ds1 09:19 Thompson Sweeney MD is Attending Physician. rn 09:27 Triage completed. ap3 09:41 Garima Boyer, ADOLFO is Primary Nurse. johnston 09:45 Inserted saline lock: in right forearm, using aseptic technique. Blood collected. kj1 09:45 Initial lab(s) drawn, by ri, sent to lab. COVID-19/FLU A+B (Document "Date of Onset" if kj1 Symptomatic) Sent. 10:04 No provider procedures requiring assistance completed. johnston 10:04 Bed in low position. johnston 10:05 Arm band placed on right wrist. johnston 10:39 CT Abd/Pelvis - IV Contrast Only In Process Unspecified. EDMS 14:02 Abdomen In Process Unspecified. EDMS 14:39 Nabeel Sweeney MD is Hospitalizing Provider. rn 18:14 Patient admitted, IV remains in place. johnston Administered Medications: 09:59 Drug: NS 0.9% 1000 ml Route: IV; Rate: 1 bolus; Site: right antecubital; johnston 10:00 Drug: Zofran (Ondansetron) 4 mg Route: IVP; Site: right antecubital; johnston 10:37 Drug: NS 0.9% 1000 ml Route: IV; Rate: 1000 ml; Site: right antecubital; johnston 11:10 Drug: Rocephin (cefTRIAXone) 1 grams Route: IV; Rate: calculated rate; Site: right johnston antecubital; 11:10 Drug: Flagyl (metroNIDAZOLE) 500 mg Volume: 100 ml; Route: IVPB; Rate: 200 ml/hr; johnston Infused Over: 30 mins; Site: right antecubital; Outcome: 14:42 Decision to Hospitalize by Provider. rn 18:14 Admitted to Med/surg johnston 18:14 Condition: stable 18:14 Instructed on the need for admit. 18:14 Patient left the ED. johnston Signatures: Dispatcher [employer] EDWY Krupa Caro ds1 Thompson Sweeney MD MD rn Prokisch, Amanda, RN RN ap3 Jackson, Kandis kj1 Mayra-StageGarima fuentes RN RN ha Corrections: (The following items were deleted from the chart) 09:28 09:27 Allergies: Aspirin; federica stallworth 10:04 10:01 COVID-19/FLU A+B+MOL.LAB.BRZ drawn and sent. preston kjElizabeth 10:04 10:03 Initial lab(s) drawn, by ri, sent to lab. ryley kj1
--- NOTE | 2021-08-21 14:43 | EDPHYS ---
Physician Documentation [facility] Name: Alyssa García Age: 30 yrs Sex: Female : 1990 Arrival Date: 08/21/2021 Time: 09:13 Bed 18 Private MD: ED Physician Thompson Sweeney HPI: 08/21 09:29 This 30 yrs old Black Female presents to ER via Wheelchair with complaints of diarrhea, rn abd pain. 09:29 The patient presents to the emergency department with nausea, diarrhea, abdominal pain, rn of the suprapubic area and right lower quadrant, described as achy, and does not radiate. Onset: The symptoms/episode began/occurred 3 day(s) ago. Possible causes: unknown. The symptoms are aggravated by nothing. The symptoms are alleviated by nothing. Associated signs and symptoms: Pertinent positives: abdominal pain, anorexia, diarrhea, nausea, Pertinent negatives: dysuria, vaginal discharge. Severity of symptoms: At their worst the symptoms were moderate in the emergency department the symptoms are unchanged. The patient has not experienced similar symptoms in the past. The patient has not recently seen a physician. Pt reports 3 days of nausea, diarrhea, abd pain and cramping. Reports feels dehydrated. Thinks caught something from work, significant other without similar symptoms. No blood in stool. Reports also with nasal congestion and sore throat. + green diarrhea. No vomiting.. Historical: - Allergies: 09:27 ambien; ap3 - PMHx: 09:27 Anemia; Asthma; CVA; HYPOGLYCEMIA; Seizures; ap3 - Immunization history:: Client reports having NOT received the Covid vaccine. Flu vaccine is not up to date. - Social history:: Smoking status: Patient denies any tobacco usage or history of. Patient uses street drugs, marijuana. - Family history:: not pertinent. - Hospitalizations: : No recent hospitalization is reported. 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 Exam: 09:29 Constitutional: Very thin female, no acute distress, interrupts end of exam because rn she needs to use bathroom. Head/Face: Normocephalic, atraumatic. Eyes: Periorbital areas with no swelling, redness, or edema. ENT: NO stridor, + dry MM Neck: Trachea midline, no thyromegaly or masses palpated, and no cervical lymphadenopathy. Supple, full range of motion without nuchal rigidity, or vertebral point tenderness. No Meningismus. Cardiovascular: Tachycardic, regular. Respiratory: No increased work of breathing, no retractions or nasal flaring. Abdomen/GI: soft, mild suprapubic tenderness, no masses or rebound Skin: Warm, dry, no cellulitis or cyanosis MS/ Extremity: Pulses equal, no cyanosis. Neurovascular intact. Full, normal range of motion. Equal circumference. Neuro: Awake and alert, GCS 15, oriented to person, place, time, and situation. Cranial nerves II-XII grossly intact. Motor strength 5/5 in all extremities. Sensory grossly intact. Cerebellar exam normal. Vital Signs: 09:21 BP 99 / 71; Pulse 109; Temp 97.5; Pulse Ox 100% ; Weight 38.56 kg; Height 5 ft. 2 in. ap3 (157.48 cm); 11:15 BP 109 / 68; Pulse 92; Resp 18; Pulse Ox 99% on R/A; johnston 09:21 Body Mass Index 15.55 (38.56 kg, 157.48 cm) ap3 MDM: 09:19 Patient medically screened. rn 11:07 ED course: CT abdomen indeterminate, "probable appendicitis" but no stranding supervisor firearms surrounding inflammation, will rescan with oral contrast given abd tenderness is left sided, and no tenderness on RLQ on reevaluation. Explained this to patient and she agrees, she does not want appendix removed if doesn't need to be. . 14:36 Differential diagnosis: Nonspecific abd pain, appendicitis, diverticulitis, viral rn gastroenteritis, gastroenteritis. Data reviewed: vital signs, nurses notes, lab test result(s), radiologic studies, CT scan, and as a result, I will admit patient. Counseling: I had a detailed discussion with the patient and/or guardian regarding: the historical points, exam findings, and any diagnostic results supporting the discharge/admit diagnosis, lab results, radiology results, the need for further work-up and treatment in the hospital. Response to treatment: the patient's symptoms have mildly improved after treatment, and as a result, I will admit patient. Admission orders: after a detailed discussion of the patient's condition and case, the admit orders are written by me. ED course: Consulted with Dr Peng after repeat CT still shows some possibility of appendicitis, he would like patient admitted to hospitalist service and him consulted given hx of seizures and CVA. . 08/21 09:27 Order name: CBC with Diff; Complete Time: 10:06 rn 08/21 09:27 Order name: CMP; Complete Time: 10:50 rn 08/21 09:27 Order name: Lipase; Complete Time: 10:50 08/21 09:27 Order name: COVID-19/FLU A+B (Document "Date of Onset" if Symptomatic); Complete Time: rn 11:21 08/21 09:53 Order name: Urine Dipstick-Ancillary; Complete Time: 10:06 [facility] 08/21 10:00 Order name: Urine --Ancillary (enter results); Complete Time: 10:50 em1 08/21 15:48 Order name: C.difficile GDH Ag [facility] 08/21 15:48 Order name: Lactoferrin, Stool [facility] 08/21 15:48 Order name: CBC with Automated Diff [facility] 08/21 15:48 Order name: CBC with Automated Diff [facility] 08/21 15:48 Order name: Comprehensive Metabolic Panel [facility] 08/21 15:48 Order name: Comprehensive Metabolic Panel [facility] 08/21 15:48 Order name: Magnesium [facility] 08/21 15:48 Order name: Magnesium [facility] 08/21 09:27 Order name: CT Abd/Pelvis - IV Contrast Only; Complete Time: 10:57 rn 08/21 09:27 Order name: IV Saline Lock; Complete Time: 10:00 rn 08/21 09:27 Order name: Labs collected and sent; Complete Time: 10:00 rn 08/21 09:27 Order name: Urine Dipstick-Ancillary (obtain specimen); Complete Time: 10:00 rn 08/21 11:12 Order name: Abdomen ; Complete Time: 14:32 [facility] 08/21 15:46 Order name: CONS Physician Consult [facility] 08/21 15:48 Order name: Full Liquid [facility] 08/21 15:48 Order name: Fecal Leukocyte Stain [facility] 08/21 15:48 Order name: Stool Culture [facility] 08/21 09:27 Order name: Urine Test (obtain specimen); Complete Time: 10:00 rn Administered Medications: 09:59 Drug: NS 0.9% 1000 ml Route: IV; Rate: 1 bolus; Site: right antecubital; johnston 10:00 Drug: Zofran (Ondansetron) 4 mg Route: IVP; Site: right antecubital; johnston 10:37 Drug: NS 0.9% 1000 ml Route: IV; Rate: 1000 ml; Site: right antecubital; johnston 11:10 Drug: Rocephin (cefTRIAXone) 1 grams Route: IV; Rate: calculated rate; Site: right johnston antecubital; 11:10 Drug: Flagyl (metroNIDAZOLE) 500 mg Volume: 100 ml; Route: IVPB; Rate: 200 ml/hr; johnston Infused Over: 30 mins; Site: right antecubital; Disposition Summary: 08/21/21 14:42 Hospitalization Ordered Hospitalization Status: Observation rn Provider: Nabeel Sweeney rn Location: Telemetry/MedSurg (observation) rn Condition: Stable rn Problem: new rn Symptoms: have improved rn Bed/Room Type: Standard rn Room Assignment: [facility](08/21/21 16:46) em1 Diagnosis - Abdominal pain, unspecified - Possible appendicitis rn - Dehydration rn Forms: - Medication Reconciliation Form rn - SBAR form rn Signatures: Dispatcher [employer] [facility] Thompson Sweeney MD MD rn Martinez, Eric em1 Maddie Blanchard RN RN ap3 Mayra-FloryrGarima RN RN johnston Corrections: (The following items were deleted from the chart) 09:28 09:27 Allergies: Aspirin; ap3 ap3 11:12 11:07 Abdomen Pelvis W Con+CT.RAD.BRZ ordered. [facility] 16:46 14:42 rn em1
[2021-08-21] MEDS ORDERED: ONDANSETRON 4 MG/2 ML VIAL IV PRN (15:44)
--- NOTE | 2021-08-21 15:53 | P.HP ---
Certification for Inpatient Patient admitted to: Observation With expected LOS: <2 Midnights Practitioner: I am a practitioner with admitting privileges, knowledge of patient current condition, hospital course, and medical plan of care. 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 Reports subjective fever at home. Diarrhea is very watery with some greenish color. No vomiting. No shortness of breath, no chest pain, no rashes/lesions. Denies any recent known sick contacts, but works at [employer]. Urine has been dark and lips chapped. In the ED, CT abd/pelvis noted possible appendicitis. General surgery recommended admission with antibiotics. Noted to have mild leukocytosis. Allergies aspirin Allergy (Verified 03/14/18 16:54) Unknown zolpidem Adverse Reaction (Verified 05/28/17 01:07) Shortness of breath Home Medications: Albuterol Sulfate [Proair Hfa] 2 puff IH Q6HR 03/14/18 Eslicarbazepine Acetate [Aptiom] 800 mg PO DAILY 03/14/18 Montelukast [Singulair] 10 mg PO DAILY 03/14/18 - Past Medical/Surgical History Diabetic: No -: Seizure disorder -: History of CVA -: Asthma -: Hypoglycemia -: Psychosocial/ Personal History: Patient is single. She has 2 children. She is disabled due to her seizure disorder. - Family History Father -: Diabetes, Stroke, Other (see notes) - Social History Smoking Status: Never smoker Alcohol use: No CD- Drugs: No Caffeine use: Yes Place of Residence: Home Review of Systems 10-point ROS is otherwise unremarkable Physical Examination - Physical Exam General: Alert, In no apparent distress, Oriented x3, Other (thin) HEENT: Sclerae nonicteric Neck: Supple Respiratory: Clear to auscultation bilaterally, Normal air movement Cardiovascular: No edema, Regular rate/rhythm Gastrointestinal: Soft and benign, Non-distended, Tenderness (RLQ, suprapubic) Musculoskeletal: No erythema, No tenderness Integumentary: No rashes, No significant lesion Neurological: Normal speech, Normal strength at 5/5 x4 extr, Normal affect - Studies Laboratory Data (last 24 hrs) 08/21/21 09:45: Sodium 135 L, Potassium 3.7, BUN 17, Creatinine 1.20, Glucose 92, Total Bilirubin 1.0, AST 27, ALT 18, Alkaline Phosphatase 85, Lipase 71 L 08/21/21 09:45: WBC 13.7 H, Hgb 13.1, Hct 39.9, Plt Count 242 Assessment and Plan - Advance Directives Does patient have a Living Will: No Does patient have a Durable POA for Healthcare: No Physician Review Additional Text: Problem List Abd pain, diarrhea Dehydration h/o seizures and CVA, not on medication obs, med/surg surgery consulted rocephin/flagyl IV fluids full liquid diet tonight SCDs stool studies, check for c diff given>10 watery diarrhea patient has been off meds for years, no known seizure in the last 3 years VTE: scds Code: full Dispo: home, 1-2 days Time Spent Managing Pts Care (In Minutes): 60
[2021-08-21 18:34] VITALS: BMI 15.9
[2021-08-21] MEDS: NA CHLORIDE 0.9% 1,000 ML IV SCH (18:48)
[2021-08-21] MEDS: METRONIDAZOLE 500mg IVPB 500 MG/100 ML BAG IV SCH (18:48)
--- NOTE | 2021-08-21 20:47 | CON ---
Date of Consultation: 08/21/2021 Reason For Service: Abdominal pain of unknown origin. History Of Present Illness: This is the case of a 30-year-old patient who came to the ER complaining of diarrhea and also right upper quadrant abdominal pain. It has been there for about 3 days, does not get better or worse. Denies any dysuria, hematuria, hematochezia, or melena. Denies any trauma. The patient initially thought may have some gastroenteritis and although once we went there today s he complains of epigastric right upper quadrant pain. I noticed that to the ER physician she mention ed periumbilical pain and to the other physician the left lower quadrant pain. So it is kind of gene ralized. No other family member sick at home. No recent traveling out of the country. Review of Systems: Nausea, diarrhea. No shortness of breath. No chest pain. No vaginal discharge. Allergies: AMBIEN. Past Medical History: Medical problems; anemia, asthma, CVA, hypoglycemia, seizures. Social History: She does smoke. She use sometimes marijuana. She does not drink alcohol. Family History: Noncontributory. Physical Examination: General: The patient is awake and alert, in no distress, communicative. HEENT: Pupils equal and reactive. Anicteric. Neck: Supple. Chest: Clear. Abdomen: Soft and depressible. No guarding or rebound. No peritoneal signs. Mild generalized tend erness. Right now, this afternoon she claimed of the right upper quadrant. No Rovsing sign. No pso as signs. No guarding or rebound. Pelvic: Deferred. Rectal: Deferred. Extremities: Good capillary refill. Laboratory Data: WBC count of 13.7, hemoglobin of 13.1, platelets of 242. Sodium is 135, total bili march of 1.0, lipase 71. CAT scan of the abdomen and pelvis, she has one at 9 o'clock in the morning and the other one at 11 o'clock. No significant finding in the periappendiceal region. When they d id a CAT scan this morning, it shows once again the appendix . A tubular structure, seems to be the appendix, mildly dilated, no stranding. The patient had a second CAT scan done; once again the same finding as before. No periappendiceal stranding. No mesenteric adenitis. There is contra st and air in the intestines, we did not see any contrast going through the appendix. There appeared to be a normal terminal ileum. The ileocecal valve seems to be intact. Assessment And Plan: This is a 30-year-old patient. We discussed with her the findings. She does n ot have any right lower quadrant pain at this moment. Now, the pain is in the right upper quadrant. She has a WBC count of 13. She asked me specifically if I know for sure what it is. We explained t o her the CAT scan findings now. She has some diarrhea for 3 days already, it has been on and off. She has no peritonitis at this moment, but then we have those CAT scan findings. She wants to go marianne e. I explained to her the importance of not doing so, but at least if she allows to be at least over night we can follow her clinically. Even though I cannot guarantee at this moment what it is and she wants that to be able to sign for surgery, at least keep her for a few hours, at least overnight. I f the pain improves on its own and clinically completely negative, then she abo ut going home, but in the meantime, I believe she should stay overnight. We will not give her any an tibiotics. Continue examination. I understand she does not want to go for surgery, but a t the same time it is important that if she goes home, she has at least some observation. If she goe s for surgery, then she will need laparoscopic possible open appendectomy with benefits, alternatives , and risks fully explained include but not limited to infection, bleeding, damage to adjacent structures, anesthesia complications, negative spenser endix, [place], and . HM/MODL Voice ID: [id number] Report ID: [id number]
[2021-08-22] MEDS ORDERED: NA CHLORIDE 0.9% 500 ML IV ONE ×3 (00:47→04:31)
[2021-08-22] MEDS: METRONIDAZOLE 500mg IVPB 500 MG/100 ML BAG IV SCH ×3 (01:00→17:29)
[2021-08-22] MEDS: NA CHLORIDE 0.9% 1,000 ML IV SCH ×2 (01:14→10:30)
[2021-08-22] MEDS ORDERED: OXYMETAZOLINE HCL 0.05% 15ML NAS ONE (03:59)
[2021-08-22 05:55] LABS: Absolute Lymphocytes (CBC) 1.8 K/uL (0.7-4.9); Hematocrit 27.7 % (36.0-45.0); Lymphocytes % 22.2 % (15.3-44.8); MPV 8.1 fL (7.6-11.3); RBC Red Blood Cell Count 3.23 M/uL (3.86-4.86)
[2021-08-22 06:04] LABS: ALT/SGPT 13 U/L (12-78); AST/SGOT 11 U/L (15-37); Albumin 2.7 g/dL (3.4-5.0); Alkaline Phosphatase 54 U/L (45-117); BUN Blood Urea Nitrogen 9 mg/dL (7-18); Bicarbonate 20 mmol/L (21-32); Bilirubin Total 0.4 mg/dL (0.2-1.0); Glucose Level 65 mg/dL (74-106); Magnesium 2.1 mg/dL (1.8-2.4); Potassium 4.4 mmol/L (3.5-5.1); Protein, Total 6.3 g/dL (6.4-8.2); Sodium Level 141 mmol/L (136-145)
--- NOTE | 2021-08-22 06:50 | P.PN ---
Date of Service: 08/22/21 Subjective: low BP overnight, responded to IVF continues with RLQ and lower back pain continues with diarrhea, not as watery ROS: 10 point ROS as noted above, otherwise negative Physical exam GEN: Alert, oriented, NAD HEENT: Normal conjunctiva, sclera anicteric CV: Regular rate and rhythm, no edema Pulm: Non-labored respirations on room air ABD: Soft, TTP in RLQ, suprapubic region MSK: No CVA tenderness Integumentary: No rashes Neuro: Normal speech, normal affect Problem List Abd pain, diarrhea concerning for appendicitis Dehydration h/o seizures and CVA, not on medication NPO, IVF not septic surgery consulted, planning for lap appy today rocephin/flagyl SCDs stool studies pending patient has been off meds for years, no known seizure in the last 3 years VTE: scds Code: full Dispo: home, possibly tomorrow, pending surgical findings Time Spent Managing Pts Care (In Minutes): 35
[2021-08-22 09:02] LABS: RBC Red Blood Cell Count 3.25 M/uL (3.86-4.86)
[2021-08-22 09:36] LABS: Ferritin 135.6 ng/mL (8-388)
[2021-08-22] MEDS: CEFTRIAXONE 1,000 MG in NA CHLORIDE 0.9% 50 ML IVPB SCH (10:30)
[2021-08-22] MEDS ORDERED: FENTANYL CITR 100 MCG/2 ML ONE ×2 (12:47→13:58)
[2021-08-22] MEDS ORDERED: propofoL 200 MG/20 ML VIAL IV ONE ×2 (12:47→13:58)
[2021-08-22] MEDS ORDERED: KETOROLAC 30 MG/ML INJ ONE (12:48)
[2021-08-22] MEDS ORDERED: MIDAZOLAM HCL 2 MG/2 ML INJ ONE ×2 (12:48→13:53)
[2021-08-22] MEDS ORDERED: ONDANSETRON 4 MG/2 ML VIAL ONE (12:48)
[2021-08-22] MEDS ORDERED: dexAMETHasone 10 MG/ML VIAL ONE (12:48)
[2021-08-22] MEDS ORDERED: LIDOCAINE 1% MPF 30 ML VIAL ONE (12:50)
[2021-08-22] MEDS ORDERED: ROCURONIUM 50 MG/5 ML VIAL IV ONE ×2 (12:54→13:59)
[2021-08-22] MEDS ORDERED: Ringers Lactate 1,000 ML IV ONE (13:50)
[2021-08-22] MEDS ORDERED: LIDOCAINE 1% MPF 5 ML VIAL ONE (13:58)
[2021-08-22] MEDS ORDERED: SUCCINYLCHOLINE 20 MG/ML (10 ML) IV ONE (14:08)
[2021-08-22] MEDS ORDERED: Phenylephrine HCl 10 MG/ML 1 ML VIAL ONE (14:45)
--- NOTE | 2021-08-22 15:00 | P.BOP ---
Preoperative diagnosis: Acute appendicitis, abd pain Postoperative diagnosis: same Primary procedure: Laparoscopic appendectomy Piece Maker: Iesha Rincon ([place]rist[place]) Estimated blood loss: <10cc Specimen: spenser Findings: as above Anesthesia: General Complications: None Transferred to: Recovery Room Condition: Good
[2021-08-22] MEDS ORDERED: GLYCOPYRROLATE 0.2 MG/ML SYR ONE (15:02)
[2021-08-22] MEDS ORDERED: NEOSTIGMINE 1 MG/ML -5 ML ONE (15:02)
[2021-08-22] MEDS ORDERED: MEPERIDINE HCL 25 MG/ML SYR ONE (15:52)
[2021-08-22] MEDS: MORPHINE 4 MG/ML SYR ONE ×4 (15:55→16:12)
[2021-08-22] MEDS ORDERED: CODEINE 30MG/APAP 300MG TAB PO PRN (15:58)
[2021-08-22] MEDS ORDERED: MORPHINE 4 MG/ML SYR IV PRN (16:10)
--- NOTE | 2021-08-22 19:17 | PN ---
Date of Progress Note: 08/22/2021 Ms. García is a female, who comes to us with abdominal pain, sometimes epigastric, sometimes right u pper quadrant, sometimes periumbilical, sometimes left lower quadrant and right lower quadrant. It i s nonspecific. It has been there for several days already. She was admitted for observation and the findings and clinical were inconclusive and she wants a little bit more of a time to make the decisi on. She is not better. Today, the abdominal pain goes more in the right lower quadrant and suprapubi c. So, I explained to her once again the options of diagnostic laparoscopy, laparoscopic possible op en appendectomy with benefits, alternatives, risks including, but not limited to infection, bleeding, damage to adjacent structures, anesthesia complication, negative appendix, [place], and even . We e xplained to her that as part of this, may have a negative appendix that is what we do suggestion diag nostic lap. There is difficult to tell 100% of the cases when the appendix is causing the pain or no t. few hours since last night. She has some improvement in several days. The pain is mo re or less in the right lower quadrant. Once again, we have [address] scans, nothing very speci fic, but still cannot rule out appendicitis and she finally make the decision that she will like diag nostic lap and laparoscopic possible open appendectomy. That being said, I discussed that with the saqib hughes doctor. She is n.p.o. WBC count is lower but at the same time she has been on antibiotics. I explained to her that not just because appendix is out, the problems are gone because if she has ga strointestinal disease including colitis, we still going to have an issue that we have to resolve, bu t at least the appendix is visualized and rule out or removed, if needed. Understanding all that she is going to sign a consent and was immediately called. TOVA/GIL Voice ID: [id number] Report ID: [id number]
[2021-08-22 20:59] VITALS: O2SAT 98
[2021-08-23] MEDS: METRONIDAZOLE 500mg IVPB 500 MG/100 ML BAG IV SCH ×2 (00:15→08:18)
[2021-08-23] MEDS: NA CHLORIDE 0.9% 1,000 ML IV SCH (00:21)
--- NOTE | 2021-08-23 02:08 | OP ---
Date of Procedure: 08/22/2021 Surgeon: Giovanyn Peng MD Endoscopy Tech: Iesha Tee. Preoperative Diagnoses: Acute appendicitis, abdominal pain. Postoperative Diagnosis: Acute appendicitis, abdominal pain. Procedures: Laparoscopic appendectomy, diagnostic laparoscopy. Complications: None. Estimated Blood Loss: Less than 10 cc. Anesthesia: General plus local. Findings: Acute appendicitis. Indications: This is a case of a 30-year-old patient comes to us with abdominal pain epigastric, rig ht upper quadrant, and then moved to the left lower quadrant and sometimes right lower quadrant. We will keep her overnight. This morning, we advised her once again of let us do the diagnostic laparos copy for a possibility of appendectomy. Since she was not getting better, she agreed and signed a co nsent. The benefits, alternatives, and risks were explained which included, but not limited to infec tion, bleeding, damage to adjacent structures, anesthesia complication, negative appendix, AK, and ev en . She also understands this may not relieve the symptoms. She might need more than one surg ical intervention. She understood, signed a consent. The patient understands she still has to be co mpliant with doctor's orders, to be careful with what she eats. No heavy lifting after the surgery. She should also find a director international. She signed a consent. The patient brought to the operat ing room, placed in supine position. Anesthesia was done without complication. Abdominal area was p repped and draped in sterile fashion. Marcaine 0.5% was injected for local anesthetic followed by sh verónica incision of the skin in the infraumbilical region. Incision was carried down to fascia, which wa s opened under direct vision. Peritoneum was encountered, opened under direct vision. Vicryl #1 rosalie shaniqua inside the fascia. Darshana trocar was carefully introduced. Pneumoperitoneum was obtained. We s elected the abdomen, in the left lower quadrant two areas that we can put a trocar through under dire ct visualization. This allowed me to do the diagnostic lap. Gallbladder, with no swelling seen. Li sherrill, no extraluminal masses that we can see. Stomach, somewhat compressible. Spleen, at least from the this point does not have any major abnormalities. Ascending, transverse, and descending colon wi th no major abnormalities. Small bowel with no tumor seen, at least extraluminal. The pelvic area w ith no blood, but we noticed the appendix to be asymmetrical in shape and color, consistent with appe ndicitis. So, we created a window in the base of the appendix, transected that with Endo MADDI 45 mm n onvascular device and then after that we used the mesoappendix with an Endo MADDI 45 mm vascular. Furt her hemostasis was obtained with the help of 5 mm hemoclips. Appendix removed from abdominal cavity using EndoCatch through the umbilical incision. The area was irrigated. Suction was done. No bleed ing. At that moment, I proceeded to remove the trocars under direct vision. Deflated the pneumoperi toneum. Closed the fascia with 1 Vicryl, irrigated subcutaneous tissue, closed that with 3-0 chromic , and skin with mara. Sponge count and instrument counts correct. The patient tolerated the proc edure well. The patient was sent to Recovery in stable condition. TOVA/GIL Voice ID: [id number] Report ID: [id number]
[2021-08-23 05:55] LABS: Hematocrit 27.7 % (36.0-45.0); MPV 8.2 fL (7.6-11.3)
[2021-08-23 06:35] LABS: Albumin 3.1 g/dL (3.4-5.0); Bilirubin Total 0.6 mg/dL (0.2-1.0); Magnesium 1.6 mg/dL (1.8-2.4); Potassium 3.7 mmol/L (3.5-5.1); Protein, Total 6.8 g/dL (6.4-8.2)
[2021-08-23] MEDS ORDERED: D50W 25 GM/50 ML SYRINGE IV ONE (06:42)
[2021-08-23] MEDS: CEFTRIAXONE 1,000 MG in NA CHLORIDE 0.9% 50 ML IVPB SCH (08:15)
[2021-08-23] MEDS ORDERED: POTASSIUM 25 MEQ EFFERV TAB PO ONE (08:30)
[2021-08-23] MEDS ORDERED: MAGNESIUM SULFATE 1 gm IVPB 1 GM/100 ML BAG IV ONE (11:00)
[2021-08-23 12:16] LABS: C.diff Antigen/Toxin Ag neg : Tox neg (NEG : NEG)
[2021-08-23 12:23] VITALS: BP 94/67; TEMP 98.7
--- NOTE | 2021-08-23 14:11 | P.DS ---
Admission Date: 08/21/21 Discharge Date: 08/23/21 Disposition: ROUTINE DISCHARGE Discharge Condition: GOOD Reason for Admission: Abdominal pain, diarrhea, appendicitis Consultations: General surgeryDr. Peng Procedures: Problem List acute appendicitis, s/p lap appendectomy JOSE CRUZ, prerenal h/o seizures and CVA, not on medication Brief History of Present Illness: 30yo F, PMH: seizures, CVA secondary to seizures Presents to ED due to 3 days of >10 loose watery stools, associated with lower back pain, RLQ pain, and nausea. Reports subjective fever at home. Diarrhea is very watery with some greenish color. No vomiting. No shortness of breath, no chest pain, no rashes/lesions. Denies any recent known sick contacts, but works at [email or web address]. Urine has been dark and lips chapped. In the ED, CT abd/pelvis noted possible appendicitis. General surgery recommended admission with antibiotics. Noted to have mild leukocytosis. Hospital Course: CT abdomen/pelvis was concerning for appendicitis. Patient underwent laparoscopic exploration and subsequent appendectomy for appendicitis by Dr. Peng. Postoperatively she did well, pain improved, no nausea/vomiting, and was tolerating full liquid / soft diet, ambulating around the floor. She was deemed stable for discharge home, with prescriptions for ciprofloxacin and Flagyl, as well as Tylenol 3. Continue full liquid / soft food diet and slowly building back to regular diet over the next week. Follow up with Dr. Peng in the office, in 1 week. Vital Signs/Physical Exam: Temp Pulse Resp BP Pulse Ox 98.7 F 88 16 94/67 98 08/23/21 12:00 08/23/21 12:00 08/23/21 12:00 08/23/21 12:00 08/23/21 12:00 Physical exam GEN: Alert, oriented, NAD HEENT: Normal conjunctiva, sclera anicteric CV: Regular rate and rhythm, no edema Pulm: Non-labored respirations on room air ABD: Soft, TTP around surgical incisiosn MSK: No CVA tenderness Integumentary: No rashes Neuro: Normal speech, normal affect Laboratory Data at Discharge: WBC 10.6 K/uL (4.3-10.9) D 08/23/21 05:17 Hgb 9.5 g/dL (12.0-15.0) L 08/23/21 05:17 Hct 27.7 % (36.0-45.0) L 08/23/21 05:17 Plt Count 182 K/uL (152-406) 08/23/21 05:17 Sodium 137 mmol/L (136-145) 08/23/21 05:17 Potassium 3.7 mmol/L (3.5-5.1) 08/23/21 05:17 BUN 3 mg/dL (7-18) L 08/23/21 05:17 Creatinine 0.90 mg/dL (0.55-1.3) 08/23/21 05:17 Glucose 46 mg/dL (74-106) L* 08/23/21 05:17 Magnesium 1.6 mg/dL (1.8-2.4) L D 08/23/21 05:17 Total Bilirubin 0.6 mg/dL (0.2-1.0) 08/23/21 05:17 AST 28 U/L (15-37) 08/23/21 05:17 ALT 15 U/L (12-78) 08/23/21 05:17 Alkaline Phosphatase 55 U/L (45-117) 08/23/21 05:17 Lipase 71 U/L (73-393) L 08/21/21 09:45 Home Medications: Albuterol Sulfate [Proair Hfa] 2 puff IH Q6HR 03/14/18 Eslicarbazepine Acetate [Aptiom] 800 mg PO DAILY 03/14/18 Montelukast [Singulair*] 10 mg PO DAILY 03/14/18 Ciprofloxacin HCl [Cipro 500 MG Tablet] 500 mg PO BID 10 Days #20 tab 08/23/21 Codeine/APAP [Tylenol #3*] 1 tab PO Q6H PRN 3 Days #12 tab 08/23/21 metroNIDAZOLE [Flagyl] 500 mg PO Q8H 10 Days #30 tablet 08/23/21 New Medications: Ciprofloxacin HCl [Cipro 500 MG Tablet] 500 mg PO BID 10 Days #20 tab metroNIDAZOLE [Flagyl] 500 mg PO Q8H 10 Days #30 tablet Codeine/APAP [Tylenol #3*] 1 tab PO Q6H PRN 3 Days #12 tab PRN Reason: Pain Scale 5-7 (Moderate) Physician Discharge Instructions: CT abdomen/pelvis was concerning for appendicitis. Patient underwent laparoscopic exploration and subsequent appendectomy for appendicitis by Dr. Peng. Postoperatively she did well, pain improved, no nausea/vomiting, and was tolerating full liquid / soft diet. She was deemed stable for discharge home, with prescriptions for antibiotics and pain medication. Continue full liquid / soft food diet and slowly building back to regular diet over the next week. Follow up with Dr. Peng in the office, in 1 week. No heavy lifting > 10lbs for 4 weeks Do not submerge surgical incisions under water. Running water / Shower is ok. Diet: [place] Followup: NONE,NONE [Primary Care Provider] - Time spent managing pt's care (in minutes): 45
== END 2021-08-23 16:30 | disposition home or self-care (01) | DRG 342 ==
LOC: ER 09:12 → ERHOLD 15:49 → 2ND 17:52 → OBSVTOIN 21:07
PROVIDERS: ADMIT Hospitalist; ATTEND Hospitalist
PROC: 0DTJ4ZZ Resection of Appendix, Percutaneous Endoscopic Approach (ICD-10-PCS; principal; 2021-08-22 12:30)
DX: K35.80 Unspecified acute appendicitis (principal); N17.9 Acute kidney failure, unspecified; J45.909 Unspecified asthma, uncomplicated; D72.829 Elevated white blood cell count, unspecified; E86.0 Dehydration; G40.909 Epilepsy, unspecified, not intractable, without status epilepticus; Z88.6 Allergy status to analgesic agent; Z79.899 Other long term (current) drug therapy; Z88.8 Allergy status to other drugs, medicaments and biological substances; Z86.73 Personal history of transient ischemic attack (TIA), and cerebral infarction without residual deficits; Z20.822 Contact with and (suspected) exposure to COVID-19
CPT/HCPCS: 0240U; 36415; 74176; 74177; 80053; 81003; 81025; 82607; 82728; 82947; 83540; 83631; 83690; 83735; 84466; 85025; 85027; 85044; 87045; 87046; 87324; 87449; 88304; 89055; 94010; 96374; 96375; 99285; G0378; J0330; J1100; J2175; J2250; J2370; J2405; J2704; J2710; J3010; J7030; J7120; Q9967

== ENCOUNTER 2021-12-01 10:49 | Emergency (ER) | payer SELFPAY ==
[2021-12-01 13:13] LABS: Absolute Lymphocytes (CBC) 3.7 K/uL (0.7-4.9); Hematocrit 38.4 % (36.0-45.0); Lymphocytes % 52.8 % (15.3-44.8); MCV 83.8 fL (80-100); MPV 8.3 fL (7.6-11.3); RBC Red Blood Cell Count 4.58 M/uL (3.86-4.86)
[2021-12-01 13:31] LABS: Albumin 4.6 g/dL (3.4-5.0); Bilirubin Total 0.6 mg/dL (0.2-1.0); Potassium 3.2 mmol/L (3.5-5.1); Protein, Total 9.3 g/dL (6.4-8.2)
[2021-12-01] MEDS ORDERED: DEXTROSE 10%-WATER 500 ML IV ONE (14:09)
--- NOTE | 2021-12-01 15:36 | RAD REPORT ---
EXAM DESCRIPTION: CT - Abdomen Pelvis W Contrast - 12/01/2021 3:20 pm CLINICAL HISTORY: abdominal pain, vomiting COMPARISON: Abdomen Pelvis W Contrast dated 08/21/2021 TECHNIQUE: Biphasic, helical CT imaging of the abdomen and pelvis was performed following 100 ml non -ionic IV contrast. No oral contrast administered. All CT scans are performed using dose optimization technique as appropriate and may include automated exposure control or mA/KV adjustment according to patient size. FINDINGS: No suspicious findings in the lung bases. The liver, spleen, and pancreas show no suspicious findings. Gallbladder and biliary tree are also wi thout suspicious finding. Symmetric renal function is seen with no hydronephrosis or suspicious renal mass. No pyelonephritis o r acute parenchymal process. Bladder is contracted limiting assessment. No adrenal abnormalities. No uterine abnormality seen. Ovaries are not distinguishable from the isodense adjacent bowel. Lore us phleboliths are seen in the pelvis. The ASSISTANT TRACK AND FIELD COACH findings are not clearly different from comparison. No dilated bowel loops or bowel wall thickening. Appendix is not clearly defined. No direct or indire ct evidence for appendicitis. Fluid-filled small bowel loops can indicate nonspecific enteritis. Trac e amount of fluid is seen in the pelvis. No hernia, mass or bulky lymphadenopathy. No suspicious bony findings. IMPRESSION: Contrast enhanced CT abdomen and pelvis showing no acute or emergent finding. No ovarian process identifiable. The ovaries are indistinguishable from the adjacent isodense small b owel.
--- NOTE | 2021-12-01 19:08 | EDPHYS ---
Physician Documentation [facility] Name: Alyssa García Age: 30 yrs Sex: Female : 1990 Arrival Date: 12/01/2021 Time: 10:55 Bed 15 Private MD: ED Physician Thompson Sweeney HPI: 12/01 11:23 This 30 yrs old Black Female presents to ER via EMS with complaints of Flu Symptoms. jmm 11:23 The patient presents to the emergency department with nausea, vomiting, diarrhea, jmm abdominal pain. Onset: The symptoms/episode began/occurred gradually, 4 day(s) ago. Possible causes: unknown. The symptoms are aggravated by nothing. The symptoms are alleviated by nothing. Associated signs and symptoms: Pertinent positives: abdominal pain, Pertinent negatives: fever. It is unknown whether or not the patient has had similar symptoms in the past. 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 - Social history:: Smoking status: Patient denies any tobacco usage or history of. ROS: 11:23 Cardiovascular: Negative for chest pain, palpitations, and edema, Respiratory: Negative jmm for shortness of breath, cough, wheezing, and pleuritic chest pain. 11:23 Constitutional: Positive for body aches, chills. 11:23 Abdomen/GI: Positive for abdominal pain, nausea and vomiting, diarrhea. 11:23 All other systems are negative. Exam: 11:23 Constitutional: This is a well developed, well nourished patient who is awake, alert, jmm and in no acute distress. Head/Face: atraumatic. Eyes: EOMI, no conjunctival erythema appreciated ENT: Moist Mucus Membranes Neck: Trachea midline, Supple Chest/axilla: Normal chest wall appearance and motion. Cardiovascular: Regular rate and rhythm. No edema appreciated Respiratory: Normal respirations, no respiratory distress appreciated 11:23 Skin: General appearance color normal MS/ Extremity: Moves all extremities, no obvious deformities appreciated, no edema noted to the lower extremities Neuro: Awake and alert Psych: Behavior is normal, Mood is normal, Patient is cooperative and pleasant 11:23 Abdomen/GI: Inspection: abdomen appears normal, Bowel sounds: normal, Palpation: soft, mild abdominal tenderness, in all quadrants. Vital Signs: 11:36 BP 95 / 78; Pulse 64; Resp 18; Temp 99.2; Pulse Ox 100% ; Weight 40.82 kg; Height 5 ft. ap3 2 in. (157.48 cm); 14:15 BP 99 / 71; Pulse 50; Resp 12 S; Pulse Ox 100% ; jg9 14:30 BP 93 / 69; Pulse 47; Resp 15; Pulse Ox 100% on R/A; jg9 15:00 BP 105 / 81; Pulse 55; Resp 14 S; Pulse Ox 100% ; jg9 16:30 BP 118 / 80; Pulse 59; Resp 12 S; Pulse Ox 100% on R/A; jg9 17:15 BP 91 / 75; Pulse 54; Resp 12 S; Pulse Ox 100% on R/A; jg9 19:00 BP 92 / 71; Pulse 63; Resp 12 S; Pulse Ox 100% ; jg9 11:36 Body Mass Index 16.46 (40.82 kg, 157.48 cm) ap3 MDM: 11:29 Patient medically screened. [facility] 14:01 Data reviewed: vital signs, nurses notes. [facility] 19:07 Counseling: I had a detailed discussion with the patient and/or guardian regarding: the [facility] historical points, exam findings, and any diagnostic results supporting the discharge/admit diagnosis, lab results, radiology results, the need for outpatient follow up, to return to the emergency department if symptoms worsen or persist or if there are any questions or concerns that arise at home. 12/01 11:23 Order name: CBC with Diff; Complete Time: 13:15 [facility] 12/01 11:23 Order name: CMP; Complete Time: 13:35 [facility] 12/01 11:23 Order name: Lipase; Complete Time: 13:35 [facility] 12/01 12:17 Order name: SARS-COV-2 RT PCR (Document "Date of Onset" if Symptomatic); Complete Time: [facility] 14:43 12/01 11:23 Order name: IV Saline Lock; Complete Time: 13:58 [facility] 12/01 11:23 Order name: Labs collected and sent; Complete Time: 13:58 [facility] 12/01 12:17 Order name: Urine Dipstick-Ancillary (obtain specimen); Complete Time: 17:54 [facility] 12/01 13:36 Order name: CT Abd/Pelvis - IV Contrast Only; Complete Time: 15:39 [facility] 12/01 17:19 Order name: Fingerstick Glucose; Complete Time: 17:54 [facility] 12/01 18:00 Order name: Glucose, Ancillary Testing; Complete Time: 18:03 [facility] 12/01 19:16 Order name: Glucose, Ancillary Testing; Complete Time: 19:21 [facility] 12/01 18:36 Order name: Fingerstick Glucose; Complete Time: 19:07 [facility] Administered Medications: 14:07 Drug: D10 in Water [2 mL/kg] 2 ml/kg Route: IVP; Site: right antecubital; jg9 17:53 Follow up: Response: No adverse reaction; Other jg9 Point of Care Testing: Urine : 15:07 hCG Reading: Negative; Control Reading: Positive; jg9 Disposition: 19:07 Chart complete. Chart complete. [facility] 12/02 07:32 Co-signature as Attending Physician, Thompson Sweeney MD. rn Disposition Summary: 12/01/21 19:07 Discharge Ordered Location: Home [facility] Condition: Stable [facility] Diagnosis - Diarrhea, unspecified jmm - Hypoglycemia, unspecified jmm Followup: [facility] - With: Private Physician - When: 2 - 3 days - Reason: Recheck today's complaints, Continuance of care, Re-evaluation by your physician Discharge Instructions: - Discharge Summary Sheet jm - Food Choices to Help Relieve Diarrhea, Adult jmm - Hypoglycemia [facility] Forms: - Medication Reconciliation Form [facility] - Thank You Letter [facility] - Antibiotic Education m - Prescription Opioid Use [facility] Signatures: Dispatcher [employer] EDMS Gianni Grant PA PA Thompson Gracia MD MD rn Prokisch, Amanda RN RN ap3 Lorene Rey RN RN jg9
--- NOTE | 2021-12-01 19:08 | ER ---
Nurse's Notes [facility] Name: Alyssa García Age: 30 yrs Sex: Female : 1990 Arrival Date: 12/01/2021 Time: 10:55 Bed 15 Private MD: Diagnosis: Diarrhea, unspecified;Hypoglycemia, unspecified Presentation: 12/01 11:36 Chief complaint: Patient states: her stomach has been hurting for approx 4 days now. ap3 Patient states she has also been having loose bowels, and has been vomiting. Coronavirus screen: Client presents with at least one sign or symptom that may indicate coronavirus-19. Ebola Screen: No symptoms or risks identified at this time. Initial Sepsis Screen: Does the patient meet any 2 criteria? No. Patient's initial sepsis screen is negative. Does the patient have a suspected source of infection? No. Patient's initial sepsis screen is negative. Risk Assessment: Do you want to hurt yourself or someone else? Patient reports no desire to harm self or others. Onset of symptoms was November 28, 2021. 11:36 Method Of Arrival: EMS: [facility] ap3 11:36 Acuity: RUSLAN 3 ap3 Triage Assessment: 11:39 General: Appears uncomfortable, Behavior is flat. Pain: Complains of pain in abdomen ap3 Pain began gradually, 2-3 days ago. Neuro: Level of Consciousness is awake, alert, obeys commands, Oriented to person, place, time, situation, Speech is normal. Cardiovascular: Patient's skin is warm and dry. Respiratory: Airway is patent Respiratory effort is even, unlabored. GI: Reports cramping, diarrhea, nausea, vomiting. 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 - Social history:: Smoking status: Patient denies any tobacco usage or history of. Screenin:39 Abuse screen: Denies threats or abuse. Nutritional screening: Has had N/V for 3 or more ap3 days. Tuberculosis screening: No symptoms or risk factors identified. 13:59 Fall Risk None identified. jg9 Assessment: 13:37 Reassessment: Lab called stated that patient's Glucose was 39. Pt is awake and alert, ss respirations even and unlabored. Pt has been given pudding and apple juice. SHELLY Archer notified. 16:49 Reassessment: No changes from previously documented assessment. Patient and/or family jg9 updated on plan of care and expected duration. Pain level reassessed. Patient is alert, oriented x 3, equal unlabored respirations, skin warm/dry/pink. 17:24 Reassessment: No changes from previously documented assessment. Patient and/or family jg9 updated on plan of care and expected duration. Pain level reassessed. Patient is alert, oriented x 3, equal unlabored respirations, skin warm/dry/pink. 19:06 Reassessment: BGL 68 mg/dL-SHELLY Archer aware. jg9 Vital Signs: 11:36 BP 95 / 78; Pulse 64; Resp 18; Temp 99.2; Pulse Ox 100% ; Weight 40.82 kg; Height 5 ft. ap3 2 in. (157.48 cm); 14:15 BP 99 / 71; Pulse 50; Resp 12 S; Pulse Ox 100% ; jg9 14:30 BP 93 / 69; Pulse 47; Resp 15; Pulse Ox 100% on R/A; jg9 15:00 BP 105 / 81; Pulse 55; Resp 14 S; Pulse Ox 100% ; jg9 16:30 BP 118 / 80; Pulse 59; Resp 12 S; Pulse Ox 100% on R/A; jg9 17:15 BP 91 / 75; Pulse 54; Resp 12 S; Pulse Ox 100% on R/A; jg9 19:00 BP 92 / 71; Pulse 63; Resp 12 S; Pulse Ox 100% ; jg9 11:36 Body Mass Index 16.46 (40.82 kg, 157.48 cm) ap3 ED Course: 10:55 Patient arrived in ED. mr 10:57 Gianni Grant PA is PHCP. jmm 10:57 Thompson Sweeney MD is Attending Physician. jmm 11:38 Triage completed. ap3 11:40 Arm band placed on right wrist. ap3 13:00 Initial lab(s) drawn, by me, sent to lab. Missed attempt(s): 24 gauge in left forearm. dh3 Bleeding controlled, band aid applied, catheter tip intact. 13:49 Lorene Rey, RN is Primary Nurse. jg9 13:58 Inserted saline lock: 20 gauge in right forearm, using aseptic technique. jg9 13:59 Patient has correct armband on for positive identification. Bed in low position. Call jg9 light in reach. Side rails up X 1. 14:47 Patient requests rest room assistance. jg9 15:22 CT Abd/Pelvis - IV Contrast Only In Process Unspecified. EDMS 16:49 Appears to be sleeping. Awaiting disposition. jg9 17:24 Appears to be sleeping. Awaiting disposition. jg9 18:00 Notified Nurse Practitioner and/or Physician Rubber Tubing Splicer of a critical lab result(s), jg9 BGL-38mg/dL. 18:06 Diet: Patient given a regular meal tray. jg9 19:08 No provider procedures requiring assistance completed. jg9 19:23 IV discontinued. jg9 Administered Medications: 14:07 Drug: D10 in Water [2 mL/kg] 2 ml/kg Route: IVP; Site: right antecubital; jg9 17:53 Follow up: Response: No adverse reaction; Other jg9 Medication: 19:08 VIS not applicable for this client. jg9 Point of Care Testing: Urine : 15:07 hCG Reading: Negative; Control Reading: Positive; jg9 Outcome: 19:07 Discharge ordered by . [facility] 19:08 Condition: stable jg9 19:23 Discharged to home ambulatory. jg9 19:23 Discharge instructions given to patient, Instructed on discharge instructions, follow up and referral plans. Demonstrated understanding of instructions, follow-up care. 19:23 Patient left the ED. jg9 Signatures: Dispatcher [employer] EDMS Gianni Grant PA PA jmm Rivera, Mary mr Smirch, Shelby, RN RN Kathryn Avilez [facility] Maddie Blanchard RN RN ap3 Lorene Rey, RN RN jg9 Corrections: (The following items were deleted from the chart) 13:47 13:37 Reassessment: Lab called stated that patient's Glucose was 39. Pt is awake and ss alert, respirations even and unlabored. Pt has been given pudding and apple juice. ss
[2021-12-01 19:47] VITALS: TEMP 99.2; O2SAT 100
[2021-12-01 20:07] VITALS: BP 92/71
== END 2021-12-01 19:23 | disposition home or self-care (01) ==
LOC: ER 10:49
DX: R19.7 Diarrhea, unspecified (principal); E16.2 Hypoglycemia, unspecified; Z88.8 Allergy status to other drugs, medicaments and biological substances
CPT/HCPCS: 36415; 74177; 80053; 82947; 83690; 85025; 99284; Q9967; U0003

== ENCOUNTER 2022-03-21 12:59 | Emergency (ER) | payer SELFPAY ==
--- OUTSIDE RECORDS SUMMARY | 2022-03-21 13:04 | XMS REPORT | Continuity of Care Document ---
:1990 Author Organization [facility] t Address [address] [place] [place] [address] Care Team Providers Name Role Phone PCP, PATIENT DOES NOT HAVE A Primary Care Physician UnavailMARGE Morales Attending Clinician Unavailable Jackelin Mandujano Attending Clinician JACKELIN GONG Attending Clinician Unavailable MIREYA STANFORD Attending Clinician Unavailable ANGELICA WRIGHT Admitting Clinician Unavailable MIREYA STANFORD Admitting Clinician Unavailable Payers Payer Name Policy Type Policy Number Effective Date Expiration Date Lul [facility] [employer] [id number] 2018 HEALTH 00:00:00 [place]ICAID OF [place] [id number] 2017 00:00:00 Problems Condition Condition Condition Status Onset Resolution Last Treating Co mments Source Name Details Category Date Date Treatment Clinician Date Seizure Seizure Disease Active [facility] [place] Mild Mild Disease Active [facility] intermitte intermitte 05-30 Suki kes nt asthma nt asthma 00:00: Medi ann without without 00 Center complicati complicati on on Physical Physical Disease Active [facility] deconditio deconditio 05-30 [place] kes [place] 00:00: Medical 00 [place] Cerebrovas Cerebrovas Disease Active [facility]ular [facility]ular [facility]29 [facility] accident accident 00:00: Medica l (CVA) 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 EEG EEG Disease Active [facility] abnormal abnormal 05[facility] 00 [place] Altered Altered Disease Active [facility] mental mental 05[facility]28 [facility] status status 00:00: Medical 00 [place] Fever Fever Disease Active [facility] [place] Other Other Disease Active Univers general general 4-11 ity of [place] advice and advice 00 Me dical for for Branch contracept contracept vi vi management management History of History of Disease Active U nivers asthma asthma 4-11 ity of 00:00: [place] 00 Medical Branch Amenorrhea Amenorrhea Disease Active U nivers 4-11 ity of 00:00: [place] 00 Medical Branch History of History of Disease Active U nivers seizures seizures 8- ity of 00:00: [place] 00 Medical Branch Underweigh Underweigh Disease Active 2013- U nivers t t 8-06 ity of 00:00: [place] 00 Medical Branch Allergies, Adverse Reactions, Alerts Allergy Allergy Status Severity Reaction(s) Onset Inactive Treating Comm ents Source Name Type Date Date Clinician Zolpidem Drug Active Shortness Of [facility] 00:[facility]: Medical 00 Center Zolpidem Propensi Active Unknown - Possible U nivers Tartrate ty to See comments 6-20 seizures/ ity of adverse 00:00: anxiety [place] reaction 00 attacks Medical s to Branch drug ZOLPIDEM DRUG Active High Unknown-Cmnt Un keila TARTRATE INGREDI 6-20 ity of 00:00: [place] 00 [facility] Branch Social History Social Habit Start Date Stop Date Quantity Comments Source Exposure to Not sure University SARS-CoV-2 [facility] [place] [facility] (event) Branch Tobacco use and 2017-05-28 2017-05-28 Never used ARMAND Collier exposure 00:00:00 00:00:00 Medical Center Alcohol intake 2017-05-28 2017-05-28 Current ARMAND Jimenes es 00:00:00 00:00:00 non-drinker of Medical Ce nter alcohol (finding) Sex Ass[birth year] At [birth year] ARM[facility] Collier 00:00:00 00:00:00 [facility] Center Smoking Status Start Date Stop Date Source Never smoker [facility] Medications Ordered Filled Start Stop Current Ordering Indication Dosage Frequency Signature Comments Components Source Medication Medication Date Date Medication? Clinician (SIG) Name Name naproxen Yes [id number] 500mg Take 1 Univers 500 mg 3-24 75165 tablet by ity of tablet 00:00: mouth [place] 00 every 12 Medical (twelve) Branch hours as needed for Pain (scale 4-6) (pain). albuterol Yes 2{puff} Inhale 2 U nivers (PROAIR 6-27 Puffs ity of HFA) 90 22:11: every 6 [place] mcg/actuati 36 (six) Medical on inhaler hours as Branc h needed for Wheezing or Shortness of Breath. blood sugar Yes TEST 3 Univ ers diagnostic 6-26 TIMES A ity of (TRUE 00:00: DAY [place] METRIX 00 [facility] GLUCOSE [place] TEST STRIP) strip Lancets Yes Test 3 Univers Misc 6-26 times ity of 00:00: daily [address] Blood-Gluco Yes Use as Univ ers se Meter 6-23 directed ity of (TRUE 00:00: [place] METRIX 00 Medical GLUCOSE Branch METER) Misc Immunizations Ordered Filled Immunization Date Status Comments Sourc e Immunization Name Name TDAP 2016-09-01 Completed University of 00:00:00 [facility] Td 2004-05-24 Completed [facility] 00:00:00 [facility] Vital Signs Vital Name Observation Time Observation Value Comments Source Systolic blood 2021-08-14 14:36:00 93 mm[Hg] Univer sity of pressure [facility] Diastolic blood 2021-08-14 14:36:00 65 mm[Hg] Unive rsity of pressure [facility] Heart rate 2021-08-14 14:36:00 77 /min [facility] Body temperature 2021-08-14 14:36:00 36.28 [facility] Res[facility] rate 2021-08-14 14:36:00 16 /min [facility] Body height 2021-08-14 14:36:00 157.5 cm [facility] Body weight 2021-08-14 14:36:00 36.288 kg [facility] BMI 2021-08-14 14:36:00 14.63 kg/m2 [facility] Oxygen saturation in 2021-08-14 14:36:00 100 /min [facility] Arterial blood by [facility] Pulse oximetry Branch Procedures Procedure Date / Time Performed Performing Clinician Sour e NOTICE OF PRIVACY 2021-08-14 14:22:45 Doctor Unassigned, No [facility] PRACTICES Name Medical Branch CONSENT/REFUSAL FOR 2021-08-14 14:22:25 Doctor Unassigned, No [facility] DIAGNOSIS AND Name Medical Branch TREATMENT Encounters Start End Encounter Admission Attending Care Care Encounter Source Date/Time Date/Time Type Type Clinicians Facility Department ID 2021-12-23 2021-12-28 Inpatient E RADHA, [facility] PUL [id number] [facility] 13:39:00 23:00:00 MARGE 2021-08-14 2021-08-14 Emergency [place], [facility] [id number] [facility] 09:38:00 10:37:00 Jackelin OTERO [id number] archana childs [place] [id number] [facility] [id number] Medi ann 084 Branch 2021-08-14 2021-08-14 Emergency X RIDDLE, [facility] ERT [id number] Univers 09:38:00 10:37:00 JACKELIN anne of [facility] Results Test Description Test Time Test Comments Results Result Comments Source BLOOD CULTURE 2017-06-03 10:00:00 Test Item Value Reference Range Interpretation Comme nts CULTURE (BEAKER) (test code = 1095) No growth in 5 days BLOOD [id number] 10:00:00 Test Item Value Reference Range Interpretation Comments CULTURE (AKER) (test No growth in 5 days code = 1095) PROTHROMBIN GENE [id number] 08:45:00 Test Item Value Reference Range Interpretation Comments PROTHROMBIN/FACTOR II Negative for the [id number] (AKER) (test code = (Prothrombin/Factor II) 2163) mutation. [id number] Dudley Dunn M.D. ([facility]) (test code = (electonic signature) 2601) This test is a genotyping assay which evaluates the DNA sequence at position 81470 of the prothrombin (Factor II) gene. A [...] and its performance characteristics determined by the [facility] Pathology Department, Section of Molecular [...] FACTOR V LEIDEN Negative for the R506Q (AKER) (test code = (Factor V Leiden) 718) mutation [id number] Dudley Dunn M.D. ([place]) (test code = (electonic signature) 7128) This test is a genotyping assay which [...] was developed and its performance characteristics [facility], Section of Molecular Pathology. It [...] for (BEAKER) (test code = Lupus Anticoagulant 8706) [id number] Dudley Dunn M.D. (BEAKER) (test code = (electonic signature) 6122) DRVV SCREEN RATIO 0.76 <1.20 (BEAKER) (test code = 7758) CBC W/PLT COUNT & AUTO [id number] 14:03:00 Test Item Value Reference Range Interpretation [...] (test code = Normal 762) BASIC METABOLIC [id number] 10:08:00 Test Item Value Reference Range Interpretation [...] 8.4-10.2 L (test code = 697) EGFR ([facility]) (test 122 mL/min/1.73 ESTIM ATED GFR IS code = 1092) sq m NOT ACCURATE CREATININE CLEARANCE IN PREDICTING GLOMERULAR FILTRATION RATE . ESTIMATED GFR I S NOT APPLICABLE FOR DIALYSIS PATIEN TS. POCT-GLUCOSE [id number] 08:35:00 Test Item Value Reference Range Interpretation Comments POC-GLUCOSE METER 72 mg/dL 70-110 TESTED AT [place] [address] ([facility]) (test code = [facility] [employer] [facility] [address] 1538) ANTI-NUCLEAR ANTIBODY (MARIA ISABEL)2017-06-01 03:41:00 Test Item Value Reference Range Interpretation Comments ANTI-NUCLEAR ANTIBODY (MARIA ISABEL) ([facility]) Negative Negative (test code = 418) POCT-GLUCOSE [id number] 22:27:00 Test Item Value Reference Range Interpretation Comments POC-GLUCOSE METER 111 mg/dL 70-110 H TESTED AT [place] [address] ([facility]) (test code = [facility] [employer] [facility] 1538) [id number] MR, BRAIN, WITHOUT [id number] 17:48:00FINAL REPORT MRI brain and MRA head and neck without contrast 05/31/2017 5:44 PM CLINICAL INDICATION: Stroke TECHNIQUE: Multiplanar, multisequence MR imaging of the brain was performed utilizing the following imaging sequences: Axial T1, T2, FLAIR, GRE, and DWI; sagittal and coronalT1-weighted images. Two- and three-dimensional iqja-za-nrxfgb MRA images of the intra- and extracranial [...] neck: There is no vessel occlusion or flow- limiting stenosis. There is no NASCET-quantifiable cervical internal carotid artery stenosis. Flow is antegrade in both vertebral arteries. MRA samish of Haq: There is no vessel occlusion, flow-limiting stenosis, or aneurysm. IMPRESSION: 1. Findings that may reflect increased intracranial pressure. Consider further evaluation with intracranial MRA to exclude venous sinus thrombosis/stenosis.2. Unremarkable extracranial and intracranial MRAs. Signed: Patrick Schroeder Verified Date/Time: 05/31/2017 17:48:23 Reading Location: [facility] Reading Room MR, MRA, BRAIN, WITHOUT [id number] 17:48:00FINAL REPORT MRI brain and MRA head and neck without contrast 05/31/2017 5:44 PM CLINICAL INDICATION: Stroke TECHNIQUE: Multiplanar, multisequence MR imaging of the brain was performed utilizing the following imaging sequences: Axial T1, T2, FLAIR, GRE, and DWI; sagittal and coronalT1-weighted images. Two- and three-dimensional qhrv-lt-nxlbia MRA images of the intra- and extracranial [...] is antegrade in both vertebral arteries. MRA samish of Haq: There is no vessel occlusion, flow-limiting stenosis, or aneurysm. IMPRESSION: 1. Findings that may reflect increased intracranial pressure. Consider further evaluation with intracranial MRA to exclude venous sinus thrombosis/stenosis.2. Unremarkable extracranial and intracranial MRAs. Signed: Patrick Schroeder Verified Date/Time: 05/31/2017 17:48:23 Reading Location: [facility] Radiology Reading Room MR, MRA, NECK, WITH IV [id number] 17:48:00Please perform without contrastFINAL REPORT MRI brain and MRA head and neck without contrast 05/31/2017 5:44 PM CLINICAL INDICATION: Stroke TECHNIQUE: Multiplanar, multisequence MR imaging of the brain was performed utilizing the following imaging sequences: Axial T1, T2, FLAIR, GRE, and DWI; sagittal and coronalT1-weighted images. Two- and three-dimensional nrln-mt-gsttck MRA images of the intra- and extracranial [...] neck: There is no vessel occlusion or flow- limiting stenosis. There is no NASCET-quantifiable cervical internal carotid artery stenosis. Flow is antegrade in both vertebral arteries. MRA samish of Haq: There is no vessel occlusion, flow-limiting stenosis, or aneurysm. IMPRESSION: 1. Findings that may reflect increased intracranial pressure. Consider further evaluation with intracranial MRA to exclude venous sinus thrombosis/stenosis.2. Unremarkable extracranial and intracranial MRAs. Signed: Patrick Schroeder Verified Date/Time: 05/31/2017 17:48:23 Reading Location: [facility] Reading Room THROMBIN [id number] 14:28:00 Test Item Value Reference Range Interpretation Comments THROMBIN TIME (BEAKER) (test code = 18.5 secs 13.8-20.0 550) HEXAGONAL [id number] 14:28:00 Test Item Value Reference Range Interpretation Comments HEXAGONAL PHOSPHOLIPID (BEAKER) Negative (test code = 1790) 1:1 MIXING STUDY, [id number] 14:28:00 Test Item Value Reference Range Interpretation Comments PROTIME (BEAKER) (test code = 16.4 seconds 11.7-14.7 H 759) PARTIAL THROMBOPLASTIN TIME 52.7 seconds 22.5-36.0 H (BEAKER) (test code = 760) PT 1/1 MIX (BEAKER) (test code = 14.1 SECS 11.7-14.7 1595) PTT 1/1 MIX (BEAKER) (test code 39.7 SECS 22.5-36.0 H = 1596) CARDIOLIPIN ANTIBODIES, IGG AND [id number] 11:47:00 Test Item Value Reference Range Interpretation Comments ANTICARDIOLIPIN IGG ANTIBODY (BEAKER) < GPL (test code = 712) ANTICARDIOLIPIN IGM ANTIBODY (Cloud[employer]ER) 0.4 MPL (test code = 713) Anticardiolipin IgG Result Interpretation:NEG: <20 GPL; U/mlPOS: >/=20 GPL; U/mlAnticardiolipin IgM Result Interpretation:NEG: <20 MPL; U/mlPOS: >/=20 MPL; U/mlCARDIOLIPIN ANTIBODIES, IGG AND [id number] 11:45:00 Test Item Value Reference Range Interpretation Comments ANTICARDIOLIPIN IGG ANTIBODY (CloudscalingAKER) < GPL (test code = 712) ANTICARDIOLIPIN IGM ANTIBODY (CloudscalingAKER) 0.5 MPL (test code = 713) Anticardiolipin IgG Result Interpretation:NEG: <20 GPL; U/mlPOS: >/=20 GPL; U/mlAnticardiolipin IgM Result Interpretation:NEG: <20 MPL; U/mlPOS: >/=20 MPL; U/mlPOCT-GLUCOSE [id number] 11:39:00 Test Item Value Reference Range Interpretation Comments POC-GLUCOSE METER 120 mg/dL 70-[address] [facility] [address] ([facility]) (test code = ISRA Reyes ADAIR [place] 1535) [address] PROTEIN C [id number] 11:35:00 Test Item Value Reference Range Interpretation Comments PROTEIN C ACTIVITY (BEAKER) (test code 65.0 % 70.0-130.0 L = 582) See Protein C Antigen.CBC W/PLT COUNT & AUTO [id number] 10:02:00 Test Item Value Reference Range Interpretation [...] (BEAKER) (test code Normal = 762) POCT-GLUCOSE [id number] 08:18:00 Test Item Value Reference Range Interpretation Comments POC-GLUCOSE METER 100 mg/dL 70-[address] [facility] 67[address] (BEAKER) (test code = ISRA Reyes [facility] 1538) [address] BASIC METABOLIC [id number] 06:53:00 Test Item Value Reference Range Interpretation [...] NOT APPLICABLE FOR DIALYSIS PATIEN TS. POCT-GLUCOSE [id number] 21:28:00 Test Item Value Reference Range Interpretation Comments POC-GLUCOSE METER 105 mg/dL 70-[address] [facility] [address] ([facility]) (test code = ISRA Reyes [facility] 1538) [address] POCT-GLUCOSE [id number] 12:53:00 Test Item Value Reference Range Interpretation Comments POC-GLUCOSE METER 126 mg/dL 70-[address] [facility] 67[address] ([facility]) (test code = ISRA Reyes [facility] 1538) [address] VANCOMYCIN LEVEL, [id number] 11:31:00 Test Item Value Reference Range Interpretation Comments VANCOMYCIN TROUGH ([facility]) (test 13.7 ug/mL 10.0-20.0 code = 522) Draw 30 min prior to scheduled dose, HOLD if level > 20 mcg/mL, inform MD. ANTITHROMBIN [id number] 11:18:00 Test Item Value Reference Range Interpretation Comments ANTITHROMBIN III ACTIVITY (BEAKER) 67.0 % 80.0-120.0 L (test code = 711) URINE [id number] 10:46:00 Test Item Value Reference Range Interpretation Comments CULTURE (BEAKER) (test code = 1095) No growth [id number] 07:57:00 Test Item Value Reference Range Interpretation Comments HOMOCYSTEINE (BEAKER) (test code = 7.6 umol/L 5.1-15.4 642) LACTIC ACID, VENOUS, WHOLE [id number] 07:11:00 Test Item Value Reference Range Interpretation Comments LACTATE BLOOD VENOUS (2) (BEAKER) 0.9 mmol/L 0.5-2.2 (test code = 2872) Effective 09/25/2015: Units/Reference Range ChangeNew: 0.5-2.2 mmol/L Previous: 5- 20 mg/dLBASIC METABOLIC [id number] 07:04:00 Test Item Value Reference Range Interpretation Comments SODIUM (BEAKER) 141 meq/L 136-145 (test code = 381) POTASSIUM (BEAKER) 3.3 meq/L 3.5-5.1 L (test code = 379) CHLORIDE (BEAKER) 109 meq/L 98-107 H (test code = 382) CO2 (BEAKER) (test 26 meq/L 22-29 code = 355) BLOOD UREA NITROGEN 12 mg/dL 7-21 ([facility]) (test code = 354) CREATININE ([facility]) 0.80 mg/dL 0.57-1.25 (test code = 358) GLUCOSE RANDOM 89 mg/dL 70-105 ([facility]) (test code = 652) CALCIUM ([facility]) 7.8 mg/dL 8.4-10.2 L (test code = 697) EGFR ([facility]) (test 104 mL/min/1.73 ESTIM ATED GFR IS code = 1092) sq m NOT ACCURATE CREATININE CLEARANCE IN PREDICTING GLOMERULAR FILTRATION RATE . ESTIMATED GFR I S NOT APPLICABLE FOR DIALYSIS PATIEN TS. POCT-GLUCOSE [id number] 00:35:00 Test Item Value Reference Range Interpretation Comments POC-GLUCOSE METER 87 mg/dL 70-110 TESTED AT [place] [address] ([facility]) (test code = ISRA Reyes [facility] [address] 1538) [id number] 23:26:00 Test Item Value Reference Range Interpretation Comments RPR SCREEN ([facility]) (test code = Nonreactive Nonreactive 420) POCT-GLUCOSE [id number] 17:52:00 Test Item Value Reference Range Interpretation Comments POC-GLUCOSE METER 87 mg/dL 70-110 TESTED AT [place] [address] ([facility]) (test code = TONYAMD Eric [facility] [address] 1538) POCT-GLUCOSE [id number] 12:58:00 Test Item Value Reference Range Interpretation Comments POC-GLUCOSE METER 117 mg/dL 70-110 H TESTED AT [place] [address] ([facility]) (test code = [facility] 1538) [address] EEG AWAKE AND [id number] 12:51:00Reason for exam:->abnormal EEG with altered mental status, concern for statusShould this be performed at the bedside?->YesEEG REPORT: Geri [facility] , DATE: EEG #: [id number] Code: #: R41.82 Altered mental status, unspecified (ICD 9: 780.97)CPT Code: #: 82778: 03. EEG coma or sleep only; 20-40 minPROCEDURE: EEG CONDITIONS OF RECORDING: This is a digital EEG performed using disc electrodes placed according to the International 10-20 system of electrode placement. Scalp to scalp and scalp to ear montages were used. No sedation was given.DESCRIPTIONOF RECORD: The EEG record was diffusely slow [...] dysfunction of metabolic, toxic, drug-induced or other etiolog y.Clinical Fellow: Sherly Higginsrophysiologist: Daphne Woods Electronically signed by: DAPHNE Carballo 05/29/2017 12:51 PMHEMOGLOBIN [id number] 08:42:00 Test Item Value Reference Range Interpretation Comments HEMOGLOBIN A1C ([facility]) (test code = 5.6 % 4.3-6.1 368) HIV-1 ANTIGEN WITH HIV-1/2 [id number] 05:23:00 Test Item Value Reference Range Interpretation Comments HIV-1 ANTIGEN WITH HIV 1\T\2 Nonreactive Nonreactive ANTIBODY (2) ([facility]) (test code = 2586) SEDIMENTATION [id number] 05:05:00 Test Item Value Reference Range Interpretation Comments SEDIMENTATION RATE, ERYTHROCYTE 48 mm/HR 0-20 H ([facility]) (test code = 766) RAD, HIP, 2 VIEWS, [id number] 03:29:00Reason for exam:->possible fall at homeFINAL REPORT RAD, HIP, 2 VIEWS, RIGHT CLINICAL INDICATION: possible fall at home COMPARISON: None TECHNIQUE: Single frontal view of the pelvis. FINDINGS:No fracture is identified. The sacroiliac joints, hip joints and symphysis pubis appear intact. Periarticular fat stripes are in place. Surrounding soft tissues are unremarkable. IMPRESSION: No acute osseous abnormality of the pelvis. Signed: JR Cesilai, Enrique Nguyenort Verified Date/Time: 05/29/2017 03:29:06 Reading Location: [facility] C013Y CT Body Reading Room 03:29 AM CREATINE KINASE (CK), TOTAL AND [id number] 02:57:00 Test Item Value Reference Range Interpretation Comments CREATINE KINASE TOTAL (BEAKER) 581 U/L 29-200 H (test code = 380) CREATINE KINASE-MB (BEAKER) (test 1.2 ng/mL 0.0-6.6 code = 750) CREATINE KINASE-MB INDEX (BEAKER) 0.2 % (test code = 395) CK-MB Reference Range:<6.7 Normal6.7-10.0 Borderline>10.0 AbnormalTROPONIN [id number] 02:57:00 Test Item Value Reference Range Interpretation [...] 395) CK-MB Reference Range:<6.7 Normal6.7-10.0 Borderline>10.0 AbnormalTROPONIN [id number] 02:56:00 Test Item Value Reference Range Interpretation [...] acidosis, acute neurological disease, and persistent tachyarrhythmia.LIPID [id number] 02:53:00 Test Item Value Reference Range Interpretation [...] 130-159 High 160-189 Very High >=190BASIC METABOLIC [id number] 02:53:00 Test Item Value Reference Range Interpretation [...] APPLICABLE FOR DIALYSIS PATIEN TS. HEPATIC FUNCTION [id number] 02:53:00 Test Item Value Reference Range Interpretation [...] (test code = 15 U/L 6-55 347) [id number] 02:53:00 Test Item Value Reference Range Interpretation Comments AMYLASE (BEAKER) (test code = 349) 74 U/L 25-125 [id number] 02:53:00 Test Item Value Reference Range Interpretation Comments LIPASE (BEAKER) (test code = 749) 13 U/L 8-78 C-REACTIVE [id number] 02:53:00 Test Item Value Reference Range Interpretation Comments C-REACTIVE PROTEIN (BEAKER) (test 10.77 mg/dL 0.00-0.50 H code = 676) LACTIC ACID, ARTERIAL, WHOLE [id number] 02:47:00 Test Item Value Reference Range Interpretation Comments LACTATE BLOOD ARTERIAL (2) 0.7 mmol/L 0.5-2.2 (BEAKER) (test code = 2874) Effective 09/25/2015: Units/Reference Range ChangeNew: 0.5-2.2 mmol/L Previous: 5- 20 mg/[id number] 02:36:00 Test Item Value Reference Range Interpretation Comments PARTIAL THROMBOPLASTIN TIME 51.7 seconds 22.5-36.0 H (BEAKER) (test code = 760) PROTHROMBIN [id number] 02:35:00 Test Item Value Reference Range Interpretation Comments PROTIME (BEAKER) (test code = 16.3 seconds 11.7-14.7 H 759) INR (BEAKER) (test code = 370) 1.3 <=5.9 RECOMMENDED COUMADIN/WARFARIN INR THERAPY RANGESSTANDARD DOSE: 2.0 - 3.0 Includes: PROPHYLAXIS for venous thrombosis, systemic embolization; TREATMENT for venous thrombosis and/or pulmonary embolus.HIGH RISK: Target INR is 2.5-3.5 for patients with mechanical heart valves.CBC W/PLT COUNT & AUTO [id number] 02:35:00 Test Item Value Reference Range Interpretation [...] (BEAKER) (test code = 2801) URINALYSIS W/ [id number] 02:31:00 Test Item Value Reference Range Interpretation [...] SOURCE(BEAKER) (test code Urine, Clean Catch = 6755) SCREEN, [id number] 00:58:00 Test Item Value Reference Range Interpretation Comments TEST URINE (BEAKER) (test Negative code = 583) POCT-GLUCOSE [id number] 00:47:00 Test Item Value Reference Range Interpretation Comments POC-GLUCOSE METER 102 mg/dL 70-[address] [facility] 67 ([facility]) (test code = ISRA [place]VERA 1538) [address]
[2022-03-21] MEDS ORDERED: ACETAMINOPHEN 500 MG TAB ONE (13:23)
--- NOTE | 2022-03-21 13:55 | RAD REPORT ---
EXAM DESCRIPTION: RAD - Chest Single View - 03/21/2022 1:38 pm CLINICAL HISTORY: dsf, seizure, asthma COMPARISON: Portable 08/01/2021 TECHNIQUE: AP portable chest image was obtained 03/21/2022 1:38 pm . FINDINGS: Lungs are clear. Heart and vasculature are normal. No measurable pleural effusion and no p neumothorax. No acute bony abnormality seen. No acute aortic findings suspected. IMPRESSION: No acute cardiopulmonary process. No significant change from comparison study.
--- NOTE | 2022-03-21 13:58 | RAD REPORT ---
EXAM DESCRIPTION: CT - Head Brain Wo Cont - 03/21/2022 1:49 pm CLINICAL HISTORY: . COMPARISON: Head Brain Wo Cont dated 05/27/2017; Brain Wo Cont dated 09/02/2017 TECHNIQUE: Axial 5 mm thick images of the head were obtained without IV contrast. All CT scans are performed using dose optimization technique as appropriate and may include automated exposure control or mA/KV adjustment according to patient size. FINDINGS: No intracranial hemorrhage, mass, edema or shift of mid-line structures. No acute cortical based infarction. An matter - white matter junction is preserved. Sulci are tight but not clearly different going back to 2018 imaging. No abnormal extra-axial fluid collections. Narrowed ventricles match prior imaging. Mastoid air cells and visualized portions of the paranasal sinuses are clear. No acute bony findings. IMPRESSION: Negative non-contrast CT head examination for acute intracranial finding.
[2022-03-21] MEDS ORDERED: NA CHLORIDE 0.9% 1,000 ML ONE (14:08)
[2022-03-21 14:27] LABS: Absolute Lymphocytes (CBC) 1.7 K/uL (0.7-4.9); Hematocrit 34.8 % (36.0-45.0); Lymphocytes % 18.3 % (15.3-44.8); MPV 7.4 fL (7.6-11.3); RBC Red Blood Cell Count 4.09 M/uL (3.86-4.86)
[2022-03-21 14:43] LABS: Potassium 3.6 mmol/L (3.5-5.1); Troponin High Sensitivity 9.3 pg/mL (<58.9)
[2022-03-21 15:41] LABS: Urine Blood 2+ (Negative); Urine Glucose Negative (Negative); Urine Protein Negative (Negative)
--- NOTE | 2022-03-21 15:57 | ER ---
Nurse's Notes [facility] Name: Alyssa García Age: 31 yrs Sex: Female : 1990 Arrival Date: 03/21/2022 Time: 13:04 Bed 13 Private MD: Diagnosis: Influenza due to identified novel influenza A virus;Other seizures Presentation: 03/21 13:09 Chief complaint: EMS states: Toned out for seizure, pt postictal, history of seizures jl7 and DM, non-complaint with medications, pt febrile 101.8 at home; 103.4 in triage. Coronavirus screen: fever, Client presents with at least one sign or symptom that may indicate coronavirus-19. Ebola Screen: No symptoms or risks identified at this time. Risk Assessment: Do you want to hurt yourself or someone else? Unable to obtain. Onset of symptoms is unknown. 13:09 Method Of Arrival: EMS: [facility] 13:09 Acuity: RSULAN 2 jl7 16:08 Initial Sepsis Screen: Does the patient meet any 2 criteria? Temp <36.0*C (96.8*F)) or ko1 > 38.3*C (100.9*F). HR > 90 bpm. Yes Does the patient have a suspected source of infection? No. Patient's initial sepsis screen is negative. Triage Assessment: 13:12 General: Appears in no apparent distress. uncomfortable, slender, unkempt, Behavior is jl7 inappropriate for age, uncooperative. Pain: Unable to use pain scale. refusing to answer. Neuro: Level of Consciousness is post ictal. 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 - Social history:: Smoking status: unknown. Screenin:15 Abuse screen: Denies threats or abuse. Denies injuries from another. Nutritional ko1 screening: No deficits noted. Tuberculosis screening: No symptoms or risk factors identified. Fall Risk Secondary diagnosis (15 points) seizures, IV access (20 points). Assessment: 13:15 General: Appears in no apparent distress. comfortable, malnourished, Behavior is ko1 drowsy, flat, quiet, uncooperative. Neuro: Seizure activity reported prior to arrival. Patient is post-ictal at this time. Cardiovascular: No deficits noted. Respiratory: No deficits noted. GI: No deficits noted. : No deficits noted. EENT: No deficits noted. Derm: No deficits noted. Musculoskeletal: No deficits noted. Vital Signs: 13:09 Pulse 112; Resp 15; Temp 103.4; Pulse Ox 100% on R/A; jl7 13:15 BP 104 / 77; Pulse 106; Resp 22; Pulse Ox 98% ; Pain 0/10; ko1 13:45 BP 116 / 86; Pulse 118; Pulse Ox 98% ; ko1 14:15 BP 101 / 74; Pulse 116; Pulse Ox 98% ; ko1 14:30 BP 101 / 67; Pulse 117; Pulse Ox 97% ; ko1 15:59 BP 99 / 70; Pulse 104; Resp 16; Temp 100.4(O); Pulse Ox 98% on R/A; ko1 Vitals: 13:15 Cardiac Rhythm Assessment Regular Sinus tach. ko1 [place] Coma Score: 13:12 Eye Response: spontaneous(4). Verbal Response: none(1). Motor Response: obeys jl7 commands(6). Total: 11. ED Course: 13:04 Patient arrived in ED. eb 13:07 Dakota Cody is PHCP. jl9 13:07 Raheem Magallon MD is Attending Physician. jl9 13:09 Zoey Murry, ADOLFO is Primary Nurse. ko1 13:12 Triage completed. jl7 13:12 Arm band placed on right wrist. jl7 13:14 Seizure precautions initiated. jl7 13:15 Client placed on continuous cardiac and pulse oximetry monitoring. NIBP monitoring ko1 applied. case monitor on. 13:15 Patient has correct armband on for positive identification. Fall risk band placed. ko1 Placed in gown. Bed in low position. Call light in reach. Side rails up X2. 13:15 Maintain EMS IV. Dressing intact. Good blood return noted. Site clean \\T\\ dry. Gauge \\T\\ ko 1 site: 20g right FA. 13:15 No provider procedures requiring assistance completed. ko1 13:19 COVID-19 SARS RT PCR (Document "Date of Onset" if Symptomatic) Sent. ko1 13:19 Flu Sent. ko1 13:40 XRAY Chest (1 view) In Process Unspecified. EDMS 13:51 CT Head Brain wo Cont In Process Unspecified. EDMS 14:11 Lactate Sent. ko1 14:11 Basic Metabolic Panel Sent. ko1 14:11 CBC with Diff Sent. ko1 14:11 Troponin HS Sent. ko1 15:42 UDS Sent. ko1 16:06 Awaiting: will be off work around 5pm to pick her up. ko1 16:06 IV discontinued, intact, bleeding controlled, No redness/swelling at site. Pressure ko1 dressing applied. 17:17 Awaiting: for to arrive. ko1 Administered Medications: 13:42 Drug: Acetaminophen 1000 mg Route: PO; ko1 14:10 Drug: NS 0.9% 1000 ml Route: IV; Rate: 1000 ml; Site: right forearm; ko1 Medication: 16:08 VIS not applicable for this client. ko1 Intake: 15:42 PO: 120ml (Water); Total: 120ml. ko1 16:09 IV: 1000ml (IV Fluid); Total: 1120ml. ko1 Output: 15:42 Urine: 250ml (Straight Cath); Total: 250ml. ko1 Outcome: 15:56 Discharge ordered by . josiah 16:06 Discharged to home ambulatory, with family. ko1 16:06 Condition: improved 16:06 Discharge instructions given to patient, family, Instructed on discharge instructions, follow up and referral plans. medication usage, Demonstrated understanding of instructions, follow-up care, medications, Prescriptions given X 1. 17:46 Patient left the ED. ko1 Signatures: Dispatcher [employer] William Morris RN RN jl7 Kayce Mahmood John jl9 Zoey Murry RN RN ko1
--- NOTE | 2022-03-21 15:57 | EDPHYS ---
Physician Documentation [facility] Name: Alyssa García Age: 31 yrs Sex: Female : 1990 Arrival Date: 03/21/2022 Time: 13:04 Bed 13 Private MD: ED Physician Raheem Magallon HPI: 03/21 15:49 This 31 yrs old Black Female presents to ER via EMS with complaints of having a seizure jl9 at home. History of seizures. Patient also c/o feeling sick lately . 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 - Social history:: Smoking status: unknown. ROS: 15:52 Eyes: Negative for injury, pain, redness, and discharge, ENT: Negative for injury, jl9 pain, and discharge, Neck: Negative for injury, pain, and swelling, Cardiovascular: Negative for chest pain, palpitations, and edema, Respiratory: Negative for shortness of breath, cough, wheezing, and pleuritic chest pain, Abdomen/GI: Negative for abdominal pain, nausea, vomiting, diarrhea, and constipation, Back: Negative for injury and pain, : Negative for injury, bleeding, discharge, and swelling, MS/Extremity: Negative for injury and deformity, Skin: Negative for injury, rash, and discoloration. 15:52 Psych: Negative for depression, anxiety, suicide ideation, homicidal ideation, and hallucinations, Allergy/Immunology: Negative for hives, rash, and allergies, Endocrine: Negative for neck swelling, polydipsia, polyuria, polyphagia, and marked weight changes, Hematologic/Lymphatic: Negative for swollen nodes, abnormal bleeding, and unusual bruising. 15:52 Constitutional: Positive for fever, malaise. 15:52 Neuro: Positive for seizure activity. Exam: 15:53 Constitutional: This is a well developed, well nourished patient who is awake, alert, jl9 and in no acute distress. Head/Face: Normocephalic, atraumatic. Eyes: Pupils equal round and reactive to light, extra-ocular motions intact. Lids and lashes normal. Conjunctiva and sclera are non-icteric and not injected. Cornea within normal limits. Periorbital areas with no swelling, redness, or edema. ENT: Mucous membranes moist. Neck: Trachea midline, no thyromegaly or masses palpated, and no cervical lymphadenopathy. Supple, full range of motion without nuchal rigidity, or vertebral point tenderness. No Meningismus. Chest/axilla: Normal chest wall appearance and motion. Nontender with no deformity. No lesions are appreciated. Cardiovascular: Regular rate and rhythm with a normal S1 and S2. No gallops, murmurs, or rubs. Normal PMI, no JVD. No pulse deficits. Respiratory: Lungs have equal breath sounds bilaterally, clear to auscultation and percussion. No rales, rhonchi or wheezes noted. No increased work of breathing, no retractions or nasal flaring. Abdomen/GI: Soft, non-tender, with normal bowel sounds. No distension or tympany. No guarding or rebound. No evidence of tenderness throughout. Back: No spinal tenderness. No costovertebral tenderness. Full range of motion. Skin: Warm, dry with normal turgor. Normal color with no rashes, no lesions, and no evidence of cellulitis. MS/ Extremity: Pulses equal, no cyanosis. Neurovascular intact. Full, normal range of motion. Neuro: Awake and alert, GCS 15, oriented to person, place, time, and situation. Cranial nerves II-XII grossly intact. Motor strength 5/5 in all extremities. Sensory grossly intact. Cerebellar exam normal. Normal gait. Psych: Awake, alert, with orientation to person, place and time. Behavior, mood, and affect are within normal limits. Vital Signs: 13:09 Pulse 112; Resp 15; Temp 103.4; Pulse Ox 100% on R/A; jl7 13:15 BP 104 / 77; Pulse 106; Resp 22; Pulse Ox 98% ; Pain 0/10; ko1 13:45 BP 116 / 86; Pulse 118; Pulse Ox 98% ; ko1 14:15 BP 101 / 74; Pulse 116; Pulse Ox 98% ; ko1 14:30 BP 101 / 67; Pulse 117; Pulse Ox 97% ; ko1 15:59 BP 99 / 70; Pulse 104; Resp 16; Temp 100.4(O); Pulse Ox 98% on R/A; ko1 [place] Coma Score: 13:12 Eye Response: spontaneous(4). Verbal Response: none(1). Motor Response: obeys jl7 commands(6). Total: 11. MDM: 13:07 Patient medically screened. 15:53 Differential Diagnosis sepsis, flu. Data reviewed: vital signs, nurses notes. 03/21 13:09 Order name: Flu; Complete Time: 13:42 03/21 13:09 Order name: COVID-19 SARS RT PCR (Document "Date of Onset" if Symptomatic); Complete Time: 14:18 03/21 13:09 Order name: Basic Metabolic Panel; Complete Time: 14:44 03/21 13:09 Order name: CBC with Diff; Complete Time: 14:34 03/21 13:09 Order name: Troponin HS; Complete Time: 14:44 03/21 13:09 Order name: UDS [facility] 03/21 13:09 Order name: XRAY Chest (1 view); Complete Time: 14:00 03/21 13:09 Order name: CT Head Brain wo Cont; Complete Time: 14:01 03/21 15:41 Order name: Urine Dipstick-Ancillary; Complete Time: 15:49 EDMS 03/21 15:42 Order name: Urine --Ancillary (enter results) 03/21 13:09 Order name: EKG; Complete Time: 13:09 03/21 13:09 Order name: Cardiac monitoring; Complete Time: 13:10 03/21 13:09 Order name: EKG - Nurse/Tech; Complete Time: 13:09 03/21 13:09 Order name: IV Saline Lock; Complete Time: 13:09 03/21 13:09 Order name: Labs collected and sent; Complete Time: 14:11 03/21 13:09 Order name: O2 Per Protocol; Complete Time: 13:10 03/21 13:09 Order name: O2 Sat Monitoring; Complete Time: 13:10 03/21 13:09 Order name: Urine Dipstick-Ancillary (obtain specimen); Complete Time: 15:42 03/21 13:10 Order name: Urine Test (obtain specimen); Complete Time: 15:42 jl9 Administered Medications: 13:42 Drug: Acetaminophen 1000 mg Route: PO; ko1 14:10 Drug: NS 0.9% 1000 ml Route: IV; Rate: 1000 ml; Site: right forearm; ko1 Disposition: 03/22 10:15 Co-signature as Attending Physician, Raheem Magallon MD I agree with the assessment and kdr plan of care. Disposition Summary: 03/21/22 15:56 Discharge Ordered Location: Home jl9 Condition: Stable jl9 Diagnosis - Influenza due to identified novel influenza A virus jl9 - Other seizures jl9 Followup: jl9 - With: Private Physician - When: 1 - 2 days - Reason: Recheck today's complaints, Continuance of care, Re-evaluation by your physician Discharge Instructions: - Discharge Summary Sheet jl9 - Seizure, Adult, [id number] jl9 - Influenza, Adult, [id number] jl9 Forms: - Medication Reconciliation Form jl9 - Thank You Letter jl9 - Antibiotic Education jl9 - Prescription Opioid Use jl9 Prescriptions: - Tamiflu 75 mg Oral capsule - take 1 capsule by ORAL route 2 times per day; 10 capsule; Refills: 0, Product jl9 Selection Permitted Signatures: Dispatcher [employer] EDRaheem Beck MD MD kdr William Iglesias RN RN [id number] Dakota Cody jl9 Zoey Murry, ADOLFO RN ko1
[2022-03-21 15:59] LABS: Barbiturates NEGATIVE (NEGATIVE); Benzodiazepines NEGATIVE (NEGATIVE); Cocaine NEGATIVE (NEGATIVE); METHAMPHETAM NEGATIVE (NEGATIVE); Methadone NEGATIVE (NEGATIVE); Opiates NEGATIVE (NEGATIVE); Phencyclidine NEGATIVE (NEGATIVE); THC Cannibis NEGATIVE (NEGATIVE)
[2022-03-21 18:12] VITALS: BP 99/70; TEMP 100.4; O2SAT 98
--- NOTE | 2022-03-23 16:03 | EKG ---
Test Date: 2022-03-21 Test Time: 13:05:46 Solid Waste Analyst: [place] MEASUREMENT RESULTS: Intervals: Rate: 105 ID: [id number] QRSD: 74 QT: 318 QTc: 420 [place]: P: 78 ID: [id number] QRS: 89 T: 67 INTERPRETIVE STATEMENTS: Sinus tachycardia Nonspecific ST abnormality Abnormal ECG Compared to ECG 08/01/2021 17:00:02 ST (T wave) deviation now present Sinus rhythm no longer present Sinus arrhythmia no longer present Right-axis deviation no longer present T-wave abnormality no longer present Possible ischemia no longer present Electronically Signed On 03-23-22 15:59:00 CDT by Cachorro Black
== END 2022-03-21 17:46 | disposition home or self-care (01) ==
LOC: ER 12:59
DX: J10.1 Influenza due to other identified influenza virus with other respiratory manifestations (principal); G40.89 Other seizures; Z20.822 Contact with and (suspected) exposure to COVID-19
CPT/HCPCS: 36415; 70450; 71045; 80048; 80307; 81003; 81025; 84484; 85025; 87804; 93005; 99284; J7030; U0003

== ENCOUNTER 2022-07-09 10:40 | Inpatient (IN) | payer SELFPAY ==
--- OUTSIDE RECORDS SUMMARY | 2022-07-09 10:44 | XMS REPORT | Continuity of Care Document ---
:1990 Author Organization [facility] t Address [address] [place] [address] Care Team Providers Name Role Phone PCP, PATIENT DOES NOT HAVE A Primary Care Physician UnavailMARGE Morales Attending Clinician Unavailable Jackelin Mandujano Attending Clinician JACKELIN GONG Attending Clinician Unavailable MIREYA STANFORD Attending Clinician Unavailable ANGELICA WRIGHT Admitting Clinician Unavailable MIREYA STANFORD Admitting Clinician Unavailable Payers Payer Name Policy Type Policy Number Effective Date Expiration Date [facility] [id number] 2018 HEALTH 00:00:00 MED[place]ID OF [place] [id number] 2017 00:00:00 Problems Condition Condition Condition Status Onset Resolution Last Treating Co mments Source Name Details Category Date Date Treatment Clinician Date Seizure Seizure Disease [facility] [place] Mild Mild Disease Active [facility] intermitte intermitte 05-30 Suki kes nt asthma nt asthma 00:00: Medi ann without without 00 Center complicati complicati on on Physical Physical Disease [facility] decond[facility] deconditio [facility]-30 [place] kes [place] 00:00: Medical 00 [place] Cerebrovas Cerebrovas Disease Active [facility]ular [facility] accident accident 00:00: Medica l (CVA) 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 EEG EEG Disease Active [facility] abnormal abnormal [facility] 00 [place] Altered Altered Disease Active [facility] mental mental [facility]28 [facility] status status 00:00: Medical 00 [place] Fever Fever Disease Active [facility] [place] Other Other Disease Active Univers general general 4-11 ity of counseling [place] advice and advice 00 Me dical for for Branch contracept contracept vi vi management management History of History of Disease Active U nivers asthma asthma 4-11 ity of 00:00: [place] 00 Medical Branch Amenorrhea Amenorrhea Disease Active U nivers 4-11 ity of 00:00: [place] 00 Medical Branch History of History of Disease Active U nivers seizures seizures 8- ity of 00:00: [place] 00 Medical Branch Underweigh Underweigh Disease Active 2013- U nivers t t 8-06 ity of 00:00: [place] 00 Medical Branch Allergies, Adverse Reactions, Alerts [...] keila TARTRATE INGREDI 6-20 ity of 00:00: [place] 00 [facility] Branch Social History Social Habit Start Date Stop Date Quantity Comments Source Exposure to Not sure University SARS-CoV-[address] [facility] (event) Branch Tobacco use and 2017-05-28 2017-05-28 Never used ARMAND Collier exposure 00:00:00 00:00:00 Medical Center Alcohol intake 2017-05-28 2017-05-28 Current ARMAND Jimenes es 00:00:00 00:00:00 non-drinker of Medical Ce nter alcohol (finding) Sex Assigned At [birth year] ARM[facility] Collier 00:00:00 00:00:00 [facility] Center Smoking Status Start Date Stop Date Source Never smoker [facility] Medications Ordered Filled Start Stop Current Ordering Indication Dosage Frequency Signature Comments Components Source Medication Medication Date Date Medication? Clinician (SIG) Name Name naproxen Yes [id number] 500mg Take 1 Univers 500 mg 3-24 71537 tablet by ity of tablet 00:00: mouth [place] 00 every 12 Medical (twelve) Branch hours as needed for Pain (scale 4-6) (pain). albuterol Yes 2{puff} Inhale 2 U nivers (PROAIR 6-27 Puffs ity of HFA) 90 22:11: every 6 [place] mcg/actuati 36 (six) Medical on inhaler hours as Branc h needed for Wheezing or Shortness of Breath. blood sugar Yes TEST 3 Univ ers diagnostic 6-26 TIMES A ity of (TRUE 00:00: DAY [place] METRIX 00 [facility] GLUCOSE [place] TEST STRIP) strip Lancets Yes Test 3 Univers Misc 6-26 times ity of 00:00: daily [address] Blood-Gluco Yes Use as Univ ers se Meter 6-23 directed ity of (TRUE 00:00: [place] METRIX 00 Medical GLUCOSE Branch METER) Misc Immunizations Ordered Filled Immunization Date Status Comments Sourc e Immunization Name Name TDAP 2016-09-01 Completed University of 00:00:00 [facility] Td 2004-05-24 Completed [facility] 00:00:00 [facility] Vital Signs Vital Name Observation Time Observation Value Comments Source Systolic blood 2021-08-14 14:36:00 93 mm[Hg] Univer sity of pressure [facility] Diastolic blood 2021-08-14 14:36:00 65 mm[Hg] Unive rsity of pressure [facility] Heart rate 2021-08-14 14:36:00 77 /min [facility] Body temperature 2021-08-14 14:36:00 36.28 Christina [facility] Respiratory rate 2021-08-14 14:36:00 16 /min [facility] Body height 2021-08-14 14:36:00 157.5 cm [facility] Body weight 2021-08-14 14:36:00 36.288 kg [facility] BMI 2021-08-14 14:36:00 14.63 kg/m2 [facility] Oxygen saturation in 2021-08-14 14:36:00 100 /min [facility] Arterial blood by [facility] Pulse oximetry Branch Procedures Procedure Date / Time Performed Performing Clinician Sour e NOTICE OF PRIVACY 2021-08-14 14:22:45 Doctor Unassigned, No [facility] PRACTICES Name Medical Branch CONSENT/REFUSAL FOR 2021-08-14 14:22:25 Doctor Unassigned, No [facility] DIAGNOSIS AND Name Medical Branch TREATMENT Encounters Start End Encounter Admission Attending Care Care Encounter Source Date/Time Date/Time Type Type Clinicians Facility Department ID 2021-12-23 2021-12-28 Inpatient E RADHA, [facility] PUL [id number] [facility] 13:39:00 23:00:00 MARGE 2021-08-14 2021-08-14 Emergency [place], [facility] [id number] [facility] 09:38:00 10:37:00 Jackelin OTERO [id number] archana childs [place] [id number] [facility] [id number] Medi ann 084 Branch 2021-08-14 2021-08-14 Emergency X RIDDLE, [facility] ERT [id number] Univers 09:38:00 10:37:00 JACKELIN anne of [facility] Results Test Description Test Time Test Comments Results Result Comments Source BLOOD CULTURE 2017-06-03 10:00:00 Test Item Value Reference Range Interpretation Comme nts CULTURE (BEAKER) (test code = 1095) No growth in 5 days BLOOD [id number] 10:00:00 Test Item Value Reference Range Interpretation Comments CULTURE (AKER) (test No growth in 5 days code = 1095) PROTHROMBIN GENE [id number] 08:45:00 Test Item Value Reference Range Interpretation Comments PROTHROMBIN/FACTOR II Negative for the [id number] (AKER) (test code = (Prothrombin/Factor II) 2163) mutation. [id number] Dudley Dunn M.D. ([facility]) (test code = (electonic signature) 2601) This test is a genotyping assay which evaluates the DNA sequence at position 12842 of the prothrombin (Factor II) gene. A [...] code = (Factor V Leiden) 718) mutation [id number] Dudley Dunn M.D. ([facility]) (test code = (electonic signature) 8984) This test is a genotyping assay which [...] was developed and [facility], Section of [...] for (BEAKER) (test code = Lupus Anticoagulant 7136) [id number] Dudley Dunn M.D. (BEAKER) (test code = (electonic signature) 7801) DRVV SCREEN RATIO 0.76 <1.20 (BEAKER) (test code = 1141) CBC W/PLT COUNT & AUTO [id number] 14:03:00 Test Item Value Reference Range Interpretation [...] (test code = Normal 762) BASIC METABOLIC [id number] 10:08:00 Test Item Value Reference Range Interpretation [...] 8.4-10.2 L (test code = 697) EGFR ([facility]) (test 122 mL/min/1.73 ESTIM ATED GFR IS code = 1092) sq m NOT ACCURATE CREATININE CLEARANCE IN PREDICTING GLOMERULAR FILTRATION RATE . ESTIMATED GFR I S NOT APPLICABLE FOR DIALYSIS PATIEN TS. POCT-GLUCOSE [id number] 08:35:00 Test Item Value Reference Range Interpretation Comments POC-GLUCOSE METER 72 mg/dL 70-110 TESTED AT [place] [address] ([facility]) (test code = [facility] [employer] [facility] [address] 1538) ANTI-NUCLEAR ANTIBODY (MARIA ISABEL)2017-06-01 03:41:00 Test Item Value Reference Range Interpretation Comments ANTI-NUCLEAR ANTIBODY (MARIA ISABEL) ([facility]) Negative Negative (test code = 418) POCT-GLUCOSE [id number] 22:27:00 Test Item Value Reference Range Interpretation Comments POC-GLUCOSE METER 111 mg/dL 70-110 H TESTED AT [place] [address] ([facility]) (test code = [facility] [employer] [facility] 1538) [id number] MR, BRAIN, WITHOUT [id number] 17:48:00FINAL REPORT MRI brain and MRA head and neck without contrast 05/31/2017 5:44 PM CLINICAL INDICATION: Stroke TECHNIQUE: Multiplanar, multisequence MR imaging of the brain was performed utilizing the following imaging sequences: Axial T1, T2, FLAIR, GRE, and DWI; sagittal and coronalT1-weighted images. Two- and three-dimensional pwza-hj-rkepkp MRA images of the intra- and extracranial [...] is antegrade in both vertebral arteries. MRA [place]: There is no vessel occlusion, flow-limiting stenosis, or aneurysm. IMPRESSION: 1. Findings that may reflect increased intracranial pressure. Consider further evaluation with intracranial MRA to exclude venous sinus thrombosis/stenosis.2. Unremarkable extracranial and intracranial MRAs. Signed: Patrick Schroeder Verified Date/Time: 05/31/2017 17:48:23 Reading Location: [facility] Reading Room MR, MRA, BRAIN, WITHOUT [id number] 17:48:00FINAL REPORT MRI brain and MRA head and neck without contrast 05/31/2017 5:44 PM CLINICAL INDICATION: Stroke TECHNIQUE: Multiplanar, multisequence MR imaging of the brain was performed utilizing the following imaging sequences: Axial T1, T2, FLAIR, GRE, and DWI; sagittal and coronalT1-weighted images. Two- and three-dimensional jdma-vz-xgnutr MRA images of the intra- and extracranial [...] is antegrade in both vertebral arteries. MRA [place]: There is no vessel occlusion, flow-limiting stenosis, or aneurysm. IMPRESSION: 1. Findings that may reflect increased intracranial pressure. Consider further evaluation with intracranial MRA to exclude venous sinus thrombosis/stenosis.2. Unremarkable extracranial and intracranial MRAs. Signed: Patrick Schroeder Verified Date/Time: 05/31/2017 17:48:23 Reading Location: [facility] Radiology Reading Room MR, MRA, NECK, WITH IV [id number] 17:48:00Please perform without contrastFINAL REPORT MRI brain and MRA head and neck without contrast 05/31/2017 5:44 PM CLINICAL INDICATION: Stroke TECHNIQUE: Multiplanar, multisequence MR imaging of the brain was performed utilizing the following imaging sequences: Axial T1, T2, FLAIR, GRE, and DWI; sagittal and coronalT1-weighted images. Two- and three-dimensional iybc-ad-ewgcmx MRA images of the intra- and extracranial [...] is antegrade in both vertebral arteries. MRA [place]: There is no vessel occlusion, flow-limiting stenosis, or aneurysm. IMPRESSION: 1. Findings that may reflect increased intracranial pressure. Consider further evaluation with intracranial MRA to exclude venous sinus thrombosis/stenosis.2. Unremarkable extracranial and intracranial MRAs. Signed: Patrick Schroeder Verified Date/Time: 05/31/2017 17:48:23 Reading Location: [facility] Reading Room THROMBIN [id number] 14:28:00 Test Item Value Reference Range Interpretation Comments THROMBIN TIME (BEAKER) (test code = 18.5 secs 13.8-20.0 550) HEXAGONAL [id number] 14:28:00 Test Item Value Reference Range Interpretation Comments HEXAGONAL PHOSPHOLIPID (BEAKER) Negative (test code = 1790) 1:1 MIXING STUDY, [id number] 14:28:00 Test Item Value Reference Range Interpretation Comments PROTIME (BEAKER) (test code = 16.4 seconds 11.7-14.7 H 759) PARTIAL THROMBOPLASTIN TIME 52.7 seconds 22.5-36.0 H (BEAKER) (test code = 760) PT 1/1 MIX (BEAKER) (test code = 14.1 SECS 11.7-14.7 1595) PTT 1/1 MIX (BEAKER) (test code 39.7 SECS 22.5-36.0 H = 1596) CARDIOLIPIN ANTIBODIES, IGG AND [id number] 11:47:00 Test Item Value Reference Range Interpretation Comments ANTICARDIOLIPIN IGG ANTIBODY (BEAKER) < GPL (test code = 712) ANTICARDIOLIPIN IGM ANTIBODY ([employer] WirelessAKER) 0.4 MPL (test code = 713) Anticardiolipin IgG Result Interpretation:NEG: <20 GPL; U/mlPOS: >/=20 GPL; U/mlAnticardiolipin IgM Result Interpretation:NEG: <20 MPL; U/mlPOS: >/=20 MPL; U/mlCARDIOLIPIN ANTIBODIES, IGG AND [id number] 11:45:00 Test Item Value Reference Range Interpretation Comments ANTICARDIOLIPIN IGG ANTIBODY ([employer] WirelessAKER) < GPL (test code = 712) ANTICARDIOLIPIN IGM ANTIBODY ([employer] WirelessAKER) 0.5 MPL (test code = 713) Anticardiolipin IgG Result Interpretation:NEG: <20 GPL; U/mlPOS: >/=20 GPL; U/mlAnticardiolipin IgM Result Interpretation:NEG: <20 MPL; U/mlPOS: >/=20 MPL; U/mlPOCT-GLUCOSE [id number] 11:39:00 Test Item Value Reference Range Interpretation Comments POC-GLUCOSE METER 120 mg/dL 70-[address] [facility] 6720 ([facility]) (test code = ISRA Reyes ADAIR OLVERA 1534) [address] PROTEIN C [id number] 11:35:00 Test Item Value Reference Range Interpretation Comments PROTEIN C ACTIVITY (BEAKER) (test code 65.0 % 70.0-130.0 L = 582) See Protein C Antigen.CBC W/PLT COUNT & AUTO [id number] 10:02:00 Test Item Value Reference Range Interpretation [...] (BEAKER) (test code Normal = 762) POCT-GLUCOSE [id number] 08:18:00 Test Item Value Reference Range Interpretation Comments POC-GLUCOSE METER 100 mg/dL 70-[address] [facility] 6720 (BEAKER) (test code = ISRA Reyes [facility] 1538) [address] BASIC METABOLIC [id number] 06:53:00 Test Item Value Reference Range Interpretation [...] NOT APPLICABLE FOR DIALYSIS PATIEN TS. POCT-GLUCOSE [id number] 21:28:00 Test Item Value Reference Range Interpretation Comments POC-GLUCOSE METER 105 mg/dL 70-[address] [facility] 6720 ([facility]) (test code = ISRA Reyes [facility] 1538) [address] POCT-GLUCOSE [id number] 12:53:00 Test Item Value Reference Range Interpretation Comments POC-GLUCOSE METER 126 mg/dL 70-[address] [facility] 6720 ([facility]) (test code = ISRA Reyes [facility] 1538) [address] VANCOMYCIN LEVEL, [id number] 11:31:00 Test Item Value Reference Range Interpretation Comments VANCOMYCIN TROUGH ([facility]) (test 13.7 ug/mL 10.0-20.0 code = 522) Draw 30 min prior to scheduled dose, HOLD if level > 20 mcg/mL, inform MD. ANTITHROMBIN [id number] 11:18:00 Test Item Value Reference Range Interpretation Comments ANTITHROMBIN III ACTIVITY (BEAKER) 67.0 % 80.0-120.0 L (test code = 711) URINE [id number] 10:46:00 Test Item Value Reference Range Interpretation Comments CULTURE (BEAKER) (test code = 1095) No growth [id number] 07:57:00 Test Item Value Reference Range Interpretation Comments HOMOCYSTEINE (BEAKER) (test code = 7.6 umol/L 5.1-15.4 642) LACTIC ACID, VENOUS, WHOLE [id number] 07:11:00 Test Item Value Reference Range Interpretation Comments LACTATE BLOOD VENOUS (2) (BEAKER) 0.9 mmol/L 0.5-2.2 (test code = 2872) Effective 09/25/2015: Units/Reference Range ChangeNew: 0.5-2.2 mmol/L Previous: 5- 20 mg/dLBASIC METABOLIC [id number] 07:04:00 Test Item Value Reference Range Interpretation Comments SODIUM (BEAKER) 141 meq/L 136-145 (test code = 381) POTASSIUM (BEAKER) 3.3 meq/L 3.5-5.1 L (test code = 379) CHLORIDE (BEAKER) 109 meq/L 98-107 H (test code = 382) CO2 (BEAKER) (test 26 meq/L 22-29 code = 355) BLOOD UREA NITROGEN 12 mg/dL 7-21 ([facility]) (test code = 354) CREATININE ([facility]) 0.80 mg/dL 0.57-1.25 (test code = 358) GLUCOSE RANDOM 89 mg/dL 70-105 ([facility]) (test code = 652) CALCIUM ([facility]) 7.8 mg/dL 8.4-10.2 L (test code = 697) EGFR ([facility]) (test 104 mL/min/1.73 ESTIM ATED GFR IS code = 1092) sq m NOT ACCURATE CREATININE CLEARANCE IN PREDICTING GLOMERULAR FILTRATION RATE . ESTIMATED GFR I S NOT APPLICABLE FOR DIALYSIS PATIEN TS. POCT-GLUCOSE [id number] 00:35:00 Test Item Value Reference Range Interpretation Comments POC-GLUCOSE METER 87 mg/dL 70-110 TESTED AT [place] [address] ([facility]) (test code = ISRA Reyes [facility] [address] 1538) [id number] 23:26:00 Test Item Value Reference Range Interpretation Comments RPR SCREEN ([facility]) (test code = Nonreactive Nonreactive 420) POCT-GLUCOSE [id number] 17:52:00 Test Item Value Reference Range Interpretation Comments POC-GLUCOSE METER 87 mg/dL 70-110 TESTED AT [place] [address] ([facility]) (test code = TONYATX Eric [facility] [address] 1538) POCT-GLUCOSE [id number] 12:58:00 Test Item Value Reference Range Interpretation Comments POC-GLUCOSE METER 117 mg/dL 70-110 H TESTED AT [place] [address] ([facility]) (test code = [facility] 1538) [address] EEG AWAKE AND [id number] 12:51:00Reason for exam:->abnormal EEG with altered mental status, concern for statusShould this be performed at the bedside?->YesEEG REPORT: Geri [facility] , DATE: EEG #: [id number] Code: #: R41.82 Altered mental status, unspecified (ICD 9: 780.97)CPT Code: #: 12985: 03. EEG coma or sleep only; 20-40 [...] signed by: DAPHNE Carballo 05/29/2017 12:51 PMHEMOGLOBIN [id number] 08:42:00 Test Item Value Reference Range Interpretation Comments HEMOGLOBIN A1C ([facility]) (test code = 5.6 % 4.3-6.1 368) HIV-1 ANTIGEN WITH HIV-1/2 [id number] 05:23:00 Test Item Value Reference Range Interpretation Comments HIV-1 ANTIGEN WITH HIV 1\T\2 Nonreactive Nonreactive ANTIBODY (2) ([facility]) (test code = 2586) SEDIMENTATION [id number] 05:05:00 Test Item Value Reference Range Interpretation Comments SEDIMENTATION RATE, ERYTHROCYTE 48 mm/HR 0-20 H ([facility]) (test code = 766) RAD, HIP, 2 VIEWS, [id number] 03:29:00Reason for exam:->possible fall at homeFINAL REPORT [...] of the pelvis. Signed: JR Cesilia, Enrique Nguyenort Verified Date/Time: 05/29/2017 03:29:06 Reading Location: [facility] C013Y CT Body Reading Room 03:29 AM CREATINE KINASE (CK), TOTAL AND [id number] 02:57:00 Test Item Value Reference Range Interpretation Comments CREATINE KINASE TOTAL (BEAKER) 581 U/L 29-200 H (test code = 380) CREATINE KINASE-MB (BEAKER) (test 1.2 ng/mL 0.0-6.6 code = 750) CREATINE KINASE-MB INDEX (BEAKER) 0.2 % (test code = 395) CK-MB Reference Range:<6.7 Normal6.7-10.0 Borderline>10.0 AbnormalTROPONIN [id number] 02:57:00 Test Item Value Reference Range Interpretation [...] 395) CK-MB Reference Range:<6.7 Normal6.7-10.0 Borderline>10.0 AbnormalTROPONIN [id number] 02:56:00 Test Item Value Reference Range Interpretation [...] acidosis, acute neurological disease, and persistent tachyarrhythmia.LIPID [id number] 02:53:00 Test Item Value Reference Range Interpretation [...] 130-159 High 160-189 Very High >=190BASIC METABOLIC [id number] 02:53:00 Test Item Value Reference Range Interpretation [...] APPLICABLE FOR DIALYSIS PATIEN TS. HEPATIC FUNCTION [id number] 02:53:00 Test Item Value Reference Range Interpretation [...] (test code = 15 U/L 6-55 347) [id number] 02:53:00 Test Item Value Reference Range Interpretation Comments AMYLASE (BEAKER) (test code = 349) 74 U/L 25-125 [id number] 02:53:00 Test Item Value Reference Range Interpretation Comments LIPASE (BEAKER) (test code = 749) 13 U/L 8-78 C-REACTIVE [id number] 02:53:00 Test Item Value Reference Range Interpretation Comments C-REACTIVE PROTEIN (BEAKER) (test 10.77 mg/dL 0.00-0.50 H code = 676) LACTIC ACID, ARTERIAL, WHOLE [id number] 02:47:00 Test Item Value Reference Range Interpretation Comments LACTATE BLOOD ARTERIAL (2) 0.7 mmol/L 0.5-2.2 (BEAKER) (test code = 2874) Effective 09/25/2015: Units/Reference Range ChangeNew: 0.5-2.2 mmol/L Previous: 5- 20 mg/[id number] 02:36:00 Test Item Value Reference Range Interpretation Comments PARTIAL THROMBOPLASTIN TIME 51.7 seconds 22.5-36.0 H (BEAKER) (test code = 760) PROTHROMBIN [id number] 02:35:00 Test Item Value Reference Range Interpretation [...] mechanical heart valves.CBC W/PLT COUNT & AUTO [id number] 02:35:00 Test Item Value Reference Range Interpretation [...] (BEAKER) (test code = 2801) URINALYSIS W/ [id number] 02:31:00 Test Item Value Reference Range Interpretation [...] SOURCE(BEAKER) (test code Urine, Clean Catch = 1075) SCREEN, [id number] 00:58:00 Test Item Value Reference Range Interpretation Comments TEST URINE (BEAKER) (test Negative code = 583) POCT-GLUCOSE [id number] 00:47:00 Test Item Value Reference Range Interpretation Comments POC-GLUCOSE METER 102 mg/dL 70-[address] [facility] 67 ([facility]) (test code = ISRA OLVERA 1538) [address]
[2022-07-09 12:21] LABS: Absolute Lymphocytes (CBC) 2.3 K/uL (0.7-4.9); Hematocrit 32.6 % (36.0-45.0); Lymphocytes % 27.6 % (15.3-44.8); MCV 82.7 fL (80-100); MPV 7.6 fL (7.6-11.3); RBC Red Blood Cell Count 3.95 M/uL (3.86-4.86)
[2022-07-09 12:39] LABS: Bilirubin Total 0.7 mg/dL (0.2-1.0); Potassium 4.1 mmol/L (3.5-5.1); Protein, Total 8.5 g/dL (6.4-8.2)
[2022-07-09] MEDS ORDERED: ACETAMINOPHEN 650MG/RECT SUPP PR ONE (12:43)
[2022-07-09] MEDS ORDERED: D10W 250 ML IV ONE ×2 (12:58→17:31)
[2022-07-09 13:07] LABS: SARS-COV-2 RT PCR POSITIVE (NEGATIVE)
[2022-07-09] MEDS ORDERED: NA CHLORIDE 0.9% 1,000 ML ONE ×2 (13:33→14:25)
--- NOTE | 2022-07-09 13:52 | EDPHYS ---
Physician Documentation [facility] Name: Alyssa García Age: 31 yrs Sex: Female : 1990 Arrival Date: 07/09/2022 Time: 10:43 Bed 18 Private MD: ED Physician Casi Munoz HPI: 07/09 11:29 This 31 yrs old Black Female presents to ER via EMS with complaints of Fever, Seizure. sp3 11:29 41-year-old female with history of epilepsy, asthma, anemia now presents with chief sp3 complaint seizure x1 breakthrough in nature coupled with fever, body aches and general URI symptoms. Her was ill earlier this week and multiple members of her family have been ill with a "cold". Patient denies headache or neck pain, chest pain, shortness of breath, abdominal pain, nausea, vomiting, diarrhea, syncope, near syncope, or any other symptoms at this time. 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 13:48 Patient has had no further seizures and after some D10 IV and a meal, she is awake sp3 alert and oriented. is at the bedside as well. Patient's COVID-19 test is positive and the remainder of her work-up is negative. WBC count is normal. At this time clinically I ruled out meningitis and once patient receives her IV fluids we will safely discharge her home. Initial lactate was 2.6. Follow-up with PCP as needed along with instructions for general hydration.. Historical: - Allergies: 11:07 ambien; db - Home Meds: 11:07 noncompliant [Active]; db - PMHx: 11:07 Anemia; Asthma; CVA; HYPOGLYCEMIA; Seizures; db - Immunization history:: Adult Immunizations unknown. - Social history:: Smoking status: unknown. ROS: 11:33 Eyes: Negative for injury, pain, redness, and discharge, ENT: Negative for injury, sp3 pain, and discharge, Neck: Negative for injury, pain, and swelling, Cardiovascular: Negative for chest pain, palpitations, and edema, Respiratory: Negative for shortness of breath, cough, wheezing, and pleuritic chest pain, Abdomen/GI: Negative for abdominal pain, nausea, vomiting, diarrhea, and constipation, Back: Negative for injury and pain, MS/Extremity: Negative for injury and deformity, Skin: Negative for injury, rash, and discoloration, Psych: Negative for depression, anxiety, suicide ideation, homicidal ideation, and hallucinations, Allergy/Immunology: Negative for hives, rash, and allergies, Endocrine: Negative for neck swelling, polydipsia, polyuria, polyphagia, and marked weight changes, Hematologic/Lymphatic: Negative for swollen nodes, abnormal bleeding, and unusual bruising. Exam: 11:34 Constitutional: This is a well developed, well nourished patient who is awake, alert, sp3 and in no acute distress. Head/Face: Normocephalic, atraumatic. Eyes: Pupils equal round and reactive to light, extra-ocular motions intact. Lids and lashes normal. Conjunctiva and sclera are non-icteric and not injected. Cornea within normal limits. Periorbital areas with no swelling, redness, or edema. ENT: Nares patent. No nasal discharge, no septal abnormalities noted. External auditory canals are clear. Oropharynx with no redness, swelling, or masses, exudates, or evidence of obstruction, uvula midline. Mucous membranes moist. Neck: Trachea midline, no thyromegaly or masses palpated, and no cervical lymphadenopathy. Supple, full range of motion without nuchal rigidity, or vertebral point tenderness. No Meningismus. Chest/axilla: Normal chest wall appearance and motion. Nontender with no deformity. No lesions are appreciated. Respiratory: Lungs have equal breath sounds bilaterally, clear to auscultation and percussion. No rales, rhonchi or wheezes noted. No increased work of breathing, no retractions or nasal flaring. Abdomen/GI: Soft, non-tender, with normal bowel sounds. No distension or tympany. No guarding or rebound. No evidence of tenderness throughout. Back: No spinal tenderness. No costovertebral tenderness. Full range of motion. Skin: Warm, dry with normal turgor. Normal color with no rashes, no lesions, and no evidence of cellulitis. MS/ Extremity: Pulses equal, no cyanosis. Neurovascular intact. Full, normal range of motion. Neuro: Awake and alert, GCS 15, oriented to person, place, time, and situation. Cranial nerves II-XII grossly intact. Motor strength 5/5 in all extremities. Sensory grossly intact. Cerebellar exam normal. Normal gait. 11:34 Cardiovascular: Rate: tachycardic. 11:34 Neuro: Patient is still in late stages of being in a postictal state. Answers all questions and has a grossly normal neurological exam.. Vital Signs: 10:39 BP 101 / 77; Pulse 107; Resp 20; Temp 103.3(A); Pulse Ox 99% on R/A; Weight 42.64 kg; db Height 5 ft. 5 in. (165.10 cm); 11:00 BP 94 / 65; Pulse 96; Resp 16; Pulse Ox 100% on R/A; db 12:00 BP 104 / 72; Pulse 90; Resp 16; Pulse Ox 98% on R/A; db 13:00 BP 115 / 85; Pulse 95; Resp 16; Pulse Ox 99% on R/A; db 13:28 Pulse 145; Resp 18; Pulse Ox 99% on R/A; db 14:00 BP 95 / 69; Pulse 110; Resp 16; Temp 102.9(R); Pulse Ox 100% on R/A; db 15:00 BP 99 / 72; Pulse 109; Resp 18; Pulse Ox 98% on R/A; db 16:30 BP 99 / 54; Pulse 105; Resp 16; Temp 100.5(O); Pulse Ox 99% ; db 18:30 BP 92 / 66; Pulse 87; Resp 18; Pulse Ox 97% on R/A; db 18:30 BP 92 / 66; Pulse 86; Resp 18; Pulse Ox 97% on R/A; db 19:30 BP 101 / 77; Pulse 92; Resp 16; Temp 98.9; Pulse Ox 100% on R/A; Pain 0/10; pf1 20:30 BP 97 / 73; Pulse 85; Resp 19; Pulse Ox 100% on R/A; pf1 10:39 Body Mass Index 15.64 (42.64 kg, 165.10 cm) db 14:[address] munoz of temp db [place] Coma Score: 11:07 Eye Response: spontaneous(4). Verbal Response: confused(4). Motor Response: localizes db pain(5). Total: 13. MDM: 11:06 Patient medically screened. sp3 11:34 Data reviewed: vital signs, nurses notes, EMS record. ED course: 31-year-old female sp3 with isolated breakthrough seizure and now fever with URI symptoms and body aches. Differential diagnosis is broad and includes influenza, viral syndrome, strep throat, pneumonia, viral meningitis, and to a much less likely bacterial meningitis. We will start her work-up with chest x-ray, laboratory values, swabs and urinalysis. If those are completely negative, we will discuss having a lumbar puncture performed with patient. Patient's neck is supple and she has full range of motion and I am not highly suspicious for meningitis at this time.. 17:26 ED course: Patient on repeat blood sugar has a blood sugar of 55. She is refusing to sp3 eat but acknowledging that she needs to. She is very uncooperative. She is able to ambulate and go to the restroom and void. I suspect there may be a psychogenic component to this. Given her continued fever, hyperglycemia, and severe dehydration secondary to not taking p.o., we will keep her in observation overnight. She is not on any antihyperglycemic's, insulin or any other medication. She is not a diabetic. Will discuss with inpatient team. 18:35 ED course: Continue patient continuing to not be fully awake, the decision was made to sp3 perform lumbar puncture. Patient was not able to sign so myself and inpatient nurse practitioner signed on patient's behalf. Patient was consented to the best of her ability prior to procedure. Patient was prepped in a sterile fashion and 8 mL of lidocaine 1% with epi was locally infused for local anesthesia. L4-L5 intervertebral space was used using standard lumbar puncture needle and fluid was obtained without difficulty or complication or bleeding. 4 tubes with a total of 8 mL of CSF was retrieved and sent to the laboratory for analysis. Dressing was placed and patient is now laying flat. No blood loss in no complications to procedure. Source to be followed up by inpatient team.. 07/09 11:21 Order name: Blood Culture Adult (2) sp3 07/09 11:21 Order name: CBC with Diff; Complete Time: 12:28 sp3 07/09 11:21 Order name: CMP; Complete Time: 13:16 sp3 07/09 11:21 Order name: Lactate w/ 2H reflex if indic.; Complete Time: 13:16 sp3 07/09 11:21 Order name: Urine Microscopic Only sp3 07/09 11:24 Order name: COVID-19/FLU A+B; Complete Time: 13:16 3 07/09 15:45 Order name: Lactate Sepsis 2 HR Follow-up; Complete Time: 17:38 [facility] 07/09 17:00 Order name: Glucose, Ancillary Testing; Complete Time: 17:38 [facility] 07/09 18:34 Order name: Csf Culture [facility] 07/09 18:34 Order name: Fluid Cell Count,Body [facility] 07/09 18:34 Order name: Spinal Fluid Profile [facility] 07/09 19:39 Order name: Glucose, Ancillary Testing [facility] 07/09 11:21 Order name: EKG; Complete Time: 11:21 [facility] 07/09 11:21 Order name: Accucheck; Complete Time: 13:03 [facility] 07/09 11:21 Order name: Cardiac monitoring; Complete Time: 12:13 [facility] 07/09 11:21 Order name: IV Saline Lock - Large Bore; Complete Time: 12:11 [facility] 07/09 11:21 Order name: Labs collected and sent; Complete Time: 13:03 [facility] 07/09 11:21 Order name: O2 Per Protocol; Complete Time: 13:03 [facility] 07/09 11:21 Order name: O2 Sat Monitoring; Complete Time: 12:49 [facility] 07/09 11:21 Order name: Vital Signs; Complete Time: 12:11 [facility] 07/09 18:34 Order name: LP Consents; Complete Time: 19:18 [facility] 07/09 18:34 Order name: LP Setup; Complete Time: 19:18 [facility] Administered Medications: 12:49 Not Given (Duplicate Order): Acetaminophen 1000 mg PO once db 12:49 Drug: Acetaminophen Suppository 650 mg Route: AR; db 17:31 Follow up: Response: No adverse reaction db 13:00 Drug: D10 in Water [4ml/kg] 250 ml Route: IVP; Site: left wrist; db 17:31 Follow up: Response: No adverse reaction db 13:33 Drug: NS 0.9% 1000 ml Route: IV; Rate: 1 bolus; Site: left hand; mb9 15:00 Follow up: Response: No adverse reaction; IV Status: Completed infusion; IV Intake: db 1000ml 15:22 Drug: Ketorolac 30 mg Route: IVP; Site: left wrist; db 17:44 Follow up: Response: No adverse reaction db 17:00 Drug: D10 in Water [4ml/kg] 250 ml Route: IVP; Site: left wrist; db 18:04 Follow up: Response: No adverse reaction db 18:03 Drug: D5-1/2 NS 1000 ml Route: IV; Rate: 100 ml/hr; Site: left wrist; db 21:12 Follow up: Response: No adverse reaction; Marked relief of symptoms; IV Status: pf1 Infusion continued upon admission Disposition Summary: 07/09/22 17:29 Hospitalization Ordered Hospitalization Status: Observation sp3 Location: Telemetry/MedSurg (observation)(07/09/22 17:29) sp3 Condition: Fair(07/09/22 17:29) sp3 Problem: new sp3 Symptoms: are unchanged sp3 Bed/Room Type: Standard sp3 Provider: Nabeel Sweeney(07/09/22 18:52) [email or web address] Room Assignment: [facility](07/09/22 19:59) Diagnosis - SARS-associated coronavirus as the cause of diseases classified elsewhere(07/09/22 sp3 17:29) - Other hypoglycemia sp3 - Dehydration sp3 Forms: - Medication Reconciliation Form sp3 - SBAR form sp3 Signatures: Dispatcher [employer] EDMS Gianni Grant PA PA jmm Smirch, Shelby, RN RN ss Ron Francois FNP-C FNP-ClaSilvina Kaur RN RN Casi Munoz MD MD sp3 Giovanna Dorado RN RN db Breneman, Mary Beth, RN RN mb9 Kiana rai RN pf1 Corrections: (The following items were deleted from the chart) 17:28 13:51 Home sp3 sp3 17:28 13:51 Stable sp3 sp3 17:28 13:51 SARS-associated coronavirus as the cause of diseases classified elsewhere sp3 sp3 17:56 17:29 Nabeel Sweeney sp3 ss 18:52 17:56 Jem Coronado la1 19:59 17:29 sp3 cg
--- NOTE | 2022-07-09 13:52 | ER ---
Nurse's Notes [facility] Name: Alyssa García Age: 31 yrs Sex: Female : 1990 Arrival Date: 07/09/2022 Time: 10:43 Bed 18 Private MD: Diagnosis: SARS-associated coronavirus as the cause of diseases classified elsewhere;Other hypoglycemia;Dehydration Presentation: 07/09 10:39 Chief complaint: EMS states: Patient came from home with fever of 102.1 Axillary db patient had witnessed seizure today by that lasted approximately 3 min. Pt now confused or post ictal and not answering questions. Patient glucose 77. Coronavirus screen: Client denies travel out of the [place] in the last 14 days. Client presents with at least one sign or symptom that may indicate coronavirus-19. Standard/surgical mask placed on the client. Ebola Screen: Patient negative for fever greater than or equal to 101.5 degrees Fahrenheit, and additional compatible Ebola Virus Disease symptoms Patient denies exposure to infectious person. Patient denies travel to an Ebola-affected area in the 21 days before illness onset. No symptoms or risks identified at this time. Initial Sepsis Screen: Does the patient meet any 2 criteria? Temp <36.0*C (96.8*F)) or > 38.3*C (100.9*F). Altered Mental Status. HR > 90 bpm. Yes Does the patient have a suspected source of infection? No. Patient's initial sepsis screen is negative. Risk Assessment: Do you want to hurt yourself or someone else? Patient reports no desire to harm self or others. Onset of symptoms was July 09, 2022. 10:39 Method Of Arrival: EMS: [facility] db 10:39 Acuity: RUSLAN 2 db Triage Assessment: 11:07 General: Appears in no apparent distress. comfortable, Behavior is calm, drowsy. Neuro: db Level of Consciousness is post ictal, Oriented to. Respiratory: Airway is patent Respiratory effort is even, unlabored, Respiratory pattern is regular, symmetrical. Historical: - Allergies: 11:07 ambien; db - Home Meds: 11:07 noncompliant [Active]; db - PMHx: 11:07 Anemia; Asthma; CVA; HYPOGLYCEMIA; Seizures; db - Immunization history:: Adult Immunizations unknown. - Social history:: Smoking status: unknown. Screenin:30 [facility] ED Fall Risk Assessment (Adult) History of falling in the last 3 months, db including since admission No falls in past 3 months (0 pts) Confusion or Disorientation Yes (5 pts) Intoxicated or Sedated No (0 pts) Impaired Gait No (0 pts) Mobility Assist Device Used No (0 pt) Altered Elimination No (0 pt) Score/Fall Risk Level 3 or more points = High Risk Oriented to surroundings, Maintained a safe environment, Educated pt \T\ family on fall prevention, incl call for assistance when getting out of bed, Hourly rounding (assess needs \T\ fall precautionary measures) done. Abuse screen: Denies threats or abuse. Denies injuries from another. Nutritional screening: No deficits noted. Tuberculosis screening: No symptoms or risk factors identified. Assessment: 12:12 Reassessment: Patient appears in no apparent distress at this time. patient labs sent. db Difficulty obtaining labs due to patient moving and confused. Easily redirectable. 12:30 Reassessment: Patient appears in no apparent distress at this time. db 13:27 Reassessment: spouse at bedside. Dr. Munoz at bedside. HR increased to [address] Munoz db at bedside. 14:06 Reassessment: spouse Dario [phone]. db 14:37 Reassessment: patient fluids all over bed. changed patient sheets and given another NS db 1Liter bag Patient states feeling better. General: Appears in no apparent distress. comfortable, Behavior is calm. Pain: Unable to use pain scale. Patient is disoriented. Neuro: Level of Consciousness is confused. 15:41 Reassessment: Patient appears in no apparent distress at this time. Patient and/or db family updated on plan of care and expected duration. Pain level reassessed. 16:13 Reassessment: Patient appears in no apparent distress at this time. Patient and/or db family updated on plan of care and expected duration. Pain level reassessed. patient woke up and stated has to use the restroom. Assisted patient to restroom. Patient ambulatory in NAD. Patient did not obtain specimen. Patient assisted back to room and curled back up. Spouse at bedside. General: Appears in no apparent distress. comfortable, Behavior is calm. Neuro: Speech is normal. 16:38 Reassessment: patient requests water. Patient given water to drink. db 16:39 Neuro: Level of Consciousness is awake, alert, obeys commands, patient not answering db questions. 16:58 Reassessment: Patient appears in no apparent distress at this time. patient glucose db rechecked notified Dr. Munoz glucose 55. Patient provided food, sandwich, juice and gatorade to eat. Spouse at bedside. Dr. Munoz spoke with patient and spouse. 18:00 Reassessment: Patient appears in no apparent distress at this time. Patient and/or db family updated on plan of care and expected duration. Pain level reassessed. Ron with hospitalist group at patient bedside. 18:40 Reassessment: Patient appears in no apparent distress at this time. Patient and/or db family updated on plan of care and expected duration. Pain level reassessed. 19:00 General: Appears in no apparent distress. comfortable, Behavior is calm. pf1 19:00 Pain: Unable to use pain scale. Patient is disoriented. Neuro: Level of Consciousness pf1 is awake, confused, Oriented to Patient is not answering questions. Speech is normal. Neuro: Seizure activity reported prior to arrival. Cardiovascular: No deficits noted. Capillary refill < 3 seconds Patient's skin is warm and dry. Respiratory: No deficits noted. Airway is patent Trachea midline Respiratory effort is even, unlabored, Respiratory pattern is regular, symmetrical, Breath sounds are clear bilaterally. GI: report patient has not eaten in the past 34 hours. : No deficits noted. EENT: No deficits noted. Derm: No deficits noted. No signs and/or symptoms reported regarding the dermatologic system. 19:30 General: Osvaldo Bowen ()- [phone]. pf1 20:00 Reassessment: Patient appears in no apparent distress at this time. Patient and/or pf1 family updated on plan of care and expected duration. Pain level reassessed. Patient not answering questions appropriately, patient starts looking off, staring at the wall and not talking. Patient states symptoms have not improved. 20:22 Reassessment: attempt report, nurse to call back. pf1 20:53 Reassessment: attempt report, no answer at this time.. pf1 20:58 General: FSBGL 99. pf1 21:00 Reassessment: Patient appears in no apparent distress at this time. Patient and/or pf1 family updated on plan of care and expected duration. Pain level reassessed. Patient states symptoms have not improved. Vital Signs: 10:39 BP 101 / 77; Pulse 107; Resp 20; Temp 103.3(A); Pulse Ox 99% on R/A; Weight 42.64 kg; db Height 5 ft. 5 in. (165.10 cm); 11:00 BP 94 / 65; Pulse 96; Resp 16; Pulse Ox 100% on R/A; db 12:00 BP 104 / 72; Pulse 90; Resp 16; Pulse Ox 98% on R/A; db 13:00 BP 115 / 85; Pulse 95; Resp 16; Pulse Ox 99% on R/A; db 13:28 Pulse 145; Resp 18; Pulse Ox 99% on R/A; db 14:00 BP 95 / 69; Pulse 110; Resp 16; Temp 102.9(R); Pulse Ox 100% on R/A; db 15:00 BP 99 / 72; Pulse 109; Resp 18; Pulse Ox 98% on R/A; db 16:30 BP 99 / 54; Pulse 105; Resp 16; Temp 100.5(O); Pulse Ox 99% ; db 18:30 BP 92 / 66; Pulse 87; Resp 18; Pulse Ox 97% on R/A; db 18:30 BP 92 / 66; Pulse 86; Resp 18; Pulse Ox 97% on R/A; db 19:30 BP 101 / 77; Pulse 92; Resp 16; Temp 98.9; Pulse Ox 100% on R/A; Pain 0/10; pf1 20:30 BP 97 / 73; Pulse 85; Resp 19; Pulse Ox 100% on R/A; pf1 10:39 Body Mass Index 15.64 (42.64 kg, 165.10 cm) db 14:[address] munoz of temp db Vitals: 13:00 Cardiac Rhythm Assessment Regular Sinus rhythm Sinus tach. db [place] Coma Score: 11:07 Eye Response: spontaneous(4). Verbal Response: confused(4). Motor Response: localizes db pain(5). Total: 13. ED Course: 10:43 Patient arrived in ED. em1 10:45 Casi Munoz MD is Attending Physician. sp3 11:02 Giovanna Dorado RN is Primary Nurse. db 11:07 Triage completed. db 11:12 Arm band placed on right wrist. db 12:00 First set of blood cultures drawn by me. db 12:00 Missed attempt(s): 22 gauge in left antecubital area. db 12:06 Inserted saline lock: 22 gauge in left hand, using aseptic technique. Blood collected. db 12:06 Second set of blood cultures drawn. db 13:31 Patient has correct armband on for positive identification. Placed in gown. Bed in low db position. Call light in reach. Side rails up X2. Client placed on continuous cardiac and pulse oximetry monitoring. NIBP monitoring applied. 17:28 Nabeel Sweeney MD is Hospitalizing Provider. sp3 17:56 Jem Coronado MD is Hospitalizing Provider. ss 18:30 Assist provider with lumbar puncture: Set up LP tray. Performed by Casi Munoz MD CSF db is clear. Sample collected. Sample sent to lab. Puncture site dressed with tegaderm and 4x4 Procedure was successful. Patient tolerated well. 18:40 Seizure precautions initiated. db 18:52 Nabeel Sweeney MD is Hospitalizing Provider. la1 19:19 Report given to ADOLFO Waters. db 20:21 Patient admitted, IV remains in place. pf1 Administered Medications: 12:49 Not Given (Duplicate Order): Acetaminophen 1000 mg PO once db 12:49 Drug: Acetaminophen Suppository 650 mg Route: FL; db 17:31 Follow up: Response: No adverse reaction db 13:00 Drug: D10 in Water [4ml/kg] 250 ml Route: IVP; Site: left wrist; db 17:31 Follow up: Response: No adverse reaction db 13:33 Drug: NS 0.9% 1000 ml Route: IV; Rate: 1 bolus; Site: left hand; mb9 15:00 Follow up: Response: No adverse reaction; IV Status: Completed infusion; IV Intake: db 1000ml 15:22 Drug: Ketorolac 30 mg Route: IVP; Site: left wrist; db 17:44 Follow up: Response: No adverse reaction db 17:00 Drug: D10 in Water [4ml/kg] 250 ml Route: IVP; Site: left wrist; db 18:04 Follow up: Response: No adverse reaction db 18:03 Drug: D5-1/2 NS 1000 ml Route: IV; Rate: 100 ml/hr; Site: left wrist; db 21:12 Follow up: Response: No adverse reaction; Marked relief of symptoms; IV Status: pf1 Infusion continued upon admission Medication: 18:40 VIS not applicable for this client. db Intake: 15:00 IV: 1000ml; Total: 1000ml. db Outcome: 13:51 Discharge ordered by . sp3 17:29 Decision to Hospitalize by Provider. sp3 21:11 Admitted to Tele accompanied by tech, via stretcher, room 402, with chart, Report pf1 called to ADOLFO Yang 21:11 Condition: stable 21:11 Instructed on the need for admit. 21:12 Patient left the ED. pf1 Signatures: Michel Peng em1 Pearl Jefferson, RN RN ss Ron Francois, TERRAZZO POLISHER-C TERRAZZO POLISHER-Cla1 Casi Munoz MD MD sp3 Giovanna Dorado RN RN Tameka Tai, RN RN mb9 Kiana rai RN RN pf1 Corrections: (The following items were deleted from the chart) 15:41 14:37 Reassessment: patient fluids all over bed. changed patient sheets and given db another NS 1Liter bag Patient states feeling better. db 15:41 14:00 BP 95 / 69; Pulse 110bpm; Resp 16bpm; Pulse Ox 100% RA; Temp 102.9F Rectal; db db 16:58 16:13 Reassessment: Patient appears in no apparent distress at this time. Patient db and/or family updated on plan of care and expected duration. Pain level reassessed. patient woke up and stated has to use the restroom. Assisted patient to restroom. Patient ambulatory in NAD. Patient did not obtain specimen. Patient assisted back to room and curled back up. Spouse at bedside. db
[2022-07-09] MEDS ORDERED: ACETAMINOPHEN 325 MG TABLET ONE (15:13)
[2022-07-09] MEDS ORDERED: KETOROLAC 30 MG/ML INJ ONE (15:20)
[2022-07-09] MEDS ORDERED: D5 0.45 NS 1,000 ML IV ONE (17:31)
[2022-07-09] MEDS ORDERED: LIDOCAINE 1% W/EPI 1:100,000 50 ML MDV ONE (18:21)
[2022-07-09 19:05] LABS: CSF Glucose 54 mg/dL (40-70)
--- NOTE | 2022-07-09 19:10 | P.HP ---
Certification for Inpatient Patient admitted to: Observation With expected LOS: <2 Midnights Patient will require the following post-hospital care: None Practitioner: I am a practitioner with admitting privileges, knowledge of patient current condition, hospital course, and medical plan of care. Services: Services provided to patient in accordance with Admission requirements found in Title 42 Section 412.3 of the Code of Federal Regulations Patient History Date of Service: 07/09/22 Reason for admission: Fever, AMS, COVID-19 History of Present Illness: 31-year-old female with history of seizure disorder, hypoglycemia, noncompliance presents to the emergency department for fever, seizure, altered mental status. Her reported that she had a seizure at home he describes as "shaking activity". He was not at bedside any longer for me to further delineate what he saw in regards to her seizure at home. She was evaluated in the emergency de partment her labs were significant for normal white blood cell count sodium 134 creatinine 1.5 initial lactic acid 2.6 down to 1.8 after IV fluids glucose initially 63 down to 55 despite D10 bolus, patient now on D5 half NS continuous. Patient did test positive for COVID, reportedly has been told nursing staff that patient had a previous bout with COVID with very similar symptoms including altered mental status requiring hospitalization at [facility]. Given fever, seizure, altered mental status LP was performed in ED, fluid was clear, pending further analysis. Suspect patient's fevers related to COVID as well as her other symptoms. She will be admitted under observation for AMS, fever, COVID-19. Allergies aspirin Allergy (Verified 03/14/18 16:54) Unknown zolpidem Adverse Reaction (Verified 05/28/17 01:07) Shortness of breath Home Medications: Albuterol Sulfate [Proair Hfa] 2 puff IH Q6HR 03/14/18 Eslicarbazepine Acetate [Aptiom] 800 mg PO DAILY 03/14/18 Montelukast [Singulair*] 10 mg PO DAILY 03/14/18 Ciprofloxacin HCl [Cipro 500 MG Tablet] 500 mg PO BID 10 Days #20 tab 08/23/21 Codeine/APAP [Tylenol #3*] 1 tab PO Q6H PRN 3 Days #12 tab 08/23/21 metroNIDAZOLE [Flagyl] 500 mg PO Q8H 10 Days #30 tablet 08/23/21 - Past Medical/Surgical History Diabetic: No -: Seizure disorder -: History of CVA -: Asthma -: Hypoglycemia -: Psychosocial/ Personal History: Patient is single. She has 2 children. She is disabled due to her seizure disorder. - Family History Father -: Diabetes, Stroke, Other (see notes) - Social History Alcohol use: No CD- Drugs: No Caffeine use: Yes Place of Residence: Home Review of Systems 10-point ROS is otherwise unremarkable General: Fever, Weakness, Malaise, As per HPI Neurological: Confusion, Seizures Physical Examination - Physical Exam General: In no apparent distress, Confused, Other (Drowsy) HEENT: Atraumatic, PERRLA, Mucous membr. moist/pink, EOMI, Sclerae nonicteric Neck: Supple, 2+ carotid pulse no bruit, No LAD, Without JVD or thyroid abnormality Respiratory: Clear to auscultation bilaterally, Normal air movement Cardiovascular: Regular rate/rhythm, Normal S1 S2 Capillary refill: <2 Seconds Gastrointestinal: Normal bowel sounds, No tenderness Musculoskeletal: No tenderness Integumentary: No rashes Neurological: Normal strength at 5/5 x4 extr, Normal tone, Normal affect, Other (Patient opens eyes with verbal communication, tracks with eyes, will ask for water, able to ambulate to restroom but unable to tell me her name or where she is.), Abnormal speech (Speech slowed, slurred) - Studies Laboratory Data (last 24 hrs) 07/09/22 12:06: Sodium 134 L, Potassium 4.1, BUN 16, Creatinine 1.50 H, Glucose 63 L, Total Bilirubin 0.7, AST 36, ALT 19, Alkaline Phosphatase 65 07/09/22 12:06: WBC 8.30, Hgb 11.1 L, Hct 32.6 L, Plt Count 171 Assessment and Plan - Plan Assessment: Metabolic encephalopathy likely related to COVID-19 Possible seizure with underlying seizure disorder Rule out meningitis Hypoglycemia Plan: Metabolic encephalopathy likely related to COVID-19 COVID-19 positive, has been reportedly informed nursing staff she had previous admission to [facility] with similar complaints when she last had COVID- 19. EEG ordered, possibly postictal from seizure although unwitnessed by medical staff. Has been reported "shaking". Unsure patient's no medications no seizure activity noted thus far, will start Keppra if further seizure activity noted. Serial neurochecks, neurology consulted. Possible seizure with underlying seizure disorder EEG ordered, monitor for seizures. Rule out meningitis LP performed, fluid clear, follow results. Suspect metabolic encephalopathy related to COVID-19 at this time. Hypoglycemia Continue dextrose containing IV fluids, monitor glucose. DVT PPX: Lovenox Code status: Full Discharge Plan: Home Plan to discharge in: 24 Hours - Advance Directives Does patient have a Living Will: No Does patient have a Durable POA for Healthcare: No - Code Status/Comfort Care Code Status Assessed: Yes (Full code) Critical Care: No Time Spent Managing Pts Care (In Minutes): 70
[2022-07-09 19:57] LABS: Appearance CLEAR (CLEAR); Body Fluid Source CSF; Color of fluid Colorless (COLORLESS)
[2022-07-09 19:58] LABS: Body Fluid WBC 20 /mm^3
[2022-07-09 19:59] LABS: Appearance CLEAR (CLEAR); Body Fluid Source CSF; Body Fluid WBC 20 /mm^3; Color of fluid Colorless (COLORLESS); Fluid Total Volume 7 ml
[2022-07-09] MEDS ORDERED: ONDANSETRON 4 MG/2 ML VIAL IV PRN (21:24)
[2022-07-09] MEDS ORDERED: D5 0.45 NS 1,000 ML IV SCH (21:24)
[2022-07-09] MEDS ORDERED: ACETAMINOPHEN 650MG/RECT SUPP PR PRN (21:24)
[2022-07-09] MEDS ORDERED: levETIRAcetam 1,000 MG in NA CHLORIDE 0.9% 100 ML IV ONE (21:27)
[2022-07-09] MEDS ORDERED: LEVETIRACETAM 500 MG/5 ML VIAL IV ONE (21:59)
[2022-07-09] MEDS ORDERED: NA CHLORIDE 0.9% 100 ML ONE (22:09)
[2022-07-09] MEDS ORDERED: LORazepam 2 MG/ML VIAL IV ONE (22:23)
[2022-07-10 00:52] VITALS: BMI 15.1
[2022-07-10] MEDS: D5 0.45 NS 1,000 ML IV SCH ×4 (03:48→23:48)
[2022-07-10 05:09] LABS: Absolute Lymphocytes (CBC) 1.4 K/uL (0.7-4.9); Hematocrit 32.2 % (36.0-45.0); Lymphocytes % 36.9 % (15.3-44.8); MCV 82.4 fL (80-100); MPV 7.9 fL (7.6-11.3)
[2022-07-10 05:34] LABS: Thyroid Stimulating Hormone 2.02 uIU/mL (0.358-3.740)
[2022-07-10] MEDS: levETIRAcetam 500 MG in NA CHLORIDE 0.9% 100 ML IV SCH ×2 (08:00→20:41)
[2022-07-10] MEDS: ENOXAPARIN 40 MG/0.4 ML SQ SCH (08:00)
[2022-07-10] MEDS ORDERED: LORazepam 2 MG/ML VIAL IV ONE ×2 (11:30→11:34)
--- NOTE | 2022-07-10 13:00 | RAD REPORT ---
EXAM DESCRIPTION: CT - Head Brain Wo Cont - 07/10/2022 6:52 am CLINICAL HISTORY: The patient is 31 years old and is Female; AMS, seizure TECHNIQUE: Axial computed tomography images of the head/brain without intravenous contrast. Sagitt al and coronal reformatted images were created and reviewed. This CT exam was performed using one o r more of the following dose reduction techniques: automated exposure control, adjustment of the mA and/or kV according to patient size, and/or use of iterative reconstruction technique. COMPARISON: 03/21/2022 CT head without contrast FINDINGS: BRAIN: Small curvilinear calcification within the posterior right periventricular white matter, unchanged. Low lying cerebellar tonsils, left greater than right, unchanged from reference. No extra-axial fluid collection. No intracranial hemorrhage. No transtentorial herniation. No focal fowler-white matter differentiation abnormality. MIDLINE SHIFT: No midline shift. VENTRICLES: Redemonstrated small ventricles and sulci throughout, not significantly changed from r eference exam. BONES/JOINTS: Unremarkable. No fracture of the calvarium or visualized facial bones. SOFT TISSUES: Unremarkable. SINUSES: Unremarkable as visualized. No acute sinusitis. MASTOID AIR CELLS: Unremarkable as visualized. No mastoid effusion. SELLA: "Empty sella" appearance of the sella turcica with thinning of the pituitary parenchyma, un changed from reference. IMPRESSION: 1. No definite acute acute intracranial abnormality. 2. Redemonstrated diffusely small extra-axial spaces as above, not significantly changed from referen ce exam. While this appearance can be within normal limits, diffuse sulcal effacement could have a si milar appearance. Consider further evaluation by brain MRI if not previously performed. 3. Low lying cerebellar tonsils, left greater than right, unchanged from reference. 4. "Empty sella" appearance of the sella turcica with thinning of the pituitary parenchyma, unchang ed from reference. Nonspecific, but in the appropriate clinical setting, this could reflect intracran ial hypertension (such as idiopathic intracranial hypertension). Clinical correlation recommended. Electronically signed by: Ignacio Bourgeois MD 07/10/2022 3:29 AM DRUG COORDINATOR Due to temporary technical issues with the PACS/Fluency reporting system, reports are being signed by the in house radiologists without review as a courtesy to insure prompt reporting. The interpreting radiologist is fully responsible for the content of the report.
--- NOTE | 2022-07-10 13:13 | P.CNS ---
Date of Consult: 07/10/22 Reason for Consult: renal failure Requesting Physician: Nabeel Sweeney Chief Complaint: Fever, AMS, COVID-19 History of Present Illness: 31F w/ PMHx of seizure disorder & hypoglycemia, who p/w fever, seizure, & AMS, found to have covid infxn, lactic acidosis, hypoglycemia, & JOSE CRUZ, admitted for further eval & mngt. She had LP performed for possible ART LIBRARIAN infection. SCr 1.5 n admisison. She received IV fluids. SCr improved to 1.0. She has mild hyponatremia 131. Allergies aspirin Allergy (Verified 03/14/18 16:54) Unknown zolpidem Adverse Reaction (Verified 05/28/17 01:07) Shortness of breath Home Medications: Albuterol Sulfate [Proair Hfa] 2 puff IH Q6HR 03/14/18 Eslicarbazepine Acetate [Aptiom] 800 mg PO DAILY 03/14/18 Montelukast [Singulair*] 10 mg PO DAILY 03/14/18 Ciprofloxacin HCl [Cipro 500 MG Tablet] 500 mg PO BID 10 Days #20 tab 08/23/21 Codeine/APAP [Tylenol #3*] 1 tab PO Q6H PRN 3 Days #12 tab 08/23/21 metroNIDAZOLE [Flagyl] 500 mg PO Q8H 10 Days #30 tablet 08/23/21 - Past Medical/Surgical History Diabetic: No -: Seizure disorder -: History of CVA -: Asthma -: Hypoglycemia -: Psychosocial/ Personal History: Patient is single. She has 2 children. She is disabled due to her seizure disorder. - Family History Father Medical History: Diabetes, Stroke, Other (see notes) - Social History Smoking Status: Unknown if ever smoked Alcohol use: No CD- Drugs: No Caffeine use: Yes Place of Residence: Home Review of Systems is unable to be obtained (d/t AMS) Physical Examination Temp Pulse Resp BP Pulse Ox 99.9 F 97 H 19 98/70 99 07/10/22 12:00 07/10/22 12:00 07/10/22 12:00 07/10/22 12:00 07/10/22 12:00 General: Other (appears acutely ill) HEENT: Atraumatic, Normocephalic Neck: Supple, JVD not distended Respiratory: Other (symmetric chest expansion) Cardiovascular: No rubs, No murmurs Gastrointestinal: Soft and benign, No guarding Musculoskeletal: No clubbing Integumentary: No warmth Neurological: Other (no new focal deficits noted) Urinary: Other (no bladder distention) External genitalia: Deferred Rectal: Deferred Laboratory Data (last 24 hrs) 07/10/22 04:26: Sodium 131 L, Potassium 4.0, BUN 9, Creatinine 0.99, Glucose 72 L 07/10/22 04:26: WBC 3.80 L, Hgb 10.8 L, Hct 32.2 L, Plt Count 151 L Conclusions/Impression: # JOSE CRUZ 2/2 prerenal state SCr 1.5 on adm, improved to 1.0 Cont IV hydration # Metabolic encephalopathy likely 2/2 seizure in post-ictal state, r/o ART LIBRARIAN infxn/covid encephalopathy Hx of febrile seizures S/p lumbar tap, f/u fluid analysis Per other services # Hyponatremia Mild, monitor # Hypoglycemia Dextrose IV prn
--- NOTE | 2022-07-10 13:18 | RAD REPORT ---
EXAM DESCRIPTION: MRI - Brain Wo Cont - 07/10/2022 12:43 pm CLINICAL HISTORY: ABN ct, ams, seizure COMPARISON: Head CT of the same day at 2:39 a.m.. Brain MRI exams were 04/2018 at 15:18 TECHNIQUE: Multiplanar multisequence MRI of the brain performed without IV contrast. FINDINGS: Ectopia of the cerebellar tonsils, extending approximately 6 millimeter below the level of the foramen magnum, stable. No evidence of acute territorial infarct. Subtle small focus of diffusion restriction with corresponding low ADC signal at the midline of the s plenium corpus callosum. Of note, a similar lesion was seen in May 2012, at which time the lesion was more pronounced in extent. No evidence of acute intracranial hemorrhage or abnormal extra-axial fluid collections. Ventricular caliber within normal for age. Partially empty sella is again noted, nonspecific. White matter signal is unremarkable. No mass effect or midline shift. Major vascular flow voids are preserved. Mastoid air cells and paranasal sinuses are clear. IMPRESSION: Subtle focus of diffusion restriction at the midline of the corpus callosum splenium. A similar but more sizable focus was seen transiently in 2018. 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 Please correlate with such history. Alternatively, these lesions can be seen in the setting of toxic/ metabolic abnormalities, with other causes including infections and subarachnoid hemorrhage c onsider less likely. No evidence of acute intracranial hemorrhage or acute territorial infarct. Other stable findings including mild insular ectopia, which may reflect stigmata of Chiari 1 malforma tion, and finding of empty sella.
--- NOTE | 2022-07-10 16:03 | EKG ---
Test Date: 2022-07-09 Test Time: 10:52:45 Psychiatric Assistant: OLIVIA MEASUREMENT RESULTS: Intervals: Rate: 85 WI: 176 QRSD: 82 QT: 350 QTc: 416 Fenton: P: 93 WI: 176 QRS: 91 T: 91 INTERPRETIVE STATEMENTS: Suspect arm lead reversal, interpretation assumes no reversal Normal sinus rhythm Rightward axis Nonspecific ST and T wave abnormality Abnormal ECG Compared to ECG 03/21/2022 13:05:46 Right-axis deviation now present Sinus tachycardia no longer present ST (T wave) deviation still present Electronically Signed On 07-10-22 16:00:45 SMASH HAND by Cachorro Black
[2022-07-10] MEDS ORDERED: CEFTRIAXONE 1,000 MG in NA CHLORIDE 0.9% 50 ML IVPB ONE (16:08)
--- NOTE | 2022-07-10 17:29 | P.PN ---
Date of Service: 07/10/22 Subjective: Remains confused, crying out at times speaks clearly but unable to have any purposeful conversation ROS: 10 point ROS unable to be accurately obtained Physical exam GEN: awake, not wanting to answer questions HEENT: Normal conjunctiva, sclera anicteric CV: Regular rate and rhythm, no edema Pulm: Nonlabored respirations on room air ABD: Soft, nondistended, no obvious tenderness; but exam limited due to patient yelling out when touched anywhere Integumentary: No rashes Neuro: Normal speech, abnormal affect, moves all extremities Problem List Metabolic encephalopathy secondary to post-ictal state; possibly COVID-19 Seizure, h/o seizure disorder; not on medications h/o febrile seizures Hypoglycemia similar presentation a few years ago, transferred to [facility], concern for MELAS; MRI spectroscopy, MRI, MRA done; ruled out MRI here this hospitalization notes less pronounced signal, in same area as before discussed with Dr. Peng, suspect fever could be metabolic/auto-immune / secondary to covid lowering seizure threshold patient off meds for many years - cost and side-effect continue alina reports he started with URI symptoms, then she began to exhibit same symptoms, followed by seizure add rocephin suspected seizure with underlying seizure disorder EEG ordered, monitor for seizures. alina Rule out meningitis LP performed, fluid clear, follow results. Suspect metabolic encephalopathy related to COVID-19 at this time. discussed with neuro, doubt bacterial etiology, can hold off on acyclovir as well Hypoglycemia Continue dextrose containing IV fluids, monitor glucose.
[2022-07-10 21:34] VITALS: O2SAT 94
[2022-07-11] MEDS ORDERED: SODIUM CHL 0.9% 1000 ML BAG IV ONE (00:21)
[2022-07-11] MEDS ORDERED: NA CHLORIDE 0.9% 1,000 ML IV ONE ×2 (01:00→05:44)
[2022-07-11] MEDS: D5 0.45 NS 1,000 ML IV SCH ×2 (06:28→14:36)
[2022-07-11 08:44] LABS: Absolute Lymphocytes (CBC) 1.7 K/uL (0.7-4.9); Hematocrit 27.8 % (36.0-45.0); Lymphocytes % 37.8 % (15.3-44.8); MCV 82.3 fL (80-100); MPV 7.9 fL (7.6-11.3); RBC Red Blood Cell Count 3.38 M/uL (3.86-4.86)
[2022-07-11] MEDS ORDERED: CEFTRIAXONE 1,000 MG in NA CHLORIDE 0.9% 50 ML IVPB SCH (09:00)
[2022-07-11] MEDS: levETIRAcetam 500 MG in NA CHLORIDE 0.9% 100 ML IV SCH (09:00)
[2022-07-11] MEDS: ENOXAPARIN 40 MG/0.4 ML SQ SCH (09:00)
[2022-07-11 09:12] LABS: Potassium 3.6 mmol/L (3.5-5.1)
[2022-07-11 11:43] LABS: Barbiturates NEGATIVE (NEGATIVE); Benzodiazepines NEGATIVE (NEGATIVE); Cocaine NEGATIVE (NEGATIVE); METHAMPHETAM NEGATIVE (NEGATIVE); Methadone NEGATIVE (NEGATIVE); Opiates NEGATIVE (NEGATIVE); Phencyclidine NEGATIVE (NEGATIVE); THC Cannibis POSITIVE (NEGATIVE)
[2022-07-11 11:48] LABS: Specific Gravity 1.008 (1.005-1.030); Urine Bacteria None Seen /HPF (<20); Urine Bilirubin NEGATIVE (Negative); Urine Blood Trace (Negative); Urine Clarity Clear (Clear); Urine Color Colorless (Yellow); Urine Glucose NEGATIVE (Negative); Urine Mucus Slight /HPF (None Seen); Urine Protein NEGATIVE (Negative); Urine RBC <5 /HPF (None Seen); Urine Urobilinogen Normal (Normal); Urine pH 5.5 (5.0-7.0)
[2022-07-11] MEDS ORDERED: INFLUENZA VACCINE (for 6+ mo) 0.5 ML DOSE IMVAC ONE (12:00)
[2022-07-11] MEDS ORDERED: ACETAMINOPHEN 325 MG TABLET PO PRN (12:22)
--- NOTE | 2022-07-11 15:42 | P.PN ---
Subjective Date of Service: 07/11/22 Chief Complaint: Fever, AMS, COVID-19 Subjective: No new changes Physical Examination - Vital Signs Temperature: 101.0 F Blood Pressure: 96/60 Pulse: 89 Respirations: 18 Pulse Ox (%): 100 - Physical Exam General: In no apparent distress HEENT: Atraumatic, Normocephalic Neck: Supple Respiratory: Other (symmetric chest expansion) Cardiovascular: No rubs, No murmurs Gastrointestinal: Soft and benign, No guarding Musculoskeletal: No clubbing Integumentary: No warmth Neurological: Normal speech, Normal tone Urinary: Other (no bladder distention) External genitalia: Deferred Rectal: Deferred - Studies Microbiology Data (last 24 hrs): 07/09/22 12:00 Blood - Blood Anaerobic Blood Culture - Final Assessment And Plan - Plan # JOSE CRUZ 2/2 prerenal state SCr 1.5 on adm, improved to 0.9 IV/PO hydration # Metabolic encephalopathy likely 2/2 seizure in post-ictal state, r/o DISTRICT SALES REPRESENTATIVE infxn /covid encephalopathy Improved Hx of febrile seizures S/p lumbar tap, f/u fluid analysis Per other services # Hyponatremia Mild, monitor # Acidosis Monitor # Hypoglycemia Dextrose IV prn
--- NOTE | 2022-07-11 16:49 | P.PN ---
Date of Service: 07/11/22 Subjective: refused IV overnight hypotensive, asymptomatic refused 2nd liter of IV fluid bolus; only received 1L more alert this morning, does not remember yesterday wanting to go home reports R hip pain (chronic), having some tenderness of R lower rib area, some R inguinal pain with hip denies dysuria, no nausea/vomiting, no vision changes ROS: 10 point ROS as noted above, otherwise negative Physical exam GEN: awake, oriented x3 HEENT: Normal conjunctiva, sclera anicteric, EOMI, PERRL CV: Regular rate and rhythm, no edema Pulm: Nonlabored respirations on room air ABD: Soft, nondistended, R inguinal tenderness MSK: Tender along postero-lateral lower rib edge Integumentary: No rashes Neuro: Normal speech, abnormal affect, moves all extremities Problem List Metabolic encephalopathy secondary to post-ictal state; possibly COVID-19 viral sepsis, secondary to COVID-19 Seizure, h/o seizure disorder; not on medications h/o febrile seizures Hypoglycemia similar presentation a few years ago, transferred to [facility], concern for MELAS; MRI spectroscopy, MRI, MRA done; ruled out MRI here this hospitalization notes less pronounced signal, in same area as before discussed with Dr. Peng, suspect fever could be metabolic/auto-immune / secondary to covid lowering seizure threshold patient off meds for many years - cost and side-effect continue [email or web address] reports he started with URI symptoms, then she began to exhibit same symptoms, followed by seizure add rocephin empirically denies UTI symptoms, agreeable to give urine sample R inguinal pain - unclear if acute or chronic with her chronic hip pain she attributes hip pain to constantly laying on her right side / from pressure amenorrhea - "a long time" since she has had her period unclear etiology, ?nutrition/underweight R groin pain; CT needs f/u with [employer] suspected seizure with underlying seizure disorder EEG ordered, monitor for seizures. alina Rule out meningitis LP performed, fluid clear, follow results. Suspect metabolic encephalopathy related to COVID-19 at this time. discussed with neuro, doubt bacterial etiology, can hold off on acyclovir as well Hypoglycemia Continue dextrose containing IV fluids, monitor glucose. Code: full Dispo: home, ~2 days
--- NOTE | 2022-07-11 19:08 | RAD REPORT ---
EXAM DESCRIPTION: CTChest Abdomen Pelvis W Cont - 07/11/2022 6:42 pm CLINICAL HISTORY: covid, R postero-lateral chest pain, R groin pain COMPARISON: No comparisons TECHNIQUE: CT of the chest, abdomen, and pelvis was performed. All CT scans are performed using dose optimization technique as appropriate and may include automated exposure control or mA/KV adjustment according to patient size. FINDINGS: Thorax: Chest Wall: No abnormal mass Lungs: No acute abnormality. Pleura: No effusions or pneumothorax. Antoinette/Mediastinum: No lymphadenopathy. Aorta/Pulmonary Arteries: Unremarkable Heart: Normal size. Small pericardial effusion. Abdomen/Pelvis: Liver: No acute abnormality or suspicious lesions. Biliary: Mild pericholecystic fluid. Stomach: No significant focal abnormality. Duodenum: No significant focal abnormality. Pancreas: No significant abnormality. Spleen: No significant abnormality. Adrenal: No suspicious lesions. Kidney/ureter: No hydronephrosis. No renal calculi. Retroperitoneum: No retroperitoneal adenopathy. Vascular: No aneurysm. Bowel: Appendectomy.. No bowel obstruction. Peritoneum: Small volume of pelvic free fluid. Bladder: Circumferential bladder wall thickening. Reproductive: No adnexal masses. Bones: No acute fracture. Other: n/a IMPRESSION: 1. Nonspecific pericholecystic fluid. Correlate with LFTs. Concern for acute cholecystit is, could consider right upper quadrant ultrasound. 2. No acute findings within the chest.
--- NOTE | 2022-07-11 20:51 | P.DS ---
Admission Date: 07/10/22 Discharge Date: 07/11/22 Disposition: AMA-LEFT AGAINST MEDICAL ADVIC Discharge Condition: FAIR Reason for Admission: Fever, AMS, COVID-19 Procedures: CT head 07/09/2022 FINDINGS: BRAIN: Small curvilinear calcification within the posterior right periventricular white matter, unchanged. Low lying cerebellar tonsils, left greater than right, unchanged from reference. No extra-axial fluid collection. No intracranial hemorrhage. No transtentorial herniation. No focal fowler-white matter differentiation abnormality. MIDLINE SHIFT: No midline shift. VENTRICLES: Redemonstrated small ventricles and sulci throughout, not significantly changed from reference exam. BONES/JOINTS: Unremarkable. No fracture of the calvarium or visualized facial bones. SOFT TISSUES: Unremarkable. SINUSES: Unremarkable as visualized. No acute sinusitis. MASTOID AIR CELLS: Unremarkable as visualized. No mastoid effusion. SELLA: "Empty sella" appearance of the sella turcica with thinning of the pituitary parenchyma, unchanged from reference. IMPRESSION: 1. No definite acute acute intracranial abnormality. 2. Redemonstrated diffusely small extra-axial spaces as above, not significantly changed from reference exam. While this appearance can be within normal limits, diffuse sulcal effacement could have a similar appearance. Consider further evaluation by brain MRI if not previously performed. 3. Low lying cerebellar tonsils, left greater than right, unchanged from reference. 4. "Empty sella" appearance of the sella turcica with thinning of the pituitary parenchyma, unchanged from reference. Nonspecific, but in the appropriate clinical setting, this could reflect intracranial hypertension (such as idiopathic intracranial hypertension). Clinical correlation recommended. MRI brain 07/10/2022 FINDINGS: Ectopia of the cerebellar tonsils, extending approximately 6 millimeter below the level of the foramen magnum, stable. No evidence of acute territorial infarct. Subtle small focus of diffusion restriction with corresponding low ADC signal at the midline of the splenium corpus callosum. Of note, a similar lesion was seen in May 2012, at which time the lesion was more pronounced in extent. No evidence of acute intracranial hemorrhage or abnormal extra-axial fluid collections. Ventricular caliber within normal for age. Partially empty sella is again noted, nonspecific. White matter signal is unremarkable. No mass effect or midline shift. Major vascular flow voids are preserved. Mastoid air cells and paranasal sinuses are clear. IMPRESSION: Subtle focus of diffusion restriction at the midline of the corpus callosum splenium. A similar but more sizable focus was seen transiently in 2018. Given the presentation and history of seizures, the finding is most suggestive of a cytotoxic lesion of the corpus callosum, a finding that can be related to the recent seizure episode, or to ongoing, or recently stopped anti epileptic medications. Please correlate with such history. Alternatively, these lesions can be seen in the setting of toxic/ metabolic abnormalities, with other causes including infections and subarachnoid hemorrhage consider less likely. No evidence of acute intracranial hemorrhage or acute territorial infarct. Other stable findings including mild insular ectopia, which may reflect stigmata of Chiari 1 malformation, and finding of empty sella. CT chest abdomen pelvis 07/11/2022 FINDINGS: Thorax: Chest Wall: No abnormal mass Lungs: No acute abnormality. Pleura: No effusions or pneumothorax. Antoinette/Mediastinum: No lymphadenopathy. Aorta/Pulmonary Arteries: Unremarkable Heart: Normal size. Small pericardial effusion. Abdomen/Pelvis: Liver: No acute abnormality or suspicious lesions. Biliary: Mild pericholecystic fluid. Stomach: No significant focal abnormality. Duodenum: No significant focal abnormality. Pancreas: No significant abnormality. Spleen: No significant abnormality. Adrenal: No suspicious lesions. Kidney/ureter: No hydronephrosis. No renal calculi. Retroperitoneum: No retroperitoneal adenopathy. Vascular: No aneurysm. Bowel: Appendectomy.. No bowel obstruction. Peritoneum: Small volume of pelvic free fluid. Bladder: Circumferential bladder wall thickening. Reproductive: No adnexal masses. Bones: No acute fracture. Other: n/a IMPRESSION: 1. Nonspecific pericholecystic fluid. Correlate with LFTs. Concern for acute cholecystitis, could consider right upper quadrant ultrasound. 2. No acute findings within the chest. Brief History of Present Illness: 31-year-old female with history of seizure disorder, hypoglycemia, noncompliance presents to the emergency department for fever, seizure, altered mental status. Her reported that she had a seizure at home he describes as "shaking activity". He was not at bedside any longer for me to further delineate what he saw in regards to her seizure at home. She was evaluated in the emergency department her labs were significant for normal white blood cell count sodium 134 creatinine 1.5 initial lactic acid 2.6 down to 1.8 after IV fluids glucose initially 63 down to 55 despite D10 bolus, patient now on D5 half NS continuous. Patient did test positive for COVID, reportedly has been told nursing staff that patient had a previous bout with COVID with very similar symptoms including altered mental status requiring hospitalization at [facility]. Given fever, seizure, altered mental status LP was performed in ED, fluid was clear, pending further analysis. Suspect patient's fevers related to COVID as well as her other symptoms. She will be admitted under observation for AMS, fever, COVID-19. Hospital Course: Patient was admitted with altered mental status, fever, suspected seizure. She was started on IV Keppra which she responded very well to. No other source of infection aside from COVID-19 viral illness has been identified thus far. At this time patient is keenly alert, coherent, oriented x4 and wishes to leave the hospital AGAINST MEDICAL ADVICE. Had prolonged discussion with patient she reports she has been having seizures since the age of 3 [address] Fleming neurology. She reports she is been unable to afford her Keppra as it is reportedly $1000 a month without insurance. Patient was informed that with good Rx card she can have significant discount and may be able to get her medication for as cheapest $12 a month from local pharmacy. She was provided with good Rx card and prescription was sent to pharmacy. She was instructed to follow-up with her neurologist in approximately 1 week which she agreed with. Strict return precautions were given. She was counseled on the risk of leaving AGAINST MEDICAL ADVICE including further seizures, other complications which may result in . Her will be driving her home, she was counseled not to drive for any reason at any time. AMA papers signed. Vital Signs/Physical Exam: Temp Pulse Resp BP Pulse Ox 100.1 F 82 16 89/59 L 100 07/11/22 16:00 07/11/22 16:00 07/11/22 16:00 07/11/22 16:00 07/11/22 16:00 Laboratory Data at Discharge: WBC 4.60 K/uL (4.3-10.9) 07/11/22 08:33 Hgb 9.4 g/dL (12.0-15.0) L 07/11/22 08:33 Hct 27.8 % (36.0-45.0) L 07/11/22 08:33 Plt Count 123 K/uL (152-406) L 07/11/22 08:33 Sodium 135 mmol/L (136-145) L 07/11/22 08:33 Potassium 3.6 mmol/L (3.5-5.1) 07/11/22 08:33 BUN 6 mg/dL (7-18) L 07/11/22 08:33 Creatinine 0.92 mg/dL (0.55-1.02) 07/11/22 08:33 Glucose 51 mg/dL (74-106) L 07/11/22 08:33 Total Bilirubin 0.7 mg/dL (0.2-1.0) 07/09/22 12:06 AST 36 U/L (15-37) 07/09/22 12:06 ALT 19 U/L (13-56) 07/09/22 12:06 Alkaline Phosphatase 65 U/L (45-117) 07/09/22 12:06 Home Medications: Albuterol Sulfate [Proair Hfa] 2 puff IH Q6HR 03/14/18 Eslicarbazepine Acetate [Aptiom] 800 mg PO DAILY 03/14/18 Montelukast [Singulair*] 10 mg PO DAILY 03/14/18 Ciprofloxacin HCl [Cipro 500 MG Tablet] 500 mg PO BID 10 Days #20 tab 08/23/21 Codeine/APAP [Tylenol #3*] 1 tab PO Q6H PRN 3 Days #12 tab 08/23/21 metroNIDAZOLE [Flagyl] 500 mg PO Q8H 10 Days #30 tablet 08/23/21 levETIRAcetam [Keppra Tab] 500 mg PO BID #30 tab 07/11/22 New Medications: levETIRAcetam [Keppra Tab] 500 mg PO BID #30 tab Diet: Regular Activity: Ad nona Followup: Jeovany Fleming MD [ACTIVE - CAN ADMIT] - 1 Week Unknown,U [Primary Care Provider] -
[2022-07-11] MEDS ORDERED: levETIRAcetam 500 MG TAB PO SCH (21:00)
[2022-07-12 06:14] VITALS: BP 96/60; TEMP 101
--- NOTE | 2022-07-17 09:39 | EEG ---
CHART: [id number] TEST ID#: [id number] DATE OF STUDY: 07-10-2022 THE EEG WAS RECORDED [place] IN THE PATIENT'S ROOM ON A 17 CHANNEL MACHINE. ELECTRODES WERE APPLIED IN THE USUAL MANNER USING THE INTERNATIONAL 10-20 SYSTEM. THE WAKING BACKGROUND RHYTHM IN THIS RECORD CONSISTS OF FAIRLY WELL DEVELOPED AND FAIRLY WELL ORGANIZED WAVES OF 8.5 HZ., MAXIMAL IN THE POSTERIOR HEAD REGIONS WHICH ATTENUATE NORMALLY WITH EYE OPENING. THE PATIENT WAS SEDATED PRIOR TO THE EEG AND WA ONLY AWAKE FOR ABOUT 30 SECONDS. THERE ARE NO FOCAL OR LATERALIZING FEATURES. NO EPILEPTIFORM ACTIVITY APPEARS. SLEEP OCCURRED NATURALLY. IN ADDITION NORMAL SLEEP PATTERNS ARE PRESENT. HYPERVENTILATION WAS NOT PERFORMED. PHOTIC STIMULATION PRODUCED NO DRIVING BILATERALLY. IMPRESSION: NORMAL EEG FOR THE AGE OF THE PATIENT IN [place], DROWSINESS AND SLEEP.
== END 2022-07-11 20:00 | disposition left against medical advice (07) | DRG 871 ==
LOC: ER 10:40 → ERHOLD 18:53 → 4TH 20:05 → OBSVTOIN 07-10 12:51 → 2ND 07-11 17:57
PROVIDERS: ADMIT Hospitalist; ATTEND Hospitalist
PROC: 009U3ZX Drainage of Spinal Canal, Percutaneous Approach, Diagnostic (ICD-10-PCS; principal; 2022-07-10)
DX: A41.89 Other specified sepsis (principal); U07.1 COVID-19; E87.20 Acidosis, unspecified; N17.9 Acute kidney failure, unspecified; E87.1 Hypo-osmolality and hyponatremia; E86.0 Dehydration; G40.909 Epilepsy, unspecified, not intractable, without status epilepticus; R73.9 Hyperglycemia, unspecified; Z78.1 Physical restraint status; Z88.6 Allergy status to analgesic agent; Z88.8 Allergy status to other drugs, medicaments and biological substances; Z53.29 Procedure and treatment not carried out because of patient's decision for other reasons; Z86.16 Personal history of COVID-19; Z86.73 Personal history of transient ischemic attack (TIA), and cerebral infarction without residual deficits; Z79.899 Other long term (current) drug therapy; Z91.199 Patient's noncompliance with other medical treatment and regimen due to unspecified reason
CPT/HCPCS: 0240U; 36415; 62270; 70450; 70551; 71260; 74177; 80048; 80053; 80307; 81001; 82550; 82945; 82947; 83605; 84145; 84157; 84439; 84443; 84703; 85025; 87040; 87070; 89050; 93005; 95819; 96361; 96374; 99285; G0378; J1650; J1953; J7030; J7799; Q9967

== ENCOUNTER 2025-03-20 22:07 | Emergency (ER) | payer SELFPAY ==
--- NOTE | 2025-03-20 22:23 | EDPHYS ---
Physician Documentation [facility] Name: Alyssa García Age: 34 yrs Sex: Female : 1990 Arrival Date: 03/20/2025 Time: 22:07 Bed IW1 Private MD: ED Physician Darwin Salinas HPI: 03/20 22:51 This 34 yrs old Black Female presents to ER via Ambulatory with complaints of swallowed kb marijuana. 22:51 Pt is a 34 year old female who presents for possible ingestion of marijuana. STates she kb was smoking it and thinks she either inhaled a piece or swallowed a piece, but she isn't sure. Reports irritation in throat. Denies shortness of breath. Historical: - Allergies: 22:20 ambien; br2 - PMHx: 22:20 Anemia; Asthma; CVA; HYPOGLYCEMIA; Seizures; br2 - Immunization history:: Adult Immunizations not up to date. - Infectious Disease History:: Denies. - Social history:: Smoking status: Patient denies any tobacco usage or history of. Patient uses street drugs, marijuana, Patient/guardian denies using alcohol. ROS: 22:51 Constitutional: As per HPI kb Exam: 22:51 Constitutional: This is a well developed, well nourished patient who is awake, alert, kb and in no acute distress. Head/Face: Normocephalic, atraumatic. ENT: Moist Mucous membranes Cardiovascular: Regular rate Respiratory: Respirations even and unlabored. No increased work of breathing. Talking in full sentences Abdomen/GI: Soft, non-tender. No distention Skin: Warm, dry with normal turgor. Normal color. MS/ Extremity: Pulses equal, no cyanosis. Neurovascular intact. Full, normal range of motion. Neuro: Awake and alert, GCS 15, oriented to person, place, time, and situation. Vital Signs: 22:17 BP 111 / 77; Pulse 78; Resp 18; Temp 97.2; Pulse Ox 100% ; Weight 46.27 kg; Height 5 br2 ft. 2 in. ; Pain 0/10; 22:17 Body Mass Index 18.66 (46.27 kg, 157.48 cm) br2 22:17 Pain Scale: Adult br2 MDM: 22:15 Medical Screening Exam initiated kb 22:52 Differential diagnosis: swallowed fb, fb in esophagus, aspiration. Data reviewed: vital kb signs, nurses notes. Test considered but Not performed: X-ray: Chest x-ray considered but lungs clear bilaterally, respirations even and unlabored, oxygen saturation 100% on room air. Counseling: I had a detailed discussion with the patient and/or guardian regarding the historical points, exam findings, and any diagnostic results supporting the discharge/admit diagnosis, the need for outpatient follow up, a family practitioner, to return to the emergency department if symptoms worsen or persist or if there are any questions or concerns that arise at home. Administered Medications: No medications were administered Disposition Summary: 03/20/25 22:22 Discharge Ordered Notes: Location: Home kb Condition: Stable kb Diagnosis - Drug use kb Followup: kb - With: Emergency Department - When: As needed - Reason: Worsening of condition Followup: kb - With: Private Physician - When: 2 - 3 days - Reason: Recheck today's complaints, Continuance of care, Re-evaluation by your physician Discharge Instructions: - Discharge Summary Sheet kb - Illegal Drug Use Information, Adult kb Forms: - Medication Reconciliation Form kb - Antibiotic Education kb - Prescription Opioid Use kb - Patient Portal Instructions kb - Leadership Thank You Letter kb Addendum: 03/21/2025 22:47 Co-signature as Attending Physician, Darwin Salinas MD I agree with the assessment s p4 and plan of care. I reviewed the patient's care provided by Advanced Practice Provider \T\ agree w/ the diagnosis \T\ care plan. I personally saw the pt \T\ performed a substan tive portion of the visit, incldng all aspects of the (History/Exam/Medical Decision Making). Signatures: Keke Bain, MINI LAB OPERATOR-C JULIA-Darwin Plascencia MD MD sp4 Magy Hua, RN RN br2
--- NOTE | 2025-03-20 22:23 | ER ---
Nurse's Notes [facility] Name: Alyssa García Age: 34 yrs Sex: Female : 1990 Arrival Date: 03/20/2025 Time: 22:07 Bed IW1 Private MD: Diagnosis: Drug use Presentation: 03/20 22:17 Chief complaint: Patient states: FEELS LIKE MARIJUANA IS STUCK IN HER THROAT. br2 Coronavirus screen: Client denies travel out of the [place] in the last 14 days. Ebola Screen: Patient denies exposure to infectious person. Initial Sepsis Screen: Does the patient meet any 2 criteria? No. Patient's initial sepsis screen is negative. Does the patient have a suspected source of infection? No. Patient's initial sepsis screen is negative. Risk Assessment: Do you want to hurt yourself or someone else? Patient reports no desire to harm self or others. Onset of symptoms was March 20, 2025 at 21:30. 22:17 Method Of Arrival: Ambulatory br2 22:17 Acuity: RUSLAN 5 br2 Triage Assessment: 22:20 General: Appears in no apparent distress. comfortable, Behavior is calm, cooperative. br2 Pain: Denies pain. 22:25 Respiratory: Reports cough that is hacking, Denies shortness of breath. br2 22:25 Respiratory: Airway is patent Respiratory effort is even, unlabored, Respiratory br2 pattern is regular, symmetrical, Breath sounds are clear. Historical: - Allergies: 22:20 ambien; br2 - PMHx: 22:20 Anemia; Asthma; CVA; HYPOGLYCEMIA; Seizures; br2 - Immunization history:: Adult Immunizations not up to date. - Infectious Disease History:: Denies. - Social history:: Smoking status: Patient denies any tobacco usage or history of. Patient uses street drugs, marijuana, Patient/guardian denies using alcohol. Assessment: 22:26 Reassessment: +SEE TRIAGE NOTES. br2 Vital Signs: 22:17 BP 111 / 77; Pulse 78; Resp 18; Temp 97.2; Pulse Ox 100% ; Weight 46.27 kg; Height 5 br2 ft. 2 in. ; Pain 0/10; 22:17 Body Mass Index 18.66 (46.27 kg, 157.48 cm) br2 22:17 Pain Scale: Adult br2 ED Course: 22:13 Patient arrived in ED. im 22:15 Keke Bain FNP-C is PHCP. kb 22:15 Darwin Salinas MD is Attending Physician. kb 22:20 Triage completed. br2 22:20 Arm band placed on right wrist. br2 22:26 No provider procedures requiring assistance completed. Patient did not have IV access br2 during this emergency room visit. Administered Medications: No medications were administered Outcome: : Discharge ordered by . kb 22:26 Discharged to home ambulatory, br2 22:26 Condition: stable 22:26 Discharge instructions given to patient, Instructed on discharge instructions, Demonstrated understanding of instructions, 22:27 Patient left the ED. br2 Signatures: Keke Bain FNP-C [employer] TECHNICIAN-Rosie Gonzalez Magy Hua, RN RN br2
[2025-03-21 05:13] VITALS: BP 111/77; TEMP 97.2; O2SAT 100
== END 2025-03-20 22:27 | disposition home or self-care (01) ==
LOC: ER 22:07
DX: F12.90 Cannabis use, unspecified, uncomplicated (principal)
CPT/HCPCS: 99282